=== PATIENT | male | born 1930 | race Caucasian/White ===

== ENCOUNTER 2016-07-26 16:03 | Emergency (ER) | payer MEDICARE ==
[~2016-07-26 16:03] MED LIST: /ADVA50050 IN; /ESOM40CA OR; ASPI325T OR; CARD4TAB2 OR; COMBVENT INH; FURO20TA2 OR; LISI10TA4 OR; LISI40TA OR; METF500T4 OR; PRED10TA2 OR; PRED20TA OR; PRED5TAB OR; PROS5TAB OR; ZOCO10TA OR
--- NOTE | 2016-07-26 18:20 | REP ---
Portable chest, single AP view, the patient semi upright: Comparison is 04/25/2010. The right costophrenic angle is excluded at the film margin. The lung barnett are clear. Cardiac size is normal. The rosa maria, mediastinum, bony thorax are unremarkable. Impression: No acute cardiopulmonary findings. Signed by Keny Diaz MD 07/26/2016 06:11 P
[2016-07-26 18:43] LABS: BASO % 0.2 % (0.0-1.0); EOS # 0.2 K/mm3 (0.0-0.50); EOS % 2.5 % (0.0-3.0); LARGE UNSTAINED CELL # 0.1 K/mm3 (0.0-0.4); LARGE UNSTAINED CELL % 1.3 % (0.0-4.0); LYMPH # 1.1 K/mm3 (1.5-4.5); LYMPH % 11.8 % (24.0-44.0); MEAN CORPUSCULAR HEMOGLOBIN 28.7 pg (27.0-33.0); MEAN CORPUSCULAR HGB CONC 32.6 g/dl (32.0-36.5); MEAN CORPUSCULAR VOLUME 88.1 fl (80.0-96.0); MONO # 0.5 K/mm3 (0.0-0.8); NEUTROPHILS # 7.7 K/mm3 (1.8-7.7); NEUTROPHILS % 79.2 % (36.0-66.0); PLATELET COUNT, AUTOMATED 294 k/mm3 (150-450); RED CELL DISTRIBUTION WIDTH 14.1 % (11.5-14.5); WHITE BLOOD COUNT 9.7 K/mm3 (4.0-10.0)
[2016-07-26 19:01] LABS: ANION GAP 10 MEQ/L (8-16); BLOOD UREA NITROGEN 20 MG/DL (7-18); CALCIUM LEVEL 8.7 MG/DL (8.8-10.2); CARBON DIOXIDE LEVEL 26 MEQ/L (21-32); CHLORIDE LEVEL 109 MEQ/L (98-107); CREATININE FOR GFR 1.08 MG/DL (0.70-1.30); GLOMERULAR FILTRATION RATE > 60.0 (>35); GLUCOSE, FASTING 153 MG/DL (83-110); POTASSIUM SERUM 4.1 MEQ/L (3.5-5.1); SODIUM LEVEL 145 MEQ/L (136-145)
--- NOTE | 2016-07-26 20:00 | REPUSA ---
CLINICAL HISTORY: Dizzy TECHNIQUE: Multiple axial CT images were obtained through the brain without IV contrast material. COMMENTS: There is normal configuration of sella turcica. There are no intra or extra-axial collections. There is no mass effect or midline shift. There is no evidence of hematoma formation. No hydrocephalus is p resent. The ventricles are symmetrical. No abnormal calcifications are present. There is diffuse age-appropriate cerebellar and cerebral atrophy with proportionally dilated ventricl es and cortical sulci. There are bilateral periventricular and subcortical white matter hypolucencies compatible with mild c hronic microvascular disease. Otherwise, no significant focal abnormalities are seen either in the posterior fossa or supratentoria l compartment. IMPRESSION: 1. 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 2. Mild chronic microvascular disease. 3. No evidence of acute intracranial pathology. Thank you for your kind referral of this patient.
[2016-07-26] MEDS ORDERED: MECLIZINE 12.5 MG TAB As Ordered ONE (21:39)
[2016-07-26] MEDS ORDERED: ONDANSETRON 4 MG TAB (S0181) As Ordered ONE (21:39)
--- NOTE | 2016-07-26 22:02 | EDDOCDS ---
Physician Documentation [facility] Name: Dereje Bennett Age: 86 yrs Sex: Male : 1930 Arrival Date: 07/26/2016 Time: 16:03 Bed 12 Private MD: Mariah Chen V Disposition: 07/26/16 21:38 Discharged to Home/Self Care. Impression: Dizziness and giddiness, Weakness. - Condition is Stable. - Discharge Instructions: Dizziness, Weakness. - Prescriptions for Meclizine 25 mg Oral Tablet - take 1 tablet by ORAL route every 8 hours As needed; 15 tablet. - Medication Reconciliation, Local Pharmacy Hours form. - Follow up: Mariah Chen; When: Call to arrange an appointment; Reason: Continuance of care. - Problem is new. - Symptoms have improved. Historical: - Allergies: No known drug Allergies; - Home Meds: 1. atorvastatin 20 mg oral tab 1 tab once daily 2. lisinopril 40 mg Oral tab 1 tab once daily 3. finasteride 5 mg oral tab 1 tab once daily 4. aspirin 81 mg Oral tab 1 tab once daily 5. amlodipine 5 mg Oral tab 1 tab once daily 6. metformin 500 mg Oral tab three times a day 7. clopidogrel 75 mg oral tab 1 tab once daily - PMHx: CVA; Hypertension; Hypercholesterolemia; Diabetes - NIDDM: controlled; Kidney stones; - PSHx: Appendectomy; Cholecystectomy; Cataract Surgery- Right; - Social history: Smoking status: Patient states former smoker of tobacco. No barriers to communication noted, The patient speaks fluent Nauruan, Speaks appropriately for age. - Family history: Not pertinent. - : The pt / caregiver states he / she is on anticoagulants: Plavix. Home medication list is obtained from the patient, family members, pill bottles. - Exposure Risk Screening:: None identified. Vital Signs: 07/26 16:05 BP 169 / 79 RA Sitting (auto/reg); Pulse 81 RA; Resp 18 S; Temp 97.0(O); Pulse Ox 94% mt4 on R/A; Weight 99.34 kg / 219.01 lbs (R); Height 5 ft. 10 in. (177.80 cm) (R); Pain 0/10; 18:29 BP 174 / 83 (auto/); bcj 18:29 Pulse 80 MON; Pulse Ox 95% ; bcj 18:34 Pulse 82 MON; Pulse Ox 95% ; bcj 18:34 BP 159 / 81 (auto/); bcj 18:35 BP 161 / 93 (auto/); bcj 18:35 Pulse 82 MON; Pulse Ox 94% ; bcj 19:22 BP 194 / 93 (auto/); mlc 19:22 Pulse Ox 96% ; mlc 19:25 BP 167 / 100 (auto/); mlc 19:25 Pulse 80 MON; Pulse Ox 95% ; mlc 19:54 Pulse 84 MON; Pulse Ox 94% ; mlc 20:34 BP 134 / 90 (auto/); mlc 21:04 Pulse 84 MON; Pulse Ox 93% ; mlc 21:04 BP 143 / 89 (auto/); mlc 21:34 Pulse 82 MON; Pulse Ox 94% ; mlc 21:34 BP 160 / 84 (auto/); mlc 22:00 BP 133 / 77; Pulse 79; Resp 18; Temp 98.3; Pulse Ox 93% ; Pain 0/10; mlc 16:05 Body Mass Index 31.42 (99.34 kg, 177.80 cm) mt4 MDM: 16:14 ECG WITH READING ER PHYS+CARDIAG ordered. EDMS 17:24 Metal Drawer/Pulse Ox/q 15 min VS ordered. fg 17:24 Accucheck ordered. fg 17:24 IV Saline Lock ordered. fg 17:24 Orthostatic VS ordered. fg 17:24 Rhythm Strip to chart ordered. fg 17:25 Basic Metabolic Profile Ordered. EDMS 17:25 CBC with Diff Ordered. EDMS 17:25 Urinalysis Ordered. EDMS 17:25 Urine Culture Ordered. EDMS 17:25 Chest, 1 View Ordered. EDMS 18:41 CT Head Without Contrast Ordered. EDMS 19:45 Fingerstick Blood Sugar Ordered. EDMS 20:37 Financial registration complete. [email or web address] 20:37 [facility] Payment Agreement was scanned into [employer] and attached to record. [email or web address] 21:36 Ondansetron 4 mg PO once ordered. fg 21:36 Meclizine 25 mg PO once ordered. fg Point of Care Testing: Blood Glucose: 16:19 Blood Glucose: 274 mg/dL; kr3 Ranges: Administered Medications: 21:59 Drug: Ondansetron 4 mg [ondansetron HCl 4 mg tablet (1 tabs)] Route: PO; [facility] 21:59 Follow up: Response: Pt left department before re-evaluation is appropriate [facility] 21:59 Drug: Meclizine 25 mg [meclizine 12.5 mg tablet (2 tabs)] Route: PO; [facility] [place] 21:59 Follow up: Response: Pt left department before re-evaluation is appropriate [facility] Signatures: Dispatcher [employer] EDEd Peres RN RN bcj Robie, Kathleen, RN RN 3 Joaquina August RN RN mlc Gill, Frances, MD MD Loreta aCicedo, Reg Reg [email or web address] The chart was reviewed and I authenticate all verbal orders and agree with the evaluation and treatment provided.Attachments: 20:37 [facility] Payment Agreement [email or web address] MTDD
--- NOTE | 2016-07-26 22:03 | EDDOCDS ---
Nurse's Notes [facility] Name: Dereje Bennett Age: 86 yrs Sex: Male : 1930 Arrival Date: 07/26/2016 Time: 16:03 Bed 12 Private MD: Mariah Chen V Diagnosis: Dizziness and giddiness;Weakness Presentation: 07/26 16:10 Presenting complaint: Patient states: dizziness on and off for long time, worse today. kr3 son reports fell today and had to have assistance getting up. Denies pain. Describes dizziness as 'funny feeling'. reports has spoken with PCP regarding dizziness and meds he is taking and PCP told patient the meds were what was keeping him alive. Adult Sepsis Screening: The patient does not have new or worsening altered mentation. Patient's respiratory rate is less than 22. Systolic blood pressure is greater than 100. Patient has a qSOFA score of 0- Negative Sepsis Screen. Suicide/Homicide risk assessment- the patient denies having any suicidal and/or homicidal ideations and does not present with any other emotional, behavioral or mental health complaints. 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 Transition of care: patient was not received from another setting of care. 16:10 Method Of Arrival: Wheelchair kr3 16:10 Acuity: SANJEEV Level 3 kr3 Triage Assessment: 16:15 General: Appears in no apparent distress, comfortable, Behavior is cooperative. Pain: kr3 Denies pain. Neurological: Level of Consciousness is awake, alert, Reports dizziness with position changes. Respiratory: Respiratory effort is even, unlabored. GI: Denies nausea, vomiting. Derm: Skin is normal. Historical: - Allergies: No known drug Allergies; - Home Meds: 1. atorvastatin 20 mg oral tab 1 tab once daily 2. lisinopril 40 mg Oral tab 1 tab once daily 3. finasteride 5 mg oral tab 1 tab once daily 4. aspirin 81 mg Oral tab 1 tab once daily 5. amlodipine 5 mg Oral tab 1 tab once daily 6. metformin 500 mg Oral tab three times a day 7. clopidogrel 75 mg oral tab 1 tab once daily - PMHx: CVA; Hypertension; Hypercholesterolemia; Diabetes - NIDDM: controlled; Kidney stones; - PSHx: Appendectomy; Cholecystectomy; Cataract Surgery- Right; - Social history: Smoking status: Patient states former smoker of tobacco. No barriers to communication noted, The patient speaks fluent Italian, Speaks appropriately for age. - Family history: Not pertinent. - : The pt / caregiver states he / she is on anticoagulants: Plavix. Home medication list is obtained from the patient, family members, pill bottles. - Exposure Risk Screening:: None identified. Screenin:37 Screening information is obtained from the patient. Fall risk: At risk due to prior [facility] history of falls, The following interventions are performed due to a positive Fall Risk Screen: Fall Risk is added to Special Handling on the patient Summary Screen. A Fall Risk Bracelet was applied to the patient. Side Rails are placed in the up position. A Call Sinclair is given with instruction to call for help when getting out of bed. Fall Alert bracelet is placed on the patient. Assistance ADL's: requires no assistance with activities of daily living. Abuse/DV Screen: The patient / caregiver reports he/she is: not in a situation that causes fear, pain or injury. Nutritional screening: No deficits noted. home support is adequate. 19:26 Advance Directives: Currently, there is a health care proxy, Laura Bennett, . mlc There is no active DNR order. There is an active Power of Fashion Photographer, Laura Bennett, . Assessment: 18:37 General: Appears in no apparent distress, comfortable, Behavior is cooperative. Pain: bcj Denies pain. Neurological: Level of Consciousness is awake, alert. Cardiovascular: Rhythm is sinus rhythm. Respiratory: Airway is patent Respiratory effort is even, unlabored. Derm: Skin is pink, warm & dry. 19:26 General: Appears in no apparent distress, comfortable, Behavior is appropriate for age, mlc cooperative. General: pt denies dizziness while resting on stretcher. . Pain: Denies pain. Neurological: Level of Consciousness is awake, alert, Oriented to person, place, time. Cardiovascular: Heart tones S1 S2 present Rhythm is regular. Respiratory: Airway is patent Respiratory effort is even, unlabored, Respiratory pattern is regular, Breath sounds are clear bilaterally. Derm: Skin is pink, warm & dry. 20:36 Reassessment: Patient appears in no apparent distress at this time. Patient denies pain mlc at this time. no changes since prior. pt offers no complaints. . 21:59 General: Appears in no apparent distress, comfortable, Behavior is cooperative. Pain: mlc Denies pain. Neurological: Level of Consciousness is awake, alert, Oriented to person, place, time. Respiratory: Airway is patent Respiratory effort is even, unlabored, Respiratory pattern is regular. Vital Signs: 16:05 BP 169 / 79 RA Sitting (auto/reg); Pulse 81 RA; Resp 18 S; Temp 97.0(O); Pulse Ox 94% mt4 on R/A; Weight 99.34 kg (R); Height 5 ft. 10 in. (177.80 cm) (R); Pain 0/10; 18:29 BP 174 / 83 (auto/); bcj 18:29 Pulse 80 MON; Pulse Ox 95% ; bcj 18:34 Pulse 82 MON; Pulse Ox 95% ; bcj 18:34 BP 159 / 81 (auto/); bcj 18:35 BP 161 / 93 (auto/); bcj 18:35 Pulse 82 MON; Pulse Ox 94% ; bcj 19:22 BP 194 / 93 (auto/); mlc 19:22 Pulse Ox 96% ; mlc 19:25 BP 167 / 100 (auto/); mlc 19:25 Pulse 80 MON; Pulse Ox 95% ; mlc 19:54 Pulse 84 MON; Pulse Ox 94% ; mlc 20:34 BP 134 / 90 (auto/); mlc 21:04 Pulse 84 MON; Pulse Ox 93% ; mlc 21:04 BP 143 / 89 (auto/); mlc 21:34 Pulse 82 MON; Pulse Ox 94% ; mlc 21:34 BP 160 / 84 (auto/); mlc 22:00 BP 133 / 77; Pulse 79; Resp 18; Temp 98.3; Pulse Ox 93% ; Pain 0/10; mlc 16:05 Body Mass Index 31.42 (99.34 kg, 177.80 cm) mt4 Vitals: 16:05 Log In Time: July 26, 2016 at 16:03. RN notified that patient meets Red Flag mt4 criteria. ED Course: 16:04 Patient visited by Nuria Harper. mt4 16:04 Patient moved to Waiting mt4 16:05 Mariah Chen is Private Physician. mt4 16:11 Triage Initiated kr3 16:26 Patient moved to Pre RCE kr3 16:27 Patient moved to I7 / 29 kr3 16:40 Patient visited by Nurys Lopez. sew 16:40 EKG done. Reviewed by Aramis Ny MD. sew 16:43 Patient visited by Nurys Lopez. sew 17:16 Patient moved to 12 kr3 17:25 Josy Nicole MD is Attending Physician. fg 17:56 Patient visited by Josy Nicole MD. fg 18:33 Chest, 1 View Returned. EDMS 18:37 No apparent distress. Resting quietly. awaiting re-evaluation by ER physician. bcj 18:37 The patient / caregiver is instructed regarding the plan of care and ED course. Patient bcj has correct armband on for positive identification. Placed in gown. Bed in low position. Adult w/ patient. service director on. Pulse ox on. NIBP on. 18:37 Inserted saline lock: 20 gauge in right hand. Labs drawn. (by ED staff). Sent per order bcj to lab. 18:39 Patient visited by Ed Adkins RN. bcj 19:16 Joaquina August,RN is Primary Nurse. mlc 19:29 Patient visited by Joaquina August RN. mlc 19:56 Urinalysis Sent. mlc 19:56 Urine Culture Sent. mlc 20:16 CT Head Without Contrast Returned. EDMS 20:31 Patient name changed from Dereje\S\\S\Panunzio\S\ to Dereje\S\ \S\Panunzio. EDMS 20:37 Patient visited by Joaquina August,DEN. mlc 20:37 [facility] Payment Agreement was scanned into [employer] and attached to record. [email or web address] 21:37 Patient visited by Josy Nicole MD. fg 21:37 Mariah Chen is Referral Physician. fg 22:00 Discontinued IV lock intact, bleeding controlled, pressure dressing applied, No mlc redness/swelling at site. No procedures done that require assistance. Administered Medications: 21:59 Drug: Ondansetron 4 mg [ondansetron HCl 4 mg tablet (1 tabs)] Route: PO; mlc 21:59 Follow up: Response: Pt left department before re-evaluation is appropriate mlc 21:59 Drug: Meclizine 25 mg [meclizine 12.5 mg tablet (2 tabs)] Route: PO; mlc 21:59 Follow up: Response: Pt left department before re-evaluation is appropriate mlc Point of Care Testing: Blood Glucose: 16:19 Blood Glucose: 274 mg/dL; kr3 Ranges: Order Results: Lab Order: Fingerstick Blood Sugar; SPEC'M 07/26/16 16:19 Test: BEDSIDE GLUCOSE; Value: 274; Range: 83-110; Abnormal: Above high normal; Units: MG/DL; Status: F Test Note: ; Doctor Notified Lab Order: Basic Metabolic Profile; SPEC'M 07/26/16 18:31 Test: GLUCOSE, FASTING; Value: 153; Range: 83-110; Abnormal: Above high normal; Units: MG/DL; Status: F Test: BLOOD UREA NITROGEN; Value: 20; Range: 7-18; Abnormal: Above high normal; Units: MG/DL; Status: F Test: CREATININE FOR GFR; Value: 1.08; Range: 0.70-1.30; Units: MG/DL; Status: F Test: GLOMERULAR FILTRATION RATE; Value: > 60.0; Range: >35; Status: F Test: SODIUM LEVEL; Value: 145; Range: 136-145; Units: MEQ/L; Status: F Test: POTASSIUM SERUM; Value: 4.1; Range: 3.5-5.1; Units: MEQ/L; Status: F Test: CHLORIDE LEVEL; Value: 109; Range: 98-107; Abnormal: Above high normal; Units: MEQ/L; Status: F Test: CARBON DIOXIDE LEVEL; Value: 26; Range: 21-32; Units: MEQ/L; Status: F Test: ANION GAP; Value: 10; Range: 8-16; Units: MEQ/L; Status: F Test: CALCIUM LEVEL; Value: 8.7; Range: 8.8-10.2; Abnormal: Below low normal; Units: MG/DL; Status: F Test Note: ; Units are mL/min/1.73 m2 Chronic Kidney Disease Staging per NKF: Stage I & II GFR >=60 Normal to Mildly Decreased Stage III GFR 30-59 Moderately Decreased Stage IV GFR 15-29 Severely Decreased Stage V GFR <15 Very Little GFR Left ESRD GFR <15 on INSTRUMENT STERILIZER Lab Order: CBC with Diff; SPEC'M 07/26/16 18:31 Test: WHITE BLOOD COUNT; Value: 9.7; Range: 4.0-10.0; Units: K/mm3; Status: F Test: RED BLOOD COUNT; Value: 4.73; Range: 4.30-6.10; Units: M/mm3; Status: F Test: HEMOGLOBIN; Value: 13.6; Range: 14.0-18.0; Abnormal: Below low normal; Units: g/dl; Status: F Test: HEMATOCRIT; Value: 41.7; Range: 42.0-52.0; Abnormal: Below low normal; Units: %; Status: F Test: MEAN CORPUSCULAR VOLUME; Value: 88.1; Range: 80.0-96.0; Units: fl; Status: F Test: MEAN CORPUSCULAR HEMOGLOBIN; Value: 28.7; Range: 27.0-33.0; Units: pg; Status: F Test: MEAN CORPUSCULAR HGB CONC; Value: 32.6; Range: 32.0-36.5; Units: g/dl; Status: F Test: RED CELL DISTRIBUTION WIDTH; Value: 14.1; Range: 11.5-14.5; Units: %; Status: F Test: PLATELET COUNT, AUTOMATED; Value: 294; Range: 150-450; Units: k/mm3; Status: F Test: NEUTROPHILS %; Value: 79.2; Range: 36.0-66.0; Abnormal: Above high normal; Units: %; Status: F Test: LYMPH %; Value: 11.8; Range: 24.0-44.0; Abnormal: Below low normal; Units: %; Status: F Test: MONO %; Value: 5.0; Range: 0.0-5.0; Units: %; Status: F Test: EOS %; Value: 2.5; Range: 0.0-3.0; Units: %; Status: F Test: BASO %; Value: 0.2; Range: 0.0-1.0; Units: %; Status: F Test: LARGE UNSTAINED CELL %; Value: 1.3; Range: 0.0-4.0; Units: %; Status: F Test: NEUTROPHILS #; Value: 7.7; Range: 1.8-7.7; Units: K/mm3; Status: F Test: LYMPH #; Value: 1.1; Range: 1.5-4.5; Abnormal: Below low normal; Units: K/mm3; Status: F Test: MONO #; Value: 0.5; Range: 0.0-0.8; Units: K/mm3; Status: F Test: EOS #; Value: 0.2; Range: 0.0-0.50; Units: K/mm3; Status: F Test: BASO #; Value: 0.0; Range: 0.0-0.2; Units: K/mm3; Status: F Test: LARGE UNSTAINED CELL #; Value: 0.1; Range: 0.0-0.4; Units: K/mm3; Status: F Lab Order: Urinalysis; SPEC'M 07/26/16 19:48 Test: APPEARANCE, URINE; Value: CLEAR; Range: CLEAR; Status: F Test: COLOR, URINE; Value: YELLOW; Range: YELLOW; Status: F Test: PH,URINE; Value: 5.0; Range: 5.0-9.0; Units: UNITS; Status: F Test: SPECIFIC GRAVITY URINE AUTO; Value: 1.025; Range: 1.002-1.035; Status: F Test: PROTEIN, URINE AUTO; Value: 1+; Range: NEGATIVE; Abnormal: Above high normal; Units: mg/dL; Status: F Test: GLUCOSE, URINE (UA) AUTO; Value: 2+; Range: NEGATIVE; Abnormal: Above high normal; Units: mg/dL; Status: F Test: KETONE, URINE AUTO; Value: NEGATIVE; Range: NEGATIVE; Units: mg/dL; Status: F Test: UROBILINOGEN, URINE AUTO; Value: 0.2; Range: 0.0-2.0; Units: mg/dL; Status: F Test: BILIRUBIN, URINE AUTO; Value: NEGATIVE; Range: NEGATIVE; Status: F Test: NITRITE, URINE AUTO; Value: NEGATIVE; Range: NEGATIVE; Status: F Test: LEUKOCYTE ESTERASE, URINE AUTO; Value: NEGATIVE; Range: NEGATIVE; Status: F Test: BLOOD, URINE BLOOD; Value: NEGATIVE; Range: NEGATIVE; Status: F Test: WBC, URINE AUTO; Value: 1; Range: 0-3; Units: /HPF; Status: F Test: RBC, URINE AUTO; Value: 4; Range: 0-3; Abnormal: Above high normal; Units: /HPF; Status: F Test: BACTERIA, URINE AUTO; Value: NEGATIVE; Range: NEGATIVE; Status: F Test: SQUAMOUS EPITHELIAL CELL UR AU; Value: 0; Range: 0-6; Units: /HPF; Status: F Test: MUCUS, URINE; Value: SMALL; Range: NEGATIVE; Status: F Test: HYALINE CAST, URINE AUTO; Value: 0; Range: 0-1; Units: /LPF; Status: F Lab Order: Fingerstick Blood Sugar; SPEC'M 07/26/16 18:33 Test: BEDSIDE GLUCOSE; Value: 151; Range: 83-110; Abnormal: Above high normal; Units: MG/DL; Status: F Radiology Order: Chest, 1 View Test: Chest, 1 View REASON FOR EXAMINATION: Chest Pain; Portable chest, single AP view, the patient semi upright:; ; Comparison is 04/25/2010.; ; The right costophrenic angle is excluded at the film margin.; ; The lung barnett are clear. Cardiac size is normal. The rosa maria, mediastinum, bony; thorax are unremarkable.; ; Impression:; ; No acute cardiopulmonary findings.; ; ; Signed by; Keny Diaz MD 07/26/2016 06:11 P; Radiology Order: CT Head Without Contrast Test: CT Head Without Contrast REASON FOR EXAMINATION: dizziness, weakness, fall; ; CLINICAL HISTORY: Dizzy; TECHNIQUE: Multiple axial CT images were obtained through the brain without IV contrast material.; COMMENTS:; There is normal configuration of sella turcica. There are no intra or extra-axial collections. There; is no mass effect or midline shift. There is no evidence of hematoma formation. No hydrocephalus is p; resent. The ventricles are symmetrical. No abnormal calcifications are present.; There is diffuse age-appropriate cerebellar and cerebral atrophy with proportionally dilated ventricl; es and cortical sulci.; There are bilateral periventricular and subcortical white matter hypolucencies compatible with mild c; hronic microvascular disease.; Otherwise, no significant focal abnormalities are seen either in the posterior fossa or supratentoria; l compartment.; IMPRESSION:; 1. 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 Mild chronic microvascular disease.; 3. No evidence of acute intracranial pathology.; Thank you for your kind referral of this patient.; ; ; Outcome: 19:29 CT Study completed. mlc 21:38 Discharge ordered by Provider. fg 22:00 Discharge Assessment: Patient awake, alert and oriented x 3. No cognitive and/or mlc functional deficits noted. Patient verbalized understanding of disposition instructions. patient administered narcotics - no. The following High Risk Discharge criteria are identified: None. Discharged to home via wheelchair, with family. Condition: good Condition: stable. Discharge instructions given to patient, family, Instructed on discharge instructions, follow up and referral plans. medication usage, Demonstrated understanding of instructions, medications, Pt was receptive of discharge instructions/ teaching. Prescriptions given X 1. Property sent home with patient. 22:01 Patient left the ED. [facility] Signatures: Dispatcher [employer] EDMS Ed Adkins RN RN Lorie Fallon RN RN kr3 Nuria Harper mt4 Nurys Lopez Mandy, RN RN [facility] Josy Nicole MD MD Loreta Caicedo, Reg Reg [email or web address] Corrections: (The following items were deleted from the chart) 16:17 16:10 Presenting complaint: Patient states: dizziness on and off for long time, worse kr3 today. son reports fell today and had to have assistance getting up. Denies pain. Describes dizziness as 'funny feeling'. kr3 16:43 16:40 EKG done. (by ED staff). hoda drummond MTDD
--- NOTE | 2016-07-27 13:08 | ECGEPIP ---
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
[2016-07-27] MEDS ORDERED: FINA5TAB2 PO (15:09)
[2016-07-27] MEDS ORDERED: CLOP75TA2 PO (15:09)
[2016-07-27] MEDS ORDERED: SYMB16INH INH (15:09)
[2016-07-27] MEDS ORDERED: AMLO5TAB2 PO (15:09)
[2016-07-27] MEDS ORDERED: PROA1AER INH (15:09)
[2016-07-27] MEDS ORDERED: ASPI1TAB PO (15:09)
[2016-07-27] MEDS ORDERED: LISI40TAB PO (15:09)
[2016-07-27] MEDS ORDERED: ATOR1TAB21 PO (15:09)
[2016-07-27] MEDS ORDERED: METF500T PO (15:09)
[2016-07-28] MEDS ORDERED: HumaLOG INSULIN (NovoLOG) PER UNIT As Ordered ONE ×2 (08:05→13:08)
--- NOTE | 2016-07-28 23:01 | EDDOCDS ---
Nurse's Notes [facility] Name: Dereje Welch Age: 86 yrs Sex: Male : 1930 Arrival Date: 07/26/2016 Time: 16:03 Bed 12 Private MD: Mariah Chen V Diagnosis: Dizziness and giddiness;Weakness Presentation: 07/26 16:10 Presenting complaint: Patient states: dizziness on and off for long time, worse today. kr3 son reports fell today and had to have assistance getting up. Denies pain. Describes dizziness as 'funny feeling'. reports has spoken with PCP regarding dizziness and meds he is taking and PCP told patient the meds were what was keeping him alive. Adult Sepsis Screening: The patient does not have new or worsening altered mentation. Patient's respiratory rate is less than 22. Systolic blood pressure is greater than 100. Patient has a qSOFA score of 0- Negative Sepsis Screen. Suicide/Homicide risk assessment- the patient denies having any suicidal and/or homicidal ideations and does not present with any other emotional, behavioral or mental health complaints. 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 Transition of care: patient was not received from another setting of care. 16:10 Method Of Arrival: Wheelchair kr3 16:10 Acuity: SANJEEV Level 3 kr3 Triage Assessment: 16:15 General: Appears in no apparent distress, comfortable, Behavior is cooperative. Pain: kr3 Denies pain. Neurological: Level of Consciousness is awake, alert, Reports dizziness with position changes. Respiratory: Respiratory effort is even, unlabored. GI: Denies nausea, vomiting. Derm: Skin is normal. Historical: - Allergies: No known drug Allergies; - Home Meds: 1. atorvastatin 20 mg oral tab 1 tab once daily 2. lisinopril 40 mg Oral tab 1 tab once daily 3. finasteride 5 mg oral tab 1 tab once daily 4. aspirin 81 mg Oral tab 1 tab once daily 5. amlodipine 5 mg Oral tab 1 tab once daily 6. metformin 500 mg Oral tab three times a day 7. clopidogrel 75 mg oral tab 1 tab once daily - PMHx: CVA; Hypertension; Hypercholesterolemia; Diabetes - NIDDM: controlled; Kidney stones; - PSHx: Appendectomy; Cholecystectomy; Cataract Surgery- Right; - Social history: Smoking status: Patient states former smoker of tobacco. No barriers to communication noted, The patient speaks fluent Albanian, Speaks appropriately for age. - Family history: Not pertinent. - : The pt / caregiver states he / she is on anticoagulants: Plavix. Home medication list is obtained from the patient, family members, pill bottles. - Exposure Risk Screening:: None identified. Screenin:37 Screening information is obtained from the patient. Fall risk: At risk due to [facility] of falls, The following interventions are performed due to a positive Fall Risk Screen: Fall Risk is added to Special Handling on the patient Summary Screen. A Fall Risk Bracelet was applied to the patient. Side Rails are placed in the up position. A Call Sinclair is given with instruction to call for help when getting out of bed. Fall Alert bracelet is placed on the patient. Assistance ADL's: requires no assistance with activities of daily living. Abuse/DV Screen: The patient / caregiver reports he/she is: not in a situation that causes fear, pain or injury. Nutritional screening: No deficits noted. home support is adequate. 19:26 Advance Directives: Currently, there is a health care proxy, Laura Welch, . mlc There is no active DNR order. There is an active Power of Chemic Mangler, Laura Welch, . Assessment: 18:37 General: Appears in no apparent distress, comfortable, Behavior is cooperative. Pain: bcj Denies pain. Neurological: Level of Consciousness is awake, alert. Cardiovascular: Rhythm is sinus rhythm. Respiratory: Airway is patent Respiratory effort is even, unlabored. Derm: Skin is pink, warm & dry. 19:26 General: Appears in no apparent distress, comfortable, Behavior is appropriate for age, mlc cooperative. General: pt denies dizziness while resting on stretcher. . Pain: Denies pain. Neurological: Level of Consciousness is awake, alert, Oriented to person, place, time. Cardiovascular: Heart tones S1 S2 present Rhythm is regular. Respiratory: Airway is patent Respiratory effort is even, unlabored, Respiratory pattern is regular, Breath sounds are clear bilaterally. Derm: Skin is pink, warm & dry. 20:36 Reassessment: Patient appears in no apparent distress at this time. Patient denies pain mlc at this time. no changes since prior. pt offers no complaints. . 21:59 General: Appears in no apparent distress, comfortable, Behavior is cooperative. Pain: mlc Denies pain. Neurological: Level of Consciousness is awake, alert, Oriented to person, place, time. Respiratory: Airway is patent Respiratory effort is even, unlabored, Respiratory pattern is regular. Vital Signs: 16:05 BP 169 / 79 RA Sitting (auto/reg); Pulse 81 RA; Resp 18 S; Temp 97.0(O); Pulse Ox 94% mt4 on R/A; Weight 99.34 kg (R); Height 5 ft. 10 in. (177.80 cm) (R); Pain 0/10; 18:29 BP 174 / 83 (auto/); bcj 18:29 Pulse 80 MON; Pulse Ox 95% ; bcj 18:34 Pulse 82 MON; Pulse Ox 95% ; bcj 18:34 BP 159 / 81 (auto/); bcj 18:35 BP 161 / 93 (auto/); bcj 18:35 Pulse 82 MON; Pulse Ox 94% ; bcj 19:22 BP 194 / 93 (auto/); mlc 19:22 Pulse Ox 96% ; mlc 19:25 BP 167 / 100 (auto/); mlc 19:25 Pulse 80 MON; Pulse Ox 95% ; mlc 19:54 Pulse 84 MON; Pulse Ox 94% ; mlc 20:34 BP 134 / 90 (auto/); mlc 21:04 Pulse 84 MON; Pulse Ox 93% ; mlc 21:04 BP 143 / 89 (auto/); mlc 21:34 Pulse 82 MON; Pulse Ox 94% ; mlc 21:34 BP 160 / 84 (auto/); mlc 22:00 BP 133 / 77; Pulse 79; Resp 18; Temp 98.3; Pulse Ox 93% ; Pain 0/10; mlc 16:05 Body Mass Index 31.42 (99.34 kg, 177.80 cm) mt4 Vitals: 16:05 Log In Time: July 26, 2016 at 16:03. RN notified that patient meets Red Flag mt4 criteria. ED Course: 16:04 Patient visited by Nuria Harper. mt4 16:04 Patient moved to Waiting mt4 16:05 Mariah Chen is Private Physician. mt4 16:11 Triage Initiated kr3 16:26 Patient moved to Pre RCE kr3 16:27 Patient moved to I7 / 29 kr3 16:40 Patient visited by Nurys Lopez. sew 16:40 EKG done. Reviewed by Byron Ny MD. sew 16:43 Patient visited by Nurys Lopez. sew 17:16 Patient moved to 12 kr3 17:25 Josy Nicole MD is Attending Physician. fg 17:56 Patient visited by Josy Nicole MD. fg 18:33 Chest, 1 View Returned. EDMS 18:37 No apparent distress. Resting quietly. awaiting re-evaluation by ER physician. bcj 18:37 The patient / caregiver is instructed regarding the plan of care and ED course. Patient bcj has correct armband on for positive identification. Placed in gown. Bed in low position. Adult w/ patient. personnel monitor on. Pulse ox on. NIBP on. 18:37 Inserted saline lock: 20 gauge in right hand. Labs drawn. (by ED staff). Sent per order bcj to lab. 18:39 Patient visited by Ed Adkins RN. bcj 19:16 Joaquina August,RN is Primary Nurse. mlc 19:29 Patient visited by Joaquina August RN. mlc 19:56 Urinalysis Sent. mlc 19:56 Urine Culture Sent. mlc 20:16 CT Head Without Contrast Returned. EDMS 20:31 Patient name changed from Dereje\S\\S\Panunzio\S\ to Dereje\S\ \S\Panunzio. EDMS 20:37 Patient visited by Joaquina August,DEN. mlc 20:37 [facility] [place] Agreement was scanned into [employer] and attached to record. ks16 21:37 Patient visited by Josy Nicole MD. fg 21:37 Mariah Chen is Referral Physician. fg 22:00 Discontinued IV lock intact, bleeding controlled, pressure dressing applied, No mlc redness/swelling at site. No procedures done that require assistance. 07/27 13:42 EKG-ADULT Returned. EDMS 17:04 ECG/EKG was scanned into [employer] and attached to record. kf3 17:04 Radiology Report was scanned into [employer] and attached to record. kf3 17:35 T-Sheet-- Draft Copy was scanned into [employer] and attached to record. klr Administered Medications: 07/26 21:59 Drug: Ondansetron 4 mg [ondansetron HCl 4 mg tablet (1 tabs)] Route: PO; [facility] 21:59 Follow up: Response: Pt left department before re-evaluation is appropriate [facility] 21:59 Drug: Meclizine 25 mg [meclizine 12.5 mg tablet (2 tabs)] Route: PO; [facility] 21:59 Follow up: Response: Pt left department before re-evaluation is appropriate [facility] [place] Point of Care Testing: Blood Glucose: 16:19 Blood Glucose: 274 mg/dL; kr3 Ranges: Order Results: Lab Order: Fingerstick Blood Sugar; SPEC'M 07/26/16 16:19 Test: BEDSIDE GLUCOSE; Value: 274; Range: 83-110; Abnormal: Above high normal; Units: MG/DL; Status: F Test Note: ; Doctor Notified Lab Order: Basic Metabolic Profile; SPEC'M 07/26/16 18:31 Test: GLUCOSE, FASTING; Value: 153; Range: 83-110; Abnormal: Above high normal; Units: MG/DL; Status: F Test: BLOOD UREA NITROGEN; Value: 20; Range: 7-18; Abnormal: Above high normal; Units: MG/DL; Status: F Test: CREATININE FOR GFR; Value: 1.08; Range: 0.70-1.30; Units: MG/DL; Status: F Test: GLOMERULAR FILTRATION RATE; Value: > 60.0; Range: >35; Status: F Test: SODIUM LEVEL; Value: 145; Range: 136-145; Units: MEQ/L; Status: F Test: POTASSIUM SERUM; Value: 4.1; Range: 3.5-5.1; Units: MEQ/L; Status: F Test: CHLORIDE LEVEL; Value: 109; Range: 98-107; Abnormal: Above high normal; Units: MEQ/L; Status: F Test: CARBON DIOXIDE LEVEL; Value: 26; Range: 21-32; Units: MEQ/L; Status: F Test: ANION GAP; Value: 10; Range: 8-16; Units: MEQ/L; Status: F Test: CALCIUM LEVEL; Value: 8.7; Range: 8.8-10.2; Abnormal: Below low normal; Units: MG/DL; Status: F Test Note: ; Units are mL/min/1.73 m2 Chronic Kidney Disease Staging per NKF: Stage I & II GFR >=60 Normal to Mildly Decreased Stage III GFR 30-59 Moderately Decreased Stage IV GFR 15-29 Severely Decreased Stage V GFR <15 Very Little GFR Left ESRD GFR <15 on MEDICAL APPOINTMENT CLERK Lab Order: CBC with Diff; SPEC'M 07/26/16 18:31 Test: WHITE BLOOD COUNT; Value: 9.7; Range: 4.0-10.0; Units: K/mm3; Status: F Test: RED BLOOD COUNT; Value: 4.73; Range: 4.30-6.10; Units: M/mm3; Status: F Test: HEMOGLOBIN; Value: 13.6; Range: 14.0-18.0; Abnormal: Below low normal; Units: g/dl; Status: F Test: HEMATOCRIT; Value: 41.7; Range: 42.0-52.0; Abnormal: Below low normal; Units: %; Status: F Test: MEAN CORPUSCULAR VOLUME; Value: 88.1; Range: 80.0-96.0; Units: fl; Status: F Test: MEAN CORPUSCULAR HEMOGLOBIN; Value: 28.7; Range: 27.0-33.0; Units: pg; Status: F Test: MEAN CORPUSCULAR HGB CONC; Value: 32.6; Range: 32.0-36.5; Units: g/dl; Status: F Test: RED CELL DISTRIBUTION WIDTH; Value: 14.1; Range: 11.5-14.5; Units: %; Status: F Test: PLATELET COUNT, AUTOMATED; Value: 294; Range: 150-450; Units: k/mm3; Status: F Test: NEUTROPHILS %; Value: 79.2; Range: 36.0-66.0; Abnormal: Above high normal; Units: %; Status: F Test: LYMPH %; Value: 11.8; Range: 24.0-44.0; Abnormal: Below low normal; Units: %; Status: F Test: MONO %; Value: 5.0; Range: 0.0-5.0; Units: %; Status: F Test: EOS %; Value: 2.5; Range: 0.0-3.0; Units: %; Status: F Test: BASO %; Value: 0.2; Range: 0.0-1.0; Units: %; Status: F Test: LARGE UNSTAINED CELL %; Value: 1.3; Range: 0.0-4.0; Units: %; Status: F Test: NEUTROPHILS #; Value: 7.7; Range: 1.8-7.7; Units: K/mm3; Status: F Test: LYMPH #; Value: 1.1; Range: 1.5-4.5; Abnormal: Below low normal; Units: K/mm3; Status: F Test: MONO #; Value: 0.5; Range: 0.0-0.8; Units: K/mm3; Status: F Test: EOS #; Value: 0.2; Range: 0.0-0.50; Units: K/mm3; Status: F Test: BASO #; Value: 0.0; Range: 0.0-0.2; Units: K/mm3; Status: F Test: LARGE UNSTAINED CELL #; Value: 0.1; Range: 0.0-0.4; Units: K/mm3; Status: F Lab Order: Urinalysis; SPEC'M 07/26/16 19:48 Test: APPEARANCE, URINE; Value: CLEAR; Range: CLEAR; Status: F Test: COLOR, URINE; Value: YELLOW; Range: YELLOW; Status: F Test: PH,URINE; Value: 5.0; Range: 5.0-9.0; Units: UNITS; Status: F Test: SPECIFIC GRAVITY URINE AUTO; Value: 1.025; Range: 1.002-1.035; Status: F Test: PROTEIN, URINE AUTO; Value: 1+; Range: NEGATIVE; Abnormal: Above high normal; Units: mg/dL; Status: F Test: GLUCOSE, URINE (UA) AUTO; Value: 2+; Range: NEGATIVE; Abnormal: Above high normal; Units: mg/dL; Status: F Test: KETONE, URINE AUTO; Value: NEGATIVE; Range: NEGATIVE; Units: mg/dL; Status: F Test: UROBILINOGEN, URINE AUTO; Value: 0.2; Range: 0.0-2.0; Units: mg/dL; Status: F Test: BILIRUBIN, URINE AUTO; Value: NEGATIVE; Range: NEGATIVE; Status: F Test: NITRITE, URINE AUTO; Value: NEGATIVE; Range: NEGATIVE; Status: F Test: LEUKOCYTE ESTERASE, URINE AUTO; Value: NEGATIVE; Range: NEGATIVE; Status: F Test: BLOOD, URINE BLOOD; Value: NEGATIVE; Range: NEGATIVE; Status: F Test: WBC, URINE AUTO; Value: 1; Range: 0-3; Units: /HPF; Status: F Test: RBC, URINE AUTO; Value: 4; Range: 0-3; Abnormal: Above high normal; Units: /HPF; Status: F Test: BACTERIA, URINE AUTO; Value: NEGATIVE; Range: NEGATIVE; Status: F Test: SQUAMOUS EPITHELIAL CELL UR AU; Value: 0; Range: 0-6; Units: /HPF; Status: F Test: MUCUS, URINE; Value: SMALL; Range: NEGATIVE; Status: F Test: HYALINE CAST, URINE AUTO; Value: 0; Range: 0-1; Units: /LPF; Status: F Lab Order: Urine Culture; SPEC'M 07/26/16 19:48 Test: URINE CULTURE; Value: URINE CULTURE RESULT NO GROWTH; Status: F Lab Order: Fingerstick Blood Sugar; SPEC'M 07/26/16 18:33 Test: BEDSIDE GLUCOSE; Value: 151; Range: 83-110; Abnormal: Above high normal; Units: MG/DL; Status: F Radiology Order: EKG-ADULT Test: EKG-ADULT REASON FOR EXAMINATION: dizziness; Stationary ECG Study; [facility] - ED; ; Test Date: 2016-07-26; Pat Name: DEREJE WELCH Department:; Room: -; Gender: M 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; : 1930 Requested By: BYRON Pagan; Order Number: [id number] Reading MD: Nurys Patel; Measurements; Intervals [place]; Rate: 89 P:; OR: 0 QRS: -28; QRSD: 91 T: 105; QT: 342; QTc: 416; Interpretive Statements; SUPRAVENTRICULAR RHYTHM; SEPTAL MYOCARDIAL INFARCTION, PROBABLY OLD; NSTTW ABNORMALITY; NO PRIOR FOR COMPARISON; Electronically Signed On 07-27-2016 13:08:06 EST by Nurys Patel; Radiology Order: Chest, 1 View Test: Chest, 1 View REASON FOR EXAMINATION: Chest Pain; Portable chest, single AP view, the patient semi upright:; ; Comparison is 04/25/2010.; ; The right costophrenic angle is excluded at the film margin.; ; The lung barnett are clear. Cardiac size is normal. The rosa maria, mediastinum, bony; thorax are unremarkable.; ; Impression:; ; No acute cardiopulmonary findings.; ; ; Signed by; Keny Diaz MD 07/26/2016 06:11 P; Radiology Order: CT Head Without Contrast Test: CT Head Without Contrast REASON FOR EXAMINATION: dizziness, weakness, fall; ; CLINICAL HISTORY: Dizzy; TECHNIQUE: Multiple axial CT images were obtained through the brain without IV contrast material.; COMMENTS:; There is normal configuration of sella turcica. There are no intra or extra-axial collections. There; is no mass effect or midline shift. There is no evidence of hematoma formation. No hydrocephalus is p; resent. The ventricles are symmetrical. No abnormal calcifications are present.; There is diffuse age-appropriate cerebellar and cerebral atrophy with proportionally dilated ventricl; es and cortical sulci.; There are bilateral periventricular and subcortical white matter hypolucencies compatible with mild c; hronic microvascular disease.; Otherwise, no significant focal abnormalities are seen either in the posterior fossa or supratentoria; l compartment.; IMPRESSION:; 1. 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 Mild chronic microvascular disease.; 3. No evidence of acute intracranial pathology.; Thank you for your kind referral of this patient.; ; ; Outcome: 19:29 CT Study completed. mlc 21:38 Discharge ordered by Provider. fg 22:00 Discharge Assessment: Patient awake, alert and oriented x 3. No cognitive and/or mlc functional deficits noted. Patient verbalized understanding of disposition instructions. patient administered narcotics - no. The following High Risk Discharge criteria are identified: None. Discharged to home via wheelchair, with family. Condition: good Condition: stable. Discharge instructions given to patient, family, Instructed on discharge instructions, follow up and referral plans. medication usage, Demonstrated understanding of instructions, medications, Pt was receptive of discharge instructions/ teaching. Prescriptions given X 1. Property sent home with patient. 22:01 Patient left the ED. [facility] Signatures: Dispatcher [employer] EDMS Ed Adkins RN RN bcj Robie, Kathleen, RN RN kr3 Juan Bañuelos, Reg Reg kf3 Nuria Harper mt4 Nurys Lopez Mandy, RN RN mlc Josy Nicole MD MD fg Loreta Caicedo, Reg Reg ks16 Grisel Munoz Corrections: (The following items were deleted from the chart) 16:17 16:10 Presenting complaint: Patient states: dizziness on and off for long time, worse kr3 today. son reports fell today and had to have assistance getting up. Denies pain. Describes dizziness as 'funny feeling'. kr3 16:43 16:40 EKG done. (by ED staff). hoda drummond Chart Complete MTDD
--- NOTE | 2016-07-28 23:01 | EDDOCDS ---
Physician Documentation [facility] Name: Dereje Bennett Age: 86 yrs Sex: Male : 1930 Arrival Date: 07/26/2016 Time: 16:03 Bed 12 Private MD: Mariah Chen V Disposition: 07/26/16 21:38 Discharged to Home/Self Care. Impression: Dizziness and giddiness, Weakness. - Condition is Stable. - Discharge Instructions: Dizziness, Weakness. - Prescriptions for Meclizine 25 mg Oral Tablet - take 1 tablet by ORAL route every 8 hours As needed; 15 tablet. - Medication Reconciliation, Local Pharmacy Hours form. - Follow up: Mariah Chen; When: Call to arrange an appointment; Reason: Continuance of care. - Problem is new. - Symptoms have improved. Historical: - Allergies: No known drug Allergies; - Home Meds: 1. atorvastatin 20 mg oral tab 1 tab once daily 2. lisinopril 40 mg Oral tab 1 tab once daily 3. finasteride 5 mg oral tab 1 tab once daily 4. aspirin 81 mg Oral tab 1 tab once daily 5. amlodipine 5 mg Oral tab 1 tab once daily 6. metformin 500 mg Oral tab three times a day 7. clopidogrel 75 mg oral tab 1 tab once daily - PMHx: CVA; Hypertension; Hypercholesterolemia; Diabetes - NIDDM: controlled; Kidney stones; - PSHx: Appendectomy; Cholecystectomy; Cataract Surgery- Right; - Social history: Smoking status: Patient states former smoker of tobacco. No barriers to communication noted, The patient speaks fluent Cape Verdean, Speaks appropriately for age. - Family history: Not pertinent. - : The pt / caregiver states he / she is on anticoagulants: Plavix. Home medication list is obtained from the patient, family members, pill bottles. - Exposure Risk Screening:: None identified. Vital Signs: 07/26 16:05 BP 169 / 79 RA Sitting (auto/reg); Pulse 81 RA; Resp 18 S; Temp 97.0(O); Pulse Ox 94% mt4 on R/A; Weight 99.34 kg / 219.01 lbs (R); Height 5 ft. 10 in. (177.80 cm) (R); Pain 0/10; 18:29 BP 174 / 83 (auto/); bcj 18:29 Pulse 80 MON; Pulse Ox 95% ; bcj 18:34 Pulse 82 MON; Pulse Ox 95% ; bcj 18:34 BP 159 / 81 (auto/); bcj 18:35 BP 161 / 93 (auto/); bcj 18:35 Pulse 82 MON; Pulse Ox 94% ; bcj 19:22 BP 194 / 93 (auto/); mlc 19:22 Pulse Ox 96% ; mlc 19:25 BP 167 / 100 (auto/); mlc 19:25 Pulse 80 MON; Pulse Ox 95% ; mlc 19:54 Pulse 84 MON; Pulse Ox 94% ; mlc 20:34 BP 134 / 90 (auto/); mlc 21:04 Pulse 84 MON; Pulse Ox 93% ; mlc 21:04 BP 143 / 89 (auto/); mlc 21:34 Pulse 82 MON; Pulse Ox 94% ; mlc 21:34 BP 160 / 84 (auto/); mlc 22:00 BP 133 / 77; Pulse 79; Resp 18; Temp 98.3; Pulse Ox 93% ; Pain 0/10; mlc 16:05 Body Mass Index 31.42 (99.34 kg, 177.80 cm) mt4 MDM: 16:14 ECG WITH READING ER PHYS+CARDIAG ordered. EDMS 17:24 Safety And Occupational Health Manager/Pulse Ox/q 15 min VS ordered. fg 17:24 Accucheck ordered. fg 17:24 IV Saline Lock ordered. fg 17:24 Orthostatic VS ordered. fg 17:24 Rhythm Strip to chart ordered. fg 17:25 Basic Metabolic Profile Ordered. EDMS 17:25 CBC with Diff Ordered. EDMS 17:25 Urinalysis Ordered. EDMS 17:25 Urine Culture Ordered. EDMS 17:25 Chest, 1 View Ordered. EDMS 18:41 CT Head Without Contrast Ordered. EDMS 19:45 Fingerstick Blood Sugar Ordered. EDMS 20:37 Financial registration complete. ks16 20:37 [facility] Agreement was scanned into [employer] and attached to record. ks16 21:36 Ondansetron 4 mg PO once ordered. fg 21:36 Meclizine 25 mg PO once ordered. fg 07/27 17:04 ECG/EKG was scanned into [employer] and attached to record. kf3 17:04 Radiology Report was scanned into [employer] and attached to record. kf3 17:35 T-Sheet-- Draft Copy was scanned into [employer] and attached to record. klr Point of Care Testing: Blood Glucose: 07/26 16:19 Blood Glucose: 274 mg/dL; kr3 Ranges: Administered Medications: 21:59 Drug: Ondansetron 4 mg [ondansetron HCl 4 mg tablet (1 tabs)] Route: PO; mlc 21:59 Follow up: Response: Pt left department before re-evaluation is appropriate [facility] [place] 21:59 Drug: Meclizine 25 mg [meclizine 12.5 mg tablet (2 tabs)] Route: PO; mlc 21:59 Follow up: Response: Pt left department before re-evaluation is appropriate [facility] [place] Signatures: Dispatcher [employer] EDEd Peres RN Lorie Anna RN RN kr3 Juan Bañuelos, Reg Reg kf3 Joaquina August RN RN mlc Gill, Frances, MD MD fg Sorenson, Kimberly, Reg Reg ks16 Grisel Munoz klayanna The chart was reviewed and I authenticate all verbal orders and agree with the evaluation and treatment provided.Attachments: 20:37 [facility] Payment Agreement [email or web address] 07/27 17:04 ECG/EKG kf3 17:35 T-Sheet-- Draft Copy klr Chart Complete MTDD
--- NOTE | 2016-07-28 23:01 | EDDOCDS ---
Physician Documentation [facility] Name: Dereje Bennett Age: 86 yrs Sex: Male : 1930 Arrival Date: 07/26/2016 Time: 16:03 Bed 12 Private MD: Mariah Chen V Disposition: 07/26/16 21:38 Discharged to Home/Self Care. Impression: Dizziness and giddiness, Weakness. - Condition is Stable. - Discharge Instructions: Dizziness, Weakness. - Prescriptions for Meclizine 25 mg Oral Tablet - take 1 tablet by ORAL route every 8 hours As needed; 15 tablet. - Medication Reconciliation, Local Pharmacy Hours form. - Follow up: Mariah Chen; When: Call to arrange an appointment; Reason: Continuance of care. - Problem is new. - Symptoms have improved. Historical: - Allergies: No known drug Allergies; - Home Meds: 1. atorvastatin 20 mg oral tab 1 tab once daily 2. lisinopril 40 mg Oral tab 1 tab once daily 3. finasteride 5 mg oral tab 1 tab once daily 4. aspirin 81 mg Oral tab 1 tab once daily 5. amlodipine 5 mg Oral tab 1 tab once daily 6. metformin 500 mg Oral tab three times a day 7. clopidogrel 75 mg oral tab 1 tab once daily - PMHx: CVA; Hypertension; Hypercholesterolemia; Diabetes - NIDDM: controlled; Kidney stones; - PSHx: Appendectomy; Cholecystectomy; Cataract Surgery- Right; - Social history: Smoking status: Patient states former smoker of tobacco. No barriers to communication noted, The patient speaks fluent Irish, Speaks appropriately for age. - Family history: Not pertinent. - : The pt / caregiver states he / she is on anticoagulants: Plavix. Home medication list is obtained from the patient, family members, pill bottles. - Exposure Risk Screening:: None identified. Vital Signs: 07/26 16:05 BP 169 / 79 RA Sitting (auto/reg); Pulse 81 RA; Resp 18 S; Temp 97.0(O); Pulse Ox 94% mt4 on R/A; Weight 99.34 kg / 219.01 lbs (R); Height 5 ft. 10 in. (177.80 cm) (R); Pain 0/10; 18:29 BP 174 / 83 (auto/); bcj 18:29 Pulse 80 MON; Pulse Ox 95% ; bcj 18:34 Pulse 82 MON; Pulse Ox 95% ; bcj 18:34 BP 159 / 81 (auto/); bcj 18:35 BP 161 / 93 (auto/); bcj 18:35 Pulse 82 MON; Pulse Ox 94% ; bcj 19:22 BP 194 / 93 (auto/); mlc 19:22 Pulse Ox 96% ; mlc 19:25 BP 167 / 100 (auto/); mlc 19:25 Pulse 80 MON; Pulse Ox 95% ; mlc 19:54 Pulse 84 MON; Pulse Ox 94% ; mlc 20:34 BP 134 / 90 (auto/); mlc 21:04 Pulse 84 MON; Pulse Ox 93% ; mlc 21:04 BP 143 / 89 (auto/); mlc 21:34 Pulse 82 MON; Pulse Ox 94% ; mlc 21:34 BP 160 / 84 (auto/); mlc 22:00 BP 133 / 77; Pulse 79; Resp 18; Temp 98.3; Pulse Ox 93% ; Pain 0/10; mlc 16:05 Body Mass Index 31.42 (99.34 kg, 177.80 cm) mt4 MDM: 16:14 ECG WITH READING ER PHYS+CARDIAG ordered. EDMS 17:24 Check Scaler/Pulse Ox/q 15 min VS ordered. fg 17:24 Accucheck ordered. fg 17:24 IV Saline Lock ordered. fg 17:24 Orthostatic VS ordered. fg 17:24 Rhythm Strip to chart ordered. fg 17:25 Basic Metabolic Profile Ordered. EDMS 17:25 CBC with Diff Ordered. EDMS 17:25 Urinalysis Ordered. EDMS 17:25 Urine Culture Ordered. EDMS 17:25 Chest, 1 View Ordered. EDMS 18:41 CT Head Without Contrast Ordered. EDMS 19:45 Fingerstick Blood Sugar Ordered. EDMS 20:37 Financial registration complete. [email or web address] 20:37 [facility] Payment Agreement was scanned into [employer] and attached to record. [email or web address] 21:36 Ondansetron 4 mg PO once ordered. fg 21:36 Meclizine 25 mg PO once ordered. fg 07/27 17:04 ECG/EKG was scanned into [employer] and attached to record. kf3 17:04 Radiology Report was scanned into [employer] and attached to record. kf3 17:35 T-Sheet-- Draft Copy was scanned into [employer] and attached to record. klr Point of Care Testing: Blood Glucose: 07/26 16:19 Blood Glucose: 274 mg/dL; kr3 Ranges: Administered Medications: 21:59 Drug: Ondansetron 4 mg [ondansetron HCl 4 mg tablet (1 tabs)] Route: PO; mlc 21:59 Follow up: Response: Pt left department before re-evaluation is appropriate [facility] 21:59 Drug: Meclizine 25 mg [meclizine 12.5 mg tablet (2 tabs)] Route: PO; mlc 21:59 Follow up: Response: Pt left department before re-evaluation is appropriate [facility] Signatures: Dispatcher [employer] EDEd Peres RN Lorie Anna RN RN kr3 Juan Bañuelos, Reg Reg kf3 Joaquina August RN RN mlc Gill, Frances, MD MD fg Sorenson, Kimberly, Reg Reg ks16 Grisel Munoz klayanna The chart was reviewed and I authenticate all verbal orders and agree with the evaluation and treatment provided.Attachments: 20:37 [facility] Payment Agreement [email or web address] 07/27 17:04 ECG/EKG kf3 17:35 T-Sheet-- Draft Copy klr Chart Complete MTDD
== END 2016-07-26 22:01 | disposition home or self-care (01) ==
LOC: M ED 16:03
DX: R42 Dizziness and giddiness (principal); R53.1 Weakness; I10 Essential (primary) hypertension; E11.9 Type 2 diabetes mellitus without complications; E78.5 Hyperlipidemia, unspecified; Z87.442 Personal history of urinary calculi; Z79.899 Other long term (current) drug therapy; Z79.02 Long term (current) use of antithrombotics/antiplatelets; Z79.82 Long term (current) use of aspirin; Z79.84 Long term (current) use of oral hypoglycemic drugs; Z86.73 Personal history of transient ischemic attack (TIA), and cerebral infarction without residual deficits; Z87.891 Personal history of nicotine dependence

== ENCOUNTER 2016-07-27 12:54 | Inpatient (IN) | payer MEDICARE ==
[~2016-07-27] VITALS: Ht 177.8 cm; Wt 84.9 kg
--- NOTE | 2016-07-27 13:21 | ECGEPIP ---
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
[2016-07-27 13:47] LABS: BASO % 0.3 % (0.0-1.0); EOS # 0.3 K/mm3 (0.0-0.50); EOS % 2.8 % (0.0-3.0); LARGE UNSTAINED CELL # 0.2 K/mm3 (0.0-0.4); LARGE UNSTAINED CELL % 1.6 % (0.0-4.0); LYMPH # 1.3 K/mm3 (1.5-4.5); LYMPH % 13.6 % (24.0-44.0); MEAN CORPUSCULAR HGB CONC 33.7 g/dl (32.0-36.5); MEAN CORPUSCULAR VOLUME 89.2 fl (80.0-96.0); MONO # 0.4 K/mm3 (0.0-0.8); MONO % 4.7 % (0.0-5.0); NEUTROPHILS # 7.1 K/mm3 (1.8-7.7); PLATELET COUNT, AUTOMATED 278 k/mm3 (150-450); RED CELL DISTRIBUTION WIDTH 14.2 % (11.5-14.5); WHITE BLOOD COUNT 9.2 K/mm3 (4.0-10.0)
[2016-07-27 13:51] LABS: INR 0.83
[2016-07-27 13:53] LABS: ANION GAP 8 MEQ/L (8-16); BLOOD UREA NITROGEN 18 MG/DL (7-18); CALCIUM LEVEL 9.1 MG/DL (8.8-10.2); CARBON DIOXIDE LEVEL 27 MEQ/L (21-32); CHLORIDE LEVEL 109 MEQ/L (98-107); CREATININE FOR GFR 1.14 MG/DL (0.70-1.30); GLOMERULAR FILTRATION RATE > 60.0 (>35); GLUCOSE, FASTING 119 MG/DL (83-110); POTASSIUM SERUM 4.2 MEQ/L (3.5-5.1); SODIUM LEVEL 144 MEQ/L (136-145)
[2016-07-27] MEDS ORDERED: ATOR1TAB21 PO (15:09)
[2016-07-27] MEDS ORDERED: AMLO5TAB2 PO (15:09)
[2016-07-27] MEDS ORDERED: METF500T PO (15:09)
[2016-07-27] MEDS ORDERED: ASPI1TAB PO (15:09)
[2016-07-27] MEDS ORDERED: FINA5TAB2 PO (15:09)
[2016-07-27] MEDS ORDERED: SYMB16INH INH (15:09)
[2016-07-27] MEDS ORDERED: LISI40TAB PO (15:09)
[2016-07-27] MEDS ORDERED: PROA1AER INH (15:09)
[2016-07-27] MEDS ORDERED: CLOP75TA2 PO (15:09)
--- NOTE | 2016-07-27 15:14 | REP ---
Semi upright AP portable chest 07/27/2016 Indication: CVA greater than 4.5 hours Comparison: AP portable chest 07/26/2016, 04/25/2010 Findings: Cardiac silhouette is upper normal size. Atherosclerotic changes are noted thoracic aorta. There is cephalization of pulmonary vasculature c/w pulmonary venous hypertension. There are mild degenerative changes in the thoracic spine Soft tissues are within normal limits Impression 1. Cardiac silhouette is upper normal size. 2. Pulmonary venous hypertension Signed by Binta Zurita MD 07/27/2016 03:06 P
--- NOTE | 2016-07-27 17:50 | REPUSA ---
CLINICAL HISTORY: CVA. TECHNIQUE: Three dimensional [id number] angiography is performed of the [place]. The maria fernanda dy was performed without IV contrast agent. FINDINGS: The supraclinoid portions of the internal carotid arteries are of normal shape. The normal bifurcation is seen. The middle cerebral arteries are unremarkable in appearance. The posterior circu lation is visualized and shows no evidence of occlusion or aneurysm formation. The basilar tip is see n and shows no aneurysm formation. There is no evidence of beading to suggest vasculitis. IMPRESSION: MRA of the [place] is within normal limits. Thank you for your kind referral of this patient.
--- NOTE | 2016-07-27 18:20 | REPUSA ---
CLINICAL HISTORY: CVA. TECHNIQUE: MRI of the brain was performed utilizing multiple sequences in axial, coronal and sagittal planes without IV contrast material. COMMENTS: The sella and parasellar region are unremarkable in appearance. The corpus callosum and cerebellar to nsils are of normal configuration and position. There are no intra or extra- axial collections. There is no mass effect or midline shift. There is no evidence of hematoma formation. There is no hydrocep halus. There is no evidence of restricted diffusion. There is encephalomalacia noted involving right frontal lobe compatible with old infarct. The visualized arterial structures demonstrate normal-appearing flow voids. The seventh and eighth ne rve bundles are visualized and are unremarkable in appearance. Numerous confluent foci of T2/FLAIR hyperintensity are noted in the bilateral periventricular and sub cortical white matter compatible with severe chronic white matter ischemic changes. Generalized proportionate dilatation of ventricles and sulci is present compatible with age-appropria te parenchymal atrophy. IMPRESSION: 1. No acute intracranial pathology. Old right frontal infarct. 2. Generalized age-appropriate parenchymal atrophy. 3. Severe chronic white matter microvascular ischemic changes. Thank you for your kind referral of this patient.
[2016-07-27] MEDS ORDERED: ALBUTEROL 90 MCG/ACT 8GM HFA INHALER INH PRN (20:30)
[2016-07-27] MEDS ORDERED: DEXTROSE 50% 50 ML SYRINGE IV PRN (20:30)
[2016-07-27] MEDS ORDERED: GLUCOSE 4 GM CHEW TABLET PO PRN (20:30)
[2016-07-27] MEDS ORDERED: GLUCAGON FOR INJ 1 MG VIAL (J1610) SC PRN (20:30)
--- NOTE | 2016-07-27 21:17 | CR ---
DATE OF CONSULTATION: 07/27/2016 REASON FOR CONSULTATION: Dereje Bennett was seen in evaluation for new symptoms of right-sided hemiparesis and dizziness. The patient was seen in [facility] yesterday with generalized weakness and dizziness. The patient states, however, he did have more right-sided hemiparesis yesterday. His symptoms did improve while in the emergency room (ER). He was discharged home after having a negative head CT and the patient was taken home. He had difficulty getting into his house and going up the stairs and had to be carried by his family. The patient came back to the ER today with similar symptoms. He has dense weakness of his right upper extremity and lower extremity. He has deviation of his tongue towards the right. The patient does have a disconjugate gaze from a prior stroke, he states. Previous imaging of MR angiogram back in 2009 and did not reveal any particular narrowing. Carotid arteries were narrowed between 16-49% bilaterally back in 2009. The patient recently had MRI imaging which so far has been reported normal involving the brain; in particular, to any acute ischemic infarct. The patient, however, does have some increased hyperintense signal changes in the lower brainstem which may be artifactual; however, I do recommend that Dr. Rickie Nuno neuroradiologist review this tomorrow. The patient denies any headache. Denies any change in speech. His speech is minimally slurred. The patient does have significant weakness of his right upper and right lower extremity. He denies any sensory loss. The patient has been having difficulty walking. He denies any chest pain, shortness of breath or vertigo at the present time. PAST MEDICAL HISTORY: 1. Hypertension. 2. Diabetes. 3. Hyperlipidemia. 4. Right frontal ischemic stroke. 5. Bilateral basal ganglia thalamic infarcts. PAST SURGICAL HISTORY 1. Left facial surgery for trauma. 2. Cholecystectomy. 3. Appendectomy. ALLERGIES: None. CURRENT MEDICATIONS - aspirin 81 mg by mouth daily - Plavix 75 mg by mouth daily - the patient is on antihypertensive and oral hypoglycemic medications. REVIEW OF SYSTEMS: 14-point review of systems obtained and negative except as per history of present illness (HPI). SOCIAL HISTORY: The patient is a former tobacco user. He does not use alcohol and does not use recreational drugs. FAMILY HISTORY: Noncontributory. PHYSICAL EXAMINATION Current height 5 feet 10 inches. Current weight is 99 kg. The patient is alert, oriented to person, place and time. Speech is mildly dysarthric. Pupils are equal, round, react to light. Extraocular movements are disconjugate with inability for the right eye to deviate laterally completely towards the temporal visual barnett. No nystagmus is noted. Palate elevates symmetrically. Tongue is deviated towards the right side. Sensation V1, V2, V3 is intact to light touch. No facial asymmetry on activation of the face. The patient has dense weakness of the right lower extremity with inability to raise the leg off the bed. He cannot extend the knee against gravity and cannot dorsiflex at the ankle. In the right upper extremity, he has 3+ strength of his triceps and 4- strength in his biceps, and hand tap out operator is a 4-. The patient does not have any sensory loss to tactile stimulation on either extremity. Deep tendon reflexes are twos at the patellas, absent at the Achilles, twos in the upper extremities. Babinski sign is positive on the right. The patient has flaccid weakness of the right upper extremity and lower extremity without spasticity or increased tone at this time. Gait deferred. [id number] could not be obtained due to significant dense weakness on the right side. The left side is normal. Left upper and lower extremity strength is normal. ASSESSMENT: Rule out central causes of dense right hemiparesis of the arm and leg, as well as tongue deviation towards the right. Given history of dizziness, tongue deviation and dense weakness, it is possible that the lower medulla higher cervical cord may be involved. MRIs of the cervical, thoracic and lumbosacral spine are underway at the present time. The patient will continue aspirin 81 mg and Plavix 75 mg daily. The patient will be admitted and will be monitored for telemetry changes. Recommend physical therapy (PT), occupational therapy (OT). Recommend continuation of antiplatelet and statin therapy. Further recommendations to follow once MRIs are completed. I strongly recommend Dr. Rickie Nuno re-review the brain MRI scan to further assess if there is any diffusion weighted changes involving the medulla.
[2016-07-27 21:35] VITALS: BP 144/77
--- NOTE | 2016-07-27 22:00 | REPUSA ---
CLINICAL HISTORY: Patient states weakness on right side. TECHNIQUE: MRI of the cervical spine was performed utilizing multiple sequences in axial and sagitta l planes without IV contrast material. COMMENTS: The visualized osseous elements are intact with no evidence of fracture or dislocation. The marrow s ignals are within normal limits. The cervical cord is of normal uniform signal intensity without lowell dence of focal expansion. There is no evidence for tonsillar herniation. Limited views of the poste rior fossa reveal no abnormalities. Advanced degenerative spondylosis is present. There is evidence of fusion at C3-C4 and C5-C6, this m ay be postsurgical. Clinical correlation is recommended. At C2-C3, mild posterior bulging is seen. Canal and foramina are patent. At C3-C4, there is a residual disc osteophyte complex present. Canal and foramina remain patent. At C4-C5, broad based disc protrusion is seen associated with spurring. There is moderate to severe bilateral foraminal stenosis and mild central canal stenosis. At C5-C6, there is mild posterior spurring seen. Canal and foramina remain patent. At C6-C7, central disc protrusion indents the ventral thecal sac. Canal and foramina are patent. C7-T1 level is unremarkable. IMPRESSION: 1. At C2-C3, mild posterior bulging is seen. Canal and foramina are patent. 2. At C3-C4, there is a residual disc osteophyte complex present. Canal and foramina remain patent. 3. At C4-C5, broad based disc protrusion is seen associated with spurring. There is moderate to sev ere bilateral foraminal stenosis and mild central canal stenosis. 4. At C5-C6, there is mild posterior spurring seen. Canal and foramina remain patent. 5. At C6-C7, central disc protrusion indents the ventral thecal sac. Canal and foramina are patent. Thank you for your kind referral of this patient. We appreciate the opportunity to participate in thi s patient's care.
--- NOTE | 2016-07-27 22:10 | REPUSA ---
CLINICAL HISTORY: Patient states weakness on right side. TECHNIQUE: MRI of the thoracic spine was performed utilizing multiple sequences in axial and sagitta l planes without IV contrast material. COMMENTS: The visualized osseous elements are intact and in normal alignment with no evidence of fracture or di slocation. The marrow signals are within normal limits. The visualized posterior elements are hailey l and the thoracic curvature is well maintained. At the level T5-T6, there is abnormality felt withi n spinal cord. There is spinal cord expansion and abnormal signal. This area measures approximately 10 mm in craniocaudad dimension. There is apparent cystic area noted. Differential includes posttr aumatic myelomalacia, although underlying tumor is not totally excluded. Further evaluation is recom mended with MRI performed with pre and postcontrast. Neurosurgical evaluation is recommended. Advanced multilevel degenerative spondylosis is seen. There is disc dehydration and desiccation note d at all thoracic levels, which is most severe involving mid to lower thoracic levels. Several thora cic vertebral body hemangiomas are present. Evaluation of individual disc levels reveals the following: At T5-T6, small herniated disc noted centrally measures 4 x 2 mm indents the ventral thecal sac. How ever, it does not cause impingement or compression of all the cord. Remaining thoracic levels are grossly unremarkable. There is mild dextroscoliosis is seen apex at T6. IMPRESSION: 1. At the level T5-T6, spinal cord expansion and abnormal signal. This area measures approximately 10 mm in craniocaudad dimension. There is apparent cystic area noted. Differential includes posttra umatic myelomalacia, although underlying tumor is not totally excluded. Further evaluation is recomm ended with MRI performed with pre and postcontrast. Neurosurgical evaluation is recommended. 2. At T5-T6, small herniated disc noted centrally measures 4 x 2 mm indents the ventral thecal sac. However, it does not cause impingement or compression of all the cord. Thank you for your kind referral of this patient. We appreciate the opportunity to participate in thi s patient's care.
[2016-07-27] MEDS: HumaLOG INSULIN (NovoLOG) PER UNIT SC SCH (22:15)
[2016-07-27] MEDS ORDERED: CLOPIDOGREL 75 MG TAB As Ordered ONE (22:16)
[2016-07-27] MEDS ORDERED: amLODIPine 5 MG TAB As Ordered ONE (22:17)
[2016-07-27] MEDS: amLODIPine 5 MG TAB PO SCH (22:19)
[2016-07-27] MEDS: SYMBICORT 160/4.5MCG INHALER 6GM INH SCH (22:19)
[2016-07-27] MEDS: CLOPIDOGREL 75 MG TAB PO SCH (22:19)
--- NOTE | 2016-07-27 22:20 | REPUSA ---
History: low back pain Procedure: Multiple sequences were obtained in the sagittal and axial planes with T1 and T2 weighting . Findings: The conus medullaris and cauda equina appear normal. There is no significant marrow signal alteration. There is no evidence of fracture, spondylolisthesis, or spondylolysis. Schmorl's nodes are noted at T21-L1 to L4-L5. Examination of the individual interspaces reveals the following: L1-2: The disc is desiccated but normal in configuration without herniation or spinal or foraminal st enosis. L2-3: The disc is desiccated but normal in configuration without herniation or spinal or foraminal st enosis. L3-4: The disc is desiccated but normal in configuration without herniation or spinal or foraminal st enosis. L4-5: The disc is desiccated but normal in configuration without herniation or spinal or foraminal st enosis. L5-S1:The disc is desiccated but normal in configuration without herniation or spinal or foraminal st enosis. Impression: 1. Diffuse disc desiccation 2. Otherwise normal MRI of the lumbar spine Thank you for your kind referral of this patient.
[2016-07-28] VITALS (14 sets, daily range): BP systolic 142–190; BP diastolic 55–93
--- NOTE | 2016-07-28 05:25 | HPE ---
0DATE OF ADMISSION: 07/27/2016 PRIMARY CARE PROVIDER: Dr. Doyle Roladn DO REASON FOR ADMISSION: Right-sided weakness. HISTORY OF PRESENT ILLNESS: The patient is an 86-year-old male with past medical history significant for stroke, non-insulin dependent diabetes, hypertension, hyperlipidemia, presented to the emergency room with his son and complaining of right-sided weakness. He was seen in the emergency room yesterday with similar complaints. CT scan was negative for any acute strokes and he was discharged home. Stated after he was discharged home yesterday, he continued to have right-sided weakness, was unable to get upstairs. He had to be carried up by his son. Today, all day, he was also complaining of weakness until he presented to the emergency room again. MRI was done today. which was negative for any acute findings. MRA was also done and did not show any acute findings. The patient continued to have right-sided upper extremity and lower extremity weakness that has been getting progressively worse stating that yesterday he was able to elevate his arm and leg above the bed, today he is unable to move them at all. He is unable to ambulate and patient is normally ambulatory without a walker or cane. Patient stated that weakness started yesterday around 10 o'clock in the morning. He was walking and felt dizzy. He slipped on the ice but he denied any loss of consciousness, denied hitting his head. MRI showed no acute intracranial pathology, old right frontal infarct, generalization age appropriate parenchymal atrophy, severe chronic white matter microvascular ischemic changes. Hospitalist was called for the admission. No other findings that were abnormal on his laboratory data. No obvious electrolyte abnormalities. REVIEW OF SYSTEMS: 12-point review of system was obtained, all of which systems was negative except for what is mentioned in history of present illness. PAST MEDICAL HISTORY: As above. PAST SURGICAL HISTORY: Appendectomy, cholecystectomy, cataract surgery. SOCIAL HISTORY: Patient used to smoke 40 years, 1 pack per day, quit 10 years ago. Denies any alcohol use. Lives at home with his . Ambulates independently at baseline. ALLERGIES: NO KNOWN DRUG ALLERGIES. HOME MEDICATIONS: Include: - metformin 500 mg by mouth three times a day - lisinopril 40 mg by mouth daily - Plavix 75 mg by mouth daily - atorvastatin 20 mg by mouth daily - amlodipine 5 mg by mouth daily - finasteride 5 mg by mouth daily - aspirin 81 mg by mouth daily FAMILY HISTORY: Noncontributory. PHYSICAL FINDINGS: Blood pressure 148/77, pulse 90, respiratory rate 18, temperature 97.5, pulse oximetry 95% on room air. HEENT: Pupils equal, round, reactive. Neck: Supple. No jugular venous distention (JVD). Lungs: Clear to auscultation bilaterally. Cardiac: Regular rate and rhythm. Abdomen: Soft, nontender, nondistended. Extremities: No obvious lesions. No clubbing or cyanosis. Neurologic: Patient has marked deficits of right upper and lower extremity. He was unable to elevate his leg off the bed, was unable to elevate his arm. He had no hand storage manager. No obvious cranial nerve deficits. MRI findings as above. MRA within normal limits. ASSESSMENT AND PLAN: 1. Right-sided weakness, unknown etiology at this time. MRI was negative for any acute stroke. We will consult Dr. Phillips. We will admit patient to progressive care unit (PCU). Monitor on telemetry. Continue neurologic checks every 4 hours. Continue patient's Plavix and aspirin as well as Lipitor. We will consult physical therapy, occupational therapy and uses patient and family services (PFS) for possible rehabilitation. 2. History of non-insulin dependent diabetes. Will start patient on sliding scale with Accu-Cheks before meals and nightly. Consistent carbohydrate diet. 3. History of hypertension. Continue patient's home medications, amlodipine and lisinopril. 4. Deep venous thrombosis (DVT) prophylaxis. Lovenox 40 subcutaneously daily.
[2016-07-28 06:54] LABS: BASO % 0.2 % (0.0-1.0); EOS # 0.3 K/mm3 (0.0-0.50); EOS % 3.5 % (0.0-3.0); LARGE UNSTAINED CELL # 0.1 K/mm3 (0.0-0.4); LYMPH # 1.2 K/mm3 (1.5-4.5); LYMPH % 16.7 % (24.0-44.0); MEAN CORPUSCULAR HEMOGLOBIN 28.9 pg (27.0-33.0); MEAN CORPUSCULAR HGB CONC 32.5 g/dl (32.0-36.5); MONO # 0.5 K/mm3 (0.0-0.8); MONO % 6.2 % (0.0-5.0); NEUTROPHILS # 5.2 K/mm3 (1.8-7.7); NEUTROPHILS % 71.4 % (36.0-66.0); PLATELET COUNT, AUTOMATED 249 k/mm3 (150-450); RED CELL DISTRIBUTION WIDTH 14.1 % (11.5-14.5); WHITE BLOOD COUNT 7.3 K/mm3 (4.0-10.0)
[2016-07-28 07:30] LABS: ALBUMIN/GLOBULIN RATIO 0.94 (1.00-1.93); ALKALINE PHOSPHATASE 72 U/L (45-117); ALT/SGPT 14 U/L (12-78); ANION GAP 9 MEQ/L (8-16); AST/SGOT 11 U/L (15-37); BILIRUBIN,TOTAL 0.7 MG/DL (0.2-1.0); BLOOD UREA NITROGEN 18 MG/DL (7-18); CALCIUM LEVEL 8.4 MG/DL (8.8-10.2); CARBON DIOXIDE LEVEL 27 MEQ/L (21-32); CHLORIDE LEVEL 107 MEQ/L (98-107); CREATININE FOR GFR 1.08 MG/DL (0.70-1.30); GLOMERULAR FILTRATION RATE > 60.0 (>35); GLUCOSE, FASTING 119 MG/DL (83-110); MAGNESIUM LEVEL 1.8 MG/DL (1.8-2.4); SODIUM LEVEL 143 MEQ/L (136-145); TOTAL PROTEIN 6.2 GM/DL (6.4-8.2)
[2016-07-28] MEDS: HumaLOG INSULIN (NovoLOG) PER UNIT SC SCH ×4 (08:10→21:00)
[2016-07-28] MEDS: FINASTERIDE 5 MG TAB PO SCH (09:03)
[2016-07-28] MEDS: SYMBICORT 160/4.5MCG INHALER 6GM INH SCH ×2 (09:03→21:00)
[2016-07-28] MEDS: LISINOPRIL 40 MG TAB PO SCH (09:04)
[2016-07-28] MEDS: ENOXAPARIN 40 MG/0.4 ML SYRINGE (J1650) SC SCH (09:04)
[2016-07-28] MEDS: ATORVASTATIN 20 MG TAB PO SCH (09:04)
[2016-07-28] MEDS: ASPIRIN 81 MG ENTERIC TAB PO SCH (09:04)
--- NOTE | 2016-07-28 16:47 | REP ---
MR THORACIC SPINE WITH CONTRAST: HISTORY: Spinal cord lesion. CONTRAST: ProHance 12 mL. COMPARISON: 07/27/2016 There is no enhancement of the small partially cystic expansile intramedullary lesion at the T5 level. An enhancing hemangioma is present in the T7 vertebral body. There are no other enhancing vertebral body lesions. IMPRESSION: There is no enhancement of the small expansile intramedullary lesion at the T5 level. 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
--- NOTE | 2016-07-28 17:04 | EDDOCDS ---
Nurse's Notes [facility] Name: Dereje Welch Age: 86 yrs Sex: Male : 1930 Arrival Date: 07/27/2016 Time: 12:54 Bed Admit Hold Private MD: Doyle Roldan D Diagnosis: Hemiplegia and hemiparesis-right Presentation: 07/27 13:00 Presenting complaint: Child states: seen here yesterday for right sided weakness and pml dizziness. negative CT scans and sent home. states worsening right sided weakness, unable to walk. pt states "my can't take care of me anymore". The last date and time the patient was known to be well was was at 05:00 on July 27, 2016. An acute neurological deficit is present. The charge nurse has been notified. The patient has been moved to a treatment area. Adult Sepsis Screening: The patient does not have new or worsening altered mentation. Patient's respiratory rate is less than 22. Systolic blood pressure is greater than 100. Patient has a qSOFA score of 0- Negative Sepsis Screen. Suicide/Homicide risk assessment- the patient denies having any suicidal and/or homicidal ideations and does not present with any other emotional, behavioral or mental health complaints. Status: Patient is not a director of customer service or dependent. Transition of care: patient was not received from another setting of care. 13:00 Acuity: SANJEEV Level 2 pml 13:00 Method Of Arrival: Wheelchair pml Triage Assessment: 13:04 The onset of the patients symptoms was more than three hours ago. General: Appears in pml no apparent distress, comfortable, Behavior is appropriate for age, cooperative. Pain: Denies pain. Neurological: Level of Consciousness is awake, alert, Oriented to person, place, time, Reports no additional symptoms dizziness. Historical: - Allergies: no known allergies; - Home Meds: 1. metformin 500 mg Oral tab three times a day 2. lisinopril 40 mg Oral tab 1 tab once daily 3. clopidogrel 75 mg oral tab 1 tab once daily 4. atorvastatin 20 mg oral tab 1 tab once daily 5. amlodipine 5 mg Oral tab 1 tab once daily 6. finasteride 5 mg oral tab 1 tab once daily 7. aspirin 81 mg Oral tab 1 tab once daily 8. has not filled scripts from yesterday - PMHx: CVA; Diabetes - NIDDM: controlled; Hypercholesterolemia; Hypertension; Kidney stones; - PSHx: Appendectomy; Cholecystectomy; Cataract Surgery- Right; - Social history: Smoking status: No barriers to communication noted, The patient speaks fluent Wolof, Speaks appropriately for age, Smoking status: Patient states former smoker of tobacco. - Family history: Not pertinent. - : The pt / caregiver states he / she is on anticoagulants: Plavix. Home medication list is obtained from the patient. - Exposure Risk Screening:: None identified. Screenin:17 Screening information is obtained from the patient. Fall risk: At risk due to patient ja5 states he has been experiencing dizziness from his medication (unspecified) for one month.. Assistance ADL's: requires no assistance with activities of daily living. Abuse/DV Screen: The patient / caregiver reports he/she is: not in a situation that causes fear, pain or injury. Nutritional screening: On no prescribed diet. Advance Directives: Currently, there is a health care proxy, Laura Welch, . There is no active DNR order. There is no living will. There is an active Power of Manager Power, Laura Welch, . home support is adequate. Assessment: 13:31 General: Appears in no apparent distress, Behavior is appropriate for age, cooperative. dsf Neurological: Level of Consciousness is awake, alert, Weakness in right hand's) arm(s) leg(s) Speech is normal, tongue deviates to right . Cardiovascular: Capillary refill < 3 seconds. Respiratory: Airway is patent Respiratory effort is even, unlabored, Respiratory pattern is regular, symmetrical. Derm: Skin is pink, warm & dry. 13:56 General: Pt resting comfortably in bed. No apparent distress. Family members at ld5 bedside. Will continue to monitor. 14:14 General: Appears in no apparent distress, Behavior is appropriate for age, cooperative. ja5 Neurological: Level of Consciousness is awake, alert, Weakness in right hand's) arm(s) leg(s) Speech is slurred. Cardiovascular: Capillary refill < 3 seconds. Respiratory: Airway is patent Respiratory effort is even, unlabored, Respiratory pattern is regular, symmetrical, Breath sounds with wheezes expiratory in left upper lobe and left lower lobe. Derm: Skin is pink, warm & dry. 15:42 General: Patient in stretcher watching television, denies dizziness and pain. Patient new is still experiencing right sided weakness at this time. . 16:30 General: Pt to MRI via stretcher at this time. jc4 18:04 General: Patient is resting in stretcher and states he has pain 1/10 in abdomen but he marcelo5 thinks it is hunger pain. Food tray has just arrived. Patient still experiencing some right sided weakness at this time.. 18:58 General: Provider in to see patient at this time. No apparent distress, in stretcher, marcelo5 call murillo in reach.. 19:39 General: Appears in no apparent distress, comfortable, Behavior is cooperative, mlc pleasant. Pain: Denies pain. Neurological: Level of Consciousness is awake, alert, obeys commands, Oriented to person, place, time, Network Firewall Engineer are weak on right Weakness in right hand's) arm(s) leg(s) Speech is normal, Facial symmetry appears normal, Facial symmetry: tongue is midline. Cardiovascular:. Respiratory: Airway is patent Respiratory effort is even, unlabored, Respiratory pattern is regular. 19:39 Reassessment: pt taken to MRI. mlc 19:40 Reassessment: Family returned home at this time. . mlc 21:24 General: Report given to Leigh Velazquez RN. See [employer] for further documentation. . [facility] Vital Signs: 12:59 BP 148 / 77 LA Sitting (auto/lg); Pulse 90 LA; Resp 18 S; Temp 97.5(O); Pulse Ox 95% on mt4 R/A; Weight 99.34 kg (R); Height 5 ft. 10 in. (177.80 cm) (R); Pain 0/10; 13:09 BP 201 / 100 (auto/); jc4 13:13 Pulse 90 MON; Pulse Ox 92% ; jc4 13:24 BP 198 / 102 (auto/); jc4 13:25 Pulse 92 MON; Pulse Ox 93% ; jc4 13:39 BP 158 / 86 (auto/); jc4 13:39 Pulse 84 MON; Pulse Ox 94% ; jc4 13:54 BP 196 / 97 (auto/); jc4 13:54 Pulse 82 MON; Pulse Ox 94% ; jc4 14:10 BP 196 / 93 (auto/); jc4 14:10 Pulse 86 MON; Pulse Ox 94% ; jc4 14:12 BP 196 / 93; Pulse 85; Resp 20; Temp 97.5(O); Pulse Ox 93% on R/A; Pain 0/10; ja5 14:24 Pulse 86 MON; Pulse Ox 94% ; jc4 14:28 BP 149 / 85 (auto/); jc4 14:39 BP 161 / 85 (auto/); jc4 14:40 Pulse 84 MON; Pulse Ox 94% ; jc4 15:09 BP 120 / 81 (auto/); jc4 15:14 Pulse 90 MON; Pulse Ox 97% ; jc4 15:24 BP 129 / 71 (auto/); jc4 15:39 BP 132 / 76 (auto/); jc4 15:41 Pulse 80 MON; Pulse Ox 92% ; jc4 15:54 BP 127 / 76 (auto/); jc4 15:54 Pulse 80 MON; Pulse Ox 92% ; jc4 17:23 BP 154 / 85 (auto/); jc4 17:38 BP 145 / 80 (auto/); jc4 17:38 Pulse 82 MON; Pulse Ox 95% ; jc4 17:53 BP 145 / 81 (auto/); jc4 17:53 Pulse 84 MON; Pulse Ox 92% ; jc4 18:02 BP 161 / 90 (auto/); mlc 18:03 BP 161 / 90; Pulse 85; Resp 18 S; Temp 97.9(O); Pulse Ox 91% on R/A; Pain 1/10; ja5 18:03 Pulse 82 MON; Pulse Ox 91% ; mlc 18:08 BP 158 / 87 (auto/); jc4 18:08 Pulse 90 MON; jc4 18:37 Pulse 94 MON; jc4 18:38 BP 170 / 83 (auto/); jc4 18:56 BP 171 / 87 (auto/); mlc 18:57 Pulse 92 MON; Pulse Ox 91% ; mlc 19:08 BP 178 / 91 (auto/); mlc 19:08 Pulse 92 MON; Pulse Ox 92% ; mlc 12:59 Body Mass Index 31.42 (99.34 kg, 177.80 cm) mt4 Vitals: 12:59 Log In Time: July 27, 2016 at 12:54. RN notified that patient meets Red Flag mt4 criteria. ED Course: 12:59 Patient visited by Nuria Harper. mt4 12:59 Doyle Roldan is Private Physician. mt4 12:59 Patient moved to Waiting mt4 13:00 Patient moved to Pre RCE mt4 13:01 Triage Initiated pml 13:04 Patient visited by Dominique Steele,DEN. pml 13:04 Johanna Rivas,RN is Primary Nurse. pml 13:04 Gabriela Katz, [place] is Primary Nurse. pml 13:04 Patient moved to 11 pml 13:18 EKG done. (by ED staff). Reviewed by Sindhu ZEPEDA. ct3 13:19 Patient visited by Mya Cook PCA. ct3 13:20 Accompanied by Family Member, Patient has correct armband on for positive ct3 identification. Placed in gown. Bed in low position. Call light in reach. Side rails up X2. satellite project site monitor on. Pulse ox on. NIBP on. 13:32 Patient visited by Mabel Phan RN. dsf 13:32 Inserted saline lock: 20 gauge in left hand The patient tolerated the procedure well. dsf 13:37 Sindhu Amado FNP is PHCP. le 13:43 EKG-ADULT Returned. EDMS 13:44 Basic Metabolic Profile Sent. dsf 13:44 CBC with Diff Sent. dsf 13:44 Partial Thromboplastin Time Sent. dsf 13:44 Prothrombin Time Profile\\E\\INR Sent. dsf 13:45 Patient visited by Sindhu Amado FNP. le 13:45 Patient visited by Sindhu Amado FNP. le 13:57 Patient visited by Letha Montes De Oca,DEN. ld5 14:11 Patient name changed from Dereje\\S\\\\S\\Panunzio\\S\\ to Dereje\\S\\ \\S\\Panunzio. EDMS 14:12 [facility] Payment Agreement was scanned into Piktochart and attached to record. lg 14:41 Patient visited by Mya Cook PCA. ct3 15:33 Chest, 2 View (pa\\E\\lat) Returned. EDMS 15:42 Patient visited by Johanna Rivas,DEN. ja5 16:31 Patient moved to MRI jc4 17:27 Patient moved to 11 ar3 17:41 Patient visited by Mya Cook PCA. ct3 18:02 The patient / caregiver is instructed regarding the plan of care and ED course. mlc 18:09 -MRA-Brain without contrast Returned. EDMS 18:18 Patient visited by Mya Cook PCA. ct3 18:38 Danisha Lopez is Hospitalizing Provider. le 18:50 -MRI-Brain without Returned. EDMS 18:56 Joaquina August RN is Primary Nurse. mlc 18:59 Patient visited by Johanna Rivas,DEN. ja5 19:03 Primary Nurse role handed off by Gabriela Katz RN mlc 19:04 Primary Nurse role handed off by Johanna Rivas,RN mlc 19:41 Patient visited by Joaquina August RN. mlc 20:16 Patient moved to Admit Hold ml3 20:56 Patient moved to 18 jul 21:36 Patient moved to Admit Hold ml3 22:27 -MRI-Spine, Cervical without contrast Returned. EDMS 22:27 -MRI-Spine,Thoracic without contrast Returned. EDMS 22:27 -MRI-Spine, Lumbar without contrast Returned. EDMS 07/28 07:07 Primary Nurse role handed off by Joaquina August RN deg 10:40 Bernarda Stevens child care specialist. ys2 12:34 No procedures done that require assistance. me3 14:08 T-Sheet-- Draft Copy was scanned into Piktochart and attached to record. gb Order Results: Lab Order: Basic Metabolic Profile; SPEC'M 07/27/16 13:28 Test: GLUCOSE, FASTING; Value: 119; Range: 83-110; Abnormal: Above high normal; Units: MG/DL; Status: F Test: BLOOD UREA NITROGEN; Value: 18; Range: 7-18; Units: MG/DL; Status: F Test: CREATININE FOR GFR; Value: 1.14; Range: 0.70-1.30; Units: MG/DL; Status: F Test: GLOMERULAR FILTRATION RATE; Value: > 60.0; Range: >35; Status: F Test: SODIUM LEVEL; Value: 144; Range: 136-145; Units: MEQ/L; Status: F Test: POTASSIUM SERUM; Value: 4.2; Range: 3.5-5.1; Units: MEQ/L; Status: F Test: CHLORIDE LEVEL; Value: 109; Range: 98-107; Abnormal: Above high normal; Units: MEQ/L; Status: F Test: CARBON DIOXIDE LEVEL; Value: 27; Range: 21-32; Units: MEQ/L; Status: F Test: ANION GAP; Value: 8; Range: 8-16; Units: MEQ/L; Status: F Test: CALCIUM LEVEL; Value: 9.1; Range: 8.8-10.2; Units: MG/DL; Status: F Test Note: ; Units are mL/min/1.73 m2 Chronic Kidney Disease Staging per NKF: Stage I & II GFR >=60 Normal to Mildly Decreased Stage III GFR 30-59 Moderately Decreased Stage IV GFR 15-29 Severely Decreased Stage V GFR <15 Very Little GFR Left ESRD GFR <15 on ROLLER STAINER Lab Order: CBC with Diff; SPEC'M 07/27/16 13:28 Test: WHITE BLOOD COUNT; Value: 9.2; Range: 4.0-10.0; Units: K/mm3; Status: F Test: RED BLOOD COUNT; Value: 4.79; Range: 4.30-6.10; Units: M/mm3; Status: F Test: HEMOGLOBIN; Value: 14.4; Range: 14.0-18.0; Units: g/dl; Status: F Test: HEMATOCRIT; Value: 42.7; Range: 42.0-52.0; Units: %; Status: F Test: MEAN CORPUSCULAR VOLUME; Value: 89.2; Range: 80.0-96.0; Units: fl; Status: F Test: MEAN CORPUSCULAR HEMOGLOBIN; Value: 30.0; Range: 27.0-33.0; Units: pg; Status: F Test: MEAN CORPUSCULAR HGB CONC; Value: 33.7; Range: 32.0-36.5; Units: g/dl; Status: F Test: RED CELL DISTRIBUTION WIDTH; Value: 14.2; Range: 11.5-14.5; Units: %; Status: F Test: PLATELET COUNT, AUTOMATED; Value: 278; Range: 150-450; Units: k/mm3; Status: F Test: NEUTROPHILS %; Value: 77.0; Range: 36.0-66.0; Abnormal: Above high normal; Units: %; Status: F Test: LYMPH %; Value: 13.6; Range: 24.0-44.0; Abnormal: Below low normal; Units: %; Status: F Test: MONO %; Value: 4.7; Range: 0.0-5.0; Units: %; Status: F Test: EOS %; Value: 2.8; Range: 0.0-3.0; Units: %; Status: F Test: BASO %; Value: 0.3; Range: 0.0-1.0; Units: %; Status: F Test: LARGE UNSTAINED CELL %; Value: 1.6; Range: 0.0-4.0; Units: %; Status: F Test: NEUTROPHILS #; Value: 7.1; Range: 1.8-7.7; Units: K/mm3; Status: F Test: LYMPH #; Value: 1.3; Range: 1.5-4.5; Abnormal: Below low normal; Units: K/mm3; Status: F Test: MONO #; Value: 0.4; Range: 0.0-0.8; Units: K/mm3; Status: F Test: EOS #; Value: 0.3; Range: 0.0-0.50; Units: K/mm3; Status: F Test: BASO #; Value: 0.0; Range: 0.0-0.2; Units: K/mm3; Status: F Test: LARGE UNSTAINED CELL #; Value: 0.2; Range: 0.0-0.4; Units: K/mm3; Status: F Lab Order: Partial Thromboplastin Time; SPEC'M 07/27/16 13:28 Test: PARTIAL THROMBOPLASTIN TIME; Value: 25.3; Range: 26.6-37.1; Abnormal: Below low normal; Units: SECONDS; Status: F Lab Order: Prothrombin Time Profile\\E\\INR; SPEC'M 07/27/16 13:28 Test: PROTHROMBIN TIME; Value: 11.5; Range: 12.3-14.5; Abnormal: Below low normal; Units: SECONDS; Status: F Test: INR; Value: 0.83; Status: F Test Note: ; THERAPUTIC HUMAN INR VALUES INDICATIONS NORMAL RANGES PROPHYLAXIS/TREATMENT OF: VENOUS THROMBOSIS 2.0-3.0 PULMONARY EMBOLISM 2.0-3.0 PREVENTION OF SYSTEMIC EMBOLISM FROM: TISSUE HEART VALVES 2.0-3.0 ACUTE MYOCARDIAL INFARCTION 2.0-3.0 VALVULAR HEART DISEASE 2.0-3.0 ATRIAL FIBRILLATION 2.0-3.0 MECHANICAL VALVES(HIGH RISK) 2.5-3.5 RECURRENT MYOCARDIAL INFARCTION 2.5-3.5 Lab Order: Fingerstick Blood Sugar; [facility]07/27/16 14:24 Test: BEDSIDE GLUCOSE; Value: 90; Range: 83-110; Units: MG/DL; Status: F Lab Order: CBC WITH DIFFERENTIAL; [facility] 07/28/16 06:33 Test: WHITE BLOOD COUNT; Value: 7.3; Range: 4.0-10.0; Units: K/mm3; Status: F Test: RED BLOOD COUNT; Value: 4.34; Range: 4.30-6.10; Units: M/mm3; Status: F Test: HEMOGLOBIN; Value: 12.5; Range: 14.0-18.0; Abnormal: Below low normal; Units: g/dl; Status: F Test: HEMATOCRIT; Value: 38.6; Range: 42.0-52.0; Abnormal: Below low normal; Units: %; Status: F Test: MEAN CORPUSCULAR VOLUME; Value: 89.0; Range: 80.0-96.0; Units: fl; Status: F Test: MEAN CORPUSCULAR HEMOGLOBIN; Value: 28.9; Range: 27.0-33.0; Units: pg; Status: F Test: MEAN CORPUSCULAR HGB CONC; Value: 32.5; Range: 32.0-36.5; Units: g/dl; Status: F Test: RED CELL DISTRIBUTION WIDTH; Value: 14.1; Range: 11.5-14.5; Units: %; Status: F Test: PLATELET COUNT, AUTOMATED; Value: 249; Range: 150-450; Units: k/mm3; Status: F Test: NEUTROPHILS %; Value: 71.4; Range: 36.0-66.0; Abnormal: Above high normal; Units: %; Status: F Test: LYMPH %; Value: 16.7; Range: 24.0-44.0; Abnormal: Below low normal; Units: %; Status: F Test: MONO %; Value: 6.2; Range: 0.0-5.0; Abnormal: Above high normal; Units: %; Status: F Test: EOS %; Value: 3.5; Range: 0.0-3.0; Abnormal: Above high normal; Units: %; Status: F Test: BASO %; Value: 0.2; Range: 0.0-1.0; Units: %; Status: F Test: LARGE UNSTAINED CELL %; Value: 2.0; Range: 0.0-4.0; Units: %; Status: F Test: NEUTROPHILS #; Value: 5.2; Range: 1.8-7.7; Units: K/mm3; Status: F Test: LYMPH #; Value: 1.2; Range: 1.5-4.5; Abnormal: Below low normal; Units: K/mm3; Status: F Test: MONO #; Value: 0.5; Range: 0.0-0.8; Units: K/mm3; Status: F Test: EOS #; Value: 0.3; Range: 0.0-0.50; Units: K/mm3; Status: F Test: BASO #; Value: 0.0; Range: 0.0-0.2; Units: K/mm3; Status: F Test: LARGE UNSTAINED CELL #; Value: 0.1; Range: 0.0-0.4; Units: K/mm3; Status: F Lab Order: COMPLETE COMPHRENSIVE METABOLI; SPEC'M 07/28/16 06:33 Test: GLUCOSE, FASTING; Value: 119; Range: 83-110; Abnormal: Above high normal; Units: MG/DL; Status: F Test: BLOOD UREA NITROGEN; Value: 18; Range: 7-18; Units: MG/DL; Status: F Test: CREATININE FOR GFR; Value: 1.08; Range: 0.70-1.30; Units: MG/DL; Status: F Test: GLOMERULAR FILTRATION RATE; Value: > 60.0; Range: >35; Status: F Test: SODIUM LEVEL; Value: 143; Range: 136-145; Units: MEQ/L; Status: F Test: POTASSIUM SERUM; Value: 4.0; Range: 3.5-5.1; Units: MEQ/L; Status: F Test: CHLORIDE LEVEL; Value: 107; Range: 98-107; Units: MEQ/L; Status: F Test: CARBON DIOXIDE LEVEL; Value: 27; Range: 21-32; Units: MEQ/L; Status: F Test: ANION GAP; Value: 9; Range: 8-16; Units: MEQ/L; Status: F Test: CALCIUM LEVEL; Value: 8.4; Range: 8.8-10.2; Abnormal: Below low normal; Units: MG/DL; Status: F Test: AST/SGOT; Value: 11; Range: 15-37; Abnormal: Below low normal; Units: U/L; Status: F Test: ALT/SGPT; Value: 14; Range: 12-78; Units: U/L; Status: F Test: ALKALINE PHOSPHATASE; Value: 72; Range: 45-117; Units: U/L; Status: F Test: BILIRUBIN,TOTAL; Value: 0.7; Range: 0.2-1.0; Units: MG/DL; Status: F Test: TOTAL PROTEIN; Value: 6.2; Range: 6.4-8.2; Abnormal: Below low normal; Units: GM/DL; Status: F Test: ALBUMIN; Value: 3.0; Range: 3.2-5.2; Abnormal: Below low normal; Units: GM/DL; Status: F Test: ALBUMIN/GLOBULIN RATIO; Value: 0.94; Range: 1.00-1.93; Abnormal: Below low normal; Status: F Test Note: ; Units are mL/min/1.73 m2 Chronic Kidney Disease Staging per NKF: Stage I & II GFR >=60 Normal to Mildly Decreased Stage III GFR 30-59 Moderately Decreased Stage IV GFR 15-29 Severely Decreased Stage V GFR <15 Very Little GFR Left ESRD GFR <15 on ROLLER STAINER Lab Order: MAGNESIUM LEVEL; SPEC'07/28/16 06:33 Test: MAGNESIUM LEVEL; Value: 1.8; Range: 1.8-2.4; Units: MG/DL; Status: F Lab Order: Fingerstick Blood Sugar; SPEC'07/27/16 22:14 Test: BEDSIDE GLUCOSE; Value: 143; Range: 83-110; Abnormal: Above high normal; Units: MG/DL; Status: F Lab Order: Fingerstick Blood Sugar; SPEC'07/28/16 11:50 Test: BEDSIDE GLUCOSE; Value: 189; Range: 83-110; Abnormal: Above high normal; Units: MG/DL; Status: F Radiology Order: EKG-ADULT Test: EKG-ADULT REASON FOR EXAMINATION: s/s stroke ; Stationary ECG Study; [facility] - ED; ; Test Date: 2016-07-27; Pat Name: DEREJE WELCH Department:; Room: -; Gender: M [facility] Nurse: Niya; : 1930 Requested By: BYRON Pagan; Order Number: [id number] Reading MD: Nurys Patel; Measurements; Intervals Bartlett; Rate: 92 P: 73; PA: 182 QRS: -37; QRSD: 90 T: 101; QT: 340; QTc: 422; Interpretive Statements; SINUS RHYTHM; MARKED LEFT AXIS DEVIATION; SEPTAL MYOCARDIAL INFARCTION, PROBABLY OLD; NSTTW ABNORMALITY; [facility] 07/26/16 16:34; Electronically Signed On 07-27-2016 13:20:55 EST by Nurys Patel; Radiology Order: -MRA-Brain without contrast Test: -MRA-Brain without contrast REASON FOR EXAMINATION: CVA >4.5hrs; ; CLINICAL HISTORY: CVA.; TECHNIQUE: Three dimensional bolo-zt-ucwohu angiography is performed of the c[place] de[place] of [place]. The maria fernanda; dy was performed without IV contrast agent.; FINDINGS: The supraclinoid portions of the internal carotid arteries are of normal shape. The normal; bifurcation is seen. The middle cerebral arteries are unremarkable in appearance. The posterior circu; lation is visualized and shows no evidence of occlusion or aneurysm formation. The basilar tip is see; n and shows no aneurysm formation. There is no evidence of beading to suggest vasculitis.; IMPRESSION:; MRA of the [place] of [place] is within normal limits.; Thank you for your kind referral of this patient.; ; Radiology Order: -MRI-Brain without Test: -MRI-Brain without REASON FOR EXAMINATION: CVA >4.5hrs; ; CLINICAL HISTORY: CVA.; TECHNIQUE: MRI of the brain was performed utilizing multiple sequences in axial, coronal and sagittal; planes without IV contrast material.; COMMENTS:; The sella and parasellar region are unremarkable in appearance. The corpus callosum and cerebellar to; nsils are of normal configuration and position. There are no intra or extra- axial collections. There; is no mass effect or midline shift. There is no evidence of hematoma formation. There is no hydrocep; halus.; There is no evidence of restricted diffusion.; There is encephalomalacia noted involving right frontal lobe compatible with old infarct.; The visualized arterial structures demonstrate normal-appearing flow voids. The seventh and eighth ne; rve bundles are visualized and are unremarkable in appearance.; Numerous confluent foci of T2/FLAIR hyperintensity are noted in the bilateral periventricular and sub; cortical white matter compatible with severe chronic white matter ischemic changes.; Generalized proportionate dilatation of ventricles and sulci is present compatible with age-appropria; te parenchymal atrophy.; IMPRESSION:; 1. No acute intracranial pathology. Old right frontal infarct.; 2. Generalized age-appropriate parenchymal atrophy.; 3. Severe chronic white matter microvascular ischemic changes.; Thank you for your kind referral of this patient.; ; Radiology Order: Chest, 2 View (pa\\E\\lat) Test: Chest, 2 View (pa\\E\\lat) REASON FOR EXAMINATION: CVA >4.5hrs; Semi upright AP portable chest 07/27/2016; ; Indication: CVA greater than 4.5 hours; ; Comparison: AP portable chest 07/26/2016, 04/25/2010; ; Findings: Cardiac silhouette is upper normal size. Atherosclerotic changes are; noted thoracic aorta. There is cephalization of pulmonary vasculature c/w; pulmonary venous hypertension.; ; There are mild degenerative changes in the thoracic spine; ; Soft tissues are within normal limits; ; Impression; 1. Cardiac silhouette is upper normal size.; 2. Pulmonary venous hypertension; ; ; ; ; ; ; Signed by; Binta Zurita MD 07/27/2016 03:06 P; Radiology Order: -MRI-Spine, Cervical without contrast Test: -MRI-Spine, Cervical without contrast REASON FOR EXAMINATION: right sided deficits; ; CLINICAL HISTORY: Patient states weakness on right side.; ; TECHNIQUE: MRI of the cervical spine was performed utilizing multiple sequences in axial and sagitta; l planes without IV contrast material.; ; COMMENTS:; The visualized osseous elements are intact with no evidence of fracture or dislocation. The marrow s; ignals are within normal limits. The cervical cord is of normal uniform signal intensity without lowell; dence of focal expansion. There is no evidence for tonsillar herniation. Limited views of the poste; rior fossa reveal no abnormalities.; ; Advanced degenerative spondylosis is present. There is evidence of fusion at C3-C4 and C5-C6, this m; ay be postsurgical. Clinical correlation is recommended.; ; At C2-C3, mild posterior bulging is seen. Canal and foramina are patent.; ; At C3-C4, there is a residual disc osteophyte complex present. Canal and foramina remain patent.; ; At C4-C5, broad based disc protrusion is seen associated with spurring. There is moderate to severe; bilateral foraminal stenosis and mild central canal stenosis.; ; At C5-C6, there is mild posterior spurring seen. Canal and foramina remain patent.; ; At C6-C7, central disc protrusion indents the ventral thecal sac. Canal and foramina are patent.; ; C7-T1 level is unremarkable.; ; IMPRESSION:; 1. At C2-C3, mild posterior bulging is seen. Canal and foramina are patent.; 2. At C3-C4, there is a residual disc osteophyte complex present. Canal and foramina remain patent.; ; 3. At C4-C5, broad based disc protrusion is seen associated with spurring. There is moderate to sev; ere bilateral foraminal stenosis and mild central canal stenosis.; 4. At C5-C6, there is mild posterior spurring seen. Canal and foramina remain patent.; 5. At C6-C7, central disc protrusion indents the ventral thecal sac. Canal and foramina are patent.; ; ; ; Thank you for your kind referral of this patient. We appreciate the opportunity to participate in [facility]; s patient's care.; ; ; Radiology Order: -MRI-Spine, Lumbar without contrast Test: -MRI-Spine, Lumbar without contrast REASON FOR EXAMINATION: right sided deficits; ; History: low back pain; Procedure: Multiple sequences were obtained in the sagittal and axial planes with T1 and T2 weighting; .; Findings: The conus medullaris and cauda equina appear normal. There is no significant marrow signal; alteration. There is no evidence of fracture, spondylolisthesis, or spondylolysis.; Schmorl's nodes are noted at T21-L1 to L4-L5.; Examination of the individual interspaces reveals the following:; L1-2: The disc is desiccated but normal in configuration without herniation or spinal or foraminal st; enosis.; L2-3: The disc is desiccated but normal in configuration without herniation or spinal or foraminal st; enosis.; L3-4: The disc is desiccated but normal in configuration without herniation or spinal or foraminal st; enosis.; L4-5: The disc is desiccated but normal in configuration without herniation or spinal or foraminal st; enosis.; L5-S1:The disc is desiccated but normal in configuration without herniation or spinal or foraminal st; enosis.; Impression:; 1. Diffuse disc desiccation; 2. Otherwise normal MRI of the lumbar spine; Thank you for your kind referral of this patient.; ; Radiology Order: -MRI-Spine,Thoracic without contrast Test: -MRI-Spine,Thoracic without contrast REASON FOR EXAMINATION: right sided deficits; ; CLINICAL HISTORY: Patient states weakness on right side.; ; TECHNIQUE: MRI of the thoracic spine was performed utilizing multiple sequences in axial and sagitta; l planes without IV contrast material.; ; COMMENTS:; The visualized osseous elements are intact and in normal alignment with no evidence of fracture or di; slocation. The marrow signals are within normal limits. The visualized posterior elements are hailey; l and the thoracic curvature is well maintained. At the level T5-T6, there is abnormality felt withi; n spinal cord. There is spinal cord expansion and abnormal signal. This area measures approximately; 10 mm in craniocaudad dimension. There is apparent cystic area noted. Differential includes posttr; aumatic myelomalacia, although underlying tumor is not totally excluded. Further evaluation is recom; mended with MRI performed with pre and postcontrast. Neurosurgical evaluation is recommended.; ; Advanced multilevel degenerative spondylosis is seen. There is disc dehydration and desiccation note; d at all thoracic levels, which is most severe involving mid to lower thoracic levels. 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 How; ever, it does not cause impingement or compression of all the cord.; ; Remaining thoracic levels are grossly unremarkable.; ; There is mild dextroscoliosis is seen apex at T6.; ; IMPRESSION:; 1. At the level T5-T6, spinal cord expansion and abnormal signal. This area measures approximately; 10 mm in craniocaudad dimension. There is apparent cystic area noted. Differential includes posttra; umatic myelomalacia, although underlying tumor is not totally excluded. Further evaluation is recomm; ended with MRI performed with pre and postcontrast. Neurosurgical evaluation is recommended.; 2. At T5-T6, small herniated disc noted centrally measures 4 x 2 mm indents the ventral thecal sac.; However, it does not cause impingement or compression of all the cord.; ; ; Thank you for your kind referral of this patient. We appreciate the opportunity to participate in thi; s patient's care.; ; ; Outcome: 07/27 18:38 Decision to Hospitalize by Provider. le 07/28 12:34 Discharge Assessment: Patient awake, alert and oriented x 3. No cognitive and/or me3 functional deficits noted. Patient verbalized understanding of disposition instructions. patient administered narcotics - no. The following High Risk Discharge criteria are identified: None. Admitted to PCU accompanied by nurse, via stretcher, with chart. Condition: stable. MRI Study completed. Property :Personal belongings accompany Pt. 17:03 Patient left the ED. me3 Signatures: Dispatcher [employer] EDMS Eri Back, Print Binding Worker Unit deg Camilla Peterson RN Jessy Wayne, Reg Reg gb Vikas Rodriguez, Reg Reg lg hCun Gray, Print Binding Worker Unit ml3 Celia Alberts,SIMA CUSTOMER EXPERIENCE STRATEGIST me3 Sindhu Amado, [employer] SOLUTIONS ARCHITECT [employer] ARCHITECT Nuria Pillai mt4 Kya Nation, INTERIOR SPECIALIST INTERIOR SPECIALIST ar3 Letha Montes De Oca,RN DEN gannon5 Gabriela Katz RN RN jc4 Mya Cook INTERIOR SPECIALIST INTERIOR SPECIALIST ct3 Mabel Phan,RN RN Dominique Evans,DEN CRENSHAW pml Joaquina August,RN RN [facility] Vashti [facility]2 Johanna RivasRN RN ja5 MTDD
--- NOTE | 2016-07-28 17:04 | EDDOCDS ---
Physician Documentation [facility] Name: Dereje Bennett Age: 86 yrs Sex: Male : 1930 Arrival Date: 07/27/2016 Time: 12:54 Bed Admit Hold Private MD: Doyle Roldan D Disposition: 07/27/16 18:38 Hospitalization ordered by Danisha Lopez for Observation. 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 - Bed requested for M ICU. - Status is Observation. me3 - Condition is Stable. - Problem is new. - Symptoms are unchanged. Historical: - Allergies: no known allergies; - Home Meds: 1. metformin 500 mg Oral tab three times a day 2. lisinopril 40 mg Oral tab 1 tab once daily 3. clopidogrel 75 mg oral tab 1 tab once daily 4. atorvastatin 20 mg oral tab 1 tab once daily 5. amlodipine 5 mg Oral tab 1 tab once daily 6. finasteride 5 mg oral tab 1 tab once daily 7. aspirin 81 mg Oral tab 1 tab once daily 8. has not filled scripts from yesterday - PMHx: CVA; Diabetes - NIDDM: controlled; Hypercholesterolemia; Hypertension; Kidney stones; - PSHx: Appendectomy; Cholecystectomy; Cataract Surgery- Right; - Social history: Smoking status: No barriers to communication noted, The patient speaks fluent [place], Speaks appropriately for age, Smoking status: Patient states former smoker of tobacco. - Family history: Not pertinent. - : The pt / caregiver states he / she is on anticoagulants: Plavix. Home medication list is obtained from the patient. - Exposure Risk Screening:: None identified. Vital Signs: 07/27 12:59 BP 148 / 77 LA Sitting (auto/lg); Pulse 90 LA; Resp 18 S; Temp 97.5(O); Pulse Ox 95% on mt4 R/A; Weight 99.34 kg / 219.01 lbs (R); Height 5 ft. 10 in. (177.80 cm) (R); Pain 0/10; 13:09 BP 201 / 100 (auto/); jc4 13:13 Pulse 90 MON; Pulse Ox 92% ; jc4 13:24 BP 198 / 102 (auto/); jc4 13:25 Pulse 92 MON; Pulse Ox 93% ; jc4 13:39 BP 158 / 86 (auto/); jc4 13:39 Pulse 84 MON; Pulse Ox 94% ; jc4 13:54 BP 196 / 97 (auto/); jc4 13:54 Pulse 82 MON; Pulse Ox 94% ; jc4 14:10 BP 196 / 93 (auto/); jc4 14:10 Pulse 86 MON; Pulse Ox 94% ; jc4 14:12 BP 196 / 93; Pulse 85; Resp 20; Temp 97.5(O); Pulse Ox 93% on R/A; Pain 0/10; ja5 14:24 Pulse 86 MON; Pulse Ox 94% ; jc4 14:28 BP 149 / 85 (auto/); jc4 14:39 BP 161 / 85 (auto/); jc4 14:40 Pulse 84 MON; Pulse Ox 94% ; jc4 15:09 BP 120 / 81 (auto/); jc4 15:14 Pulse 90 MON; Pulse Ox 97% ; jc4 15:24 BP 129 / 71 (auto/); jc4 15:39 BP 132 / 76 (auto/); jc4 15:41 Pulse 80 MON; Pulse Ox 92% ; jc4 15:54 BP 127 / 76 (auto/); jc4 15:54 Pulse 80 MON; Pulse Ox 92% ; jc4 17:23 BP 154 / 85 (auto/); jc4 17:38 BP 145 / 80 (auto/); jc4 17:38 Pulse 82 MON; Pulse Ox 95% ; jc4 17:53 BP 145 / 81 (auto/); jc4 17:53 Pulse 84 MON; Pulse Ox 92% ; jc4 18:02 BP 161 / 90 (auto/); mlc 18:03 BP 161 / 90; Pulse 85; Resp 18 S; Temp 97.9(O); Pulse Ox 91% on R/A; Pain 1/10; ja5 18:03 Pulse 82 MON; Pulse Ox 91% ; mlc 18:08 BP 158 / 87 (auto/); jc4 18:08 Pulse 90 MON; jc4 18:37 Pulse 94 MON; jc4 18:38 BP 170 / 83 (auto/); jc4 18:56 BP 171 / 87 (auto/); mlc 18:57 Pulse 92 MON; Pulse Ox 91% ; mlc 19:08 BP 178 / 91 (auto/); mlc 19:08 Pulse 92 MON; Pulse Ox 92% ; mlc 12:59 Body Mass Index 31.42 (99.34 kg, 177.80 cm) mt4 MDM: 13:07 ECG WITH READING ER PHYS+CARDIAG ordered. EDMS 13:27 MRI Screening Tool - Place on chart, inform RN ordered. le 13:28 -MRA-Brain without contrast Ordered. EDMS 13:28 -MRI-Brain without Ordered. EDMS 13:30 MRI Screening Tool - Place on chart, inform RN complete. ar3 13:39 Extractor And Wringer Operator/Pulse Ox/q 15 min VS ordered. le 13:39 Accucheck ordered. le 13:39 IV Saline Lock ordered. le 13:39 Rhythm Strip to chart ordered. le 13:40 Basic Metabolic Profile Ordered. EDMS 13:40 CBC with Diff Ordered. EDMS 13:40 Partial Thromboplastin Time Ordered. EDMS 13:40 Prothrombin Time Profile\E\INR Ordered. EDMS 13:41 Chest, 2 View (pa\E\lat) Ordered. EDMS 14:01 Financial registration complete. lg 14:07 BED REQUEST+ADM ordered. EDMS 14:12 [facility] Payment Agreement was scanned into [employer] and attached to record. lg 14:36 Fingerstick Blood Sugar Ordered. EDMS 15:07 Basic Metabolic Profile Reviewed. le 15:07 CBC with Diff Reviewed. le 15:07 Partial Thromboplastin Time Reviewed. le 15:07 Prothrombin Time Profile\E\INR Reviewed. le 15:07 Fingerstick Blood Sugar Reviewed. le 15:07 EKG-ADULT Reviewed. le 17:04 CONSISTENT CARBOHYDRATE+DIET ordered. EDMS 19:13 -MRI-Spine, Cervical without contrast Ordered. EDMS 19:13 -MRI-Spine, Lumbar without contrast Ordered. EDMS 19:13 -MRI-Spine,Thoracic without contrast Ordered. EDMS 19:40 Admission / Observation Status ordered. EDMS 19:41 CONSISTENT CARBOHYDRATES ordered. EDMS 19:41 PHYSICAL THERAPY EVAL & TREAT ordered. EDMS 20:29 CBC WITH DIFFERENTIAL Ordered. EDMS 20:29 COMPLETE COMPHRENSIVE METABOLI Ordered. EDMS 20:29 MAGNESIUM LEVEL Ordered. EDMS 22:22 Fingerstick Blood Sugar Ordered. EDMS 07/28 10:31 MRI Spine, Thoracic with con Ordered. EDMS 12:18 Fingerstick Blood Sugar Ordered. EDMS 14:08 T-Sheet-- Draft Copy was scanned into [employer] and attached to record. gb 17:01 ERYTHROCYTE SEDIMENTATION RATE Ordered. EDMS 17:01 ANTINUCLEAR ANTIBODIES Ordered. EDMS 17:01 Lupus Type Anticoagulant Ordered. EDMS 17:01 SERUM PROTEIN ELECTROPHORESIS Ordered. EDMS 17:01 PROTEIN C ANTIGEN Ordered. EDMS 17:02 PROTEIN S ANTIGEN(TOT&FREE) Ordered. EDMS 17:02 ANTI THROMBIN 3 ANTIGEN LEVEL Ordered. EDMS 17:02 HOMOCYSTEINE Ordered. EDMS 17:04 ANGIOTENSIN 1 CONVERTING ENZ Ordered. EDMS 17:04 LYME WESTERN BLOT SERUM Ordered. EDMS Signatures: Dispatcher [employer] EDMS Eri Back, Cover Stripper Unit deg Gail, Jessy, Reg Reg gb Vikas Rodriguez, Reg Reg lg Celia Alberts,INVESTMENT FUND MANAGER INVESTMENT FUND MANAGER me3 Sindhu Amado, HEAD OF MATHEMATICS HEAD OF MATHEMATICS Kya Choudhury, GEOGRAPHY INSTRUCTOR GEOGRAPHY INSTRUCTOR ar3 Dominique Steele RN RN pml Booth, Mandy, RN RN Dilip Salmeron RN RN mts The chart was reviewed and I authenticate all verbal orders and agree with the evaluation and treatment provided.Attachments: 07/27 14:12 [facility] Payment Agreement lg 07/28 14:08 T-Sheet-- Draft Copy gb MTDD
[2016-07-28 18:34] LABS: TOTAL PROTEIN 7.2 GM/DL (6.4-8.2)
[2016-07-28] MEDS: CLOPIDOGREL 75 MG TAB PO SCH (21:09)
[2016-07-28] MEDS: amLODIPine 5 MG TAB PO SCH (21:10)
[2016-07-29] VITALS (23 sets, daily range): BP systolic 125–177; BP diastolic 63–99
--- NOTE | 2016-07-29 00:01 | IPN ---
DATE: 07/28/2016 SUBJECTIVE: Patient is seen and examined in the room today. Patient feels frustrated about his current situation. The patient has complete paralysis of the right upper and lower extremities. He also has difficulty moving the right side muscles. Patient was still in the emergency department (ED) at the time of this morning's encounter due to bed holding. OBJECTIVE: VITAL SIGNS: Temperature is 99, pulse is 90, respirations 18, blood pressure is 147/55, pulse oximetry is 93% in room air. GENERAL: Agitated. Alert and oriented times three. HEENT: Normocephalic, atraumatic. Unable to move the right eye toward the right side. CARDIOVASCULAR: Positive S1, S2, regular rate. LUNGS: Clear to auscultation bilaterally. ABDOMEN: Obese, soft, nontender, nondistended. Bowel sounds present. EXTREMITIES: No edema. No cyanosis. NEUROLOGICAL: Unable to move upper and lower extremity at all. Unable to move the right eye toward the right side. Positive tongue deviation. Sensation to fine touch is intact bilaterally. LABORATORY DATA: WBC is 7.3, hemoglobin 12.5, hematocrit is 38.6, platelet count is 249. Sodium is 143, potassium 4, chloride is 107, carbon dioxide is 27, BUN 18, creatinine 1.08, GFR greater than 60, fasting glucose 119, calcium is 8.4, magnesium 1.8, total bilirubin is 0.7, AST 11, ALT 14, alkaline phosphatase is 72, total protein is 6.2, albumin 3. ASSESSMENT AND PLAN: 1. Medulla infarct. Patient started having right-sided weakness. Patient actually came to [facility] Emergency Room on 07/26/2016. Patient had a negative CT, and patient was discharged home on the same day. Later, the patient had worsening of symptoms and patient came back to [facility] Emergency Room on 07/27/2016. MRI of the brain was performed. Initially, there was abnormal finding near the . It was dictated as artifact. However, after discussing with the neurologist, Dr. Phillips, and the radiologist, Dr. Nuno, it was determined the patient had acute mid brain stroke. Patient was seen by the neurologist and recommended aspirin, Plavix, and statin, and patient is to be transferred to a monitored bed. Due to the location of the acute stroke, patient requires these settings. 2. 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 3. T5 vertebral spine abnormalities. MRI of the thoracic spine around T4 or T5 region, there is no abnormal finding of the MRI without contrast. The case was reviewed with Mr. Phillips and Dr. Nuno. It was determined that patient should get an MRI of the thoracic spine with contrast to further delineate the identify of the lesion, and Dr. Shah has been consulted to assist on the issues. 4. History of non-insulin dependent diabetes. On sliding scale and consistent-carbohydrate diet. 5. History of hypertension. Patient is on amlodipine and lisinopril. 6. Deep venous thrombosis (DVT) prophylaxis. Patient is on Lovenox.
[2016-07-29 05:37] LABS: BASO % 0.2 % (0.0-1.0); EOS % 0.4 % (0.0-3.0); LARGE UNSTAINED CELL # 0.1 K/mm3 (0.0-0.4); LYMPH # 0.8 K/mm3 (1.5-4.5); MEAN CORPUSCULAR HEMOGLOBIN 29.1 pg (27.0-33.0); MEAN CORPUSCULAR HGB CONC 33.3 g/dl (32.0-36.5); MEAN CORPUSCULAR VOLUME 87.5 fl (80.0-96.0); MONO # 0.7 K/mm3 (0.0-0.8); MONO % 6.6 % (0.0-5.0); NEUTROPHILS # 8.4 K/mm3 (1.8-7.7); NEUTROPHILS % 83.8 % (36.0-66.0); PLATELET COUNT, AUTOMATED 249 k/mm3 (150-450); RED CELL DISTRIBUTION WIDTH 13.8 % (11.5-14.5)
[2016-07-29 05:57] LABS: ALBUMIN 2.9 GM/DL (3.2-5.2); ALBUMIN/GLOBULIN RATIO 0.71 (1.00-1.93); ALKALINE PHOSPHATASE 79 U/L (45-117); ALT/SGPT 13 U/L (12-78); ANION GAP 9 MEQ/L (8-16); AST/SGOT 8 U/L (15-37); BILIRUBIN,TOTAL 0.9 MG/DL (0.2-1.0); BLOOD UREA NITROGEN 18 MG/DL (7-18); CALCIUM LEVEL 8.6 MG/DL (8.8-10.2); CARBON DIOXIDE LEVEL 26 MEQ/L (21-32); CHLORIDE LEVEL 106 MEQ/L (98-107); CREATININE FOR GFR 0.98 MG/DL (0.70-1.30); GLOMERULAR FILTRATION RATE > 60.0 (>35); GLUCOSE, FASTING 171 MG/DL (83-110); MAGNESIUM LEVEL 1.8 MG/DL (1.8-2.4); SODIUM LEVEL 141 MEQ/L (136-145)
[2016-07-29] MEDS ORDERED: SLF 3 ML SYR IV PRN (07:00)
[2016-07-29] MEDS: SYMBICORT 160/4.5MCG INHALER 6GM INH SCH ×2 (08:05→19:49)
[2016-07-29] MEDS: ASPIRIN 81 MG ENTERIC TAB PO SCH (08:40)
[2016-07-29] MEDS: ATORVASTATIN 20 MG TAB PO SCH (08:40)
[2016-07-29] MEDS: HumaLOG INSULIN (NovoLOG) PER UNIT SC SCH ×4 (08:40→21:00)
[2016-07-29] MEDS: ENOXAPARIN 40 MG/0.4 ML SYRINGE (J1650) SC SCH (08:41)
[2016-07-29] MEDS: FINASTERIDE 5 MG TAB PO SCH (08:41)
[2016-07-29] MEDS: LISINOPRIL 40 MG TAB PO SCH (08:41)
--- NOTE | 2016-07-29 09:16 | IPN ---
DATE OF SERVICE: 07/29/2016 The patient is seen and examined at the bedside. Chart has been reviewed. Overnight, the patient has had no issues on telemetry. He continues to have persistent right upper and lower extremity weakness. He is awake, alert, oriented times three, answering questions appropriately without any expressive aphasia. Speaks in full sentences and no complaints of respiratory distress. No other issues per nursing overnight. Telemetry remains in sinus rhythm. Blood pressure is maintained at 136/167 systolic. Urine output has been 1.1 liters overnight, and current weight is 85.1. No significant change from yesterday at 85.5 kg. The patient denies any swallowing difficulties, breathing difficulties. No nausea, vomiting, chest pain, pressure, tightness, lightheadedness, or dizziness. No other issues per nursing overnight. Temperature is 99.8, pulse 97, respiratory rate 20, blood pressure 154/78, 95% on 2 liters nasal cannula. Telemetry: Sinus rhythm, ventricular rate of 87-94. Input and output: Input 1100, output 1150, negative 50. Current weight is 85.1 kg, previous weight of 85.5 kg. Generally, the patient is awake, alert, and oriented to person, place, and time. He is answering questions appropriately. Speech is fluent. He is edentulous. No jugular venous distention. No thyromegaly. No supraclavicular lymphadenopathy. The patient has no facial asymmetry. Tongue is midline. Extraocular muscles are dysconjugate. Unable to move the right eye laterally. No nystagmus horizontal or vertical noted. Palate elevates symmetrically. Sensation is intact bilaterally. The patient has 0/5 motor function right upper and lower extremity. Left lower extremity and upper extremity are 5/5. Deep tendon reflexes are 2+ in the patella, absent in the achilles. Babinski's is positive on the right. No spasticity. Iocmrp-uj-jlad testing could not be performed on the right due to 0/5 motor function. Gait was not tested, as the patient has significant right-sided hemiparesis. Left upper and lower extremity motor and sensation are intact. Heart: S1, S2, sinus. Abdomen: Soft, nontender, nondistended. Positive bowel sounds. Extremities: No cyanosis, clubbing, or pitting edema. White count 10, hemoglobin 13 hematocrit 40, platelet count 249. Sodium 140, potassium 4, chloride 106, bicarbonate 26, BUN 18, creatinine 0.98, glucose 171. DAWSON screen is pending. Lyme IgG is pending. Methicillin-resistant Staphylococcus aureus (MRSA) screen is pending. MRA of the brain shows the mentasta of Ring is within normal limits. MRI of the brain shows an acute medullary infarct. ASSESSMENT AND PLAN: This is an 86-year-old male who presented to the emergency room on 07/26/2016 complaining of right hemiparesis with negative CT of the head and was discharged home later that day. Had worsening of symptoms with right-sided hemiparesis, unable to ambulate and stand. MRI performed showed no acute findings. Re-discussion with Dr. Nuno, neuroradiologist, and neurologist, Dr. Phillips, due to persistent right-sided weakness, showed an acute midbrain cerebrovascular accident (CVA) in the cerebellum with a medullary stroke. The patient is currently in the intensive care unit (ICU) setting. Electrocardiogram (EKG) was negative for arrhythmia. Continues in sinus rhythm. He is being treated for the following issues: 1. 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 The patient is undergoing evaluation for Lyme disease and sarcoidosis due to thoracic spine abnormalities, for which Dr. Shah is consulted. Dr. Phillips has been consulted for acute cerebellar cerebrovascular accident (CVA), currently on aspirin and Plavix and atorvastatin. Blood pressure control with lisinopril. Avoid severe decrease in blood pressure. Physical therapy and occupational therapy (OT). Monitor for aspiration issues. 2. Abnormality at T5 on MRI of the thoracic spine. Dr. Shah has been consulted. The patient is being worked up for sarcoid versus Lyme disease. He has no other joint issues or neurological deficits. Continue with neuro checks, physical therapy. 3. Non-insulin diabetes. On insulin sliding scale and consistent-carbohydrate diet. Appears to have adequate control with fingerstick, consistently below 190. Currently, 160. 4. Hypertension. Continue lisinopril. Avoid severe decrease in his blood pressure due to acute CVA. DISPOSITION: The patient will need acute rehabilitation. Await physical therapy (PT) official clearance and physical medicine and rehabilitation (PM and R) evaluation. Deep venous thrombosis (DVT) prophylaxis with Lovenox. MTDD
[2016-07-29] MEDS: SLF 3 ML SYR IV SCH ×2 (14:29→21:00)
[2016-07-29] MEDS ORDERED: ACETAMINOPHEN TAB 650MG DOSE (2X325MG) PO PRN (16:15)
[2016-07-29] MEDS: CLOPIDOGREL 75 MG TAB PO SCH (21:00)
[2016-07-29] MEDS: amLODIPine 5 MG TAB PO SCH (21:00)
[2016-07-30] VITALS (12 sets, daily range): BP systolic 136–190; BP diastolic 71–100
[2016-07-30] MEDS: SLF 3 ML SYR IV SCH ×3 (05:49→20:14)
[2016-07-30 06:06] LABS: BASO % 0.3 % (0.0-1.0); EOS # 0.1 K/mm3 (0.0-0.50); EOS % 0.9 % (0.0-3.0); LARGE UNSTAINED CELL # 0.1 K/mm3 (0.0-0.4); LARGE UNSTAINED CELL % 0.8 % (0.0-4.0); LYMPH # 0.9 K/mm3 (1.5-4.5); LYMPH % 7.4 % (24.0-44.0); MEAN CORPUSCULAR HEMOGLOBIN 28.3 pg (27.0-33.0); MEAN CORPUSCULAR HGB CONC 31.6 g/dl (32.0-36.5); MEAN CORPUSCULAR VOLUME 89.5 fl (80.0-96.0); MONO # 0.7 K/mm3 (0.0-0.8); MONO % 6.3 % (0.0-5.0); NEUTROPHILS # 9.1 K/mm3 (1.8-7.7); NEUTROPHILS % 84.4 % (36.0-66.0); PLATELET COUNT, AUTOMATED 237 k/mm3 (150-450); RED CELL DISTRIBUTION WIDTH 14.9 % (11.5-14.5); WHITE BLOOD COUNT 10.8 K/mm3 (4.0-10.0)
[2016-07-30 06:10] LABS: ALBUMIN 2.7 GM/DL (3.2-5.2); ALBUMIN/GLOBULIN RATIO 0.61 (1.00-1.93); ALKALINE PHOSPHATASE 70 U/L (45-117); ALT/SGPT 11 U/L (12-78); ANION GAP 10 MEQ/L (8-16); AST/SGOT 10 U/L (15-37); BILIRUBIN,TOTAL 0.9 MG/DL (0.2-1.0); BLOOD UREA NITROGEN 21 MG/DL (7-18); CALCIUM LEVEL 8.6 MG/DL (8.8-10.2); CARBON DIOXIDE LEVEL 25 MEQ/L (21-32); CHLORIDE LEVEL 106 MEQ/L (98-107); CREATININE FOR GFR 1.08 MG/DL (0.70-1.30); GLOMERULAR FILTRATION RATE > 60.0 (>35); GLUCOSE, FASTING 169 MG/DL (83-110); SODIUM LEVEL 141 MEQ/L (136-145); TOTAL PROTEIN 7.1 GM/DL (6.4-8.2)
[2016-07-30] MEDS ORDERED: ATENOLOL 25 MG TAB PO SCH (08:00)
[2016-07-30] MEDS: HumaLOG INSULIN (NovoLOG) PER UNIT SC SCH ×4 (08:02→20:13)
[2016-07-30] MEDS: SYMBICORT 160/4.5MCG INHALER 6GM INH SCH ×2 (08:08→20:25)
[2016-07-30] MEDS: LISINOPRIL 40 MG TAB PO SCH (08:13)
[2016-07-30] MEDS: ENOXAPARIN 40 MG/0.4 ML SYRINGE (J1650) SC SCH (08:13)
[2016-07-30] MEDS: ASPIRIN 81 MG ENTERIC TAB PO SCH (08:13)
[2016-07-30] MEDS: ATORVASTATIN 20 MG TAB PO SCH (08:14)
[2016-07-30] MEDS: FINASTERIDE 5 MG TAB PO SCH (08:14)
[2016-07-30] MEDS ORDERED: FUROSEMIDE 20 MG/2 ML VIAL (J1940) IV ONE (14:00)
--- NOTE | 2016-07-30 14:03 | IPN ---
DATE: 07/30/2016 Patient seen and examined at the bedside. Chart has been reviewed. Patient has no new complaints today. He continues to have flaccid right upper and lower extremity. He has mild dysarthria and denies any shortness of breath. Has a cough which is productive of white sputum, lower grade temperature of 100. Denies dysuria, urgency, frequency. Temperature 100, pulse 95, respiratory rate 18, blood pressure 184/92, 92% on room air. Generally, awake, alert, oriented to person, place and time. Patient has mild dysarthria with some expressive aphasia. He currently has complete flaccid right upper and lower extremity with right hemiparesis. Speech is fluent. He is edentulous. No thyromegaly. No supraclavicular lymphadenopathy. No facial asymmetry. Extraocular muscles are intact. Unable to move the right eye laterally. No nystagmus horizontal or vertical noted. Palate elevates symmetrically. Sensation is intact. Motor function 0/5 right upper and lower extremity. Left lower extremity and upper extremity 5/5. Deep tendon reflex 2+ patella. Absent in Achilles. Babinski is positive on the right with no spasticity. Gait was not tested. Left upper and lower extremity sensation are intact. Heart: S1, S2, sinus rhythm. Abdomen: Soft, nontender, nondistended. Positive bowel sounds. Lungs: Clear to auscultation. No wheezing, rales or rhonchi. Extremities: No cyanosis or clubbing. LABORATORY DATA: CBC, metabolic panel have been reviewed. Microbiology: Two sets of blood cultures, sputum culture pending. Methicillin-resistant staphylococcus aureus (MRSA) screen is pending. Chest x-ray 07/27: Pulmonary venous hypertension. ASSESSMENT AND PLAN: This is an 86-year-old male who presented to the ER 07/26 with right hemiparesis. Negative CT of the head. Discharged home later that day, presents with worsening symptoms, unable to ambulate and stand. MRI performed showed no acute findings. Discussion with Dr. Nuno, neuroradiologist, and neurology Dr. Phillips showed due to persistent right sided weakness showed acute mid brain cerebrovascular accident (CVA) in the cerebellum with medullary stroke. Patient is admitted to PCU. EKG negative for arrhythmia. Currently sinus rhythm. Being treated for the following issues: 1. 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 Shah is consulted. Dr. Phillips has been consulted for acute CVA, currently on aspirin and Plavix and atorvastatin for blood pressure control , to be titrated with, increase the atenolol and Norvasc twice daily. Monitor for aspiration, cough and low grade fever. Check chest x-ray to rule out aspiration. Abnormality in D5 on MRI thoracic spine. Dr. Shah has been consulted as well as neurologist. 2. Non-insulin dependent diabetes. Sliding scale, consistent carbohydrate diet. 3. Hypertension, uncontrolled. Titrate atenolol, Norvasc and lisinopril for better control. DISPOSITION: Once blood pressure is maintained, patient may be discharged to acute rehabilitation in the morning. IRAD
--- NOTE | 2016-07-30 14:17 | REP ---
Chest one-view HISTORY: Cough Comparison: 07/27/2016 The lungs are clear. The heart is normal in size. The pulmonary vasculature is normal in appearance. Impression: No acute disease. Signed by Rickie Nuno MD 07/30/2016 02:09 P
--- NOTE | 2016-07-30 18:04 | EDDOCDS ---
Physician Documentation [facility] Name: Dereje Bennett Age: 86 yrs Sex: Male : 1930 Arrival Date: 07/27/2016 Time: 12:54 Bed Admit Hold Private MD: Doyle Roldan D Disposition: 07/27/16 18:38 Hospitalization ordered by Danisha Lopez for Observation. 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 - Bed requested for M ICU. - Status is Observation. me3 - Condition is Stable. - Problem is new. - Symptoms are unchanged. Historical: - Allergies: no known allergies; - Home Meds: 1. metformin 500 mg Oral tab three times a day 2. lisinopril 40 mg Oral tab 1 tab once daily 3. clopidogrel 75 mg oral tab 1 tab once daily 4. atorvastatin 20 mg oral tab 1 tab once daily 5. amlodipine 5 mg Oral tab 1 tab once daily 6. finasteride 5 mg oral tab 1 tab once daily 7. aspirin 81 mg Oral tab 1 tab once daily 8. has not filled scripts from yesterday - PMHx: CVA; Diabetes - NIDDM: controlled; Hypercholesterolemia; Hypertension; Kidney stones; - PSHx: Appendectomy; Cholecystectomy; Cataract Surgery- Right; - Social history: Smoking status: No barriers to communication noted, The patient speaks fluent Kiswahili, Speaks appropriately for age, Smoking status: Patient states former smoker of tobacco. - Family history: Not pertinent. - : The pt / caregiver states he / she is on anticoagulants: Plavix. Home medication list is obtained from the patient. - Exposure Risk Screening:: None identified. Vital Signs: 07/27 12:59 BP 148 / 77 LA Sitting (auto/lg); Pulse 90 LA; Resp 18 S; Temp 97.5(O); Pulse Ox 95% on mt4 R/A; Weight 99.34 kg / 219.01 lbs (R); Height 5 ft. 10 in. (177.80 cm) (R); Pain 0/10; 13:09 BP 201 / 100 (auto/); jc4 13:13 Pulse 90 MON; Pulse Ox 92% ; jc4 13:24 BP 198 / 102 (auto/); jc4 13:25 Pulse 92 MON; Pulse Ox 93% ; jc4 13:39 BP 158 / 86 (auto/); jc4 13:39 Pulse 84 MON; Pulse Ox 94% ; jc4 13:54 BP 196 / 97 (auto/); jc4 13:54 Pulse 82 MON; Pulse Ox 94% ; jc4 14:10 BP 196 / 93 (auto/); jc4 14:10 Pulse 86 MON; Pulse Ox 94% ; jc4 14:12 BP 196 / 93; Pulse 85; Resp 20; Temp 97.5(O); Pulse Ox 93% on R/A; Pain 0/10; ja5 14:24 Pulse 86 MON; Pulse Ox 94% ; jc4 14:28 BP 149 / 85 (auto/); jc4 14:39 BP 161 / 85 (auto/); jc4 14:40 Pulse 84 MON; Pulse Ox 94% ; jc4 15:09 BP 120 / 81 (auto/); jc4 15:14 Pulse 90 MON; Pulse Ox 97% ; jc4 15:24 BP 129 / 71 (auto/); jc4 15:39 BP 132 / 76 (auto/); jc4 15:41 Pulse 80 MON; Pulse Ox 92% ; jc4 15:54 BP 127 / 76 (auto/); jc4 15:54 Pulse 80 MON; Pulse Ox 92% ; jc4 17:23 BP 154 / 85 (auto/); jc4 17:38 BP 145 / 80 (auto/); jc4 17:38 Pulse 82 MON; Pulse Ox 95% ; jc4 17:53 BP 145 / 81 (auto/); jc4 17:53 Pulse 84 MON; Pulse Ox 92% ; jc4 18:02 BP 161 / 90 (auto/); mlc 18:03 BP 161 / 90; Pulse 85; Resp 18 S; Temp 97.9(O); Pulse Ox 91% on R/A; Pain 1/10; ja5 18:03 Pulse 82 MON; Pulse Ox 91% ; mlc 18:08 BP 158 / 87 (auto/); jc4 18:08 Pulse 90 MON; jc4 18:37 Pulse 94 MON; jc4 18:38 BP 170 / 83 (auto/); jc4 18:56 BP 171 / 87 (auto/); mlc 18:57 Pulse 92 MON; Pulse Ox 91% ; mlc 19:08 BP 178 / 91 (auto/); mlc 19:08 Pulse 92 MON; Pulse Ox 92% ; mlc 12:59 Body Mass Index 31.42 (99.34 kg, 177.80 cm) mt4 MDM: 13:07 ECG WITH READING ER PHYS+CARDIAG ordered. EDMS 13:27 MRI Screening Tool - Place on chart, inform RN ordered. le 13:28 -MRA-Brain without contrast Ordered. EDMS 13:28 -MRI-Brain without Ordered. EDMS 13:30 MRI Screening Tool - Place on chart, inform RN complete. ar3 13:39 Manager Of Creative Services/Pulse Ox/q 15 min VS ordered. le 13:39 Accucheck ordered. le 13:39 IV Saline Lock ordered. le 13:39 Rhythm Strip to chart ordered. le 13:40 Basic Metabolic Profile Ordered. EDMS 13:40 CBC with Diff Ordered. EDMS 13:40 Partial Thromboplastin Time Ordered. EDMS 13:40 Prothrombin Time Profile\E\INR Ordered. EDMS 13:41 Chest, 2 View (pa\E\lat) Ordered. EDMS 14:01 Financial registration complete. lg 14:07 BED REQUEST+ADM ordered. EDMS 14:12 [facility] Payment Agreement was scanned into [employer] and attached to record. lg 14:36 Fingerstick Blood Sugar Ordered. EDMS 15:07 Basic Metabolic Profile Reviewed. le 15:07 CBC with Diff Reviewed. le 15:07 Partial Thromboplastin Time Reviewed. le 15:07 Prothrombin Time Profile\E\INR Reviewed. le 15:07 Fingerstick Blood Sugar Reviewed. le 15:07 EKG-ADULT Reviewed. le 17:04 CONSISTENT CARBOHYDRATE+DIET ordered. EDMS 19:13 -MRI-Spine, Cervical without contrast Ordered. EDMS 19:13 -MRI-Spine, Lumbar without contrast Ordered. EDMS 19:13 -MRI-Spine,Thoracic without contrast Ordered. EDMS 19:40 Admission / Observation Status ordered. EDMS 19:41 CONSISTENT CARBOHYDRATES ordered. EDMS 19:41 PHYSICAL THERAPY EVAL & TREAT ordered. EDMS 20:29 CBC WITH DIFFERENTIAL Ordered. EDMS 20:29 COMPLETE COMPHRENSIVE METABOLI Ordered. EDMS 20:29 MAGNESIUM LEVEL Ordered. EDMS 22:22 Fingerstick Blood Sugar Ordered. EDMS 07/28 10:31 MRI Spine, Thoracic with con Ordered. EDMS 12:18 Fingerstick Blood Sugar Ordered. EDMS 14:08 T-Sheet-- Draft Copy was scanned into [employer] and attached to record. gb 17:01 ERYTHROCYTE SEDIMENTATION RATE Ordered. EDMS 17:01 ANTINUCLEAR ANTIBODIES Ordered. EDMS 17:01 Lupus Type Anticoagulant Ordered. EDMS 17:01 SERUM PROTEIN ELECTROPHORESIS Ordered. EDMS 17:01 PROTEIN C ANTIGEN Ordered. EDMS 17:02 PROTEIN S ANTIGEN(TOT&FREE) Ordered. EDMS 17:02 ANTI THROMBIN 3 ANTIGEN LEVEL Ordered. EDMS 17:02 HOMOCYSTEINE Ordered. EDMS 17:04 ANGIOTENSIN 1 CONVERTING ENZ Ordered. EDMS 17:04 LYME WESTERN BLOT SERUM Ordered. EDMS Signatures: Dispatcher [employer] EDMS Eri Back, Water Pump Installer Unit deg Gail, Jessy, Reg Reg gb Vikas Rodriguez, Reg Reg lg Celia Alberts,BUSINESS SUPPORT BUSINESS SUPPORT me3 Sindhu Amado, GENERAL ACCOUNTANT GENERAL ACCOUNTANT Kya Choudhury, CCTV TECHNICIAN CCTV TECHNICIAN ar3 Dominique Steele RN RN pml Booth, Mandy, RN RN Dilip Salmeron RN RN mts The chart was reviewed and I authenticate all verbal orders and agree with the evaluation and treatment provided.Attachments: 07/27 14:12 [facility] Payment Agreement lg 07/28 14:08 T-Sheet-- Draft Copy gb Chart Complete MTDD
--- NOTE | 2016-07-30 18:04 | EDDOCDS ---
Physician Documentation [facility] Name: Dereje Bennett Age: 86 yrs Sex: Male : 1930 Arrival Date: 07/27/2016 Time: 12:54 Bed Admit Hold Private MD: Doyle Roldan D Disposition: 07/27/16 18:38 Hospitalization ordered by Danisha Lopez for Observation. 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 - Bed requested for M ICU. - Status is Observation. me3 - Condition is Stable. - Problem is new. - Symptoms are unchanged. Historical: - Allergies: no known allergies; - Home Meds: 1. metformin 500 mg Oral tab three times a day 2. lisinopril 40 mg Oral tab 1 tab once daily 3. clopidogrel 75 mg oral tab 1 tab once daily 4. atorvastatin 20 mg oral tab 1 tab once daily 5. amlodipine 5 mg Oral tab 1 tab once daily 6. finasteride 5 mg oral tab 1 tab once daily 7. aspirin 81 mg Oral tab 1 tab once daily 8. has not filled scripts from yesterday - PMHx: CVA; Diabetes - NIDDM: controlled; Hypercholesterolemia; Hypertension; Kidney stones; - PSHx: Appendectomy; Cholecystectomy; Cataract Surgery- Right; - Social history: Smoking status: No barriers to communication noted, The patient speaks fluent Slovak, Speaks appropriately for age, Smoking status: Patient states former smoker of tobacco. - Family history: Not pertinent. - : The pt / caregiver states he / she is on anticoagulants: Plavix. Home medication list is obtained from the patient. - Exposure Risk Screening:: None identified. Vital Signs: 07/27 12:59 BP 148 / 77 LA Sitting (auto/lg); Pulse 90 LA; Resp 18 S; Temp 97.5(O); Pulse Ox 95% on mt4 R/A; Weight 99.34 kg / 219.01 lbs (R); Height 5 ft. 10 in. (177.80 cm) (R); Pain 0/10; 13:09 BP 201 / 100 (auto/); jc4 13:13 Pulse 90 MON; Pulse Ox 92% ; jc4 13:24 BP 198 / 102 (auto/); jc4 13:25 Pulse 92 MON; Pulse Ox 93% ; jc4 13:39 BP 158 / 86 (auto/); jc4 13:39 Pulse 84 MON; Pulse Ox 94% ; jc4 13:54 BP 196 / 97 (auto/); jc4 13:54 Pulse 82 MON; Pulse Ox 94% ; jc4 14:10 BP 196 / 93 (auto/); jc4 14:10 Pulse 86 MON; Pulse Ox 94% ; jc4 14:12 BP 196 / 93; Pulse 85; Resp 20; Temp 97.5(O); Pulse Ox 93% on R/A; Pain 0/10; ja5 14:24 Pulse 86 MON; Pulse Ox 94% ; jc4 14:28 BP 149 / 85 (auto/); jc4 14:39 BP 161 / 85 (auto/); jc4 14:40 Pulse 84 MON; Pulse Ox 94% ; jc4 15:09 BP 120 / 81 (auto/); jc4 15:14 Pulse 90 MON; Pulse Ox 97% ; jc4 15:24 BP 129 / 71 (auto/); jc4 15:39 BP 132 / 76 (auto/); jc4 15:41 Pulse 80 MON; Pulse Ox 92% ; jc4 15:54 BP 127 / 76 (auto/); jc4 15:54 Pulse 80 MON; Pulse Ox 92% ; jc4 17:23 BP 154 / 85 (auto/); jc4 17:38 BP 145 / 80 (auto/); jc4 17:38 Pulse 82 MON; Pulse Ox 95% ; jc4 17:53 BP 145 / 81 (auto/); jc4 17:53 Pulse 84 MON; Pulse Ox 92% ; jc4 18:02 BP 161 / 90 (auto/); mlc 18:03 BP 161 / 90; Pulse 85; Resp 18 S; Temp 97.9(O); Pulse Ox 91% on R/A; Pain 1/10; ja5 18:03 Pulse 82 MON; Pulse Ox 91% ; mlc 18:08 BP 158 / 87 (auto/); jc4 18:08 Pulse 90 MON; jc4 18:37 Pulse 94 MON; jc4 18:38 BP 170 / 83 (auto/); jc4 18:56 BP 171 / 87 (auto/); mlc 18:57 Pulse 92 MON; Pulse Ox 91% ; mlc 19:08 BP 178 / 91 (auto/); mlc 19:08 Pulse 92 MON; Pulse Ox 92% ; mlc 12:59 Body Mass Index 31.42 (99.34 kg, 177.80 cm) mt4 MDM: 13:07 ECG WITH READING ER PHYS+CARDIAG ordered. EDMS 13:27 MRI Screening Tool - Place on chart, inform RN ordered. le 13:28 -MRA-Brain without contrast Ordered. EDMS 13:28 -MRI-Brain without Ordered. EDMS 13:30 MRI Screening Tool - Place on chart, inform RN complete. ar3 13:39 Pearl Hand/Pulse Ox/q 15 min VS ordered. le 13:39 Accucheck ordered. le 13:39 IV Saline Lock ordered. le 13:39 Rhythm Strip to chart ordered. le 13:40 Basic Metabolic Profile Ordered. EDMS 13:40 CBC with Diff Ordered. EDMS 13:40 Partial Thromboplastin Time Ordered. EDMS 13:40 Prothrombin Time Profile\E\INR Ordered. EDMS 13:41 Chest, 2 View (pa\E\lat) Ordered. EDMS 14:01 Financial registration complete. lg 14:07 BED REQUEST+ADM ordered. EDMS 14:12 [facility] Payment Agreement was scanned into Call Loop and attached to record. lg 14:36 Fingerstick Blood Sugar Ordered. EDMS 15:07 Basic Metabolic Profile Reviewed. le 15:07 CBC with Diff Reviewed. le 15:07 Partial Thromboplastin Time Reviewed. le 15:07 Prothrombin Time Profile\E\INR Reviewed. le 15:07 Fingerstick Blood Sugar Reviewed. le 15:07 EKG-ADULT Reviewed. le 17:04 CONSISTENT CARBOHYDRATE+DIET ordered. EDMS 19:13 -MRI-Spine, Cervical without contrast Ordered. EDMS 19:13 -MRI-Spine, Lumbar without contrast Ordered. EDMS 19:13 -MRI-Spine,Thoracic without contrast Ordered. EDMS 19:40 Admission / Observation Status ordered. EDMS 19:41 CONSISTENT CARBOHYDRATES ordered. EDMS 19:41 PHYSICAL THERAPY EVAL & TREAT ordered. EDMS 20:29 CBC WITH DIFFERENTIAL Ordered. EDMS 20:29 COMPLETE COMPHRENSIVE METABOLI Ordered. EDMS 20:29 MAGNESIUM LEVEL Ordered. EDMS 22:22 Fingerstick Blood Sugar Ordered. EDMS 07/28 10:31 MRI Spine, Thoracic with con Ordered. EDMS 12:18 Fingerstick Blood Sugar Ordered. EDMS 14:08 T-Sheet-- Draft Copy was scanned into Call Loop and attached to record. gb 17:01 ERYTHROCYTE SEDIMENTATION RATE Ordered. EDMS 17:01 ANTINUCLEAR ANTIBODIES Ordered. EDMS 17:01 Lupus Type Anticoagulant Ordered. EDMS 17:01 SERUM PROTEIN ELECTROPHORESIS Ordered. EDMS 17:01 PROTEIN C ANTIGEN Ordered. EDMS 17:02 PROTEIN S ANTIGEN(TOT&FREE) Ordered. EDMS 17:02 ANTI THROMBIN 3 ANTIGEN LEVEL Ordered. EDMS 17:02 HOMOCYSTEINE Ordered. EDMS 17:04 ANGIOTENSIN 1 CONVERTING ENZ Ordered. EDMS 17:04 LYME WESTERN BLOT SERUM Ordered. EDMS Signatures: Dispatcher [employer] EDMS Eri Back, Driver'S License Examiner Unit deg Gail, Jessy, Reg Reg gb Vikas Rodriguez, Reg Reg lg Celia Alberts,ENTRY LEVEL SALES CONSULTANT ENTRY LEVEL SALES CONSULTANT me3 Sindhu Amado, CUSTOMER SALES CONSULTANT CUSTOMER SALES CONSULTANT Kya Choudhury, FARM EQUIPMENT ENGINEER FARM EQUIPMENT ENGINEER ar3 Dominique Stelee RN RN pml Booth, Mandy, RN RN Dilip Salmeron RN RN mts The chart was reviewed and I authenticate all verbal orders and agree with the evaluation and treatment provided.Attachments: 07/27 14:12 [facility] Payment Agreement lg 07/28 14:08 T-Sheet-- Draft Copy gb Chart Complete MTDD
--- NOTE | 2016-07-30 18:04 | EDDOCDS ---
Nurse's Notes [facility] Name: Dereje Welch Age: 86 yrs Sex: Male : 1930 Arrival Date: 07/27/2016 Time: 12:54 Bed Admit Hold Private MD: Doyle Roldan D Diagnosis: Hemiplegia and hemiparesis-right Presentation: 07/27 13:00 Presenting complaint: Child states: seen here yesterday for right sided weakness and pml dizziness. negative CT scans and sent home. states worsening right sided weakness, unable to walk. pt states "my can't take care of me anymore". The last date and time the patient was known to be well was was at 05:00 on July 27, 2016. An acute neurological deficit is present. The charge nurse has been notified. The patient has been moved to a treatment area. Adult Sepsis Screening: The patient does not have new or worsening altered mentation. Patient's respiratory rate is less than 22. Systolic blood pressure is greater than 100. Patient has a qSOFA score of 0- Negative Sepsis Screen. Suicide/Homicide risk assessment- the patient denies having any suicidal and/or homicidal ideations and does not present with any other emotional, behavioral or mental health complaints. Status: Patient is not a tax services professional or dependent. Transition of care: patient was not received from another setting of care. 13:00 Acuity: SANJEEV Level 2 pml 13:00 Method Of Arrival: Wheelchair pml Triage Assessment: 13:04 The onset of the patients symptoms was more than three hours ago. General: Appears in pml no apparent distress, comfortable, Behavior is appropriate for age, cooperative. Pain: Denies pain. Neurological: Level of Consciousness is awake, alert, Oriented to person, place, time, Reports no additional symptoms dizziness. Historical: - Allergies: no known allergies; - Home Meds: 1. metformin 500 mg Oral tab three times a day 2. lisinopril 40 mg Oral tab 1 tab once daily 3. clopidogrel 75 mg oral tab 1 tab once daily 4. atorvastatin 20 mg oral tab 1 tab once daily 5. amlodipine 5 mg Oral tab 1 tab once daily 6. finasteride 5 mg oral tab 1 tab once daily 7. aspirin 81 mg Oral tab 1 tab once daily 8. has not filled scripts from yesterday - PMHx: CVA; Diabetes - NIDDM: controlled; Hypercholesterolemia; Hypertension; Kidney stones; - PSHx: Appendectomy; Cholecystectomy; Cataract Surgery- Right; - Social history: Smoking status: No barriers to communication noted, The patient speaks fluent French, Speaks appropriately for age, Smoking status: Patient states former smoker of tobacco. - Family history: Not pertinent. - : The pt / caregiver states he / she is on anticoagulants: Plavix. Home medication list is obtained from the patient. - Exposure Risk Screening:: None identified. Screenin:17 Screening information is obtained from the patient. Fall risk: At risk due to patient ja5 states he has been experiencing dizziness from his medication (unspecified) for one month.. Assistance ADL's: requires no assistance with activities of daily living. Abuse/DV Screen: The patient / caregiver reports he/she is: not in a situation that causes fear, pain or injury. Nutritional screening: On no prescribed diet. Advance Directives: Currently, there is a health care proxy, Laura Welch, . There is no active DNR order. There is no living will. There is an active Power of Environmental Services Lead, Laura Welch, . home support is adequate. Assessment: 13:31 General: Appears in no apparent distress, Behavior is appropriate for age, cooperative. dsf Neurological: Level of Consciousness is awake, alert, Weakness in right hand's) arm(s) leg(s) Speech is normal, tongue deviates to right . Cardiovascular: Capillary refill < 3 seconds. Respiratory: Airway is patent Respiratory effort is even, unlabored, Respiratory pattern is regular, symmetrical. Derm: Skin is pink, warm & dry. 13:56 General: Pt resting comfortably in bed. No apparent distress. Family members at ld5 bedside. Will continue to monitor. 14:14 General: Appears in no apparent distress, Behavior is appropriate for age, cooperative. ja5 Neurological: Level of Consciousness is awake, alert, Weakness in right hand's) arm(s) leg(s) Speech is slurred. Cardiovascular: Capillary refill < 3 seconds. Respiratory: Airway is patent Respiratory effort is even, unlabored, Respiratory pattern is regular, symmetrical, Breath sounds with wheezes expiratory in left upper lobe and left lower lobe. Derm: Skin is pink, warm & dry. 15:42 General: Patient in stretcher watching television, denies dizziness and pain. Patient new is still experiencing right sided weakness at this time. . 16:30 General: Pt to MRI via stretcher at this time. jc4 18:04 General: Patient is resting in stretcher and states he has pain 1/10 in abdomen but he marcelo5 thinks it is hunger pain. Food tray has just arrived. Patient still experiencing some right sided weakness at this time.. 18:58 General: Provider in to see patient at this time. No apparent distress, in stretcher, marcelo5 call murillo in reach.. 19:39 General: Appears in no apparent distress, comfortable, Behavior is cooperative, mlc pleasant. Pain: Denies pain. Neurological: Level of Consciousness is awake, alert, obeys commands, Oriented to person, place, time, Quality Supervisor are weak on right Weakness in right hand's) arm(s) leg(s) Speech is normal, Facial symmetry appears normal, Facial symmetry: tongue is midline. Cardiovascular:. Respiratory: Airway is patent Respiratory effort is even, unlabored, Respiratory pattern is regular. 19:39 Reassessment: pt taken to MRI. mlc 19:40 Reassessment: Family returned home at this time. . mlc 21:24 General: Report given to Leigh Velazquez RN. See [employer] for further documentation. . [facility] Vital Signs: 12:59 BP 148 / 77 LA Sitting (auto/lg); Pulse 90 LA; Resp 18 S; Temp 97.5(O); Pulse Ox 95% on mt4 R/A; Weight 99.34 kg (R); Height 5 ft. 10 in. (177.80 cm) (R); Pain 0/10; 13:09 BP 201 / 100 (auto/); jc4 13:13 Pulse 90 MON; Pulse Ox 92% ; jc4 13:24 BP 198 / 102 (auto/); jc4 13:25 Pulse 92 MON; Pulse Ox 93% ; jc4 13:39 BP 158 / 86 (auto/); jc4 13:39 Pulse 84 MON; Pulse Ox 94% ; jc4 13:54 BP 196 / 97 (auto/); jc4 13:54 Pulse 82 MON; Pulse Ox 94% ; jc4 14:10 BP 196 / 93 (auto/); jc4 14:10 Pulse 86 MON; Pulse Ox 94% ; jc4 14:12 BP 196 / 93; Pulse 85; Resp 20; Temp 97.5(O); Pulse Ox 93% on R/A; Pain 0/10; ja5 14:24 Pulse 86 MON; Pulse Ox 94% ; jc4 14:28 BP 149 / 85 (auto/); jc4 14:39 BP 161 / 85 (auto/); jc4 14:40 Pulse 84 MON; Pulse Ox 94% ; jc4 15:09 BP 120 / 81 (auto/); jc4 15:14 Pulse 90 MON; Pulse Ox 97% ; jc4 15:24 BP 129 / 71 (auto/); jc4 15:39 BP 132 / 76 (auto/); jc4 15:41 Pulse 80 MON; Pulse Ox 92% ; jc4 15:54 BP 127 / 76 (auto/); jc4 15:54 Pulse 80 MON; Pulse Ox 92% ; jc4 17:23 BP 154 / 85 (auto/); jc4 17:38 BP 145 / 80 (auto/); jc4 17:38 Pulse 82 MON; Pulse Ox 95% ; jc4 17:53 BP 145 / 81 (auto/); jc4 17:53 Pulse 84 MON; Pulse Ox 92% ; jc4 18:02 BP 161 / 90 (auto/); mlc 18:03 BP 161 / 90; Pulse 85; Resp 18 S; Temp 97.9(O); Pulse Ox 91% on R/A; Pain 1/10; ja5 18:03 Pulse 82 MON; Pulse Ox 91% ; mlc 18:08 BP 158 / 87 (auto/); jc4 18:08 Pulse 90 MON; jc4 18:37 Pulse 94 MON; jc4 18:38 BP 170 / 83 (auto/); jc4 18:56 BP 171 / 87 (auto/); mlc 18:57 Pulse 92 MON; Pulse Ox 91% ; mlc 19:08 BP 178 / 91 (auto/); mlc 19:08 Pulse 92 MON; Pulse Ox 92% ; mlc 12:59 Body Mass Index 31.42 (99.34 kg, 177.80 cm) mt4 Vitals: 12:59 Log In Time: July 27, 2016 at 12:54. RN notified that patient meets Red Flag mt4 criteria. ED Course: 12:59 Patient visited by Nuria Harper. mt4 12:59 Doyle Roldan is Private Physician. mt4 12:59 Patient moved to Waiting mt4 13:00 Patient moved to Pre RCE mt4 13:01 Triage Initiated pml 13:04 Patient visited by Dominique Steele,DEN. pml 13:04 Johanna Rivas,RN is Primary Nurse. pml 13:04 Gabriela Katz, DNE is Primary Nurse. pml 13:04 Patient moved to 11 pml 13:18 EKG done. (by ED staff). Reviewed by Sindhu ZEPEDA. ct3 13:19 Patient visited by Mya Cook PCA. ct3 13:20 Accompanied by Family Member, Patient has correct armband on for positive ct3 identification. Placed in gown. Bed in low position. Call light in reach. Side rails up X2. traffic monitor specialist on. Pulse ox on. NIBP on. 13:32 Patient visited by Mabel Phan RN. dsf 13:32 Inserted saline lock: 20 gauge in left hand The patient tolerated the procedure well. dsf 13:37 Sindhu Amado FNP is PHCP. le 13:43 EKG-ADULT Returned. EDMS 13:44 Basic Metabolic Profile Sent. dsf 13:44 CBC with Diff Sent. dsf 13:44 Partial Thromboplastin Time Sent. dsf 13:44 Prothrombin Time Profile\\E\\INR Sent. dsf 13:45 Patient visited by Sindhu Amado FNP. le 13:45 Patient visited by Sindhu Amado FNP. le 13:57 Patient visited by Letha Montes De Oca,DEN. ld5 14:11 Patient name changed from Dereje\\S\\\\S\\Panunzio\\S\\ to Dereje\\S\\ \\S\\Panunzio. EDMS 14:12 [facility] [place] Payment Agreement was scanned into [employer] and attached to record. lg 14:41 Patient visited by Mya Cook PCA. ct3 15:33 Chest, 2 View (pa\\E\\lat) Returned. EDMS 15:42 Patient visited by Johanna Rivas,DEN. ja5 16:31 Patient moved to MRI jc4 17:27 Patient moved to 11 ar3 17:41 Patient visited by Mya Cook PCA. ct3 18:02 The patient / caregiver is instructed regarding the plan of care and ED course. mlc 18:09 -MRA-Brain without contrast Returned. EDMS 18:18 Patient visited by Mya Cook PCA. ct3 18:38 Danisha Lopez is Hospitalizing Provider. le 18:50 -MRI-Brain without Returned. EDMS 18:56 Joaquina August RN is Primary Nurse. mlc 18:59 Patient visited by Johanna Rivas,DEN. ja5 19:03 Primary Nurse role handed off by Gabriela Katz RN mlc 19:04 Primary Nurse role handed off by Johanna Rivas,RN mlc 19:41 Patient visited by Joaquina August RN. mlc 20:16 Patient moved to Admit Hold ml3 20:56 Patient moved to 18 jul 21:36 Patient moved to Admit Hold ml3 22:27 -MRI-Spine, Cervical without contrast Returned. EDMS 22:27 -MRI-Spine,Thoracic without contrast Returned. EDMS 22:27 -MRI-Spine, Lumbar without contrast Returned. EDMS 07/28 07:07 Primary Nurse role handed off by Joaquina August RN deg 10:40 Bernarda Stevens division sergeant. ys2 12:34 No procedures done that require assistance. me3 14:08 T-Sheet-- Draft Copy was scanned into [employer] and attached to record. gb 17:14 MRI Spine, Thoracic with con Returned. EDMS Order Results: Lab Order: Basic Metabolic Profile; SPEC'M 07/27/16 13:28 Test: GLUCOSE, FASTING; Value: 119; Range: 83-110; Abnormal: Above high normal; Units: MG/DL; Status: F Test: BLOOD UREA NITROGEN; Value: 18; Range: 7-18; Units: MG/DL; Status: F Test: CREATININE FOR GFR; Value: 1.14; Range: 0.70-1.30; Units: MG/DL; Status: F Test: GLOMERULAR FILTRATION RATE; Value: > 60.0; Range: >35; Status: F Test: SODIUM LEVEL; Value: 144; Range: 136-145; Units: MEQ/L; Status: F Test: POTASSIUM SERUM; Value: 4.2; Range: 3.5-5.1; Units: MEQ/L; Status: F Test: CHLORIDE LEVEL; Value: 109; Range: 98-107; Abnormal: Above high normal; Units: MEQ/L; Status: F Test: CARBON DIOXIDE LEVEL; Value: 27; Range: 21-32; Units: MEQ/L; Status: F Test: ANION GAP; Value: 8; Range: 8-16; Units: MEQ/L; Status: F Test: CALCIUM LEVEL; Value: 9.1; Range: 8.8-10.2; Units: MG/DL; Status: F Test Note: ; Units are mL/min/1.73 m2 Chronic Kidney Disease Staging per NKF: Stage I & II GFR >=60 Normal to Mildly Decreased Stage III GFR 30-59 Moderately Decreased Stage IV GFR 15-29 Severely Decreased Stage V GFR <15 Very Little GFR Left ESRD GFR <15 on INFORMATION ASSURANCE OFFICER Lab Order: CBC with Diff; SPEC'M 07/27/16 13:28 Test: WHITE BLOOD COUNT; Value: 9.2; Range: 4.0-10.0; Units: K/mm3; Status: F Test: RED BLOOD COUNT; Value: 4.79; Range: 4.30-6.10; Units: M/mm3; Status: F Test: HEMOGLOBIN; Value: 14.4; Range: 14.0-18.0; Units: g/dl; Status: F Test: HEMATOCRIT; Value: 42.7; Range: 42.0-52.0; Units: %; Status: F Test: MEAN CORPUSCULAR VOLUME; Value: 89.2; Range: 80.0-96.0; Units: fl; Status: F Test: MEAN CORPUSCULAR HEMOGLOBIN; Value: 30.0; Range: 27.0-33.0; Units: pg; Status: F Test: MEAN CORPUSCULAR HGB CONC; Value: 33.7; Range: 32.0-36.5; Units: g/dl; Status: F Test: RED CELL DISTRIBUTION WIDTH; Value: 14.2; Range: 11.5-14.5; Units: %; Status: F Test: PLATELET COUNT, AUTOMATED; Value: 278; Range: 150-450; Units: k/mm3; Status: F Test: NEUTROPHILS %; Value: 77.0; Range: 36.0-66.0; Abnormal: Above high normal; Units: %; Status: F Test: LYMPH %; Value: 13.6; Range: 24.0-44.0; Abnormal: Below low normal; Units: %; Status: F Test: MONO %; Value: 4.7; Range: 0.0-5.0; Units: %; Status: F Test: EOS %; Value: 2.8; Range: 0.0-3.0; Units: %; Status: F Test: BASO %; Value: 0.3; Range: 0.0-1.0; Units: %; Status: F Test: LARGE UNSTAINED CELL %; Value: 1.6; Range: 0.0-4.0; Units: %; Status: F Test: NEUTROPHILS #; Value: 7.1; Range: 1.8-7.7; Units: K/mm3; Status: F Test: LYMPH #; Value: 1.3; Range: 1.5-4.5; Abnormal: Below low normal; Units: K/mm3; Status: F Test: MONO #; Value: 0.4; Range: 0.0-0.8; Units: K/mm3; Status: F Test: EOS #; Value: 0.3; Range: 0.0-0.50; Units: K/mm3; Status: F Test: BASO #; Value: 0.0; Range: 0.0-0.2; Units: K/mm3; Status: F Test: LARGE UNSTAINED CELL #; Value: 0.2; Range: 0.0-0.4; Units: K/mm3; Status: F Lab Order: Partial Thromboplastin Time; SPEC'M 07/27/16 13:28 Test: PARTIAL THROMBOPLASTIN TIME; Value: 25.3; Range: 26.6-37.1; Abnormal: Below low normal; Units: SECONDS; Status: F Lab Order: Prothrombin Time Profile\\E\\INR; SPEC'M 07/27/16 13:28 Test: PROTHROMBIN TIME; Value: 11.5; Range: 12.3-14.5; Abnormal: Below low normal; Units: SECONDS; Status: F Test: INR; Value: 0.83; Status: F Test Note: ; THERAPUTIC HUMAN INR VALUES INDICATIONS NORMAL RANGES PROPHYLAXIS/TREATMENT OF: VENOUS THROMBOSIS 2.0-3.0 PULMONARY EMBOLISM 2.0-3.0 PREVENTION OF SYSTEMIC EMBOLISM FROM: TISSUE HEART VALVES 2.0-3.0 ACUTE MYOCARDIAL INFARCTION 2.0-3.0 VALVULAR HEART DISEASE 2.0-3.0 ATRIAL FIBRILLATION 2.0-3.0 MECHANICAL VALVES(HIGH RISK) 2.5-3.5 RECURRENT MYOCARDIAL INFARCTION 2.5-3.5 Lab Order: Fingerstick Blood Sugar; [facility]' 07/27/16 14:24 Test: BEDSIDE GLUCOSE; Value: 90; Range: 83-110; Units: MG/DL; Status: F Lab Order: CBC WITH DIFFERENTIAL; [facility] 07/28/16 06:33 Test: WHITE BLOOD COUNT; Value: 7.3; Range: 4.0-10.0; Units: K/mm3; Status: F Test: RED BLOOD COUNT; Value: 4.34; Range: 4.30-6.10; Units: M/mm3; Status: F Test: HEMOGLOBIN; Value: 12.5; Range: 14.0-18.0; Abnormal: Below low normal; Units: g/dl; Status: F Test: HEMATOCRIT; Value: 38.6; Range: 42.0-52.0; Abnormal: Below low normal; Units: %; Status: F Test: MEAN CORPUSCULAR VOLUME; Value: 89.0; Range: 80.0-96.0; Units: fl; Status: F Test: MEAN CORPUSCULAR HEMOGLOBIN; Value: 28.9; Range: 27.0-33.0; Units: pg; Status: F Test: MEAN CORPUSCULAR HGB CONC; Value: 32.5; Range: 32.0-36.5; Units: g/dl; Status: F Test: RED CELL DISTRIBUTION WIDTH; Value: 14.1; Range: 11.5-14.5; Units: %; Status: F Test: PLATELET COUNT, AUTOMATED; Value: 249; Range: 150-450; Units: k/mm3; Status: F Test: NEUTROPHILS %; Value: 71.4; Range: 36.0-66.0; Abnormal: Above high normal; Units: %; Status: F Test: LYMPH %; Value: 16.7; Range: 24.0-44.0; Abnormal: Below low normal; Units: %; Status: F Test: MONO %; Value: 6.2; Range: 0.0-5.0; Abnormal: Above high normal; Units: %; Status: F Test: EOS %; Value: 3.5; Range: 0.0-3.0; Abnormal: Above high normal; Units: %; Status: F Test: BASO %; Value: 0.2; Range: 0.0-1.0; Units: %; Status: F Test: LARGE UNSTAINED CELL %; Value: 2.0; Range: 0.0-4.0; Units: %; Status: F Test: NEUTROPHILS #; Value: 5.2; Range: 1.8-7.7; Units: K/mm3; Status: F Test: LYMPH #; Value: 1.2; Range: 1.5-4.5; Abnormal: Below low normal; Units: K/mm3; Status: F Test: MONO #; Value: 0.5; Range: 0.0-0.8; Units: K/mm3; Status: F Test: EOS #; Value: 0.3; Range: 0.0-0.50; Units: K/mm3; Status: F Test: BASO #; Value: 0.0; Range: 0.0-0.2; Units: K/mm3; Status: F Test: LARGE UNSTAINED CELL #; Value: 0.1; Range: 0.0-0.4; Units: K/mm3; Status: F Lab Order: COMPLETE COMPHRENSIVE METABOLI; SPEC'M 07/28/16 06:33 Test: GLUCOSE, FASTING; Value: 119; Range: 83-110; Abnormal: Above high normal; Units: MG/DL; Status: F Test: BLOOD UREA NITROGEN; Value: 18; Range: 7-18; Units: MG/DL; Status: F Test: CREATININE FOR GFR; Value: 1.08; Range: 0.70-1.30; Units: MG/DL; Status: F Test: GLOMERULAR FILTRATION RATE; Value: > 60.0; Range: >35; Status: F Test: SODIUM LEVEL; Value: 143; Range: 136-145; Units: MEQ/L; Status: F Test: POTASSIUM SERUM; Value: 4.0; Range: 3.5-5.1; Units: MEQ/L; Status: F Test: CHLORIDE LEVEL; Value: 107; Range: 98-107; Units: MEQ/L; Status: F Test: CARBON DIOXIDE LEVEL; Value: 27; Range: 21-32; Units: MEQ/L; Status: F Test: ANION GAP; Value: 9; Range: 8-16; Units: MEQ/L; Status: F Test: CALCIUM LEVEL; Value: 8.4; Range: 8.8-10.2; Abnormal: Below low normal; Units: MG/DL; Status: F Test: AST/SGOT; Value: 11; Range: 15-37; Abnormal: Below low normal; Units: U/L; Status: F Test: ALT/SGPT; Value: 14; Range: 12-78; Units: U/L; Status: F Test: ALKALINE PHOSPHATASE; Value: 72; Range: 45-117; Units: U/L; Status: F Test: BILIRUBIN,TOTAL; Value: 0.7; Range: 0.2-1.0; Units: MG/DL; Status: F Test: TOTAL PROTEIN; Value: 6.2; Range: 6.4-8.2; Abnormal: Below low normal; Units: GM/DL; Status: F Test: ALBUMIN; Value: 3.0; Range: 3.2-5.2; Abnormal: Below low normal; Units: GM/DL; Status: F Test: ALBUMIN/GLOBULIN RATIO; Value: 0.94; Range: 1.00-1.93; Abnormal: Below low normal; Status: F Test Note: ; Units are mL/min/1.73 m2 Chronic Kidney Disease Staging per NKF: Stage I & II GFR >=60 Normal to Mildly Decreased Stage III GFR 30-59 Moderately Decreased Stage IV GFR 15-29 Severely Decreased Stage V GFR <15 Very Little GFR Left ESRD GFR <15 on INFORMATION ASSURANCE OFFICER Lab Order: MAGNESIUM LEVEL; SPEC'07/28/16 06:33 Test: MAGNESIUM LEVEL; Value: 1.8; Range: 1.8-2.4; Units: MG/DL; Status: F Lab Order: Fingerstick Blood Sugar; SPEC07/27/16 22:14 Test: BEDSIDE GLUCOSE; Value: 143; Range: 83-110; Abnormal: Above high normal; Units: MG/DL; Status: F Lab Order: Fingerstick Blood Sugar; SPEC07/28/16 11:50 Test: BEDSIDE GLUCOSE; Value: 189; Range: 83-110; Abnormal: Above high normal; Units: MG/DL; Status: F Radiology Order: EKG-ADULT Test: EKG-ADULT REASON FOR EXAMINATION: s/s stroke ; Stationary ECG Study; [facility] - ED; ; Test Date: 2016-07-27; Pat Name: DEREJE WELCH Department:; Room: -; Gender: M Template Fitter: Niya; : 1930 Requested By: BYRON Pagan; Order Number: [id number] Reading MD: Nurys Patel; Measurements; Intervals [place]; Rate: 92 P: 73; FL: 182 QRS: -37; QRSD: 90 T: 101; QT: 340; QTc: 422; Interpretive Statements; SINUS RHYTHM; MARKED LEFT AXIS DEVIATION; SEPTAL MYOCARDIAL INFARCTION, PROBABLY OLD; NSTTW ABNORMALITY; SIMILAR 07/26/16 16:34; Electronically Signed On 07-27-2016 13:20:55 EST by Nurys Patel; Radiology Order: -MRA-Brain without contrast Test: -MRA-Brain without contrast REASON FOR EXAMINATION: CVA >4.5hrs; ; CLINICAL HISTORY: CVA.; TECHNIQUE: Three dimensional msxi-iz-wbobim angiography is performed of the [place]. The maria fernanda; dy was performed without IV contrast agent.; FINDINGS: The supraclinoid portions of the internal carotid arteries are of normal shape. The normal; bifurcation is seen. The middle cerebral arteries are unremarkable in appearance. The posterior circu; lation is visualized and shows no evidence of occlusion or aneurysm formation. The basilar tip is see; n and shows no aneurysm formation. There is no evidence of beading to suggest vasculitis.; IMPRESSION:; MRA of the [place] is within normal limits.; Thank you for your kind referral of this patient.; ; Radiology Order: -MRI-Brain without Test: -MRI-Brain without REASON FOR EXAMINATION: CVA >4.5hrs; ; CLINICAL HISTORY: CVA.; TECHNIQUE: MRI of the brain was performed utilizing multiple sequences in axial, coronal and sagittal; planes without IV contrast material.; COMMENTS:; The sella and parasellar region are unremarkable in appearance. The corpus callosum and cerebellar to; nsils are of normal configuration and position. There are no intra or extra- axial collections. There; is no mass effect or midline shift. There is no evidence of hematoma formation. There is no hydrocep; halus.; There is no evidence of restricted diffusion.; There is encephalomalacia noted involving right frontal lobe compatible with old infarct.; The visualized arterial structures demonstrate normal-appearing flow voids. The seventh and eighth ne; rve bundles are visualized and are unremarkable in appearance.; Numerous confluent foci of T2/FLAIR hyperintensity are noted in the bilateral periventricular and sub; cortical white matter compatible with severe chronic white matter ischemic changes.; Generalized proportionate dilatation of ventricles and sulci is present compatible with age-appropria; te parenchymal atrophy.; IMPRESSION:; 1. No acute intracranial pathology. Old right frontal infarct.; 2. Generalized age-appropriate parenchymal atrophy.; 3. Severe chronic white matter microvascular ischemic changes.; Thank you for your kind referral of this patient.; ; Radiology Order: Chest, 2 View (pa\\E\\lat) Test: Chest, 2 View (pa\\E\\lat) REASON FOR EXAMINATION: CVA >4.5hrs; Semi upright AP portable chest 07/27/2016; ; Indication: CVA greater than 4.5 hours; ; Comparison: AP portable chest 07/26/2016, 04/25/2010; ; Findings: Cardiac silhouette is upper normal size. Atherosclerotic changes are; noted thoracic aorta. There is cephalization of pulmonary vasculature c/w; pulmonary venous hypertension.; ; There are mild degenerative changes in the thoracic spine; ; Soft tissues are within normal limits; ; Impression; 1. Cardiac silhouette is upper normal size.; 2. Pulmonary venous hypertension; ; ; ; ; ; ; Signed by; Binta Zurita MD 07/27/2016 03:06 P; Radiology Order: -MRI-Spine, Cervical without contrast Test: -MRI-Spine, Cervical without contrast REASON FOR EXAMINATION: right sided deficits; ; CLINICAL HISTORY: Patient states weakness on right side.; ; TECHNIQUE: MRI of the cervical spine was performed utilizing multiple sequences in axial and sagitta; l planes without IV contrast material.; ; COMMENTS:; The visualized osseous elements are intact with no evidence of fracture or dislocation. The marrow s; ignals are within normal limits. The cervical cord is of normal uniform signal intensity without lowell; dence of focal expansion. There is no evidence for tonsillar herniation. Limited views of the poste; rior fossa reveal no abnormalities.; ; Advanced degenerative spondylosis is present. There is evidence of fusion at C3-C4 and C5-C6, this m; ay be postsurgical. Clinical correlation is recommended.; ; At C2-C3, mild posterior bulging is seen. Canal and foramina are patent.; ; At C3-C4, there is a residual disc osteophyte complex present. Canal and foramina remain patent.; ; At C4-C5, broad based disc protrusion is seen associated with spurring. There is moderate to severe; bilateral foraminal stenosis and mild central canal stenosis.; ; At C5-C6, there is mild posterior spurring seen. Canal and foramina remain patent.; ; At C6-C7, central disc protrusion indents the ventral thecal sac. Canal and foramina are patent.; ; C7-T1 level is unremarkable.; ; IMPRESSION:; 1. At C2-C3, mild posterior bulging is seen. Canal and foramina are patent.; 2. At C3-C4, there is a residual disc osteophyte complex present. Canal and foramina remain patent.; ; 3. At C4-C5, broad based disc protrusion is seen associated with spurring. There is moderate to sev; ere bilateral foraminal stenosis and mild central canal stenosis.; 4. At C5-C6, there is mild posterior spurring seen. Canal and foramina remain patent.; 5. At C6-C7, central disc protrusion indents the ventral thecal sac. Canal and foramina are patent.; ; ; ; Thank you for your kind referral of this patient. We appreciate the opportunity to participate in [facility]; s patient's care.; ; ; Radiology Order: -MRI-Spine, Lumbar without contrast Test: -MRI-Spine, Lumbar without contrast REASON FOR EXAMINATION: right sided deficits; ; History: low back pain; Procedure: Multiple sequences were obtained in the sagittal and axial planes with T1 and T2 weighting; .; Findings: The conus medullaris and cauda equina appear normal. There is no significant marrow signal; alteration. There is no evidence of fracture, spondylolisthesis, or spondylolysis.; Schmorl's nodes are noted at T21-L1 to L4-L5.; Examination of the individual interspaces reveals the following:; L1-2: The disc is desiccated but normal in configuration without herniation or spinal or foraminal st; enosis.; L2-3: The disc is desiccated but normal in configuration without herniation or spinal or foraminal st; enosis.; L3-4: The disc is desiccated but normal in configuration without herniation or spinal or foraminal st; enosis.; L4-5: The disc is desiccated but normal in configuration without herniation or spinal or foraminal st; enosis.; L5-S1:The disc is desiccated but normal in configuration without herniation or spinal or foraminal st; enosis.; Impression:; 1. Diffuse disc desiccation; 2. Otherwise normal MRI of the lumbar spine; Thank you for your kind referral of this patient.; ; Radiology Order: -MRI-Spine,Thoracic without contrast Test: -MRI-Spine,Thoracic without contrast REASON FOR EXAMINATION: right sided deficits; ; CLINICAL HISTORY: Patient states weakness on right side.; ; TECHNIQUE: MRI of the thoracic spine was performed utilizing multiple sequences in axial and sagitta; l planes without IV contrast material.; ; COMMENTS:; The visualized osseous elements are intact and in normal alignment with no evidence of fracture or di; slocation. The marrow signals are within normal limits. The visualized posterior elements are hailey; l and the thoracic curvature is well maintained. At the level T5-T6, there is abnormality felt withi; n spinal cord. There is spinal cord expansion and abnormal signal. This area measures approximately; 10 mm in craniocaudad dimension. There is apparent cystic area noted. Differential includes posttr; aumatic myelomalacia, although underlying tumor is not totally excluded. Further evaluation is recom; mended with MRI performed with pre and postcontrast. Neurosurgical evaluation is recommended.; ; Advanced multilevel degenerative spondylosis is seen. There is disc dehydration and desiccation note; d at all thoracic levels, which is most severe involving mid to lower thoracic levels. 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 How; ever, it does not cause impingement or compression of all the cord.; ; Remaining thoracic levels are grossly unremarkable.; ; There is mild dextroscoliosis is seen apex at T6.; ; IMPRESSION:; 1. At the level T5-T6, spinal cord expansion and abnormal signal. This area measures approximately; 10 mm in craniocaudad dimension. There is apparent cystic area noted. Differential includes posttra; umatic myelomalacia, although underlying tumor is not totally excluded. Further evaluation is recomm; ended with MRI performed with pre and postcontrast. Neurosurgical evaluation is recommended.; 2. At T5-T6, small herniated disc noted centrally measures 4 x 2 mm indents the ventral thecal sac.; However, it does not cause impingement or compression of all the cord.; ; ; Thank you for your kind referral of this patient. We appreciate the opportunity to participate in [facility]; s patient's care.; ; ; Radiology Order: MRI Spine, Thoracic with con Test: MRI Spine, Thoracic with con REASON FOR EXAMINATION: T4 or T5 lesion; MR THORACIC SPINE WITH CONTRAST:; ; HISTORY: Spinal cord lesion.; ; CONTRAST: ProHance 12 mL.; ; COMPARISON: 07/27/2016; ; There is no enhancement of the small partially cystic expansile intramedullary; lesion at the T5 level. An enhancing hemangioma is present in the T7 vertebral; body. There are no other enhancing vertebral body lesions.; ; IMPRESSION:; ; There is no enhancement of the small expansile intramedullary lesion at the T5; level. This may represent a low grade astrocytoma or possibly an infectious; process such as Lyme disease or sarcoidosis; ; ; Signed by; Rickie Nuno MD 07/28/2016 04:52 P; Outcome: 07/27 18:38 Decision to Hospitalize by Provider. reji 07/28 12:34 Discharge Assessment: Patient awake, alert and oriented x 3. No cognitive and/or me3 functional deficits noted. Patient verbalized understanding of disposition instructions. patient administered narcotics - no. Condition: stable. MRI Study completed. Property :Personal belongings accompany Pt. 17:03 Patient left the ED. me3 17:26 Admitted to ICU accompanied by nurse, via stretcher, with chart. The following High me3 Risk Discharge criteria are identified: None. Signatures: Dispatcher [employer] EDMS Eri Back, Survey Analyst Unit deg Peterson, Camilla Dunn, RN RN ulices Gail, Jessy, Reg Reg gb Jennifer, Brandyne, Reg Reg lg Isaac, PaulaBrandenMaggie, Survey Analyst Unit ml3 Celia Alberts,TENONER OPERATOR TENONER OPERATOR me3 Ingris, Sindhu, CREDIT INTERN CREDIT INTERN reji Harper, Nuria mt4 Kya Nation, FLAGSTONE LAYER FLAGSTONE LAYER ar3 Letha Montes De Oca,RN RN ld5 Gabriela Katz, RN RN jc4 Mya Cook, FLAGSTONE LAYER FLAGSTONE LAYER ct3 Mabel Phan,RN RN Dominique Evans,RN Joaquina Peterson,RN RN [facility], [facility] Johanna Rivas,RN RN ja5 Corrections: (The following items were deleted from the chart) 17:27 12:34 The following High Risk Discharge criteria are identified: None. Admitted to PCU me3 accompanied by nurse, via stretcher, with chart, me3 Chart Complete MTDD
[2016-07-30] MEDS: CLOPIDOGREL 75 MG TAB PO SCH (20:13)
[2016-07-30] MEDS: amLODIPine 5 MG TAB PO SCH (20:14)
[2016-07-30] MEDS: ATENOLOL 25 MG TAB PO SCH (20:14)
[2016-07-31 00:06] LABS: IgG P18 AB Absent (.); IgG P23 AB Absent (.); IgG P28 AB Absent (.); IgG P30 AB Absent (.); IgG P41 AB Present (.); IgG P45 AB Absent (.); IgG P58 AB Absent (.); IgG P66 AB Absent (.); IgG P93 AB Absent (.); IgM P39 AB Absent (.); IgM P41 AB Absent (.)
[2016-07-31 02:00] VITALS: BP 139/70
[2016-07-31] MEDS: SLF 3 ML SYR IV SCH (05:23)
[2016-07-31 06:00] VITALS: BP 138/68
[2016-07-31 06:36] LABS: BASO % 0.3 % (0.0-1.0); EOS # 0.2 K/mm3 (0.0-0.50); EOS % 1.4 % (0.0-3.0); LARGE UNSTAINED CELL # 0.2 K/mm3 (0.0-0.4); LARGE UNSTAINED CELL % 1.4 % (0.0-4.0); LYMPH # 1.6 K/mm3 (1.5-4.5); LYMPH % 12.8 % (24.0-44.0); MEAN CORPUSCULAR HEMOGLOBIN 28.5 pg (27.0-33.0); MEAN CORPUSCULAR HGB CONC 31.7 g/dl (32.0-36.5); MEAN CORPUSCULAR VOLUME 89.9 fl (80.0-96.0); MONO # 0.8 K/mm3 (0.0-0.8); MONO % 7.5 % (0.0-5.0); NEUTROPHILS # 8.5 K/mm3 (1.8-7.7); NEUTROPHILS % 76.6 % (36.0-66.0); PLATELET COUNT, AUTOMATED 272 k/mm3 (150-450); RED CELL DISTRIBUTION WIDTH 14.7 % (11.5-14.5); WHITE BLOOD COUNT 11.1 K/mm3 (4.0-10.0)
[2016-07-31] MEDS ORDERED: LOVE1INJ SC (06:50)
[2016-07-31] MEDS ORDERED: AMLO5TAB2 PO (06:50)
[2016-07-31] MEDS ORDERED: ATEN25TA PO (06:50)
[2016-07-31 06:52] LABS: ALBUMIN 2.6 GM/DL (3.2-5.2); ALBUMIN/GLOBULIN RATIO 0.57 (1.00-1.93); ALKALINE PHOSPHATASE 61 U/L (45-117); ALT/SGPT 13 U/L (12-78); ANION GAP 9 MEQ/L (8-16); AST/SGOT 12 U/L (15-37); BILIRUBIN,TOTAL 0.7 MG/DL (0.2-1.0); BLOOD UREA NITROGEN 29 MG/DL (7-18); CALCIUM LEVEL 8.7 MG/DL (8.8-10.2); CARBON DIOXIDE LEVEL 27 MEQ/L (21-32); CHLORIDE LEVEL 104 MEQ/L (98-107); GLOMERULAR FILTRATION RATE > 60.0 (>35); GLUCOSE, FASTING 160 MG/DL (83-110); MAGNESIUM LEVEL 2.2 MG/DL (1.8-2.4); SODIUM LEVEL 140 MEQ/L (136-145); TOTAL PROTEIN 7.2 GM/DL (6.4-8.2)
[2016-07-31] MEDS: HumaLOG INSULIN (NovoLOG) PER UNIT SC SCH ×2 (07:30→12:00)
[2016-07-31] MEDS: SYMBICORT 160/4.5MCG INHALER 6GM INH SCH (07:42)
[2016-07-31] MEDS: ATORVASTATIN 20 MG TAB PO SCH (08:27)
[2016-07-31 08:28] VITALS: BP 138/68
[2016-07-31] MEDS: ATENOLOL 25 MG TAB PO SCH (08:28)
[2016-07-31] MEDS: ASPIRIN 81 MG ENTERIC TAB PO SCH (08:28)
[2016-07-31] MEDS: FINASTERIDE 5 MG TAB PO SCH (08:28)
[2016-07-31] MEDS: amLODIPine 5 MG TAB PO SCH (08:28)
[2016-07-31] MEDS: LISINOPRIL 40 MG TAB PO SCH (08:28)
[2016-07-31] MEDS: ENOXAPARIN 40 MG/0.4 ML SYRINGE (J1650) SC SCH (08:29)
--- NOTE | 2016-07-31 10:47 | REP ---
DUPLEX CAROTID SONOGRAPHY: HISTORY: CVA. Comparison study April 26, 2010. FINDINGS: Antegrade flow is observed in both vertebral arteries. RIGHT CAROTID: The right common carotid artery shows minimal diffuse intimal thickening. There is mixed plaquing in the distal CCA bulb and proximal ICA on two-dimensional scanning. Color flow and spectral Doppler interrogation are unremarkable on the right. Velocity Chart Right Carotid: PSV EDV Right CCA 94 cm/s Right ICA 63 cm/s 8 cm/s Right ECA 59 cm/s Right ICA/CCA ratio normal 0.7. IMPRESSION: 16 to 49% category narrowing in the right ICA by Doppler criteria. Doppler velocities have not increased in the right carotid in the interval since the 2009 prior study. LEFT CAROTID: The left common carotid artery shows some minimal diffuse intimal thickening. There is mixed plaquing in the bulb, proximal ICA and proximal ECA on two-dimensional scanning on the left side. Color flow and spectral Doppler interrogation are unremarkable on the left. Velocity Chart Left Carotid: PSV EDV Left CCA 78 cm/s Left ICA 75 cm/s 13 cm/s Left ECA 79 cm/s Left ICA/CCA ratio normal 1.0. IMPRESSION: 16 to 49% category narrowing in the left ICA by Doppler velocity criteria. Doppler velocities have not increased significantly since the 2009 prior study. Signed by Obey Handley MD 07/31/2016 02:54 P
--- NOTE | 2016-07-31 11:16 | DSES ---
DATE OF ADMISSION: 07/27/2016 DATE OF DISCHARGE: 07/31/2016 CONSULTANTS DURING THIS ADMISSION: Dr. Phillips, neurologist. Dr. Shah, neurosurgeon. PRIMARY DISCHARGE DIAGNOSES: 1. 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 2. Hypertension, uncontrolled. 3. Wyk-ajyrabc-wjnnvmcha, type 2, diabetes. 4. 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 DISCHARGE MEDICATIONS: - Norvasc 5 mg twice a day - atenolol 25 mg twice a day - lisinopril 40 daily - aspirin 81 daily - Lipitor 20 daily - Proscar 5 daily - Lovenox 40 mg subcutaneously daily - Symbicort two puffs twice a day - Plavix 75 every evening - sliding scale - Proventil two puffs four times a day - hyperglycemic protocol HOSPITAL COURSE: 86-year-old male with history of CVA, on chronic aspirin, qwh-yvnwvdo-[place] diabetes, hypertension, hyperlipidemia, presented to the emergency room (ER) with his son and complaining of right-sided weakness. Was seen the day before admission. CT of the head was negative, and was discharged home from the emergency room. He then re-presents for admission due to persistent right-sided weakness, unable to ambulate and had to be carried by his son. MRI of the brain was negative for any acute findings. MRA of the brain showed no acute findings. He continued to have dense right hemiparesis, which was progressively worsening, with complaints of dizziness after slipping on some ice but denies any loss of consciousness or head trauma. Neurologist, Dr. Phillips, was consulted for further evaluation. He, along with Dr. Nuno reviewed the MRI of brain, which showed an acute right medullary CVA. Patient was admitted and started on aspirin and Plavix, continued on Lipitor. He continues to have complaints of cough. Chest x-ray was negative for pneumonia or pleural effusion, and blood pressure was maintained well with titration of his medications with atenolol 25 twice a day and Norvasc 5 twice a day with systolic pressure ranging between 130-140 systolic. Patient has had no significant recovery with the right-sided hemiparesis. He did have some minimal dysarthria, which improved. He has no aspiration noted. His sputum culture is negative. Blood cultures are negative. Patient is stable for discharge to acute rehabilitation. PHYSICAL EXAMINATION ON DISCHARGE: Temperature 98.1, pulse 70, respiratory rate 19, blood pressure 138/68, 90% on room air. In general, patient is awake, alert, oriented to person, place and time. Still with mild dysarthria. No facial asymmetry. Slight tongue deviation. Unable to move the right eye laterally. No horizontal or vertical nystagmus. Palate elevates symmetrically. Sensation is intact bilaterally. Motor function is 0/5 in the right upper and lower extremities. Positive Babinski on the right. Deep tendon reflexes (DTRs) 2+ in the patella, absent in the Achilles. Gait was not tested as patient is a fall risk, unable to ambulate without 1-2 person assistance. Left upper and lower extremity sensation and motor function are intact. Motor function is 5/5 on the left upper and lower extremity. Lungs are clear to auscultation. No wheezing, rales or rhonchi. Heart: S1, S2. Sinus rhythm. No murmurs, rubs or gallops. Abdomen is soft, nontender, nondistended. Positive bowel sounds. Extremities: No cyanosis, clubbing or pitting edema. Echocardiogram is still pending and so is the ultrasound of the carotids. LABORATORY DATA: White count 11, hemoglobin 12, hematocrit 38, platelet count 272. Sodium 140, potassium 4, chloride 104, bicarbonate 27, BUN 29, creatinine 1.2, glucose of 160, magnesium of 2.2. Angiotensin-converting enzyme 4. DAWSON negative. MTDD
[2016-07-31 11:22] LABS: ALBUMIN % 50.4 % (55.8-66.1)
[2016-07-31 11:23] LABS: ALBUMIN 3.63 GM/DL (3.29-5.55); GAMMA GLOBULIN % 17.2 % (11.1-18.8)
[2016-08-01 08:07] LABS: PROTEIN C ANTIGEN 138 % (60-150); PROTEIN S ANTIGEN FREE 106 % (57-157); PROTEIN S ANTIGEN TOTAL 144 % (60-150)
== END 2016-07-31 13:39 | disposition short-term general hospital (02) | DRG 65 ==
LOC: M ED 12:54 → M ED INP 19:37 → M ICU 07-28 17:20 → M MSPAV 07-30 16:10
PROVIDERS: ADMIT Internal Medicine; ATTEND General Practice
DX: I63.9 Cerebral infarction, unspecified (principal); A69.20 Lyme disease, unspecified; G95.9 Disease of spinal cord, unspecified; I69.351 Hemiplegia and hemiparesis following cerebral infarction affecting right dominant side; I10 Essential (primary) hypertension; E78.5 Hyperlipidemia, unspecified; E11.9 Type 2 diabetes mellitus without complications; D86.89 Sarcoidosis of other sites; Z79.82 Long term (current) use of aspirin; Z79.84 Long term (current) use of oral hypoglycemic drugs; Z79.899 Other long term (current) drug therapy; Z86.73 Personal history of transient ischemic attack (TIA), and cerebral infarction without residual deficits; Z90.49 Acquired absence of other specified parts of digestive tract; Z87.891 Personal history of nicotine dependence; Z79.02 Long term (current) use of antithrombotics/antiplatelets; Z87.442 Personal history of urinary calculi

== ENCOUNTER 2016-07-31 11:31 | Inpatient (IN) | payer MEDICARE ==
[~2016-07-31] VITALS: Ht 177.8 cm; Wt 80.0 kg
[2016-07-31] MEDS: PANTOPRAZOLE 40MG TAB (PROTONIX) PO SCH (09:00)
[~2016-07-31 11:31] MED LIST changes: +AMLO5TAB2 PO; +ASPI1TAB PO; +ATEN25TA PO; +ATOR1TAB21 PO; +CLOP75TA2 PO; +FINA5TAB2 PO; +LISI40TAB PO; +LOVE1INJ SC; +METF500T PO; +PROA1AER INH; +SYMB16INH INH
[2016-07-31] MEDS ORDERED: NORCO, ANEXSIA 5/325MG TABLET (HYDROcodone/ACETAMINOPHEN) PO PRN (13:00)
[2016-07-31] MEDS ORDERED: ALBUTEROL 90 MCG/ACT 8GM HFA INHALER INH PRN (13:00)
[2016-07-31] MEDS ORDERED: MIRALAX *UNIT DOSE* 17GM PACKET PO PRN (13:00)
[2016-07-31] MEDS ORDERED: MOM 30ML SUSPENSION UDC PO PRN (13:00)
[2016-07-31 13:50] VITALS: BP 137/72
--- NOTE | 2016-07-31 16:24 | HPEPDOC ---
Dentofacial Orthopedics Dentist Note ADMISSION H&P + NITA DATE OF ADMISSION: 07/31/2016 DATE OF SERVICE: 07/31/2016 IDENTIFICATION STATEMENT: Vicky France is a 86-year-old left-hand dominant man with acute midbrain CVA and right hemiparesis admitted for comprehensive integrated inpatient rehabilitation. Thereve been no significant changes in the patients condition since the preadmission screening. HISTORY OF PRESENT ILLNESS: Patient is an 86-year-old 10 dominant gentleman with history of multiple medical comorbidities including prior stroke (without significant residual) who was admitted to [facility] on 2016 with right hemiparesis. Patient had apparently experienced weakness and dizziness on the day prior to his admission for which he presented to the ER. CT scan was done and negative and he was discharged home. Patients weakness continued to progress to the extent that he was unable to get up the stairs in his home. He was brought again to [facility] where additional workup was done including MRI and MRA. The images were reviewed with the neuroradiologist and the neurologist, and patient was diagnosed with acute midbrain cerebrovascular accident in the cerebellum with medullary stroke. She was admitted to the PCU. Patients medical condition improved, although he will continue to have significant right hemiparesis. Due to his functional decline and continued need for medical care, recommendation was for acute rehabilitation. On 07/31/2016 the patient was deemed stable for discharge to [facility] inpatient rehabilitation unit. 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 No residual weakness except left eye palsy Skull fracture 1980s secondary very to fall off scaffolding Multiple broken bones PAST SURGICAL HISTORY: Appendectomy Cholecystectomy Cataract surgery ALLERGIES: No known drug allergies MEDICATIONS: Norvasc 5 mg by mouth twice a day Atenolol 25 mg by mouth twice a day Lisinopril 40 mg by mouth daily Acetaminophen 650 mg by mouth every 6 hours when necessary Aspirin 81 mg by mouth daily Lipitor 20 mg by mouth daily Post scar 5 mg by mouth daily Lovenox 40 mg subcutaneous daily Insulin sliding scale before meals and at bedtime Symbicort 160/4.5 g 2 puffs inhaled twice a day Plavix 75 mg by mouth qpm albuterol sulfate 2 puffs inhaled 4 times a day when necessary shortness of breath SOCIAL HISTORY: Patient lives in his in a one-story home. There are 4-5 steps to enter the house. 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 He has a history of smoking 1 pack a day for 40 years and quit approximate 20 years ago. He reports rare alcohol use. No illicit drug use, past or present. Review of Systems: General: no chills, +fatigue, no weight changes. Eyes: no change of vision, +reading glasses. Ears, Nose & Throat: no sore throat, + hearing but doesnt always use hearing aids, nonasal discharge. Cardiovascular: no chest pain, claudication, edema, syncopal episodes. Pul: + Chronic productive cough at baseline, episodic shortness of breath at baseline for which she uses his inhalers. GI: no abdominal pain, N/V. Genitourinary: no frequency. Musculoskeletal: + Right upper limb pain mostly at the elbow and at the wrist, started Thursday, worse with any kind of movement, remits with rest. No back/neck. Neurological: no numbness, paresthesias, no tremors, seizures, MOREIRA. Hematological: No bleeding disorders. Skin: no rashes. Psychiatric: no depression, anxiety, behavioral issues. VITAL SIGNS: 98.9F, pulse 73, respiratory rate 18, blood pressure 137/72, 93% saturation on room air PHYSICAL EXAMINATION: GENERAL: Well nourished, well developed, lying in bed right arm resting on pillow, no acute distress. HEENT: Normocephalic, atraumatic. No facial droop. Positive left eye palsy. PERRL, EOMI CARDIOVASCULAR: S1, S2, regular rate. No lower limb swelling or calf tenderness. LUNGS: Diffusely decreased breath sounds throughout, unable to appreciate any rhonchi, rales or wheezing. ABDOMEN: Soft, nontender, nondistended. Normoactive bowel sounds throughout. MUSCULOSKELETAL: Passive range of motion of the right elbow and wrist within normal limits with pain, no pain with passive range of motion of the right shoulder. Pain to palpation over the right wrist and MCPs. Manual muscle testing : 2 over 5 right shoulder shrug, 0/5 remainder of the right upper and lower limb. I/5 strength left upper and lower limb in all major muscle groups. Sensation: Intact to soft touch bilateral upper and lower limbs. Deep tendon reflexes: Unable to elicit patellar bilaterally, 1+ biceps bilaterally. Positive Babinski on the left NEUROLOGICAL: Alert and oriented x 3. Answers all questions appropriately. Able to follow commands without difficulty (exception: right flaccid paralysis so unable to complete tasks with the right upper and lower limbs). SKIN: Positive erythema on the dorsum of the right hand over the MCPs extending to the wrist, no erythema over the elbow. LABORATORY DATA: 07/31/2016: WBC count 11.1, hemoglobin 12.3, hematocrit 38.7, plt 272. Sodium 140, potassium 4.0, chloride 104, carbon dioxide 27, BUN 29, creatinine 1.20, GFR greater than 60, fasting glucose 160, calcium 8.7, magnesium 2.2, Blood culture 2 07/29/2016: No growth in 24 hours MRSA screen 07/28/2016 negative Sputum 07/29/2016 IMAGING: MRI brain 07/27/16: old right frontal infarct, generalization age appropriate parenchymal atrophy, severe chronic white matter microvascular ischemic changes. MRA 07/27/16: non-acute MRI C-T-L spine 07/27/16 reviewed: T5 abnormality FUNCTIONAL STATUS, Premorbid: Independent ADLs and ambulation. ASSESSMENT AND PLAN: 1. 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 The patient will undergo thorough physical and occupational therapy evaluation followed by daily intensive therapy. Rehabilitation nursing for bladder, bowel and medication management. 2. Right hand and elbow pain: Concern is for developing cellulitis on the right hand. Will obtain morning labs. Will provide symptomatic relief at this time ( ice, Tylenol, [place]). Will also consider imaging if symptoms persist. 3. Hypertension: Goal is for systolic blood pressure less than 140. Adequately controlled at this time. Will continue lisinopril, Norvasc, and atenolol. Dose adjustments as indicated. 4. DVT prophylaxis: Maintain Lovenox daily. Will also provide SCD and TOBIN hose. 5. Diabetes mellitus type 2: Continue metformin. 6. Bowel: Maintain patient on Colace and senna scheduled along with milk of magnesia and MiraLAX on an as-needed basis 7. COPD: Continue Symbicort and albuterol inhaler on an as-needed basis 8. Diet/nutrition: Will obtain a prealbumin with morning labs. Carb consistent diet. Nutritional supplements as indicated. POST ADMISSION PHYSICIAN EVALUATION: On evaluation of the patient today there' ve been no significant medical issues or functional changes as compared to those noted in the preadmission screening document. This patient's inpatient rehabilitation remains necessary in light of the above conditions. The patient' s medical condition requires specialized care with physicians specially trained in physical medicine rehabilitation. The patient is capable motivated to participate in a minimum of 3 hours of therapy daily, 5 days minimum per week, and requires intensive inpatient rehabilitation to improve their functional status so that they can be safely to discharge back to their home. PROGNOSIS: Fair ESTIMATED LENGTH OF STAY: 21 days. / Vital Signs Vital Sign - Last 24 Hours 07/31/16 13:50 Temp 98.9 Pulse 73 Resp 18 B/P 137/72 Pulse Ox 93 O2 Delivery Room Air Home Medications Scheduled Amlodipine Besylate (Amlodipine Besylate) 5 Mg Tab 5 MG PO BID Aspirin (Aspirin 81) 81 Mg Tab 81 MG PO DAILY (Reported) Atenolol (Atenolol) 25 Mg Tab 25 MG PO BID Atorvastatin Calcium (Atorvastatin Calcium) 20 Mg Tab 20 MG PO DAILY (Reported) Budesonide/Formoterol (Symbicort 160-4.5 Mcg/Act) 60 Puff/Inhaler Aers 2 PUFF INH BID (Reported) Clopidogrel Bisulfate (Clopidogrel) 75 Mg Tab 75 MG PO QPM (Reported) Enoxaparin Sodium (Lovenox) 40 Mg/0.4 Ml Inj 40 MG SC DAILY Finasteride (Finasteride) 5 Mg Tab 5 MG PO DAILY (Reported) Lisinopril (Lisinopril) 40 Mg Tab 40 MG PO DAILY (Reported) Metformin Hydrochloride (Metformin HCl) 500 Mg Tab 500 MG PO TID (Reported) AFTER MEALS Scheduled PRN Albuterol Sulfate (Proair Hfa) 108 Mcg/Act Aer 2 PUFF INH QID PRN PRN SHORTNESS OF BREATH (Reported) Allergies Coded Allergies: No Known Allergies (Verified Allergy, Unknown, 04/25/10) REJI BLACKWELL MD Jul 31, 2016 16:24
[2016-07-31] MEDS: metFORMIN (GLUCOPHAGE) 500 MG TAB PO SCH (17:58)
[2016-07-31 20:00] VITALS: BP 140/70
[2016-07-31] MEDS ORDERED: DEXTROSE 50% 50 ML SYRINGE IV PRN (20:30)
[2016-07-31] MEDS ORDERED: GLUCAGON FOR INJ 1 MG VIAL (J1610) SC PRN (20:30)
[2016-07-31] MEDS ORDERED: GLUCOSE 4 GM CHEW TABLET PO PRN (20:30)
[2016-07-31] MEDS: SYMBICORT 160/4.5MCG INHALER 6GM INH SCH (20:41)
[2016-07-31] MEDS: HumaLOG INSULIN (NovoLOG) PER UNIT SC SCH (21:00)
[2016-07-31] MEDS: CLOPIDOGREL 75 MG TAB PO SCH (21:31)
[2016-07-31] MEDS: SENNA 8.6 MG TAB (SENOKOT) PO SCH (21:31)
[2016-07-31] MEDS: DOCUSATE SODIUM 100 MG CAP PO SCH (21:31)
[2016-07-31] MEDS: ACETAMINOPHEN TAB 650MG DOSE (2X325MG) PO PRN (21:31)
[2016-07-31] MEDS: amLODIPine 5 MG TAB PO SCH (21:37)
[2016-07-31] MEDS: ATENOLOL 25 MG TAB PO SCH (21:37)
--- NOTE | 2016-07-31 21:40 | REPUSA ---
Clinical history: pneumonia. Comparison: None. Findings: The mediastinum and cardiac silhouette are within normal limits. The lungs are clear. No pl eural effusion or pneumothorax is seen. The osseous structures and soft tissues are unremarkable. Impression: No acute disease.
[2016-08-01 06:00] VITALS: BP 132/70
[2016-08-01] MEDS: ACETAMINOPHEN TAB 650MG DOSE (2X325MG) PO PRN (06:32)
[2016-08-01 07:35] LABS: CALCIUM LEVEL 8.2 MG/DL (8.8-10.2); CREATININE FOR GFR 1.24 MG/DL (0.70-1.30); GLOMERULAR FILTRATION RATE 58.8 (>35); POTASSIUM SERUM 4.3 MEQ/L (3.5-5.1)
[2016-08-01 07:45] LABS: BASO # 0.1 K/mm3 (0.0-0.2); BASO % 0.8 % (0.0-1.0); EOS # 0.3 K/mm3 (0.0-0.50); EOS % 3.2 % (0.0-3.0); LARGE UNSTAINED CELL # 0.2 K/mm3 (0.0-0.4); LARGE UNSTAINED CELL % 1.7 % (0.0-4.0); LYMPH # 1.5 K/mm3 (1.5-4.5); LYMPH % 13.5 % (24.0-44.0); MEAN CORPUSCULAR HEMOGLOBIN 29.2 pg (27.0-33.0); MEAN CORPUSCULAR HGB CONC 33.3 g/dl (32.0-36.5); MEAN CORPUSCULAR VOLUME 87.8 fl (80.0-96.0); MONO # 0.8 K/mm3 (0.0-0.8); MONO % 8.2 % (0.0-5.0); NEUTROPHILS % 72.5 % (36.0-66.0); PLATELET COUNT, AUTOMATED 286 k/mm3 (150-450); RED CELL DISTRIBUTION WIDTH 14.7 % (11.5-14.5); WHITE BLOOD COUNT 9.6 K/mm3 (4.0-10.0)
[2016-08-01] MEDS: HumaLOG INSULIN (NovoLOG) PER UNIT SC SCH ×4 (08:41→21:00)
[2016-08-01] MEDS: ENOXAPARIN 40 MG/0.4 ML SYRINGE (J1650) SC SCH (08:41)
[2016-08-01] MEDS: FINASTERIDE 5 MG TAB PO SCH (08:43)
[2016-08-01] MEDS: BENZONATATE 100 MG CAP PO SCH ×3 (08:44→21:17)
[2016-08-01] MEDS: DOCUSATE SODIUM 100 MG CAP PO SCH ×2 (08:44→21:17)
[2016-08-01] MEDS: ATORVASTATIN 20 MG TAB PO SCH (08:45)
[2016-08-01] MEDS: metFORMIN (GLUCOPHAGE) 500 MG TAB PO SCH ×3 (08:45→18:09)
[2016-08-01] MEDS: PANTOPRAZOLE 40MG TAB (PROTONIX) PO SCH (08:45)
[2016-08-01] MEDS: ASPIRIN 81 MG ENTERIC TAB PO SCH (08:45)
[2016-08-01] MEDS: amLODIPine 5 MG TAB PO SCH ×2 (08:46→21:17)
[2016-08-01] MEDS: ATENOLOL 25 MG TAB PO SCH ×2 (08:46→21:17)
[2016-08-01] MEDS ORDERED: LISINOPRIL 40 MG TAB PO SCH (09:00)
[2016-08-01] MEDS: SYMBICORT 160/4.5MCG INHALER 6GM INH SCH ×2 (11:43→19:56)
[2016-08-01 14:00] VITALS: BP 130/70
--- NOTE | 2016-08-01 16:33 | IPNPDOC ---
Mail Censor Progress Note PROGRESS NOTE DATE OF ADMISSION: 07/31/2016 DATE OF SERVICE: 08/01/2016 IDENTIFICATION STATEMENT: Patient is a 86-year-old left-hand dominant man with acute midbrain CVA and right hemiparesis admitted for comprehensive integrated inpatient rehabilitation. 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 No residual weakness except left eye palsy Skull fracture 1980s secondary very to fall off scaffolding Multiple broken bones PAST SURGICAL HISTORY: Appendectomy Cholecystectomy Cataract surgery ALLERGIES: No known drug allergies MEDICATIONS: Norvasc 5 mg by mouth twice a day Atenolol 25 mg by mouth twice a day Lisinopril 40 mg by mouth daily Aspirin 81 mg by mouth daily Lipitor 20 mg by mouth daily Proscar 5 mg by mouth daily Lovenox 40 mg subcutaneous daily Insulin sliding scale before meals and at bedtime Metformin 500mg po PC Symbicort 160/4.5 g 2 puffs inhaled twice a day Plavix 75 mg by mouth qpm albuterol sulfate 2 puffs inhaled 4 times a day when necessary shortness of breath Acetaminophen 650 mg by mouth every 6 hours when necessary SUBJECTIVE: Patient without complaints this morning except that he feels tired. States he didnt sleep well last night secondary to the interruptions. He denies any chest pain, increased shortness of breath, lightheadedness, chills , diaphoresis, nausea vomiting. Received a phone call last evening regarding patient having a fever of over 101. Patient had also been incontinent of bladder. Ultrasound of the bladder was done and patient had approximately 300 mL. Nurse was instructed to reinsert Masters insulin urine for culture and sensitivity. Blood cultures, chest x-ray and laboratory work was also done. VITAL SIGNS: 98.1F, pulse 63, respiratory rate 26 (repeat 22), blood pressure 128/82, 95% saturation on 2L PHYSICAL EXAMINATION: GENERAL: Well nourished, well developed, lying in bed, sleepy but easily arousable, no acute distress. +Masters with dark dyan urine, scattered blood clots. HEENT: Normocephalic, atraumatic. No facial droop. left eye palsy(unchanged). PERRL, EOMI CARDIOVASCULAR: S1, S2, regular rate. No lower limb swelling or calf tenderness. LUNGS: Diffusely decreased breath sounds throughout, unable to appreciate any rhonchi or wheezing. ABDOMEN: Soft, nontender, nondistended. Normoactive bowel sounds throughout. MUSCULOSKELETAL: Manual muscle testin over 5 right shoulder shrug, 0/5 remainder of the right upper and lower limb. I/5 strength left upper and lower limb in all major muscle groups. NEUROLOGICAL: Alert and oriented x 3. Answers all questions appropriately. Able to follow commands SKIN: +erythema on the dorsum of the right hand over the MCPs extending to the wrist, no erythema over the elbow(~stable). LABORATORY DATA: 08/01/16 reviewed: see below 07/31/2016: WBC count 11.1, hemoglobin 12.3, hematocrit 38.7, plt 272. Sodium 140, potassium 4.0, chloride 104, carbon dioxide 27, BUN 29, creatinine 1.20, GFR greater than 60, fasting glucose 160, calcium 8.7, magnesium 2.2, Blood culture 2 07/29/2016: No growth in 24 hours MRSA screen 07/28/2016 negative Sputum 07/29/2016 IMAGING: CXR 07/31/16: non-acute MRI brain 07/27/16: old right frontal infarct, generalization age appropriate parenchymal atrophy, severe chronic white matter microvascular ischemic changes. MRA 07/27/16: non-acute MRI C-T-L spine 07/27/16 reviewed: T5 abnormality FUNCTIONAL STATUS, Premorbid: Independent ADLs and ambulation. ASSESSMENT AND PLAN: 1. 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 Continue physical and occupational therapy. Rehabilitation nursing for bladder, bowel and medication management. 2. Tachypnea/fever/productive cough: Will obtain CT chest to further eval for infiltrate. 3. Retention/hematuria: F/u Ucx. Maintain masters. 3. Right hand and elbow pain: Symptomatic relief at this time (ice, Tylenol, [place]). 4. Hypertension: Adequately controlled at this time. Continue lisinopril, Norvasc, and atenolol. Dose adjustments as indicated. 5. DVT prophylaxis: Maintain Lovenox daily. Continue SCD and TOBIN hose. 6. Diabetes mellitus type 2: Hyperglycemia may be 2nd to infection. As above, f/ u studies. Continue metformin & ISS. 7. Bowel: Maintain Colace and senna scheduled along with milk of magnesia and MiraLAX on an as-needed basis 8. COPD: Continue Symbicort and albuterol inhaler on an as-needed basis 9. Malnutrition: Prealbumin low so started on Glucerna. Continue carb consistent diet. / Vital Signs Vital Sign - Last 24 Hours 07/31/16 07/31/16 07/31/16 07/31/16 20:00 20:00 21:15 21:37 Temp 101.4 100.7 98.6 Pulse 73 70 Resp 18 B/P 140/70 Pulse Ox 92 O2 Delivery Room Air 07/31/16 07/31/16 07/31/16 08/01/16 21:37 22:00 22:00 02:00 Temp 98.3 Pulse 70 Resp 30 B/P 122/60 Pulse Ox 91 O2 Delivery Nasal Cannula Room Air O2 Flow Rate 2.0 08/01/16 08/01/16 06:00 08:46 Temp 98.1 Pulse 61 63 Resp 26 B/P 132/70 128/82 Pulse Ox 95 O2 Delivery Nasal Cannula O2 Flow Rate 2.0 Laboratory Data CBC/BMP Laboratory Tests 08/01/16 06:43 Red Blood Count 4.12 L, Mean Corpuscular Volume 87.8, Mean Corpuscular Hemoglobin 29.2, Mean Corpuscular Hemoglobin Concent 33.3, Red Cell Distribution Width 14.7 H, Neutrophils (%) (Auto) 72.5 H, Lymphocytes (%) (Auto ) 13.5 L, Monocytes (%) (Auto) 8.2 H, Eosinophils (%) (Auto) 3.2 H, Basophils (% ) (Auto) 0.8, Neutrophils # (Auto) 7.0, Lymphocytes # (Auto) 1.5, Monocytes # ( Auto) 0.8, Eosinophils # (Auto) 0.3, Basophils # (Auto) 0.1 08/01/16 06:44 Calcium Level 8.2 L Labs 24H Laboratory Tests 2 07/31/16 21:33: Lactic Acid Level 1.4 07/31/16 21:39: Bedside Glucose (Misc Panel) 198H 07/31/16 21:58: Urine Amorphous Sediment SMALLH, Urine Appearance HAZY, Urine Color YELLOW, Urine pH 5.0, Urine Specific [place] 1.020, Urine Protein 1+H, Urine Glucose (UA ) 1+H, Urine Ketones NEGATIVE, Urine Urobilinogen 0.2, Urine Bilirubin NEGATIVE , Urine Leukocyte Esterase NEGATIVE, Urine Bacteria (Auto) 1+H, Urine Blood 3+H , Urine Calcium Carbonate Cryst(Auto) , Urine Calcium Oxalate Cryst (Auto) , Urine Calcium Phosphate Carolyne (Auto) , Urine Cellular Casts , Urine Cystine Crystals , Urine Granular Casts (Auto) , Urine Hyaline Casts (Auto) 0, Urine Leucine Crystals , Urine Mucus (Auto) SMALL, Urine Nitrite POSITIVE, Urine Oval Fat Bodies (Auto) , Urine RBC (Auto) 102H, Urine Renal Epithelial Cells , Urine Sperm (Auto) , Urine Squamous Epithelial Cells 0, Urine Transitional Epithelial Cells , Urine Trichomonas (Auto) , Urine Triple Phosphate Cryst (Auto) , Urine Tyrosine Crystals , Urine Uric Acid Crystals (Auto) , Urine WBC (Auto) 2, Urine Waxy Casts (Auto) , Urine Yeast-Like Cells (Auto) 08/01/16 06:43: White Blood Count 9.6, Red Blood Count 4.12L, Hemoglobin 12.1L, Hematocrit 36.2L , Mean Corpuscular Volume 87.8, Mean Corpuscular Hemoglobin 29.2, Mean Corpuscular Hemoglobin Concent 33.3, Red Cell Distribution Width 14.7H, Platelet Count 286, Neutrophils (%) (Auto) 72.5H, Lymphocytes (%) (Auto) 13.5L, Monocytes (%) (Auto) 8.2H, Eosinophils (%) (Auto) 3.2H, Basophils (%) (Auto) 0.8 , Neutrophils # (Auto) 7.0, Lymphocytes # (Auto) 1.5, Monocytes # (Auto) 0.8, Eosinophils # (Auto) 0.3, Basophils # (Auto) 0.1, Large Unclassified Cells # 0.2 , Large Unclassified Cells % 1.7 08/01/16 06:44: Anion Gap 9, Blood Urea Nitrogen 42H, Creatinine 1.24, Sodium Level 141, Potassium Level 4.3, Chloride Level 106, Carbon Dioxide Level 26, Calcium Level 8.2L, Glomerular Filtration Rate 58.8, Prealbumin 12.5L 08/01/16 06:46: Bedside Glucose (Misc Panel) 177H 08/01/16 11:25: Bedside Glucose (Misc Panel) 185H FSBS Laboratory Tests Test 07/31/16 21:39 08/01/16 06:46 1/27/17 11:25 Range/Units Bedside Glucose (Misc Panel) 198 177 185 83-110 MG/DL Microbiology Microbiology 07/31/16 Blood Culture, Received Pending 07/31/16 Blood Culture, Received Pending 07/31/16 Urine Culture, Received Pending Allergies Allergies: Coded Allergies: No Known Allergies (Verified Allergy, Unknown, 04/25/10) Current Medications Current Medications Current Medications Medications (Trade) Dose Ordered Sig/Bhavik Route PRN Reason Start Time Stop Time Status Last Admin Dose Admin Acetaminophen (Tylenol) 650 mg Q4HP PRN PO MILD PAIN (PS 1-4) 07/31/16 13:00 08/30/16 12:59 08/01/16 06:32 Acetaminophen/ Hydrocodone Bitart ([place], [place] 5/325) 1 tab Q4HP PRN PO MODERATE/SEVERE PAIN (PS 5-10) 07/31/16 13:00 08/07/16 12:59 Albuterol Sulfate (Proventil, Ventolin Hfa) 2 puff QIDP PRN INH SHORTNESS OF BREATH 07/31/16 13:00 08/30/16 12:59 Amlodipine Besylate (Norvasc) 5 mg BID PO 07/31/16 21:00 08/30/16 20:59 08/01/16 08:46 Aspirin (Ecotrin) 81 mg DAILY PO 08/01/16 09:00 08/31/16 08:59 08/01/16 08:45 Atenolol (Tenormin) 25 mg BID PO 07/31/16 21:00 08/30/16 20:59 08/01/16 08:46 Atorvastatin Calcium (Lipitor) 20 mg DAILY PO 08/01/16 09:00 08/31/16 08:59 08/01/16 08:45 Benzonatate (Tessalon Perles) 100 mg TID PO 08/01/16 09:00 08/31/16 08:59 08/01/16 16:20 Budesonide/ Formoterol Fumarate (Symbicort 160/ 4.5mcg) 2 puff BID INH 07/31/16 21:00 08/30/16 20:59 08/01/16 11:43 Clopidogrel Bisulfate (PLAVix) 75 mg QPM PO 07/31/16 21:00 08/30/16 20:59 07/31/16 21:31 Dextrose (Dextrose 50%) 25 ml ASDIRECTED PRN IV SEE LABEL COMMENTS 07/31/16 20:30 08/30/16 20:29 Docusate Sodium (Colace) 100 mg BID PO 07/31/16 21:00 08/30/16 20:59 08/01/16 08:44 Enoxaparin Sodium (Lovenox) 40 mg DAILY SC 08/01/16 09:00 08/06/16 08:59 08/01/16 08:41 Finasteride (Proscar) 5 mg DAILY PO 08/01/16 09:00 08/31/16 08:59 08/01/16 08:43 Glucagon (Glucagon) 1 mg ASDIRECTED PRN SC SEE LABEL COMMENTS 07/31/16 20:30 08/30/16 20:29 Glucose (Glucose) 16 GM ASDIRECTED PRN PO SEE LABEL COMMENTS 07/31/16 20:30 08/30/16 20:29 Insulin Human Lispro (HumaLOG INSULIN) See Protocol Table AC SC 08/01/16 07:30 08/31/16 07:29 08/01/16 12:22 Insulin Human Lispro (HumaLOG INSULIN) See Protocol Table QHS SC 07/31/16 21:00 08/30/16 20:59 Lisinopril (Prinivil) 40 mg DAILY PO 08/01/16 09:00 08/31/16 08:59 08/01/16 08:44 Magnesium Hydroxide (Milk Of Magnesia) 30 ml DAILYPRN PRN PO CONSTIPATION 07/31/16 13:00 08/30/16 12:59 Metformin HCl (Glucophage) 500 mg PC PO 07/31/16 18:30 08/30/16 18:29 08/01/16 12:22 Pantoprazole Sodium (Protonix) 40 mg DAILY PO 07/31/16 09:00 08/30/16 08:59 08/01/16 08:45 Polyethylene Glycol (Miralax) 1 pkt DAILYPRN PRN PO CONSTIPATION 07/31/16 13:00 08/30/16 12:59 Senna (Senokot) 1 tab QHS PO 07/31/16 21:00 08/30/16 20:59 1/26/17 21:31 REJI BLACKWELL MD Aug 01, 2016 16:33
[2016-08-01] MEDS ORDERED: LevoFLOXacin 750 MG TABLET PO SCH (18:00)
--- NOTE | 2016-08-01 18:18 | REP ---
Chest CT without IV contrast: Comparison is the portable chest dated 07/31/2016. There is focal discoid atelectasis laterally in the lingula. There is dependent atelectasis in the lower lobes inferiorly bilaterally. There are numerous bulla throughout the lung parenchyma bilaterally compatible with bullous emphysema. There is focal tree in bud pattern posteriorly in the right upper lobe and posteriorly in the left upper lobe compatible with pneumonitis. There are no pleural effusions. There is no mediastinal adenopathy. There are a few normal-sized nodes. No axillary adenopathy. In the absence of IV contrast the study is insensitive for hilar adenopathy. The thoracic aorta is unremarkable except for calcified atheroma. The right lobe of the thyroid is enlarged and there are a few low density nodules with calcifications. Thyroid ultrasound might be considered. Cardiac size is normal. There is no pericardial effusion. The visualized upper abdominal contents are unremarkable except for an exophytic cyst from the upper pole of the left kidney measuring 3.4 cm. Signed by Keny Diaz MD 08/01/2016 06:10 P
[2016-08-01 20:00] VITALS: BP 137/65
[2016-08-01] MEDS ORDERED: predniSONE 10 MG TAB PO ONE (20:45)
[2016-08-01] MEDS ORDERED: PIPERACILLIN/TAZOBACTAM SOD 4.5 GM in D5W MINI-BAG PLUS 50 ML IV SCH (21:00)
[2016-08-01] MEDS ORDERED: LACTOBACILLUS ACIDOPHILUS CAP (BACID) PO SCH (21:00)
[2016-08-01] MEDS ORDERED: IPRATROPIUM 0.5MG/ALBUTEROL 2.5MG INH SOL UD 3ML (DUONEB)(J7620) NEB PRN (21:00)
[2016-08-01] MEDS: SENNA 8.6 MG TAB (SENOKOT) PO SCH (21:17)
[2016-08-01] MEDS: CLOPIDOGREL 75 MG TAB PO SCH (21:17)
[2016-08-01] MEDS ORDERED: LevoFLOXacin 750 MG TABLET PO ONE (21:30)
[2016-08-01] MEDS ORDERED: methylPREDNISolone INJ 125 MG/2 ML VIAL (J2930) IV ONE (22:00)
[2016-08-01] MEDS ORDERED: LevoFLOXacin IV 750 MG in APPROPRIATE DILUENT 1 EA IV SCH (22:00)
[2016-08-02] VITALS: BP 124/66
[2016-08-02 01:00] VITALS: O2SAT 93
--- NOTE | 2016-08-02 01:35 | CR.PDOC ---
[facility] Consultation Consultation HOSPITALIST CONSULT NOTE Date of consult: 08/02/2016 Referring Provider: Dr. Stacy Reason for Consult: Fever and breathing fast HPI: 86-year-old male with hypertension, diabetes mellitus type 2, hyperlipidemia, COPD, BPH, stroke approximately one week ago who is currently in acute rehabilitation following his recent CVA. My resident received a page from the nurse, stating that we had been consulted. After the resident spoke to the nurse, he came and discussed the consult with me, and I called the nurse back for further information. I asked how I might contact Dr. Stacy so as to attempt a physician to physician conversation, but the nurse told me that she is not on and not available overnight. However, the nurse states that during the day today, Dr. Stacy had asked the nurses to consult the hospitalists. The nurse tells me that the patient had a fever last night, and she was calling me now, because she felt that the patient was breathing faster. When I speak to the patient, he tells me that he does feel little bit short of breath but is overall feeling okay. He does however report some cough and shortness of breath. He tells me that overall, he really just wants to work with therapy so that he can get out of here. Past medical history: hypertension, diabetes mellitus type 2, hyperlipidemia, COPD, BPH, stroke approximately one week ago Past surgical history: Appendectomy, cholecystectomy, cataract surgery Family history: Unknown Social history: Patient used to smoke, but quit approximately 20 years ago. He denies any drug use, and only occasionally has a drink of alcohol. Allergies: No known drug allergies Review of systems: General: Positive for fever, negative for chills Eyes: Negative for vision changes and ocular discharge ENT: Negative for sore throat and nose bleed Cardiovascular: Negative for chest pain and palpitations Respiratory: Positive for cough and shortness of breath GI: Negative for nausea, vomiting, diarrhea, constipation Musculoskeletal: Negative for back pain Skin: Negative for rash Neuro: Negative for headache, dizziness, numbness, tingling Psych: Negative for depression and suicidal ideation : The patient has a Parks in place. Per nursing, they attempted to remove this yesterday, then they had to replace it because he suffered urinary retention. Heme: Negative for bruising and bleeding Home meds: See below Physical exam: Vital signs: Blood pressure 137/65, HR 78, temperature 100.3, O2 sat 94% on 1-1/ 2 L, RR 20 Gen.: awake, alert, no acute distress Eyes: Extraocular movements intact, normal sclera ENT: Moist mucous membranes Cardiovascular: RRR, no murmurs rubs or gallops Lungs: diminished air movement, prolonged exp phase, diffuse wheezes Abdomen: Soft, NT/ND, normal BS Musculoskeletal: normal range of motion Extremities: No peripheral edema Neuro: alert and oriented 3, speech is garbled but nursing states that the family reported this is his baseline speech and has been getting worse each time he loses more teeth Psych: Normal mood with congruent affect Labs and radiology: See below Chest x-ray unremarkable CT of the chest significant only for pneumonitis in the bilateral upper lobes WBC 9.6 UA shows 3+ blood, positive nitrates, 2 WBCs, 1+ bacteria Urine culture pending Blood cultures negative at 24 hours Assessment and plan: 86 year old male with hypertension, diabetes mellitus type 2, hyperlipidemia, COPD, BPH, stroke approximately one week ago who is currently in acute rehabilitation following his recent CVA. We have been consulted for management of fever and tachypnea. I suspect, that the patient's tachypnea is secondary to COPD exacerbation. He is currently wheezing and has a prolonged expiratory phase. He is also requiring approximately 1-1/2 L of oxygen, and at home does not usually need any. I will continue the patient's as needed DuoNeb's but will also schedule duo nebs every 6 hours. Before I saw him, he was given both Solu- Medrol and by mouth prednisone as a one-time dose tonight. At this time, I will stop the by mouth prednisone and put him on scheduled Solu-Medrol, which can be weaned as his breathing improves. I also will continue his home Symbicort. Additionally, before I saw the patient tonight, he received a dose of Levaquin and a dose of Zosyn; he had not received any antibiotics before this evening. While I believe Levaquin is a fine choice of antibiotics for his COPD exacerbation, and it would also most likely cover his UTI, I am going to opt at this point to use Omnicef instead. The reason I'm choosing Omnicef, is that a sputum culture on his recent admission grew H. influenzae which was sensitive to cephalosporins. The Omnicef will also almost definitely take care of the UTI , but I would recommend following up the urine culture to ensure that his organism is sensitive to it. Additionally, the Omnicef is a fine choice for his COPD exacerbation. As for the fever, I suspect that it is coming from the UTI, as his UA yesterday did show nitrates, blood, and bacteria, but he had not previously received any antibiotics. His fever curve is decreasing, and he has not had a true fever since yesterday evening. The UTI should be covered by the Omnicef, and a urine culture is pending. He does have a Parks, but unfortunately , we cannot remove it. They attempted to remove it yesterday, and he suffered significant urinary retention and it had to be replaced. As for the H. influenzae in his sputum culture, I'm not convinced that this necessarily represents a pneumonia, or even a true infection, as his chest imaging does not show a clear pneumonia, and his white count is normal. However, given his COPD, I think it's possible that he is colonized with this. However, given his recent CVA and his garbled speech from poor dentition, coupled with bilateral pneumonitis seen on CT chest, I would recommend getting a swallow evaluation with [employer]IDENT. DVT prophylaxis: As per primary team Dispo: Thank you very much for this consultation. We will continue to follow along with you. The patient will be followed by Dr. Martin beginning tomorrow morning. Vital Signs/I&O Vital Signs Date Time Temp Pulse Resp B/P Pulse Ox O2 Delivery O2 Flow Rate FiO2 08/02/16 01:00 93 Nasal Cannula 2.0 08/02/16 00:00 99.9 62 32 124/66 I&O- Last 24 Hours up to 6 AM 08/02/16 06:00 Intake Total 410 ml Output Total 250 ml Balance 160 ml Laboratory Data Labs 24H Laboratory Tests 2 08/01/16 06:43: White Blood Count 9.6, Red Blood Count 4.12L, Hemoglobin 12.1L, Hematocrit 36.2L , Mean Corpuscular Volume 87.8, Mean Corpuscular Hemoglobin 29.2, Mean Corpuscular Hemoglobin Concent 33.3, Red Cell Distribution Width 14.7H, Platelet Count 286, Neutrophils (%) (Auto) 72.5H, Lymphocytes (%) (Auto) 13.5L, Monocytes (%) (Auto) 8.2H, Eosinophils (%) (Auto) 3.2H, Basophils (%) (Auto) 0.8 , Neutrophils # (Auto) 7.0, Lymphocytes # (Auto) 1.5, Monocytes # (Auto) 0.8, Eosinophils # (Auto) 0.3, Basophils # (Auto) 0.1, Large Unclassified Cells # 0.2 , Large Unclassified Cells % 1.7 08/01/16 06:44: Anion Gap 9, Blood Urea Nitrogen 42H, Creatinine 1.24, Sodium Level 141, Potassium Level 4.3, Chloride Level 106, Carbon Dioxide Level 26, Calcium Level 8.2L, Glomerular Filtration Rate 58.8, Prealbumin 12.5L 08/01/16 06:46: Bedside Glucose (Misc Panel) 177H 08/01/16 11:25: Bedside Glucose (Misc Panel) 185H 08/01/16 16:18: Bedside Glucose (Misc Panel) 151H 08/01/16 20:39: Bedside Glucose (Misc Panel) 208H CBC/BMP Laboratory Tests 08/01/16 06:43 Red Blood Count 4.12 L, Mean Corpuscular Volume 87.8, Mean Corpuscular Hemoglobin 29.2, Mean Corpuscular Hemoglobin Concent 33.3, Red Cell Distribution Width 14.7 H, Neutrophils (%) (Auto) 72.5 H, Lymphocytes (%) (Auto ) 13.5 L, Monocytes (%) (Auto) 8.2 H, Eosinophils (%) (Auto) 3.2 H, Basophils (% ) (Auto) 0.8, Neutrophils # (Auto) 7.0, Lymphocytes # (Auto) 1.5, Monocytes # ( Auto) 0.8, Eosinophils # (Auto) 0.3, Basophils # (Auto) 0.1 08/01/16 06:44 Calcium Level 8.2 L FSBS Laboratory Tests Test 08/01/16 06:46 08/01/16 11:25 08/01/16 16:18 08/01/16 20:39 Range/Units Bedside Glucose (Misc Panel) 177 185 151 208 83-110 MG/DL Microbiology Microbiology 07/31/16 Blood Culture - Preliminary, Resulted No growth after 24 hours . All specim... 07/31/16 Blood Culture - Preliminary, Resulted No growth after 24 hours . All specim... 07/31/16 Urine Culture, Received Pending Allergies Coded Allergies: No Known Allergies (Verified Allergy, Unknown, 04/25/10) Home Medications Scheduled Amlodipine Besylate (Amlodipine Besylate) 5 Mg Tab #60 5 MG PO BID Aspirin (Aspirin 81) 81 Mg Tab 81 MG PO DAILY (Reported) Atenolol (Atenolol) 25 Mg Tab #60 25 MG PO BID Atorvastatin Calcium (Atorvastatin Calcium) 20 Mg Tab 20 MG PO DAILY (Reported ) Budesonide/Formoterol (Symbicort 160-4.5 Mcg/Act) 60 Puff/Inhaler Aers 2 PUFF INH BID (Reported) Clopidogrel Bisulfate (Clopidogrel) 75 Mg Tab 75 MG PO QPM (Reported) Enoxaparin Sodium (Lovenox) 40 Mg/0.4 Ml Inj #30 40 MG SC DAILY Finasteride (Finasteride) 5 Mg Tab 5 MG PO DAILY (Reported) Lisinopril (Lisinopril) 40 Mg Tab 40 MG PO DAILY (Reported) Metformin Hydrochloride (Metformin HCl) 500 Mg Tab 500 MG PO TID (Reported) AFTER MEALS Scheduled PRN Albuterol Sulfate (Proair Hfa) 108 Mcg/Act Aer 2 PUFF INH QID PRN PRN SHORTNESS OF BREATH (Reported) JUAN DANIEL DIMAS Aug 02, 2016 01:35
[2016-08-02] MEDS: IPRATROPIUM 0.5MG/ALBUTEROL 2.5MG INH SOL UD 3ML (DUONEB)(J7620) NEB SCH ×4 (02:00→19:28)
[2016-08-02 06:06] LABS: LARGE UNSTAINED CELL % 0.5 % (0.0-4.0); LYMPH # 0.4 K/mm3 (1.5-4.5); LYMPH % 4.9 % (24.0-44.0); MEAN CORPUSCULAR HEMOGLOBIN 28.4 pg (27.0-33.0); MEAN CORPUSCULAR HGB CONC 31.5 g/dl (32.0-36.5); MEAN CORPUSCULAR VOLUME 90.1 fl (80.0-96.0); MONO # 0.2 K/mm3 (0.0-0.8); MONO % 2.4 % (0.0-5.0); NEUTROPHILS # 7.5 K/mm3 (1.8-7.7); NEUTROPHILS % 92.2 % (36.0-66.0); PLATELET COUNT, AUTOMATED 295 k/mm3 (150-450); RED CELL DISTRIBUTION WIDTH 13.5 % (11.5-14.5); WHITE BLOOD COUNT 8.1 K/mm3 (4.0-10.0)
[2016-08-02 06:19] LABS: CALCIUM LEVEL 8.9 MG/DL (8.8-10.2); CREATININE FOR GFR 1.41 MG/DL (0.70-1.30); GLOMERULAR FILTRATION RATE 50.7 (>35); POTASSIUM SERUM 4.7 MEQ/L (3.5-5.1)
[2016-08-02 06:40] VITALS: BP 132/67
[2016-08-02] MEDS: methylPREDNISolone INJ 125 MG/2 ML VIAL (J2930) IV SCH ×3 (06:50→21:51)
[2016-08-02] MEDS: NS 1,000 ML IV SCH ×2 (06:54→13:25)
[2016-08-02] MEDS: HumaLOG INSULIN (NovoLOG) PER UNIT SC SCH ×4 (08:03→20:28)
[2016-08-02] MEDS: LACTOBACILLUS ACIDOPHILUS CAP (BACID) PO SCH ×2 (08:03→17:34)
[2016-08-02] MEDS: SYMBICORT 160/4.5MCG INHALER 6GM INH SCH ×2 (08:12→19:28)
[2016-08-02] MEDS ORDERED: CEFDINIR 300 MG CAP (OMNICEF) PO SCH (09:00)
[2016-08-02] MEDS ORDERED: predniSONE 20 MG TAB PO SCH (09:00)
[2016-08-02] MEDS: **hydrALAZINE** 10 MG TAB PO SCH ×3 (09:00→20:21)
[2016-08-02] MEDS: ENOXAPARIN 40 MG/0.4 ML SYRINGE (J1650) SC SCH (09:54)
[2016-08-02] MEDS: amLODIPine 5 MG TAB PO SCH ×2 (09:57→20:21)
[2016-08-02] MEDS: BENZONATATE 100 MG CAP PO SCH ×3 (09:58→20:20)
[2016-08-02] MEDS: PANTOPRAZOLE 40MG TAB (PROTONIX) PO SCH (09:58)
[2016-08-02] MEDS: ATORVASTATIN 20 MG TAB PO SCH (09:59)
[2016-08-02] MEDS: ASPIRIN 81 MG ENTERIC TAB PO SCH (09:59)
[2016-08-02] MEDS: FINASTERIDE 5 MG TAB PO SCH (09:59)
[2016-08-02] MEDS: DOCUSATE SODIUM 100 MG CAP PO SCH ×2 (09:59→20:20)
[2016-08-02] MEDS: ATENOLOL 25 MG TAB PO SCH ×2 (09:59→20:21)
[2016-08-02] MEDS: PIPERACILLIN/TAZOBACTAM SOD 4.5 GM in D5W MINI-BAG PLUS 50 ML IV SCH ×2 (10:00→15:53)
[2016-08-02] MEDS ORDERED: VANCOMYCIN HCL 1,000 MG, VIAL MATE ADAPTER 1 EACH in D5W 250 ML IV SCH (11:00)
[2016-08-02] MEDS: VANCOMYCIN HCL 1,000 MG, VIAL MATE ADAPTER 1 EACH in D5W 250 ML IV SCH (12:26)
[2016-08-02 14:00] VITALS: BP 147/60
--- NOTE | 2016-08-02 16:15 | PHACANCOPD ---
PHARMACY VANCOMYCIN DOSING Pt Demographics Demographics Patient Age:86 , Weight:84.900 , Gender: male Adjusted Body Weight Date: 08/02/16, Adjusted Body Weight: Kg Events Past 24 Hours Events Past 24 Hours: YES: Pending Diagnostics Vancomycin Vancomycin indication: gram positive cocci bacteremia - renally dose Vancomycin Target Ranges: 10-20 mcg/ml Vancomycin Load Y/N: No Load Dose Date Time Vancomycin Load Dose: Date: Time: Vancomycin Dose Date: 08/02/16. Current Vancomycin Dose: [1g IV Q24H] Intermittent Dosing?: No Labs Labs Item Value Date Time White Blood Count 8.1 K/mm3 08/02/16 0539 White Blood Count 9.6 K/mm3 08/01/16 0643 Creatinine 1.41 MG/DL H 08/02/16 0539 Creatinine 1.24 MG/DL 08/01/16 0644 Lactic Acid Level 1.4 MMOL/L 07/31/16 2133 Micro Microbiology 07/31/16 Blood Culture - Preliminary, Resulted 07/31/16 Blood Culture - Preliminary, Resulted No growth after 24 hours . All specim... 08/02/16 Gram Stain - Final, Resulted 08/02/16 Sputum Culture, Resulted Pending 07/31/16 Urine Culture, Received Pending Creatinine Clearance Date:08/02/16. Estimated Creatinine Clearance: ~[38.83 ml/min]. Assessment and Plan Maintaining Current Dose?: Yes Reason for dose change: No Dose Change Pharmacist Note Pharmacist Note Date: 08/02/16. Pharmacist note: Day #1 empiric levaquin/zosyn/vancomycin initiated at 1g IV Q24H for the treatment of gram (+) cocci bacteremia - aiming for a goal trough of 10-20 mcg/ml. WBC is currently WNL, and patient has been febrile and tachypneic in the past 24 hours - on nasal cannula. Scr is elevated at 1.41, and baseline scr is ~0.98. Patient does have a hx of stroke x1 week ago , T2DM, and COPD. No PMH of MRSA or vanco use here at [facility]. Blood, sputum, and urine cultures are pending. Given the dramatic change in scr from baseline we will continue to monitor the patient and make dose adjustments/schedule a level accordingly. [facility] Aug 02, 2016 16:15
[2016-08-02 20:00] VITALS: BP 129/61
[2016-08-02] MEDS: PIPERACILLIN/TAZOBACTAM SOD 3.375 GM in D5W MINI-BAG PLUS 50 ML IV SCH (20:20)
[2016-08-02] MEDS: SENNA 8.6 MG TAB (SENOKOT) PO SCH (20:20)
[2016-08-02] MEDS: CLOPIDOGREL 75 MG TAB PO SCH (20:21)
[2016-08-03] MEDS: PIPERACILLIN/TAZOBACTAM SOD 3.375 GM in D5W MINI-BAG PLUS 50 ML IV SCH ×4 (04:21→21:23)
[2016-08-03] MEDS: methylPREDNISolone INJ 125 MG/2 ML VIAL (J2930) IV SCH (05:35)
[2016-08-03 06:00] VITALS: BP 134/63
[2016-08-03 06:36] LABS: BASO # 0.2 K/mm3 (0.0-0.2); BASO % 1.5 % (0.0-1.0); EOS % 0.1 % (0.0-3.0); LARGE UNSTAINED CELL # 0.1 K/mm3 (0.0-0.4); LARGE UNSTAINED CELL % 0.5 % (0.0-4.0); LYMPH # 0.7 K/mm3 (1.5-4.5); LYMPH % 4.7 % (24.0-44.0); MEAN CORPUSCULAR HEMOGLOBIN 28.4 pg (27.0-33.0); MEAN CORPUSCULAR HGB CONC 32.1 g/dl (32.0-36.5); MEAN CORPUSCULAR VOLUME 88.4 fl (80.0-96.0); MONO # 0.4 K/mm3 (0.0-0.8); MONO % 2.9 % (0.0-5.0); NEUTROPHILS # 12.2 K/mm3 (1.8-7.7); NEUTROPHILS % 90.4 % (36.0-66.0); PLATELET COUNT, AUTOMATED 302 k/mm3 (150-450); RED CELL DISTRIBUTION WIDTH 14.4 % (11.5-14.5); WHITE BLOOD COUNT 13.5 K/mm3 (4.0-10.0)
[2016-08-03 06:55] LABS: CALCIUM LEVEL 8.6 MG/DL (8.8-10.2); CREATININE FOR GFR 1.53 MG/DL (0.70-1.30); GLOMERULAR FILTRATION RATE 46.2 (>35); POTASSIUM SERUM 4.3 MEQ/L (3.5-5.1)
[2016-08-03] MEDS: SYMBICORT 160/4.5MCG INHALER 6GM INH SCH ×2 (07:35→20:26)
[2016-08-03] MEDS: IPRATROPIUM 0.5MG/ALBUTEROL 2.5MG INH SOL UD 3ML (DUONEB)(J7620) NEB SCH ×3 (07:36→20:00)
[2016-08-03] MEDS: HumaLOG INSULIN (NovoLOG) PER UNIT SC SCH ×4 (07:54→21:28)
[2016-08-03] MEDS: LACTOBACILLUS ACIDOPHILUS CAP (BACID) PO SCH ×2 (07:54→17:47)
[2016-08-03] MEDS: FINASTERIDE 5 MG TAB PO SCH (08:52)
[2016-08-03] MEDS: **hydrALAZINE** 10 MG TAB PO SCH ×3 (08:52→21:00)
[2016-08-03] MEDS: BENZONATATE 100 MG CAP PO SCH ×3 (08:52→21:26)
[2016-08-03] MEDS: ATENOLOL 25 MG TAB PO SCH ×2 (08:53→21:25)
[2016-08-03] MEDS: amLODIPine 5 MG TAB PO SCH ×2 (08:53→21:26)
[2016-08-03] MEDS: ENOXAPARIN 40 MG/0.4 ML SYRINGE (J1650) SC SCH (08:53)
[2016-08-03] MEDS: ASPIRIN 81 MG ENTERIC TAB PO SCH (08:53)
[2016-08-03] MEDS: PANTOPRAZOLE 40MG TAB (PROTONIX) PO SCH (08:53)
[2016-08-03] MEDS: DOCUSATE SODIUM 100 MG CAP PO SCH ×2 (08:54→21:25)
[2016-08-03] MEDS: ATORVASTATIN 20 MG TAB PO SCH (08:54)
[2016-08-03] MEDS ORDERED: NS 1,000 ML IV SCH (11:00)
[2016-08-03] MEDS: VANCOMYCIN HCL 1,000 MG, VIAL MATE ADAPTER 1 EACH in D5W 250 ML IV SCH (12:05)
[2016-08-03 14:00] VITALS: BP 155/71
[2016-08-03] MEDS: ACETAMINOPHEN TAB 650MG DOSE (2X325MG) PO PRN (16:25)
[2016-08-03] MEDS: methylPREDNISolone INJ 40 MG/1 ML VIAL (J2920) IV SCH (17:46)
[2016-08-03 20:00] VITALS: BP 123/63
[2016-08-03] MEDS: LevoFLOXacin IV 750 MG in APPROPRIATE DILUENT 1 EA IV SCH (21:23)
[2016-08-03] MEDS: SENNA 8.6 MG TAB (SENOKOT) PO SCH (21:25)
[2016-08-03] MEDS: CLOPIDOGREL 75 MG TAB PO SCH (21:25)
[2016-08-03] MEDS ORDERED: LevoFLOXacin IV 750 MG in APPROPRIATE DILUENT 1 EA IV SCH (22:00)
[2016-08-04] MEDS: IPRATROPIUM 0.5MG/ALBUTEROL 2.5MG INH SOL UD 3ML (DUONEB)(J7620) NEB SCH ×2 (00:03→08:00)
[2016-08-04] MEDS: PIPERACILLIN/TAZOBACTAM SOD 3.375 GM in D5W MINI-BAG PLUS 50 ML IV SCH (03:30)
[2016-08-04] MEDS: methylPREDNISolone INJ 40 MG/1 ML VIAL (J2920) IV SCH (05:13)
[2016-08-04] MEDS: ACETAMINOPHEN TAB 650MG DOSE (2X325MG) PO PRN (05:18)
[2016-08-04 06:00] VITALS: BP 149/70
[2016-08-04 06:40] LABS: EOS % 0.1 % (0.0-3.0); LARGE UNSTAINED CELL # 0.1 K/mm3 (0.0-0.4); LARGE UNSTAINED CELL % 0.8 % (0.0-4.0); LYMPH # 0.8 K/mm3 (1.5-4.5); LYMPH % 6.8 % (24.0-44.0); MEAN CORPUSCULAR HEMOGLOBIN 29.4 pg (27.0-33.0); MEAN CORPUSCULAR HGB CONC 32.7 g/dl (32.0-36.5); MEAN CORPUSCULAR VOLUME 89.9 fl (80.0-96.0); MONO # 0.5 K/mm3 (0.0-0.8); NEUTROPHILS # 9.9 K/mm3 (1.8-7.7); NEUTROPHILS % 88.3 % (36.0-66.0); PLATELET COUNT, AUTOMATED 303 k/mm3 (150-450); RED CELL DISTRIBUTION WIDTH 13.6 % (11.5-14.5); WHITE BLOOD COUNT 11.2 K/mm3 (4.0-10.0)
[2016-08-04 07:04] LABS: CALCIUM LEVEL 8.4 MG/DL (8.8-10.2); CREATININE FOR GFR 1.43 MG/DL (0.70-1.30); GLOMERULAR FILTRATION RATE 49.9 (>35); POTASSIUM SERUM 4.4 MEQ/L (3.5-5.1)
[2016-08-04] MEDS: SYMBICORT 160/4.5MCG INHALER 6GM INH SCH ×2 (07:57→19:33)
--- NOTE | 2016-08-04 08:31 | IPN ---
DATE: 08/02/2016 The patient is seen and examined at the bedside. Chart has been reviewed. The patient had a low grade fever of 100.3 on 08/01/2016 at 2000 hours. He had a maximum temperature (t-max) of 101.4 on 07/31/2016. He had been given one dose of Levaquin last evening, renally dosed every 48 hours intravenous Zosyn for presumed hospital-acquired infection. The patient's chest CT performed on 08/01/2016 shows bullous emphysema, discoid atelectasis in the lingula, and left upper lobe pneumonitis. The patient's sputum culture grew out Haemophilus influenza from previous intensive care unit (ICU) admission. He continues to have congested cough, productive of white-yellow sputum. White count is normal. Has been afebrile for the past two days. He denies any chest pain, pressure, tightness. He continues to have right upper and lower extremity weakness. VITAL SIGNS: Temperature 97.2, maximum temperature (t-max) 100.3, pulse 72, respiratory rate 24, blood pressure 132/67, 94% on 2 liters nasal cannula. GENERAL: The patient is awake, alert, and oriented times three. Answering questions appropriately with slight dysarthria. Face is symmetric. Unable to move his eyes laterally on the right. No horizontal or vertical nystagmus. No facial drooping. Extraocular muscles are intact. LUNGS: Diminished breath sounds throughout. No wheezing or rhonchi. HEART: S1, S2. Sinus rhythm. ABDOMEN: Soft, nontender, nondistended. Positive bowel sounds. No rebound or guarding. NEUROLOGIC: The patient has 0 out of 5 motor function in the right upper and lower extremity. Left upper and lower extremities are 4/5 in the upper extremity, lower extremity is 5/5. Positive Babinski on the right. LABORATORY DATA: White count 8.1, hemoglobin 11, hematocrit 37, platelet count 295, 92% neutrophils. Sodium 140, potassium 4.7, chloride 105, bicarbonate 25, BUN 52, creatinine 1.41 , glucose 279. Microbiology: Haemophilus influenza 07/29/2016 sputum culture. Two sets of blood cultures on 07/31/2016 pending, 07/31/2016 preliminary blood culture gram-positive cocci in pairs, chains, and clusters. 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 The patient was treated for CVA and started on Plavix 75 mg. Discharged to Physical Medicine and Rehabilitation (PM R). He continues to have congested cough and was found on CT of the chest to have pneumonitis. Sputum culture grew out Haemophilus influenza. The patient had UA positive for nitrite but negative pyuria with two WBCs in the urine and 1+ bacteria. The patient has since received Levaquin and Zosyn to cover for urinary tract infection (UTI) and pneumonia due to recent hospital stay to cover for pseudomonas, gram-positive cocci found in the blood. The patient did receive vancomycin. DIAGNOSES: 1. Hospital acquired pneumonia, currently received one dose of vancomycin. Currently on Zosyn and Levaquin renal dosing. Rule out pseudomonas with sputum culture. Titrate antibiotics accordingly. 2. Acute right medullary CVA. Continue with acute rehabilitation, managed by Dr. Janice Stacy, PM R attending. Continue aspirin and Plavix. 3. Hypertension, uncontrolled. Add hydralazine 10 three times a day with holding parameters. 4. 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 Due to worsening shortness of breath, the patient is being treated for chronic obstructive pulmonary disease exacerbation with Solu-Medrol 50 mg intravenously every 8 hours. Nebulizer treatments and supplemental oxygen. 5. Benign prostatic hypertrophy (BPH). Continue on Proscar. 6. Hyperlipidemia. Continue on Lipitor. 7. Hypertension. Continue on atenolol, Norvasc and hydralazine. 8. Deep vein thrombosis (DVT) prophylaxis with Plavix and aspirin. MTDD
[2016-08-04] MEDS: LEVEMIR (INSULIN DETEMIR) 1 UNITS/0.01ML SC SCH (08:45)
[2016-08-04] MEDS: LACTOBACILLUS ACIDOPHILUS CAP (BACID) PO SCH ×2 (08:46→17:17)
[2016-08-04] MEDS: ENOXAPARIN 40 MG/0.4 ML SYRINGE (J1650) SC SCH (08:46)
[2016-08-04] MEDS: FINASTERIDE 5 MG TAB PO SCH (08:46)
[2016-08-04] MEDS: predniSONE 20 MG TAB PO SCH (08:46)
[2016-08-04] MEDS: HumaLOG INSULIN (NovoLOG) PER UNIT SC SCH ×4 (08:46→21:14)
[2016-08-04] MEDS: ASPIRIN 81 MG ENTERIC TAB PO SCH (08:46)
[2016-08-04] MEDS: ATORVASTATIN 20 MG TAB PO SCH (08:46)
[2016-08-04] MEDS: DOCUSATE SODIUM 100 MG CAP PO SCH ×2 (08:46→21:13)
[2016-08-04] MEDS: **hydrALAZINE** 10 MG TAB PO SCH ×3 (08:47→21:13)
[2016-08-04] MEDS: ATENOLOL 25 MG TAB PO SCH (08:47)
[2016-08-04] MEDS: PANTOPRAZOLE 40MG TAB (PROTONIX) PO SCH (08:48)
[2016-08-04] MEDS: EUCERIN 120GM CREAM TOP SCH ×2 (09:00→21:14)
[2016-08-04] MEDS: BENZONATATE 100 MG CAP PO SCH (10:24)
--- NOTE | 2016-08-04 12:47 | IPNPDOC ---
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 No residual weakness except left eye palsy Skull fracture 1980s secondary very to fall off scaffolding Multiple broken bones PAST SURGICAL HISTORY: Appendectomy Cholecystectomy Cataract surgery ALLERGIES: No known drug allergies MEDICATIONS: Levaquin 750mg IV q48h Bacid 1 bid Prednisone 60mg daily Duoneb q2h prn Hydralazine 10mg po tid Norvasc 10mg qhs Atenolol 25 mg by mouth twice a day Lisinopril 40 mg by mouth daily Aspirin 81 mg by mouth daily Lipitor 20 mg by mouth daily Proscar 5 mg by mouth daily Lovenox 40 mg subcutaneous daily Detemir 10u daily Insulin sliding scale before meals and at bedtime Symbicort 160/4.5 g 2 puffs inhaled twice a day Plavix 75 mg by mouth qpm albuterol sulfate 2 puffs inhaled 4 times a day when necessary shortness of breath Acetaminophen 1000mg q8h SUBJECTIVE: Patient reports burning pain where catheter is, intermittent. Denies any chest pain, shortness of breath, lightheadedness, chills, diaphoresis , nausea/vomiting. VITAL SIGNS: 97.5F, pulse 52, respiratory rate 18, blood pressure 149/70, 94% saturation on RA PHYSICAL EXAMINATION: GENERAL: Well nourished, well developed, sitting in chair, no acute distress. + Parks with light yellow urine and blood clots. HEENT: Normocephalic, atraumatic. No facial droop. left eye palsy(unchanged). PERRL, EOMI CARDIOVASCULAR: S1, S2, regular rate. No lower limb swelling or calf tenderness. LUNGS: Diffusely decreased breath sounds throughout, no rhonchi or wheezing. ABDOMEN: Soft, nontender, nondistended. Normoactive bowel sounds throughout. MUSCULOSKELETAL: MMT: 2/5 right shoulder shrug, 1/5 right finger flexion, 0/5 remainder of the right upper and lower limb. 5/5 strength left upper and lower limb in all major muscle groups. NEUROLOGICAL: Alert and oriented x 3. Answers all questions appropriately. Able to follow commands SKIN: +erythema on the dorsum of the right hand resolved, no erythema over the elbow(improved). LABORATORY DATA: 08/04/16 reviewed: see below 07/31/2016: WBC count 11.1, hemoglobin 12.3, hematocrit 38.7, plt 272. Sodium 140, potassium 4.0, chloride 104, carbon dioxide 27, BUN 29, creatinine 1.20, GFR greater than 60, fasting glucose 160, calcium 8.7, magnesium 2.2, Blood culture 2 07/29/2016: No growth in 24 hours MRSA screen 07/28/2016 negative Sputum 07/29/2016 IMAGING: CXR 07/31/16: non-acute MRI brain 07/27/16: old right frontal infarct, generalization age appropriate parenchymal atrophy, severe chronic white matter microvascular ischemic changes. MRA 07/27/16: non-acute MRI C-T-L spine 07/27/16 reviewed: T5 abnormality FUNCTIONAL STATUS, Premorbid: Independent ADLs and ambulation. ASSESSMENT AND PLAN: 1. 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 Continue physical and occupational therapy. Rehabilitation nursing for bladder, bowel and medication management. 2. COPD exacerbation +/- HAP: On abx, S/p IV steroids. Improved. Continue abx, oral steroids, duonebs prn 3. Retention/hematuria: F+ traumatic Parks placement over weekend. UCx neg. Suspect dysuria 2nd 2 traumatic Parks. Alisha offered patient opiate analgesics which she refuses. I have changed his acetaminophen to scheduled. I have also ordered a renal ultrasound to evaluate for hydronephrosis/acute obstruction. Hospital service has been notified and is requesting urology consult. 4. Bacteremia: S/p 2 dose vanco 5. Acute renal failure, dehydration possible exacerbated by vancomycin: Vanco has been discontinued. Continue IV fluids. 6. Right hand and elbow pain: Resolved. Started compression glove for edema. 7. Hypertension: Continue lisinopril, hydralazine, Norvasc and atenolol. Dose adjustments as indicated. 8. DVT prophylaxis: Maintain Lovenox daily. Continue SCD and TOBIN hose. 9. Diabetes mellitus type 2: Metformin d/cd 2n renal failure. Continue detemir + ISS. 10. Bowel: Maintain Colace and senna scheduled along with milk of magnesia and MiraLAX on an as-needed basis 11. Malnutrition: Prealbumin low so started on Glucerna. Continue carb consistent diet. Lengthy conversation occurred with patients eldest son regarding patients condition/diagnoses and recent treatments. Answers all sons questions to his satisfaction. / Vital Signs Vital Sign - Last 24 Hours 08/03/16 08/03/16 08/03/16 08/03/16 14:00 16:25 20:00 21:00 Temp 97.8 97.5 Pulse 76 67 Resp 22 20 B/P 155/71 152/71 123/63 Pulse Ox 92 94 O2 Delivery Room Air Room Air Room Air 08/03/16 08/03/16 08/03/16 08/04/16 21:00 21:25 21:26 06:00 Temp 97.5 Pulse 67 67 52 Resp 18 B/P 123/60 149/70 Pulse Ox 94 O2 Delivery Room Air 08/04/16 08/04/16 08:47 08:47 Pulse 52 B/P 149/70 149/70 Laboratory Data CBC/BMP Laboratory Tests 08/04/16 06:20 Calcium Level 8.4 L, Red Blood Count 3.85 L, Mean Corpuscular Volume 89.9, Mean Corpuscular Hemoglobin 29.4, Mean Corpuscular Hemoglobin Concent 32.7, Red Cell Distribution Width 13.6, Neutrophils (%) (Auto) 88.3 H, Lymphocytes (%) (Auto) 6.8 L, Monocytes (%) (Auto) 4.0, Eosinophils (%) (Auto) 0.1, Basophils (%) (Auto ) 0.0, Neutrophils # (Auto) 9.9 H, Lymphocytes # (Auto) 0.8 L, Monocytes # (Auto ) 0.5, Eosinophils # (Auto) 0.0, Basophils # (Auto) 0.0 Labs 24H Laboratory Tests 2 08/03/16 16:41: Bedside Glucose (Misc Panel) 376H 08/03/16 21:13: Bedside Glucose (Misc Panel) 404H 08/03/16 21:14: Bedside Glucose (Misc Panel) 416H 08/04/16 06:20: Anion Gap 9, White Blood Count 11.2H, Red Blood Count 3.85L, Hemoglobin 11.3L, Hematocrit 34.6L, Mean Corpuscular Volume 89.9, Mean Corpuscular Hemoglobin 29.4 , Mean Corpuscular Hemoglobin Concent 32.7, Red Cell Distribution Width 13.6, Platelet Count 303, Neutrophils (%) (Auto) 88.3H, Lymphocytes (%) (Auto) 6.8L, Monocytes (%) (Auto) 4.0, Eosinophils (%) (Auto) 0.1, Basophils (%) (Auto) 0.0, Neutrophils # (Auto) 9.9H, Lymphocytes # (Auto) 0.8L, Monocytes # (Auto) 0.5, Eosinophils # (Auto) 0.0, Basophils # (Auto) 0.0, Blood Urea Nitrogen 52H, Creatinine 1.43H, Sodium Level 141, Potassium Level 4.4, Chloride Level 108H, Carbon Dioxide Level 24, Calcium Level 8.4L, Glomerular Filtration Rate 49.9, Large Unclassified Cells # 0.1, Large Unclassified Cells % 0.8 08/04/16 11:15: Bedside Glucose (Misc Panel) 345H FSBS Laboratory Tests Test 08/03/16 16:41 08/03/16 21:13 08/03/16 21:14 08/04/16 11:15 Range/Units Bedside Glucose (Misc Panel) 376 404 416 345 83-110 MG/DL Microbiology Microbiology 08/03/16 Blood Culture - Preliminary, Resulted No growth after 24 hours . All specim... 08/03/16 Blood Culture - Preliminary, Resulted No growth after 24 hours . All specim... 07/31/16 Blood Culture - Final, Complete Staphylococcus Warneri 07/31/16 Blood Culture - Preliminary, Resulted No Growth after 72 hours. All specime... 08/02/16 Gram Stain - Final, Complete 08/02/16 Sputum Culture - Final, Complete 07/31/16 Urine Culture - Final, Complete Allergies Allergies: Coded Allergies: No Known Allergies (Verified Allergy, Unknown, 04/25/10) Current Medications Current Medications Current Medications Medications (Trade) Dose Ordered Sig/Bhavik Route PRN Reason Start Time Stop Time Status Last Admin Dose Admin Acetaminophen (Tylenol Tab) 1,000 mg Q8H PO 08/04/16 14:00 09/03/16 13:59 Acetaminophen (Tylenol) 650 mg Q4HP PRN PO MILD PAIN (PS 1-4) 07/31/16 13:00 08/04/16 09:58 DC 08/04/16 05:18 Acetaminophen/ Hydrocodone Bitart ([place], Anexsia 5/325) 1 tab Q4HP PRN PO MODERATE/SEVERE PAIN (PS 5-10) 07/31/16 13:00 08/07/16 12:59 Albuterol Sulfate (Proventil, Ventolin Hfa) 2 puff QIDP PRN INH SHORTNESS OF BREATH 07/31/16 13:00 08/02/16 01:31 DC Albuterol/ Ipratropium (Duoneb (Ipr 0.5mg/Alb 2.5mg)) 3 ml Q2HP PRN NEB SOB/WHEEZING 08/01/16 21:00 08/31/16 20:59 08/02/16 01:09 Albuterol/ Ipratropium (Duoneb (Ipr 0.5mg/Alb 2.5mg)) 3 ml RQ6H NEB 08/02/16 02:00 08/04/16 11:39 DC 08/03/16 13:32 Amlodipine Besylate (Norvasc) 5 mg BID PO 07/31/16 21:00 08/04/16 07:35 DC 08/03/16 21:26 Amlodipine Besylate (Norvasc) 10 mg QHS PO 08/04/16 21:00 09/03/16 20:59 Aspirin (Ecotrin) 81 mg DAILY PO 08/01/16 09:00 08/31/16 08:59 08/04/16 08:46 Atenolol (Tenormin) 25 mg BID PO 07/31/16 21:00 08/04/16 07:33 DC 08/03/16 21:25 Atenolol (Tenormin) 25 mg DAILY PO 08/04/16 09:00 09/03/16 08:59 Atorvastatin Calcium (Lipitor) 20 mg DAILY PO 08/01/16 09:00 08/31/16 08:59 08/04/16 08:46 Benzonatate (Tessalon Perles) 100 mg TID PO 08/01/16 09:00 08/04/16 11:11 DC 08/04/16 10:24 Budesonide/ Formoterol Fumarate (Symbicort 160/ 4.5mcg) 2 puff BID INH 07/31/16 21:00 08/30/16 20:59 08/04/16 07:57 Cefdinir (Omnicef) 300 mg BID PO 08/02/16 09:00 08/02/16 09:00 DC Clopidogrel Bisulfate (PLAVix) 75 mg QPM PO 07/31/16 21:00 08/30/16 20:59 08/03/16 21:25 Dextrose (Dextrose 50%) 25 ml ASDIRECTED PRN IV SEE LABEL COMMENTS 07/31/16 20:30 08/30/16 20:29 Docusate Sodium (Colace) 100 mg BID PO 07/31/16 21:00 08/30/16 20:59 08/04/16 08:46 Enoxaparin Sodium (Lovenox) 40 mg DAILY SC 08/01/16 09:00 08/06/16 08:59 08/04/16 08:46 Finasteride (Proscar) 5 mg DAILY PO 08/01/16 09:00 08/31/16 08:59 08/04/16 08:46 Glucagon (Glucagon) 1 mg ASDIRECTED PRN SC SEE LABEL COMMENTS 07/31/16 20:30 08/30/16 20:29 Glucose (Glucose) 16 GM ASDIRECTED PRN PO SEE LABEL COMMENTS 07/31/16 20:30 08/30/16 20:29 Hydralazine HCl (Apresoline) 10 mg TID PO 08/02/16 09:00 09/01/16 08:59 08/04/16 08:47 Insulin Detemir (Levemir Insulin) 10 units DAILY SC 08/04/16 09:00 09/03/16 08:59 08/04/16 08:45 Insulin Human Lispro (HumaLOG INSULIN) See Protocol Table AC SC 08/01/16 07:30 08/31/16 07:29 08/04/16 11:28 Insulin Human Lispro (HumaLOG INSULIN) See Protocol Table QHS SC 07/31/16 21:00 08/30/16 20:59 08/03/16 21:28 Lactobacillus Acidophilus (Bacid) 1 ea BID PO 08/01/16 21:00 08/02/16 10:52 DC 08/01/16 21:17 Lactobacillus Acidophilus 1 ea 1 ea BIDWM PO 08/02/16 08:00 08/11/16 18:01 08/04/16 08:46 Levofloxacin (Levaquin) 750 mg Q2D@18 PO 08/01/16 18:00 08/01/16 20:43 DC Levofloxacin 750 mg/IV Miscellaneous Supplies 150 ml @ 100 mls/hr Q48H IV 08/01/16 22:00 08/01/16 22:00 DC Levofloxacin 750 mg/IV Miscellaneous Supplies 150 ml @ 100 mls/hr Q48H IV 08/03/16 22:00 08/10/16 21:59 08/03/16 21:23 Levofloxacin/IV Miscellaneous Supplies (Levaquin) 150 ml @ 100 mls/hr Q48H IV 08/03/16 22:00 08/03/16 22:00 DC Lisinopril (Prinivil) 40 mg DAILY PO 08/01/16 09:00 08/02/16 06:38 DC 08/01/16 08:44 Magnesium Hydroxide (Milk Of Magnesia) 30 ml DAILYPRN PRN PO CONSTIPATION 07/31/16 13:00 08/30/16 12:59 Metformin HCl (Glucophage) 500 mg PC PO 07/31/16 18:30 08/02/16 06:39 DC 08/01/16 18:09 Methylprednisolone (SOLUmedrol) 60 mg Q8H IV 08/02/16 06:00 08/03/16 06:57 DC 08/03/16 05:35 Methylprednisolone 40 mg 40 mg Q12H IV 08/03/16 18:00 08/04/16 07:32 DC 08/04/16 05:13 Mineral Oil/White Petrolatum (Eucerin) APPLY TO RIGHT HAND BID TOP 08/04/16 09:00 09/03/16 08:59 Pantoprazole Sodium (Protonix) 40 mg DAILY PO 07/31/16 09:00 08/30/16 08:59 08/04/16 08:48 Piperacillin Sod/ Tazobactam Sod 4.5 gm/Dextrose 50 ml @ 50 mls/hr Q6H IV 08/01/16 21:00 08/02/16 01:31 DC 08/01/16 21:57 Piperacillin Sod/ Tazobactam Sod 4.5 gm/Dextrose 50 ml @ 50 mls/hr Q6H IV 08/02/16 09:00 08/02/16 19:10 DC 08/02/16 15:53 Piperacillin Sod/ Tazobactam Sod/ Dextrose (Zosyn/Dextrose 5% Mini-Bag Plus) 50 ml @ 50 mls/hr Q6H IV 08/02/16 21:00 08/04/16 07:29 DC 08/04/16 03:30 Polyethylene Glycol (Miralax) 1 pkt DAILYPRN PRN PO CONSTIPATION 07/31/16 13:00 08/30/16 12:59 Prednisone (Deltasone) 60 mg DAILY PO 08/04/16 09:00 09/03/16 08:59 08/04/16 08:46 Prednisone 20 mg 20 mg DAILY PO 08/02/16 09:00 08/02/16 09:00 DC Senna (Senokot) 1 tab QHS PO 07/31/16 21:00 08/30/16 20:59 08/03/16 21:25 Sodium Chloride 1,000 ml @ 150 mls/hr Q6H40M IV 08/02/16 06:45 08/02/16 17:43 DC 08/02/16 06:54 Sodium Chloride (Nacl 0.9%) 1,000 ml @ 50 mls/hr Q20H IV 08/03/16 11:00 08/04/16 06:59 DC 08/03/16 10:59 Vancomycin HCl 1000 mg/IV Miscellaneous Supplies 1 each/ Dextrose 270 ml @ 270 mls/hr Q12H IV 08/02/16 11:00 08/02/16 11:00 DC Vancomycin HCl 1000 mg/IV Miscellaneous Supplies 1 each/ Dextrose 270 ml @ 270 mls/hr Q24H IV 08/02/16 12:00 08/04/16 07:29 DC 08/03/16 12:05 REJI BLACKWELL MD Aug 04, 2016 12:47
[2016-08-04] MEDS: NS 1,000 ML IV SCH (13:30)
--- NOTE | 2016-08-04 13:55 | IPNPDOC ---
Assessment/Plan Date Seen The patient was seen on 08/04/16. Problems Problems: (1) COPD with exacerbation Status: Acute Problem Text: * Cont nebs * Finish course of Levaquin. * SC 07/29 H influenza. * Blood culture 1 07/31 Staph warneri * Blood culture 2 08/03 are noted to be negative. * WBC trending downward. * Patient is afebrile. * This has been reviewed with Dr Martin/ also D/W Dr. Rowan. * Continue with Levaquin which is currently renally dosed. (2) HTN (hypertension) Status: Chronic Problem Text: * Hydralazine * Norvasc * Atenolol (3) BPH (benign prostatic hyperplasia) Status: Chronic Problem Text: * Proscar (4) HLD (hyperlipidemia) Status: Chronic Problem Text: * Lipitor (5) Hematuria Status: Acute Problem Text: * S/P traumatic masters Insertion. * discussed with Dr Martin. * Renal U/S ordered as per attending. * Will Chk Bladder U/S * Request Urology Clt * Request CBI. * Pt c/o Pain- can request pain mgmt opinion. * ASA/Plavix related to CVA * Lovenox for DVT prophylaxis * Subsequently I have spoken with Dr. Johnston and relayed all relevant clinical information as requested, I also subsequently spoke with Dr. Stacy to gain additional relevant clinical information as requested by Dr. Johnston. After doing such and answering all of Dr. Johnston questions to his satisfaction and reviewing all pertinent patient information, it was Dr. Johnston recommendation and request to subsequently input in order to discontinue Masters catheter. Dr. Johnston will be providing further recommendations via consultation. (6) CVA (cerebral vascular accident) Status: Acute Problem Text: * ASA/Plavix * Rehab as per Dr Stacy. Plan / VTE VTE Prophylaxis Ordered?: Yes Subjective Review of Systems CC/HPI The patient is a 86-year-old male admitted with a reason for visit of Left Sided Weakness. Events since last encounter Pt states he is feeling comfortable other than his masters. Complains of bladder pain and spasms. Breathing is comfortable. denies CP. ENT: Denies: Dysphagia, Ear Pain, Head Aches Pulmonary: Denies: Cough, Dyspnea Cardiovascular: Denies: Chest Pain, Lt Headedness, Orthopnea, Palpitations, Paroxysmal Noc. Dyspnea Genitourinary: Reports: Hematuria, Other Symptoms (complains of pain from masters catheter) Objective Physical Examination General Exam: Positive: Alert Eye Exam: Positive: PERRLA ENT Exam: Positive: Atraumatic, Mucous membr. moist/pink, Pharynx Normal Chest Exam: Positive: Clear to auscultation, Normal air movement Heart Exam: Positive: Normal S1, Normal S2, Rate Normal, Regular Rhythm, Negative: Murmurs, Rubs Abdomen Exam: Positive: Normal bowel sounds, Other (masters ), Soft, Negative: Hepatospenomegaly, Tenderness Skin Exam: Positive: Nl turgor and temperature Vital Signs/I&O Vital Signs Date Time Temp Pulse Resp B/P Pulse Ox O2 Delivery O2 Flow Rate FiO2 08/04/16 08:47 52 149/70 08/04/16 06:00 97.5 18 94 Room Air 08/02/16 14:00 2.0 I&O- Last 24 Hours up to 6 AM 08/04/16 06:00 Intake Total 3331 ml Output Total 1650 ml Balance 1681 ml Laboratory Data Labs 24H Laboratory Tests 2 08/03/16 16:41: Bedside Glucose (Misc Panel) 376H 08/03/16 21:13: Bedside Glucose (Misc Panel) 404H 08/03/16 21:14: Bedside Glucose (Misc Panel) 416H 08/04/16 06:20: Anion Gap 9, White Blood Count 11.2H, Red Blood Count 3.85L, Hemoglobin 11.3L, Hematocrit 34.6L, Mean Corpuscular Volume 89.9, Mean Corpuscular Hemoglobin 29.4 , Mean Corpuscular Hemoglobin Concent 32.7, Red Cell Distribution Width 13.6, Platelet Count 303, Neutrophils (%) (Auto) 88.3H, Lymphocytes (%) (Auto) 6.8L, Monocytes (%) (Auto) 4.0, Eosinophils (%) (Auto) 0.1, Basophils (%) (Auto) 0.0, Neutrophils # (Auto) 9.9H, Lymphocytes # (Auto) 0.8L, Monocytes # (Auto) 0.5, Eosinophils # (Auto) 0.0, Basophils # (Auto) 0.0, Blood Urea Nitrogen 52H, Creatinine 1.43H, Sodium Level 141, Potassium Level 4.4, Chloride Level 108H, Carbon Dioxide Level 24, Calcium Level 8.4L, Glomerular Filtration Rate 49.9, Large Unclassified Cells # 0.1, Large Unclassified Cells % 0.8 08/04/16 11:15: Bedside Glucose (Misc Panel) 345H CBC/BMP Laboratory Tests 08/04/16 06:20 Calcium Level 8.4 L, Red Blood Count 3.85 L, Mean Corpuscular Volume 89.9, Mean Corpuscular Hemoglobin 29.4, Mean Corpuscular Hemoglobin Concent 32.7, Red Cell Distribution Width 13.6, Neutrophils (%) (Auto) 88.3 H, Lymphocytes (%) (Auto) 6.8 L, Monocytes (%) (Auto) 4.0, Eosinophils (%) (Auto) 0.1, Basophils (%) (Auto ) 0.0, Neutrophils # (Auto) 9.9 H, Lymphocytes # (Auto) 0.8 L, Monocytes # (Auto ) 0.5, Eosinophils # (Auto) 0.0, Basophils # (Auto) 0.0 FSBS Laboratory Tests Test 08/03/16 16:41 08/03/16 21:13 08/03/16 21:14 08/04/16 11:15 Range/Units Bedside Glucose (Misc Panel) 376 404 416 345 83-110 MG/DL Microbiology Microbiology 08/03/16 Blood Culture - Preliminary, Resulted No growth after 24 hours . All specim... 08/03/16 Blood Culture - Preliminary, Resulted No growth after 24 hours . All specim... 07/31/16 Blood Culture - Final, Complete Staphylococcus Warneri 07/31/16 Blood Culture - Preliminary, Resulted No Growth after 72 hours. All specime... 08/02/16 Gram Stain - Final, Complete 08/02/16 Sputum Culture - Final, Complete 07/31/16 Urine Culture - Final, Complete Suad Cox Aug 04, 2016 13:55
[2016-08-04 14:00] VITALS: BP 147/68
--- NOTE | 2016-08-04 14:21 | REP ---
RENAL ULTRASOUND: Real-time sonographic of the kidneys is performed. Both kidneys are somewhat echogenic in appearance suggesting medical renal disease. Right kidney measures 11.8 x 5.3 x 5.6 cm and left kidney 11.5 x 5.7 x 3.9 cm. There is no hydronephrosis bilaterally. Vascular calcifications are present bilaterally. Evaluation of left kidney is limited due to overlying bowel gas. There appears to be a cyst in the upper pole of the left kidney 1.0 x 1.1 x 1.0 cm. Parks catheter is seen in the collapsed urinary bladder. IMPRESSION: No hydronephrosis bilaterally. There appears to be a left renal cyst. Signed by Keny Saunders MD 08/04/2016 04:42 P
[2016-08-04 15:26] VITALS: BP 152/70
[2016-08-04] MEDS: ACETAMINOPHEN 500 MG TAB PO SCH ×2 (15:42→21:15)
--- NOTE | 2016-08-04 17:36 | CR ---
DATE OF CONSULTATION: 08/04/2016 REASON FOR CONSULTATION: Hematuria and urinary retention. CHIEF COMPLAINT: The patient with history of cerebrovascular accident (CVA) admitted to [facility] during the weekend. About 3 days ago he had a postvoid residue of 300 mL. For this reason a Parks catheter was ordered. The Parks catheter placement had traumatic events, with four attempts. For this reason urology was consulted this morning. The patient actually is awake, oriented times three. He had CVA history. He is on anticoagulation therapy with Plavix and aspirin. He has a Parks catheter in good position draining right now clear urine, although in the bag there is dark old hematuric elements. The patient has no fever, no chills at this moment in time. He has a burning sensation in the urethra possibly due to Parks trauma. On physical examination, the patient is awake and oriented times three. You can actually discuss with him his present complaints easily. The abdomen is soft, nontender, nondistended. Bowel sounds are present. Flank percussion is negative. Testicles are present in scrotum and no pain on palpation of the testicles or epididymis. Penis is without any alteration and has a Parks catheter draining clear urine. The bag has dark urine due to old blood clots possibly. There are no active clots at this moment in time. There is no active hematuria at this time. PLAN: The patient will actually remain with a Parks catheter draining to gravity. We will start him on Flomax 0.4 mg 1 tablet by mouth every day. His creatinine is 1.4. For this reason we will control it every day until normalized. He is being hydrated for this. Once the urine return is clear completely and his creatinine is back to normal, we will actually discontinue to the Parks catheter around 6 a.m. in the morning. We will follow the patient to order the Parks removal at that moment in time once his hematuria is resolved and his creatinine is back to normal. We will place him on Flomax 0.4 mg one tablet by mouth every day. He will continue on Proscar. Thank you very much for the consultation. [facility]
[2016-08-04 20:00] VITALS: BP 164/62
[2016-08-04] MEDS: CLOPIDOGREL 75 MG TAB PO SCH (21:13)
[2016-08-04] MEDS: amLODIPine 10 MG TAB PO SCH (21:13)
[2016-08-04] MEDS: SENNA 8.6 MG TAB (SENOKOT) PO SCH (21:13)
[2016-08-05] MEDS: NS 1,000 ML IV SCH ×2 (02:10→17:30)
[2016-08-05] MEDS: ACETAMINOPHEN 500 MG TAB PO SCH ×3 (05:41→21:46)
[2016-08-05 06:00] VITALS: BP 165/79
[2016-08-05 06:58] LABS: BASO # 0.1 K/mm3 (0.0-0.2); BASO % 0.8 % (0.0-1.0); EOS % 0.5 % (0.0-3.0); LARGE UNSTAINED CELL # 0.1 K/mm3 (0.0-0.4); LYMPH # 1.4 K/mm3 (1.5-4.5); LYMPH % 13.3 % (24.0-44.0); MEAN CORPUSCULAR HEMOGLOBIN 28.3 pg (27.0-33.0); MEAN CORPUSCULAR HGB CONC 31.8 g/dl (32.0-36.5); MONO # 0.6 K/mm3 (0.0-0.8); MONO % 6.3 % (0.0-5.0); NEUTROPHILS # 7.7 K/mm3 (1.8-7.7); NEUTROPHILS % 78.1 % (36.0-66.0); PLATELET COUNT, AUTOMATED 288 k/mm3 (150-450); RED CELL DISTRIBUTION WIDTH 14.4 % (11.5-14.5); WHITE BLOOD COUNT 9.8 K/mm3 (4.0-10.0)
[2016-08-05 07:02] LABS: ANION GAP 8 MEQ/L (8-16); BLOOD UREA NITROGEN 39 MG/DL (7-18); CALCIUM LEVEL 8.4 MG/DL (8.8-10.2); CARBON DIOXIDE LEVEL 27 MEQ/L (21-32); CHLORIDE LEVEL 108 MEQ/L (98-107); CREATININE FOR GFR 1.21 MG/DL (0.70-1.30); GLOMERULAR FILTRATION RATE > 60.0 (>35); GLUCOSE, FASTING 190 MG/DL (83-110); POTASSIUM SERUM 4.3 MEQ/L (3.5-5.1); SODIUM LEVEL 143 MEQ/L (136-145)
[2016-08-05] MEDS: HumaLOG INSULIN (NovoLOG) PER UNIT SC SCH ×4 (08:18→21:38)
[2016-08-05] MEDS: LEVEMIR (INSULIN DETEMIR) 1 UNITS/0.01ML SC SCH (08:18)
[2016-08-05] MEDS: ENOXAPARIN 40 MG/0.4 ML SYRINGE (J1650) SC SCH (08:18)
[2016-08-05] MEDS: TAMSULOSIN 0.4 MG CAP PO SCH (08:19)
[2016-08-05] MEDS: **hydrALAZINE** 10 MG TAB PO SCH ×3 (08:19→21:36)
[2016-08-05] MEDS: EUCERIN 120GM CREAM TOP SCH ×2 (08:19→21:42)
[2016-08-05] MEDS: DOCUSATE SODIUM 100 MG CAP PO SCH ×2 (08:20→21:36)
[2016-08-05] MEDS: ATORVASTATIN 20 MG TAB PO SCH (08:20)
[2016-08-05] MEDS: ASPIRIN 81 MG ENTERIC TAB PO SCH (08:20)
[2016-08-05] MEDS: predniSONE 20 MG TAB PO SCH (08:20)
[2016-08-05] MEDS: LACTOBACILLUS ACIDOPHILUS CAP (BACID) PO SCH ×2 (08:20→18:58)
[2016-08-05] MEDS: ATENOLOL 25 MG TAB PO SCH (08:20)
[2016-08-05] MEDS: PANTOPRAZOLE 40MG TAB (PROTONIX) PO SCH (08:20)
[2016-08-05] MEDS: FINASTERIDE 5 MG TAB PO SCH (08:20)
[2016-08-05] MEDS: SYMBICORT 160/4.5MCG INHALER 6GM INH SCH ×2 (08:27→21:17)
[2016-08-05 11:18] VITALS: BP 148/68
--- NOTE | 2016-08-05 13:09 | IPNPDOC ---
Lead Clinical Research Coordinator Progress Note PROGRESS NOTE DATE OF ADMISSION: 07/31/2016 DATE OF SERVICE: 08/05/2016 IDENTIFICATION STATEMENT: Patient is a 86-year-old left-hand dominant man with acute midbrain CVA and right hemiparesis admitted for comprehensive integrated inpatient rehabilitation. 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 No residual weakness except left eye palsy Skull fracture 1980s secondary very to fall off scaffolding Multiple broken bones PAST SURGICAL HISTORY: Appendectomy Cholecystectomy Cataract surgery ALLERGIES: No known drug allergies MEDICATIONS: Levaquin 750mg IV q48h Bacid 1 bid Prednisone 60mg daily Duoneb q2h prn Hydralazine 10mg po tid Norvasc 10mg qhs Atenolol 25 mg by mouth twice a day Lisinopril 40 mg by mouth daily Aspirin 81 mg by mouth daily Lipitor 20 mg by mouth daily Proscar 5 mg by mouth daily Flomax 0.4mg daily Lovenox 40 mg subcutaneous daily Detemir 10u daily Insulin sliding scale before meals and at bedtime Symbicort 160/4.5 g 2 puffs inhaled twice a day Plavix 75 mg by mouth qpm albuterol sulfate 2 puffs inhaled 4 times a day when necessary shortness of breath Acetaminophen 1000mg q8h SUBJECTIVE: Patient states burning pain where catheter is gone. States hes feeling better. Denies any chest pain, shortness of breath, lightheadedness, chills, diaphoresis, nausea/vomiting. VITAL SIGNS: 97.1F, pulse 63, respiratory rate 20, blood pressure 148/68, 96% saturation on RA PHYSICAL EXAMINATION: GENERAL: Well nourished, well developed, sitting in chair, no acute distress. + Parks with light yellow urine in tube, light dyan urine in bag (improved over yesterday). HEENT: Normocephalic, atraumatic. No facial droop. Left eye palsy (unchanged). PERRL, EOMI CARDIOVASCULAR: S1, S2, regular rate. No lower limb swelling or calf tenderness. LUNGS: Diffusely decreased breath sounds throughout but CTA, no rhonchi or wheezing. ABDOMEN: Soft, nontender, nondistended. Normoactive bowel sounds throughout. MUSCULOSKELETAL: MMT: 2/5 right shoulder shrug, 2/5 right finger flexion, 2/5 finger extension, 0/5 remainder of the right upper. 3/5 right HF. 5/5 strength left upper and lower limb in all major muscle groups. NEUROLOGICAL: Alert and oriented x 3. Answers all questions appropriately. Able to follow commands SKIN: +mild erythema on the dorsum of the right hand, recurrent, no erythema over the elbow. LABORATORY DATA: 08/05/16 reviewed: see below 07/31/2016: WBC count 11.1, hemoglobin 12.3, hematocrit 38.7, plt 272. Sodium 140, potassium 4.0, chloride 104, carbon dioxide 27, BUN 29, creatinine 1.20, GFR greater than 60, fasting glucose 160, calcium 8.7, magnesium 2.2, Blood culture 2 07/29/2016: No growth in 24 hours MRSA screen 07/28/2016 negative Sputum 07/29/2016 IMAGING: CXR 07/31/16: non-acute MRI brain 07/27/16: old right frontal infarct, generalization age appropriate parenchymal atrophy, severe chronic white matter microvascular ischemic changes. MRA 07/27/16: non-acute MRI C-T-L spine 07/27/16 reviewed: T5 abnormality FUNCTIONAL STATUS, Premorbid: Independent ADLs and ambulation. ASSESSMENT AND PLAN: 1. 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 Continue physical and occupational therapy. Rehabilitation nursing for bladder, bowel and medication management. 2. COPD exacerbation +/- HAP: On abx, S/p IV steroids. Improved. Continue abx, start slow taper of oral steroids, duonebs prn 3. Retention/hematuria: Hematuria resolving, dysuria resolving, patient twice had leakage of urine from around Parks, cleared with Dr. Johnston to d/cd Parsk today. 4. Bacteremia: S/p IV vanco 5. Acute renal failure, dehydration possible exacerbated by vancomycin: Vanco has been discontinued. Continue IV fluids but decreased rate to 50cc/h. 6. Right hand erythema and pain: Erythema recurrent since yesterday. Reeval in am. Continue compression glove for edema. 7. Hypertension: Adequately controlled. Continue lisinopril, hydralazine, and atenolol. Dose adjustments as indicated. 8. DVT prophylaxis: Maintain Lovenox daily. Continue SCD and TOBIN hose. 9. Diabetes mellitus type 2: Metformin d/cd 2n renal failure. Continue detemir + ISS for now. 10. Bowel: Maintain Colace and senna scheduled along with milk of magnesia and MiraLAX on an as-needed basis 11. Malnutrition: Prealbumin low so started on Glucerna. Continue carb consistent diet. / Vital Signs Vital Sign - Last 24 Hours 08/04/16 08/04/16 08/04/16 08/04/16 14:00 15:26 17:17 20:00 Temp 97.9 96.8 Pulse 59 74 Resp 20 20 B/P 147/68 152/70 152/70 164/62 Pulse Ox 94 96 O2 Delivery Room Air 08/04/16 08/04/16 08/05/16 08/05/16 21:13 21:13 06:00 08:19 Temp 97.1 Pulse 74 63 Resp 20 B/P 164/62 164/62 165/79 165/79 Pulse Ox 96 O2 Delivery Room Air 08/05/16 08/05/16 08:20 11:18 Pulse 63 B/P 165/79 148/68 Laboratory Data CBC/BMP Laboratory Tests 08/05/16 06:25 Calcium Level 8.4 L, Red Blood Count 4.10 L, Mean Corpuscular Volume 89.0, Mean Corpuscular Hemoglobin 28.3, Mean Corpuscular Hemoglobin Concent 31.8 L, Red Cell Distribution Width 14.4, Neutrophils (%) (Auto) 78.1 H, Lymphocytes (%) ( Auto) 13.3 L, Monocytes (%) (Auto) 6.3 H, Eosinophils (%) (Auto) 0.5, Basophils (%) (Auto) 0.8, Neutrophils # (Auto) 7.7, Lymphocytes # (Auto) 1.4 L, Monocytes # (Auto) 0.6, Eosinophils # (Auto) 0.0, Basophils # (Auto) 0.1 Labs 24H Laboratory Tests 2 08/04/16 16:32: Bedside Glucose (Misc Panel) 258H 08/04/16 20:10: Bedside Glucose (Misc Panel) 358H 08/05/16 06:25: Anion Gap 8, White Blood Count 9.8, Red Blood Count 4.10L, Hemoglobin 11.6L, Hematocrit 36.5L, Mean Corpuscular Volume 89.0, Mean Corpuscular Hemoglobin 28.3 , Mean Corpuscular Hemoglobin Concent 31.8L, Red Cell Distribution Width 14.4, Platelet Count 288, Neutrophils (%) (Auto) 78.1H, Lymphocytes (%) (Auto) 13.3L, Monocytes (%) (Auto) 6.3H, Eosinophils (%) (Auto) 0.5, Basophils (%) (Auto) 0.8 , Neutrophils # (Auto) 7.7, Lymphocytes # (Auto) 1.4L, Monocytes # (Auto) 0.6, Eosinophils # (Auto) 0.0, Basophils # (Auto) 0.1, Blood Urea Nitrogen 39H, Creatinine 1.21, Sodium Level 143, Potassium Level 4.3, Chloride Level 108H, Carbon Dioxide Level 27, Calcium Level 8.4L, Glomerular Filtration Rate > 60.0, Large Unclassified Cells # 0.1, Large Unclassified Cells % 1.0 08/05/16 11:28: Bedside Glucose (Misc Panel) 228H FSBS Laboratory Tests Test 08/04/16 16:32 08/04/16 20:10 08/05/16 11:28 Range/Units Bedside Glucose (Misc Panel) 258 358 228 83-110 MG/DL Microbiology Microbiology 08/03/16 Blood Culture - Preliminary, Resulted No Growth after 48 hours. All Specime... 08/03/16 Blood Culture - Preliminary, Resulted No Growth after 48 hours. All Specime... 07/31/16 Blood Culture - Final, Complete Staphylococcus Warneri 07/31/16 Blood Culture - Preliminary, Resulted No Growth after 72 hours. All specime... 08/02/16 Gram Stain - Final, Complete 08/02/16 Sputum Culture - Final, Complete 07/31/16 Urine Culture - Final, Complete Allergies Allergies: Coded Allergies: No Known Allergies (Verified Allergy, Unknown, 04/25/10) Current Medications Current Medications Current Medications Medications (Trade) Dose Ordered Sig/Bhavik Route PRN Reason Start Time Stop Time Status Last Admin Dose Admin Acetaminophen (Tylenol Tab) 1,000 mg Q8H PO 08/04/16 14:00 09/03/16 13:59 08/05/16 05:41 Acetaminophen (Tylenol) 650 mg Q4HP PRN PO MILD PAIN (PS 1-4) 07/31/16 13:00 08/04/16 09:58 DC 08/04/16 05:18 Acetaminophen/ Hydrocodone Bitart ([place], Anexsia 5/325) 1 tab Q4HP PRN PO MODERATE/SEVERE PAIN (PS 5-10) 07/31/16 13:00 08/07/16 12:59 Albuterol Sulfate (Proventil, Ventolin Hfa) 2 puff QIDP PRN INH SHORTNESS OF BREATH 07/31/16 13:00 08/02/16 01:31 DC Albuterol/ Ipratropium (Duoneb (Ipr 0.5mg/Alb 2.5mg)) 3 ml Q2HP PRN NEB SOB/WHEEZING 08/01/16 21:00 08/31/16 20:59 08/02/16 01:09 Albuterol/ Ipratropium (Duoneb (Ipr 0.5mg/Alb 2.5mg)) 3 ml RQ6H NEB 08/02/16 02:00 08/04/16 11:39 DC 08/03/16 13:32 Amlodipine Besylate (Norvasc) 5 mg BID PO 07/31/16 21:00 08/04/16 07:35 DC 08/03/16 21:26 Amlodipine Besylate (Norvasc) 10 mg QHS PO 08/04/16 21:00 09/03/16 20:59 08/04/16 21:13 Aspirin (Ecotrin) 81 mg DAILY PO 08/01/16 09:00 08/31/16 08:59 08/05/16 08:20 Atenolol (Tenormin) 25 mg BID PO 07/31/16 21:00 08/04/16 07:33 DC 08/03/16 21:25 Atenolol (Tenormin) 25 mg DAILY PO 08/04/16 09:00 09/03/16 08:59 08/05/16 08:20 Atorvastatin Calcium (Lipitor) 20 mg DAILY PO 08/01/16 09:00 08/31/16 08:59 08/05/16 08:20 Benzonatate (Tessalon Perles) 100 mg TID PO 08/01/16 09:00 08/04/16 11:11 DC 08/04/16 10:24 Budesonide/ Formoterol Fumarate (Symbicort 160/ 4.5mcg) 2 puff BID INH 07/31/16 21:00 08/30/16 20:59 08/05/16 08:27 Cefdinir (Omnicef) 300 mg BID PO 08/02/16 09:00 08/02/16 09:00 DC Clopidogrel Bisulfate (PLAVix) 75 mg QPM PO 07/31/16 21:00 08/30/16 20:59 08/04/16 21:13 Dextrose (Dextrose 50%) 25 ml ASDIRECTED PRN IV SEE LABEL COMMENTS 07/31/16 20:30 08/30/16 20:29 Docusate Sodium (Colace) 100 mg BID PO 07/31/16 21:00 08/30/16 20:59 08/05/16 08:20 Enoxaparin Sodium (Lovenox) 40 mg DAILY SC 08/01/16 09:00 08/06/16 08:59 08/05/16 08:18 Finasteride (Proscar) 5 mg DAILY PO 08/01/16 09:00 08/31/16 08:59 08/05/16 08:20 Glucagon (Glucagon) 1 mg ASDIRECTED PRN SC SEE LABEL COMMENTS 07/31/16 20:30 08/30/16 20:29 Glucose (Glucose) 16 GM ASDIRECTED PRN PO SEE LABEL COMMENTS 07/31/16 20:30 08/30/16 20:29 Hydralazine HCl (Apresoline) 10 mg TID PO 08/02/16 09:00 09/01/16 08:59 08/05/16 08:19 Insulin Detemir (Levemir Insulin) 10 units DAILY SC 08/04/16 09:00 09/03/16 08:59 08/05/16 08:18 Insulin Human Lispro (HumaLOG INSULIN) See Protocol Table AC SC 08/01/16 07:30 08/31/16 07:29 08/05/16 11:52 Insulin Human Lispro (HumaLOG INSULIN) See Protocol Table QHS SC 07/31/16 21:00 08/30/16 20:59 08/04/16 21:14 Lactobacillus Acidophilus (Bacid) 1 ea BID PO 08/01/16 21:00 08/02/16 10:52 DC 08/01/16 21:17 Lactobacillus Acidophilus 1 ea 1 ea BIDWM PO 08/02/16 08:00 08/11/16 18:01 08/05/16 08:20 Levofloxacin (Levaquin) 750 mg Q2D@18 PO 08/01/16 18:00 08/01/16 20:43 DC Levofloxacin 750 mg/IV Miscellaneous Supplies 150 ml @ 100 mls/hr Q48H IV 08/01/16 22:00 08/01/16 22:00 DC Levofloxacin 750 mg/IV Miscellaneous Supplies 150 ml @ 100 mls/hr Q48H IV 08/03/16 22:00 08/10/16 21:59 08/03/16 21:23 Levofloxacin/IV Miscellaneous Supplies (Levaquin) 150 ml @ 100 mls/hr Q48H IV 08/03/16 22:00 08/03/16 22:00 DC Lisinopril (Prinivil) 40 mg DAILY PO 08/01/16 09:00 08/02/16 06:38 DC 08/01/16 08:44 Magnesium Hydroxide (Milk Of Magnesia) 30 ml DAILYPRN PRN PO CONSTIPATION 07/31/16 13:00 08/30/16 12:59 Metformin HCl (Glucophage) 500 mg PC PO 07/31/16 18:30 08/02/16 06:39 DC 08/01/16 18:09 Methylprednisolone (SOLUmedrol) 60 mg Q8H IV 08/02/16 06:00 08/03/16 06:57 DC 08/03/16 05:35 Methylprednisolone 40 mg 40 mg Q12H IV 08/03/16 18:00 08/04/16 07:32 DC 08/04/16 05:13 Mineral Oil/White Petrolatum APPLY TO RIGHT HAND BID TOP 08/04/16 09:00 09/03/16 08:59 08/05/16 08:19 Pantoprazole Sodium (Protonix) 40 mg DAILY PO 07/31/16 09:00 08/30/16 08:59 08/05/16 08:20 Piperacillin Sod/ Tazobactam Sod 4.5 gm/Dextrose 50 ml @ 50 mls/hr Q6H IV 08/01/16 21:00 08/02/16 01:31 DC 08/01/16 21:57 Piperacillin Sod/ Tazobactam Sod 4.5 gm/Dextrose 50 ml @ 50 mls/hr Q6H IV 08/02/16 09:00 08/02/16 19:10 DC 08/02/16 15:53 Piperacillin Sod/ Tazobactam Sod/ Dextrose (Zosyn/Dextrose 5% Mini-Bag Plus) 50 ml @ 50 mls/hr Q6H IV 08/02/16 21:00 08/04/16 07:29 DC 08/04/16 03:30 Polyethylene Glycol (Miralax) 1 pkt DAILYPRN PRN PO CONSTIPATION 07/31/16 13:00 08/30/16 12:59 Prednisone (Deltasone) 50 mg DAILY PO 08/06/16 09:00 09/05/16 08:59 Prednisone (Deltasone) 60 mg DAILY PO 08/04/16 09:00 08/05/16 12:59 DC 08/05/16 08:20 Prednisone 20 mg 20 mg DAILY PO 08/02/16 09:00 08/02/16 09:00 DC Senna (Senokot) 1 tab QHS PO 07/31/16 21:00 08/30/16 20:59 08/04/16 21:13 Sodium Chloride 1,000 ml @ 150 mls/hr Q6H40M IV 08/02/16 06:45 08/02/16 17:43 DC 08/02/16 06:54 Sodium Chloride (Nacl 0.9%) 1,000 ml @ 50 mls/hr Q20H IV 08/03/16 11:00 08/04/16 06:59 DC 08/03/16 10:59 Sodium Chloride (Nacl 0.9%) 1,000 ml @ 50 mls/hr Q20H IV 08/04/16 12:45 09/03/16 12:44 08/05/16 02:10 Tamsulosin HCl (Flomax) 0.4 mg DAILY PO 08/05/16 09:00 09/04/16 08:59 08/05/16 08:19 Vancomycin HCl 1000 mg/IV Miscellaneous Supplies 1 each/ Dextrose 270 ml @ 270 mls/hr Q12H IV 08/02/16 11:00 08/02/16 11:00 DC Vancomycin HCl 1000 mg/IV Miscellaneous Supplies 1 each/ Dextrose 270 ml @ 270 mls/hr Q24H IV 1/28/17 12:00 08/04/16 07:29 CT 08/03/16 12:05 REJI BLACKWELL MD Aug 05, 2016 13:09
[2016-08-05 14:00] VITALS: BP 140/65
[2016-08-05 20:30] VITALS: BP 167/84
[2016-08-05] MEDS: CLOPIDOGREL 75 MG TAB PO SCH (21:37)
[2016-08-05] MEDS: SENNA 8.6 MG TAB (SENOKOT) PO SCH (21:37)
[2016-08-05] MEDS: amLODIPine 10 MG TAB PO SCH (21:37)
[2016-08-05] MEDS: LevoFLOXacin IV 750 MG in APPROPRIATE DILUENT 1 EA IV SCH (21:39)
[2016-08-06] MEDS: ACETAMINOPHEN 500 MG TAB PO SCH ×3 (05:32→20:56)
[2016-08-06 06:00] VITALS: BP 162/76
[2016-08-06 06:57] LABS: BASO # 0.1 K/mm3 (0.0-0.2); BASO % 1.4 % (0.0-1.0); EOS # 0.2 K/mm3 (0.0-0.50); EOS % 3.1 % (0.0-3.0); LARGE UNSTAINED CELL # 0.1 K/mm3 (0.0-0.4); LYMPH # 1.4 K/mm3 (1.5-4.5); LYMPH % 17.4 % (24.0-44.0); MEAN CORPUSCULAR HEMOGLOBIN 28.8 pg (27.0-33.0); MEAN CORPUSCULAR HGB CONC 32.1 g/dl (32.0-36.5); MONO # 0.4 K/mm3 (0.0-0.8); NEUTROPHILS # 5.4 K/mm3 (1.8-7.7); NEUTROPHILS % 72.1 % (36.0-66.0); PLATELET COUNT, AUTOMATED 214 k/mm3 (150-450); RED CELL DISTRIBUTION WIDTH 14.3 % (11.5-14.5); WHITE BLOOD COUNT 7.5 K/mm3 (4.0-10.0)
[2016-08-06 07:56] LABS: ANION GAP 10 MEQ/L (8-16); BLOOD UREA NITROGEN 33 MG/DL (7-18); CALCIUM LEVEL 8.1 MG/DL (8.8-10.2); CARBON DIOXIDE LEVEL 26 MEQ/L (21-32); CHLORIDE LEVEL 107 MEQ/L (98-107); GLOMERULAR FILTRATION RATE > 60.0 (>35); GLUCOSE, FASTING 160 MG/DL (83-110); SODIUM LEVEL 143 MEQ/L (136-145)
[2016-08-06] MEDS: SYMBICORT 160/4.5MCG INHALER 6GM INH SCH ×2 (08:07→19:50)
[2016-08-06] MEDS: HumaLOG INSULIN (NovoLOG) PER UNIT SC SCH ×4 (08:26→21:02)
[2016-08-06] MEDS: ENOXAPARIN 40 MG/0.4 ML SYRINGE (J1650) SC SCH (08:26)
[2016-08-06] MEDS: LEVEMIR (INSULIN DETEMIR) 1 UNITS/0.01ML SC SCH (08:27)
[2016-08-06] MEDS: ATENOLOL 25 MG TAB PO SCH (08:27)
[2016-08-06] MEDS: PANTOPRAZOLE 40MG TAB (PROTONIX) PO SCH (08:28)
[2016-08-06] MEDS: ATORVASTATIN 20 MG TAB PO SCH (08:28)
[2016-08-06] MEDS: LACTOBACILLUS ACIDOPHILUS CAP (BACID) PO SCH ×2 (08:28→17:38)
[2016-08-06] MEDS: DOCUSATE SODIUM 100 MG CAP PO SCH ×2 (08:28→20:57)
[2016-08-06] MEDS: ASPIRIN 81 MG ENTERIC TAB PO SCH (08:28)
[2016-08-06] MEDS: **hydrALAZINE** 10 MG TAB PO SCH ×3 (08:28→17:40)
[2016-08-06] MEDS: FINASTERIDE 5 MG TAB PO SCH (08:28)
[2016-08-06] MEDS: predniSONE 50 MG TAB PO SCH (08:28)
[2016-08-06] MEDS: TAMSULOSIN 0.4 MG CAP PO SCH (08:28)
[2016-08-06] MEDS: EUCERIN 120GM CREAM TOP SCH ×2 (08:29→21:00)
--- NOTE | 2016-08-06 12:43 | IPNPDOC ---
D[employer] Person Progress Note PROGRESS NOTE DATE OF ADMISSION: 07/31/2016 DATE OF SERVICE: 08/06/2016 IDENTIFICATION STATEMENT: Patient is an 86-year-old left-hand dominant man with acute midbrain CVA and right hemiparesis admitted for comprehensive integrated inpatient rehabilitation. 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 No residual weakness except left eye palsy Skull fracture 1980s secondary very to fall off scaffolding Multiple broken bones PAST SURGICAL HISTORY: Appendectomy Cholecystectomy Cataract surgery ALLERGIES: No known drug allergies MEDICATIONS: Levaquin 750mg IV q48h Bacid 1 bid Prednisone 60mg daily Duoneb q2h prn Hydralazine 10mg po tid Norvasc 10mg qhs Atenolol 25 mg by mouth twice a day Lisinopril 40 mg by mouth daily Aspirin 81 mg by mouth daily Lipitor 20 mg by mouth daily Proscar 5 mg by mouth daily Flomax 0.4mg daily Lovenox 40 mg subcutaneous daily Detemir 10u daily Insulin sliding scale before meals and at bedtime Symbicort 160/4.5 g 2 puffs inhaled twice a day Plavix 75 mg by mouth qpm albuterol sulfate 2 puffs inhaled 4 times a day when necessary shortness of breath Acetaminophen 1000mg q8h SUBJECTIVE: Patient states burning pain where catheter is gone. States hes feeling better. Denies any chest pain, shortness of breath, lightheadedness, chills, diaphoresis, nausea/vomiting. VITAL SIGNS: 97.9F, pulse 66, respiratory rate 20, blood pressure 160/72, 96% saturation on RA PHYSICAL EXAMINATION: GENERAL: Well nourished, well developed, sitting in chair, no acute distress. HEENT: Normocephalic, atraumatic. No facial droop. Left eye palsy (unchanged). PERRL, EOMI CARDIOVASCULAR: S1, S2, regular rate. No lower limb swelling or calf tenderness. LUNGS: Diffusely decreased breath sounds throughout but CTA, no rhonchi or wheezing. ABDOMEN: Soft, nontender, nondistended. Normoactive bowel sounds throughout. MUSCULOSKELETAL: MMT: 3/5 right shoulder shrug, 3-/5 right finger flexion, 2/5 finger extension, 0/5 remainder of the right upper. 3/5 right HF, 3- KE/KF, 0/ 5 right DF/PF/EHL. 5/5 strength left upper and lower limb in all major muscle groups. NEUROLOGICAL: Alert and oriented x 3. Answers all questions appropriately. Able to follow commands SKIN: +mild swelling & erythema on the dorsum of the right hand, recurrent (~ same as yesterday), no erythema over the elbow. LABORATORY DATA: 08/06/16 reviewed: see below 07/31/2016: WBC count 11.1, hemoglobin 12.3, hematocrit 38.7, plt 272. Sodium 140, potassium 4.0, chloride 104, carbon dioxide 27, BUN 29, creatinine 1.20, GFR greater than 60, fasting glucose 160, calcium 8.7, magnesium 2.2, Blood culture 2 07/29/2016: No growth in 24 hours MRSA screen 07/28/2016 negative Sputum 07/29/2016 IMAGING: CXR 07/31/16: non-acute MRI brain 07/27/16: old right frontal infarct, generalization age appropriate parenchymal atrophy, severe chronic white matter microvascular ischemic changes. MRA 07/27/16: non-acute MRI C-T-L spine 07/27/16 reviewed: T5 abnormality FUNCTIONAL STATUS, Premorbid: Independent ADLs and ambulation. ASSESSMENT AND PLAN: 1. 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 Continue physical and occupational therapy. Rehabilitation nursing for bladder, bowel and medication management. 2. COPD exacerbation +/- HAP: On abx, S/p IV steroids. Improved. Continue abx but change to PO today. , Slow taper off oral steroids, duonebs prn 3. Retention/hematuria: Gross hematuria resolved, dysuria resolved, Parks d/cd yesterday 2nd leakage. 1 episode incontinence last night, Bladder scans were ordered yesterday at ~11am although none documented in EMR. Will discuss with nursing. 4. Bacteremia: S/p IV vanco 5. Acute renal failure, dehydration possible exacerbated by vancomycin: Resolving. Vanco has been discontinued. Continue IV fluids but decreased rate to 50cc/h. Anticipate d/cing IVF tomorrow. 6. Right hand erythema and pain: Erythema recurrent. On levaquin which would cover for cellulitis. Continue compression glove for edema. 7. Hypertension: Uncontrolled. Increased hydralazine. Continue lisinopril, and atenolol. Further dose adjustments as indicated. 8. DVT prophylaxis: Maintain Lovenox daily. Continue SCD and TOBIN hose. 9. Diabetes mellitus type 2: Metformin d/cd 2n renal failure. Continue detemir + ISS for now. 10. Bowel: Maintain Colace and senna scheduled along with milk of magnesia and MiraLAX on an as-needed basis 11. Malnutrition: Prealbumin low so started on Glucerna. Continue carb consistent diet. / Vital Signs Vital Sign - Last 24 Hours 08/05/16 08/05/16 08/05/16 08/05/16 14:00 15:25 20:30 21:36 Temp 98.2 97.4 Pulse 56 73 Resp 24 18 B/P 140/65 140/65 167/84 167/84 Pulse Ox 95 O2 Delivery Room Air Room Air 08/05/16 08/06/16 08/06/16 21:37 06:00 08:27 Temp 97.9 Pulse 73 57 66 Resp 20 B/P 167/84 162/76 160/72 Pulse Ox 96 O2 Delivery Room Air Laboratory Data CBC/BMP Laboratory Tests 08/06/16 06:43 Red Blood Count 3.86 L, Mean Corpuscular Volume 90.0, Mean Corpuscular Hemoglobin 28.8, Mean Corpuscular Hemoglobin Concent 32.1, Red Cell Distribution Width 14.3, Neutrophils (%) (Auto) 72.1 H, Lymphocytes (%) (Auto) 17.4 L, Monocytes (%) (Auto) 5.0, Eosinophils (%) (Auto) 3.1 H, Basophils (%) ( Auto) 1.4 H, Neutrophils # (Auto) 5.4, Lymphocytes # (Auto) 1.4 L, Monocytes # ( Auto) 0.4, Eosinophils # (Auto) 0.2, Basophils # (Auto) 0.1 08/06/16 07:18 Calcium Level 8.1 L Labs 24H Laboratory Tests 2 08/05/16 16:21: Bedside Glucose (Misc Panel) 257H 08/05/16 20:35: Bedside Glucose (Misc Panel) 349H 08/06/16 06:43: White Blood Count 7.5, Red Blood Count 3.86L, Hemoglobin 11.1L, Hematocrit 34.7L , Mean Corpuscular Volume 90.0, Mean Corpuscular Hemoglobin 28.8, Mean Corpuscular Hemoglobin Concent 32.1, Red Cell Distribution Width 14.3, Platelet Count 214, Neutrophils (%) (Auto) 72.1H, Lymphocytes (%) (Auto) 17.4L, Monocytes (%) (Auto) 5.0, Eosinophils (%) (Auto) 3.1H, Basophils (%) (Auto) 1.4H , Neutrophils # (Auto) 5.4, Lymphocytes # (Auto) 1.4L, Monocytes # (Auto) 0.4, Eosinophils # (Auto) 0.2, Basophils # (Auto) 0.1, Large Unclassified Cells # 0.1 , Large Unclassified Cells % 1.0 08/06/16 07:18: Anion Gap 10, Blood Urea Nitrogen 33H, Creatinine 1.00, Sodium Level 143, Potassium Level 4.0, Chloride Level 107, Carbon Dioxide Level 26, Calcium Level 8.1L, Glomerular Filtration Rate > 60.0 08/06/16 11:43: Bedside Glucose (Misc Panel) 200H FSBS Laboratory Tests Test 08/05/16 16:21 08/05/16 20:35 08/06/16 11:43 Range/Units Bedside Glucose (Misc Panel) 257 349 200 83-110 MG/DL Microbiology Microbiology 08/03/16 Blood Culture - Preliminary, Resulted No Growth after 72 hours. All specime... 08/03/16 Blood Culture - Preliminary, Resulted No Growth after 72 hours. All specime... 07/31/16 Blood Culture - Final, Complete Staphylococcus Warneri 07/31/16 Blood Culture - Final, Complete NO GROWTH AFTER 5 DAYS 08/02/16 Gram Stain - Final, Complete 08/02/16 Sputum Culture - Final, Complete 07/31/16 Urine Culture - Final, Complete Allergies Allergies: Coded Allergies: No Known Allergies (Verified Allergy, Unknown, 04/25/10) Current Medications Current Medications Current Medications Medications (Trade) Dose Ordered Sig/Bhavik Route PRN Reason Start Time Stop Time Status Last Admin Dose Admin Acetaminophen (Tylenol Tab) 1,000 mg Q8H PO 08/04/16 14:00 09/03/16 13:59 08/06/16 05:32 Acetaminophen (Tylenol) 650 mg Q4HP PRN PO MILD PAIN (PS 1-4) 07/31/16 13:00 08/04/16 09:58 DC 08/04/16 05:18 Acetaminophen/ Hydrocodone Bitart ([place], [place] 5/325) 1 tab Q4HP PRN PO MODERATE/SEVERE PAIN (PS 5-10) 07/31/16 13:00 08/07/16 12:59 Albuterol Sulfate (Proventil, Ventolin Hfa) 2 puff QIDP PRN INH SHORTNESS OF BREATH 07/31/16 13:00 08/02/16 01:31 DC Albuterol/ Ipratropium (Duoneb (Ipr 0.5mg/Alb 2.5mg)) 3 ml Q2HP PRN NEB SOB/WHEEZING 08/01/16 21:00 08/31/16 20:59 08/02/16 01:09 Albuterol/ Ipratropium (Duoneb (Ipr 0.5mg/Alb 2.5mg)) 3 ml RQ6H NEB 08/02/16 02:00 08/04/16 11:39 DC 08/03/16 13:32 Amlodipine Besylate (Norvasc) 5 mg BID PO 07/31/16 21:00 08/04/16 07:35 DC 08/03/16 21:26 Amlodipine Besylate (Norvasc) 10 mg QHS PO 08/04/16 21:00 09/03/16 20:59 08/05/16 21:37 Aspirin (Ecotrin) 81 mg DAILY PO 08/01/16 09:00 08/31/16 08:59 08/06/16 08:28 Atenolol (Tenormin) 25 mg BID PO 07/31/16 21:00 08/04/16 07:33 DC 08/03/16 21:25 Atenolol (Tenormin) 25 mg DAILY PO 08/04/16 09:00 09/03/16 08:59 08/06/16 08:27 Atorvastatin Calcium (Lipitor) 20 mg DAILY PO 08/01/16 09:00 08/31/16 08:59 08/06/16 08:28 Benzonatate (Tessalon Perles) 100 mg TID PO 08/01/16 09:00 08/04/16 11:11 DC 08/04/16 10:24 Budesonide/ Formoterol Fumarate (Symbicort 160/ 4.5mcg) 2 puff BID INH 07/31/16 21:00 08/30/16 20:59 08/06/16 08:07 Cefdinir (Omnicef) 300 mg BID PO 08/02/16 09:00 08/02/16 09:00 DC Clopidogrel Bisulfate (PLAVix) 75 mg QPM PO 07/31/16 21:00 08/30/16 20:59 08/05/16 21:37 Dextrose (Dextrose 50%) 25 ml ASDIRECTED PRN IV SEE LABEL COMMENTS 07/31/16 20:30 08/30/16 20:29 Docusate Sodium (Colace) 100 mg BID PO 07/31/16 21:00 08/30/16 20:59 08/06/16 08:28 Enoxaparin Sodium (Lovenox) 40 mg DAILY SC 08/01/16 09:00 08/10/16 08:59 08/06/16 08:26 Finasteride (Proscar) 5 mg DAILY PO 08/01/16 09:00 08/31/16 08:59 08/06/16 08:28 Glucagon (Glucagon) 1 mg ASDIRECTED PRN SC SEE LABEL COMMENTS 07/31/16 20:30 08/30/16 20:29 Glucose (Glucose) 16 GM ASDIRECTED PRN PO SEE LABEL COMMENTS 07/31/16 20:30 08/30/16 20:29 Hydralazine HCl (Apresoline) 10 mg Q6H PO 08/06/16 12:00 09/05/16 11:59 Hydralazine HCl (Apresoline) 10 mg TID PO 08/02/16 09:00 08/06/16 12:35 DC 08/06/16 08:28 Insulin Detemir (Levemir Insulin) 10 units DAILY SC 08/04/16 09:00 09/03/16 08:59 08/05/16 08:18 Insulin Human Lispro (HumaLOG INSULIN) See Protocol Table AC SC 08/01/16 07:30 08/31/16 07:29 08/06/16 12:15 Insulin Human Lispro (HumaLOG INSULIN) See Protocol Table QHS SC 07/31/16 21:00 08/30/16 20:59 08/05/16 21:38 Lactobacillus Acidophilus (Bacid) 1 ea BID PO 08/01/16 21:00 08/02/16 10:52 DC 08/01/16 21:17 Lactobacillus Acidophilus 1 ea 1 ea BIDWM PO 08/02/16 08:00 08/11/16 18:01 08/06/16 08:28 Levofloxacin (Levaquin) 750 mg DAILY@21 PO 08/06/16 21:00 08/13/16 20:59 Levofloxacin (Levaquin) 750 mg Q2D@18 PO 08/01/16 18:00 08/01/16 20:43 DC Levofloxacin 750 mg/IV Miscellaneous Supplies 150 ml @ 100 mls/hr Q48H IV 08/01/16 22:00 08/01/16 22:00 DC Levofloxacin 750 mg/IV Miscellaneous Supplies 150 ml @ 100 mls/hr Q48H IV 08/03/16 22:00 08/06/16 10:16 DC 08/05/16 21:39 Levofloxacin/IV Miscellaneous Supplies (Levaquin) 150 ml @ 100 mls/hr Q48H IV 08/03/16 22:00 08/03/16 22:00 DC Lisinopril (Prinivil) 40 mg DAILY PO 08/01/16 09:00 08/02/16 06:38 DC 08/01/16 08:44 Magnesium Hydroxide (Milk Of Magnesia) 30 ml DAILYPRN PRN PO CONSTIPATION 07/31/16 13:00 08/30/16 12:59 Metformin HCl (Glucophage) 500 mg PC PO 07/31/16 18:30 08/02/16 06:39 DC 08/01/16 18:09 Methylprednisolone (SOLUmedrol) 60 mg Q8H IV 08/02/16 06:00 08/03/16 06:57 DC 08/03/16 05:35 Methylprednisolone 40 mg 40 mg Q12H IV 08/03/16 18:00 08/04/16 07:32 DC 08/04/16 05:13 Mineral Oil/White Petrolatum APPLY TO RIGHT HAND BID TOP 08/04/16 09:00 09/03/16 08:59 08/06/16 08:29 Pantoprazole Sodium (Protonix) 40 mg DAILY PO 07/31/16 09:00 08/30/16 08:59 08/06/16 08:28 Piperacillin Sod/ Tazobactam Sod 4.5 gm/Dextrose 50 ml @ 50 mls/hr Q6H IV 08/01/16 21:00 08/02/16 01:31 DC 08/01/16 21:57 Piperacillin Sod/ Tazobactam Sod 4.5 gm/Dextrose 50 ml @ 50 mls/hr Q6H IV 08/02/16 09:00 08/02/16 19:10 DC 08/02/16 15:53 Piperacillin Sod/ Tazobactam Sod/ Dextrose (Zosyn/Dextrose 5% Mini-Bag Plus) 50 ml @ 50 mls/hr Q6H IV 08/02/16 21:00 08/04/16 07:29 DC 08/04/16 03:30 Polyethylene Glycol (Miralax) 1 pkt DAILYPRN PRN PO CONSTIPATION 07/31/16 13:00 08/30/16 12:59 Prednisone (Deltasone) 50 mg DAILY PO 08/06/16 09:00 09/05/16 08:59 08/06/16 08:28 Prednisone (Deltasone) 60 mg DAILY PO 08/04/16 09:00 08/05/16 12:59 DC 08/05/16 08:20 Prednisone 20 mg 20 mg DAILY PO 08/02/16 09:00 08/02/16 09:00 DC Senna (Senokot) 1 tab QHS PO 07/31/16 21:00 08/30/16 20:59 08/05/16 21:37 Sodium Chloride 1,000 ml @ 150 mls/hr Q6H40M IV 08/02/16 06:45 08/02/16 17:43 DC 08/02/16 06:54 Sodium Chloride (Nacl 0.9%) 1,000 ml @ 50 mls/hr Q20H IV 08/03/16 11:00 08/04/16 06:59 DC 08/03/16 10:59 Sodium Chloride (Nacl 0.9%) 1,000 ml @ 50 mls/hr Q20H IV 08/04/16 12:45 09/03/16 12:44 08/05/16 17:30 Tamsulosin HCl (Flomax) 0.4 mg DAILY PO 08/05/16 09:00 09/04/16 08:59 08/06/16 08:28 Vancomycin HCl 1000 mg/IV Miscellaneous Supplies 1 each/ Dextrose 270 ml @ 270 mls/hr Q12H IV 08/02/16 11:00 08/02/16 11:00 DC Vancomycin HCl 1000 mg/IV Miscellaneous Supplies 1 each/ Dextrose 270 ml @ 270 mls/hr Q24H IV 08/02/16 12:00 08/04/16 07:29 DC 08/03/16 12:05 REJI BLACKWELL MD Aug 06, 2016 12:43
[2016-08-06] MEDS: NS 1,000 ML IV SCH (13:48)
[2016-08-06 13:53] VITALS: BP 127/60
[2016-08-06 20:00] VITALS: BP 142/67
[2016-08-06] MEDS: LevoFLOXacin 750 MG TABLET PO SCH (20:57)
[2016-08-06] MEDS: SENNA 8.6 MG TAB (SENOKOT) PO SCH (20:57)
[2016-08-06] MEDS: amLODIPine 10 MG TAB PO SCH (20:57)
[2016-08-06] MEDS: CLOPIDOGREL 75 MG TAB PO SCH (20:57)
[2016-08-07 06:14] VITALS: BP 154/72
[2016-08-07] MEDS: ACETAMINOPHEN 500 MG TAB PO SCH ×3 (06:17→21:30)
[2016-08-07] MEDS: **hydrALAZINE** 10 MG TAB PO SCH ×4 (06:17→18:04)
[2016-08-07 06:50] LABS: BASO % 0.3 % (0.0-1.0); EOS # 0.2 K/mm3 (0.0-0.50); EOS % 2.1 % (0.0-3.0); LARGE UNSTAINED CELL # 0.1 K/mm3 (0.0-0.4); LARGE UNSTAINED CELL % 1.1 % (0.0-4.0); LYMPH # 1.7 K/mm3 (1.5-4.5); MEAN CORPUSCULAR HEMOGLOBIN 27.7 pg (27.0-33.0); MEAN CORPUSCULAR HGB CONC 31.4 g/dl (32.0-36.5); MEAN CORPUSCULAR VOLUME 88.2 fl (80.0-96.0); MONO # 0.4 K/mm3 (0.0-0.8); MONO % 4.8 % (0.0-5.0); NEUTROPHILS # 6.7 K/mm3 (1.8-7.7); NEUTROPHILS % 72.8 % (36.0-66.0); PLATELET COUNT, AUTOMATED 289 k/mm3 (150-450); RED CELL DISTRIBUTION WIDTH 13.4 % (11.5-14.5); WHITE BLOOD COUNT 9.2 K/mm3 (4.0-10.0)
[2016-08-07 07:05] LABS: ANION GAP 10 MEQ/L (8-16); BLOOD UREA NITROGEN 32 MG/DL (7-18); CALCIUM LEVEL 8.2 MG/DL (8.8-10.2); CARBON DIOXIDE LEVEL 26 MEQ/L (21-32); CHLORIDE LEVEL 107 MEQ/L (98-107); CREATININE FOR GFR 1.11 MG/DL (0.70-1.30); GLOMERULAR FILTRATION RATE > 60.0 (>35); GLUCOSE, FASTING 146 MG/DL (83-110); POTASSIUM SERUM 4.1 MEQ/L (3.5-5.1); SODIUM LEVEL 143 MEQ/L (136-145)
[2016-08-07] MEDS: SYMBICORT 160/4.5MCG INHALER 6GM INH SCH ×2 (07:48→21:00)
[2016-08-07] MEDS: LEVEMIR (INSULIN DETEMIR) 1 UNITS/0.01ML SC SCH (08:54)
[2016-08-07] MEDS: ENOXAPARIN 40 MG/0.4 ML SYRINGE (J1650) SC SCH (08:55)
[2016-08-07] MEDS: ASPIRIN 81 MG ENTERIC TAB PO SCH (08:55)
[2016-08-07] MEDS: HumaLOG INSULIN (NovoLOG) PER UNIT SC SCH ×4 (08:55→21:39)
[2016-08-07] MEDS: LACTOBACILLUS ACIDOPHILUS CAP (BACID) PO SCH ×2 (08:56→18:02)
[2016-08-07] MEDS: FINASTERIDE 5 MG TAB PO SCH (08:56)
[2016-08-07] MEDS: DOCUSATE SODIUM 100 MG CAP PO SCH ×2 (08:56→21:30)
[2016-08-07] MEDS: predniSONE 50 MG TAB PO SCH (08:56)
[2016-08-07] MEDS: ATENOLOL 25 MG TAB PO SCH (08:57)
[2016-08-07] MEDS: PANTOPRAZOLE 40MG TAB (PROTONIX) PO SCH (08:57)
[2016-08-07] MEDS: ATORVASTATIN 20 MG TAB PO SCH (08:58)
[2016-08-07] MEDS: TAMSULOSIN 0.4 MG CAP PO SCH (08:58)
[2016-08-07] MEDS: EUCERIN 120GM CREAM TOP SCH ×2 (09:03→21:32)
--- NOTE | 2016-08-07 09:55 | IPNPDOC ---
[employer] Progress Note PROGRESS NOTE DATE OF ADMISSION: 07/31/2016 DATE OF SERVICE: 08/07/2016 IDENTIFICATION STATEMENT: Patient is an 86-year-old left-hand dominant man with acute midbrain CVA and right hemiparesis admitted for comprehensive integrated inpatient rehabilitation. 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 No residual weakness except left eye palsy Skull fracture 1980s secondary very to fall off scaffolding Multiple broken bones PAST SURGICAL HISTORY: Appendectomy Cholecystectomy Cataract surgery ALLERGIES: No known drug allergies MEDICATIONS: Levaquin 750mg PO daily Bacid 1 bid Prednisone taper Duoneb q2h prn Hydralazine 10mg po q6h Norvasc 10mg qhs Atenolol 25 mg by mouth twice a day Lisinopril 40 mg by mouth daily Aspirin 81 mg by mouth daily Lipitor 20 mg by mouth daily Proscar 5 mg by mouth daily Flomax 0.4mg daily Lovenox 40 mg subcutaneous daily Detemir 10u daily Insulin sliding scale before meals and at bedtime Symbicort 160/4.5 g 2 puffs inhaled twice a day Plavix 75 mg by mouth qpm albuterol sulfate 2 puffs inhaled 4 times a day when necessary shortness of breath Acetaminophen 1000mg q8h SUBJECTIVE: Patient w/o complaints. Urinating well. No issues, feels like getting better. Denies any chest pain, shortness of breath, lightheadedness, chills, diaphoresis, nausea/vomiting. VITAL SIGNS: 97.2F, pulse 72, respiratory rate 18, blood pressure 146/60, 94% saturation on RA PHYSICAL EXAMINATION: GENERAL: Well nourished, well developed, sitting in chair, no acute distress. HEENT: Normocephalic, atraumatic. No facial droop. Left eye palsy (unchanged). PERRL, EOMI CARDIOVASCULAR: S1, S2, regular rate. No lower limb swelling or calf tenderness. LUNGS: Diffusely decreased breath sounds throughout but CTA, no rhonchi or wheezing. ABDOMEN: Soft, nontender, nondistended. Normoactive bowel sounds throughout. MUSCULOSKELETAL: MMT: 3/5 right shoulder shrug, 3-/5 right finger flexion, 2/5 finger extension, 0/5 remainder of the right upper. 3/5 right HF, 3- KE/KF, 0/ 5 right DF/PF/EHL. 5/5 strength left upper and lower limb in all major muscle groups. NEUROLOGICAL: Alert and oriented x 3. Answers all questions appropriately. Able to follow commands SKIN: +mild swelling & erythema on the dorsum of the right hand, recurrent (~ decreased as compared to yesterday), no erythema over the elbow. LABORATORY DATA: 08/07/16 reviewed: see below 07/31/2016: WBC count 11.1, hemoglobin 12.3, hematocrit 38.7, plt 272. Sodium 140, potassium 4.0, chloride 104, carbon dioxide 27, BUN 29, creatinine 1.20, GFR greater than 60, fasting glucose 160, calcium 8.7, magnesium 2.2, Blood culture 2 07/29/2016: No growth in 24 hours MRSA screen 07/28/2016 negative Sputum 07/29/2016 IMAGING: CXR 07/31/16: non-acute MRI brain 07/27/16: old right frontal infarct, generalization age appropriate parenchymal atrophy, severe chronic white matter microvascular ischemic changes. MRA 07/27/16: non-acute MRI C-T-L spine 07/27/16 reviewed: T5 abnormality FUNCTIONAL STATUS, Premorbid: Independent ADLs and ambulation. ASSESSMENT AND PLAN: 1. 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 Patient regain some strength. Continue physical and occupational therapy. Rehabilitation nursing for bladder, bowel and medication management. 2. COPD exacerbation +/- HAP: On abx, S/p IV steroids. Improved. Abx but changed to PO 08/06/16. Contiune taper off oral steroids, duonebs prn 3. Retention/hematuria: Gross hematuria resolved, dysuria resolved, Parks d/cd 08/05/16 2nd leakage. Bladder scans w/o significant residual. 4. Bacteremia: Thought contaminant. S/p IV vanco. 5. Acute renal failure, dehydration possible exacerbated by vancomycin: Resolving. Vanco discontinued. Will d/c IV fluids today and heplock IV. Encourage oral hydration. AM labs 6. Right hand erythema and pain: Erythema decreased. On levaquin which would cover for cellulitis. Continue compression glove for edema. Continue right arm sling when OOB. 7. Hypertension: Improved s/p Increased hydralazine 08/06/16. Continue lisinopril and atenolol. Further dose adjustments as indicated. 8. DVT prophylaxis: Maintain Lovenox daily. Continue SCD and TOBIN hose. 9. Diabetes mellitus type 2: Metformin d/cd 2n BOB. Continue detemir + ISS for now. 10. Bowel: Maintain Colace and senna scheduled along with milk of magnesia and MiraLAX on an as-needed basis 11. Malnutrition: Prealbumin low , continue Glucerna. Continue carb consistent diet. / Vital Signs Vital Sign - Last 24 Hours 08/06/16 08/06/16 08/06/16 08/06/16 12:00 13:53 17:40 20:00 Temp 97.9 98.2 Pulse 62 62 Resp 18 19 B/P 133/60 127/60 163/77 142/67 Pulse Ox 94 94 O2 Delivery Room Air Room Air 08/06/16 08/07/16 08/07/16 08/07/16 20:57 00:00 06:14 06:17 Temp 97.2 Pulse 62 72 Resp 18 B/P 142/67 136/66 154/72 154/72 Pulse Ox 94 O2 Delivery Room Air 08/07/16 08:57 Pulse 72 B/P 146/60 Laboratory Data CBC/BMP Laboratory Tests 08/07/16 06:30 Calcium Level 8.2 L, Red Blood Count 4.12 L, Mean Corpuscular Volume 88.2, Mean Corpuscular Hemoglobin 27.7, Mean Corpuscular Hemoglobin Concent 31.4 L, Red Cell Distribution Width 13.4, Neutrophils (%) (Auto) 72.8 H, Lymphocytes (%) ( Auto) 19.0 L, Monocytes (%) (Auto) 4.8, Eosinophils (%) (Auto) 2.1, Basophils (% ) (Auto) 0.3, Neutrophils # (Auto) 6.7, Lymphocytes # (Auto) 1.7, Monocytes # ( Auto) 0.4, Eosinophils # (Auto) 0.2, Basophils # (Auto) 0.0 Labs 24H Laboratory Tests 2 08/06/16 11:43: Bedside Glucose (Misc Panel) 200H 08/06/16 15:55: Bedside Glucose (Misc Panel) 352H 08/06/16 20:19: Bedside Glucose (Misc Panel) 320H 08/07/16 06:30: Anion Gap 10, White Blood Count 9.2, Red Blood Count 4.12L, Hemoglobin 11.4L, Hematocrit 36.4L, Mean Corpuscular Volume 88.2, Mean Corpuscular Hemoglobin 27.7 , Mean Corpuscular Hemoglobin Concent 31.4L, Red Cell Distribution Width 13.4, Platelet Count 289, Neutrophils (%) (Auto) 72.8H, Lymphocytes (%) (Auto) 19.0L, Monocytes (%) (Auto) 4.8, Eosinophils (%) (Auto) 2.1, Basophils (%) (Auto) 0.3, Neutrophils # (Auto) 6.7, Lymphocytes # (Auto) 1.7, Monocytes # (Auto) 0.4, Eosinophils # (Auto) 0.2, Basophils # (Auto) 0.0, Blood Urea Nitrogen 32H, Creatinine 1.11, Sodium Level 143, Potassium Level 4.1, Chloride Level 107, Carbon Dioxide Level 26, Calcium Level 8.2L, Glomerular Filtration Rate > 60.0, Large Unclassified Cells # 0.1, Large Unclassified Cells % 1.1 FSBS Laboratory Tests Test 08/06/16 11:43 08/06/16 15:55 08/06/16 20:19 Range/Units Bedside Glucose (Misc Panel) 200 352 320 83-110 MG/DL Microbiology Microbiology 08/03/16 Blood Culture - Preliminary, Resulted No Growth after 72 hours. All specime... 08/03/16 Blood Culture - Preliminary, Resulted No Growth after 72 hours. All specime... 07/31/16 Blood Culture - Final, Complete Staphylococcus Warneri 07/31/16 Blood Culture - Final, Complete NO GROWTH AFTER 5 DAYS 08/02/16 Gram Stain - Final, Complete 08/02/16 Sputum Culture - Final, Complete 07/31/16 Urine Culture - Final, Complete Allergies Allergies: Coded Allergies: No Known Allergies (Verified Allergy, Unknown, 04/25/10) Current Medications Current Medications Current Medications Medications (Trade) Dose Ordered Sig/Bhavik Route PRN Reason Start Time Stop Time Status Last Admin Dose Admin Acetaminophen (Tylenol Tab) 1,000 mg Q8H PO 08/04/16 14:00 09/03/16 13:59 08/07/16 06:17 Acetaminophen (Tylenol) 650 mg Q4HP PRN PO MILD PAIN (PS 1-4) 07/31/16 13:00 08/04/16 09:58 DC 08/04/16 05:18 Acetaminophen/ Hydrocodone Bitart ([place], Anexsia 5/325) 1 tab Q4HP PRN PO MODERATE/SEVERE PAIN (PS 5-10) 07/31/16 13:00 08/13/16 12:59 Albuterol Sulfate (Proventil, Ventolin Hfa) 2 puff QIDP PRN INH SHORTNESS OF BREATH 07/31/16 13:00 08/02/16 01:31 DC Albuterol/ Ipratropium (Duoneb (Ipr 0.5mg/Alb 2.5mg)) 3 ml Q2HP PRN NEB SOB/WHEEZING 08/01/16 21:00 08/31/16 20:59 08/02/16 01:09 Albuterol/ Ipratropium (Duoneb (Ipr 0.5mg/Alb 2.5mg)) 3 ml RQ6H NEB 08/02/16 02:00 08/04/16 11:39 DC 08/03/16 13:32 Amlodipine Besylate (Norvasc) 5 mg BID PO 07/31/16 21:00 08/04/16 07:35 DC 08/03/16 21:26 Amlodipine Besylate (Norvasc) 10 mg QHS PO 08/04/16 21:00 09/03/16 20:59 08/06/16 20:57 Aspirin (Ecotrin) 81 mg DAILY PO 08/01/16 09:00 08/31/16 08:59 08/07/16 08:55 Atenolol (Tenormin) 25 mg BID PO 07/31/16 21:00 08/04/16 07:33 DC 08/03/16 21:25 Atenolol (Tenormin) 25 mg DAILY PO 08/04/16 09:00 09/03/16 08:59 08/07/16 08:57 Atorvastatin Calcium (Lipitor) 20 mg DAILY PO 08/01/16 09:00 08/31/16 08:59 08/07/16 08:58 Benzonatate (Tessalon Perles) 100 mg TID PO 08/01/16 09:00 08/04/16 11:11 DC 08/04/16 10:24 Budesonide/ Formoterol Fumarate (Symbicort 160/ 4.5mcg) 2 puff BID INH 07/31/16 21:00 08/30/16 20:59 08/07/16 07:48 Cefdinir (Omnicef) 300 mg BID PO 08/02/16 09:00 08/02/16 09:00 DC Clopidogrel Bisulfate (PLAVix) 75 mg QPM PO 07/31/16 21:00 08/30/16 20:59 08/06/16 20:57 Dextrose (Dextrose 50%) 25 ml ASDIRECTED PRN IV SEE LABEL COMMENTS 07/31/16 20:30 08/30/16 20:29 Docusate Sodium (Colace) 100 mg BID PO 07/31/16 21:00 08/30/16 20:59 08/07/16 08:56 Enoxaparin Sodium (Lovenox) 40 mg DAILY SC 08/01/16 09:00 08/10/16 08:59 08/07/16 08:55 Finasteride (Proscar) 5 mg DAILY PO 08/01/16 09:00 08/31/16 08:59 08/07/16 08:56 Glucagon (Glucagon) 1 mg ASDIRECTED PRN SC SEE LABEL COMMENTS 07/31/16 20:30 08/30/16 20:29 Glucose (Glucose) 16 GM ASDIRECTED PRN PO SEE LABEL COMMENTS 07/31/16 20:30 08/30/16 20:29 Hydralazine HCl (Apresoline) 10 mg Q6H PO 08/06/16 12:00 09/05/16 11:59 08/07/16 06:17 Hydralazine HCl (Apresoline) 10 mg TID PO 08/02/16 09:00 08/06/16 12:35 DC 08/06/16 08:28 Insulin Detemir (Levemir Insulin) 10 units DAILY SC 08/04/16 09:00 09/03/16 08:59 08/07/16 08:54 Insulin Human Lispro (HumaLOG INSULIN) See Protocol Table AC SC 08/01/16 07:30 08/31/16 07:29 08/07/16 08:55 Insulin Human Lispro (HumaLOG INSULIN) See Protocol Table QHS SC 07/31/16 21:00 08/30/16 20:59 08/06/16 21:02 Lactobacillus Acidophilus (Bacid) 1 ea BID PO 08/01/16 21:00 08/02/16 10:52 DC 08/01/16 21:17 Lactobacillus Acidophilus 1 ea 1 ea BIDWM PO 08/02/16 08:00 08/11/16 18:01 08/07/16 08:56 Levofloxacin (Levaquin) 750 mg DAILY@21 PO 08/06/16 21:00 08/13/16 20:59 08/06/16 20:57 Levofloxacin (Levaquin) 750 mg Q2D@18 PO 08/01/16 18:00 08/01/16 20:43 DC Levofloxacin 750 mg/IV Miscellaneous Supplies 150 ml @ 100 mls/hr Q48H IV 08/01/16 22:00 08/01/16 22:00 DC Levofloxacin 750 mg/IV Miscellaneous Supplies 150 ml @ 100 mls/hr Q48H IV 08/03/16 22:00 08/06/16 10:16 DC 08/05/16 21:39 Levofloxacin/IV Miscellaneous Supplies (Levaquin) 150 ml @ 100 mls/hr Q48H IV 08/03/16 22:00 08/03/16 22:00 DC Lisinopril (Prinivil) 40 mg DAILY PO 08/01/16 09:00 08/02/16 06:38 DC 08/01/16 08:44 Magnesium Hydroxide (Milk Of Magnesia) 30 ml DAILYPRN PRN PO CONSTIPATION 07/31/16 13:00 08/30/16 12:59 Metformin HCl (Glucophage) 500 mg PC PO 07/31/16 18:30 08/02/16 06:39 DC 08/01/16 18:09 Methylprednisolone (SOLUmedrol) 60 mg Q8H IV 08/02/16 06:00 08/03/16 06:57 DC 08/03/16 05:35 Methylprednisolone 40 mg 40 mg Q12H IV 08/03/16 18:00 08/04/16 07:32 DC 08/04/16 05:13 Mineral Oil/White Petrolatum APPLY TO RIGHT HAND BID TOP 08/04/16 09:00 09/03/16 08:59 08/07/16 09:03 Pantoprazole Sodium (Protonix) 40 mg DAILY PO 07/31/16 09:00 08/30/16 08:59 08/07/16 08:57 Piperacillin Sod/ Tazobactam Sod 4.5 gm/Dextrose 50 ml @ 50 mls/hr Q6H IV 08/01/16 21:00 08/02/16 01:31 DC 08/01/16 21:57 Piperacillin Sod/ Tazobactam Sod 4.5 gm/Dextrose 50 ml @ 50 mls/hr Q6H IV 08/02/16 09:00 08/02/16 19:10 DC 08/02/16 15:53 Piperacillin Sod/ Tazobactam Sod/ Dextrose (Zosyn/Dextrose 5% Mini-Bag Plus) 50 ml @ 50 mls/hr Q6H IV 08/02/16 21:00 08/04/16 07:29 DC 08/04/16 03:30 Polyethylene Glycol (Miralax) 1 pkt DAILYPRN PRN PO CONSTIPATION 07/31/16 13:00 08/30/16 12:59 Prednisone (Deltasone) 10 mg DAILY PO 08/20/16 09:00 09/19/16 08:59 UNV Prednisone (Deltasone) 15 mg DAILY PO 08/17/16 09:00 08/19/16 23:00 UNV Prednisone (Deltasone) 20 mg DAILY PO 08/13/16 09:00 08/16/16 23:00 UNV Prednisone (Deltasone) 30 mg DAILY PO 08/10/16 09:00 08/12/16 23:00 UNV Prednisone (Deltasone) 40 mg DAILY PO 08/08/16 09:00 08/09/16 23:00 UNV Prednisone (Deltasone) 50 mg DAILY PO 08/06/16 09:00 08/07/16 09:49 DC 08/07/16 08:56 Prednisone (Deltasone) 60 mg DAILY PO 08/04/16 09:00 08/05/16 12:59 DC 08/05/16 08:20 Prednisone 20 mg 20 mg DAILY PO 08/02/16 09:00 08/02/16 09:00 DC Senna (Senokot) 1 tab QHS PO 07/31/16 21:00 08/30/16 20:59 08/06/16 20:57 Sodium Chloride 1,000 ml @ 150 mls/hr Q6H40M IV 08/02/16 06:45 08/02/16 17:43 DC 08/02/16 06:54 Sodium Chloride (Nacl 0.9%) 1,000 ml @ 50 mls/hr Q20H IV 08/03/16 11:00 08/04/16 06:59 DC 08/03/16 10:59 Sodium Chloride (Nacl 0.9%) 1,000 ml @ 50 mls/hr Q20H IV 08/04/16 12:45 08/07/16 08:51 DC 08/06/16 13:48 Tamsulosin HCl (Flomax) 0.4 mg DAILY PO 08/05/16 09:00 09/04/16 08:59 08/07/16 08:58 Vancomycin HCl 1000 mg/IV Miscellaneous Supplies 1 each/ Dextrose 270 ml @ 270 mls/hr Q12H IV 08/02/16 11:00 08/02/16 11:00 DC Vancomycin HCl 1000 mg/IV Miscellaneous Supplies 1 each/ Dextrose 270 ml @ 270 mls/hr Q24H IV 08/02/16 12:00 08/04/16 07:29 DC 08/03/16 12:05 REJI BLACKWELL MD Aug 07, 2016 09:55
[2016-08-07 12:15] VITALS: BP 169/76
[2016-08-07 20:00] VITALS: BP 153/73
[2016-08-07] MEDS: amLODIPine 10 MG TAB PO SCH (21:30)
[2016-08-07] MEDS: LevoFLOXacin 750 MG TABLET PO SCH (21:30)
[2016-08-07] MEDS: SENNA 8.6 MG TAB (SENOKOT) PO SCH (21:30)
[2016-08-07] MEDS: CLOPIDOGREL 75 MG TAB PO SCH (21:39)
[2016-08-08] VITALS: BP 140/68
[2016-08-08] MEDS: **hydrALAZINE** 10 MG TAB PO SCH ×4 (05:37→17:02)
[2016-08-08] MEDS: ACETAMINOPHEN 500 MG TAB PO SCH ×3 (05:41→21:42)
[2016-08-08 06:00] VITALS: BP 133/64
[2016-08-08] MEDS: SYMBICORT 160/4.5MCG INHALER 6GM INH SCH ×2 (06:22→21:05)
[2016-08-08 07:06] LABS: BASO % 0.3 % (0.0-1.0); EOS # 0.2 K/mm3 (0.0-0.50); EOS % 1.7 % (0.0-3.0); LARGE UNSTAINED CELL # 0.1 K/mm3 (0.0-0.4); LARGE UNSTAINED CELL % 1.2 % (0.0-4.0); LYMPH # 1.8 K/mm3 (1.5-4.5); LYMPH % 16.7 % (24.0-44.0); MEAN CORPUSCULAR HEMOGLOBIN 28.6 pg (27.0-33.0); MEAN CORPUSCULAR HGB CONC 32.4 g/dl (32.0-36.5); MEAN CORPUSCULAR VOLUME 88.3 fl (80.0-96.0); MONO # 0.5 K/mm3 (0.0-0.8); NEUTROPHILS % 75.1 % (36.0-66.0); PLATELET COUNT, AUTOMATED 289 k/mm3 (150-450); RED CELL DISTRIBUTION WIDTH 13.5 % (11.5-14.5); WHITE BLOOD COUNT 10.6 K/mm3 (4.0-10.0)
[2016-08-08 07:35] LABS: ANION GAP 8 MEQ/L (8-16); BLOOD UREA NITROGEN 29 MG/DL (7-18); CALCIUM LEVEL 8.2 MG/DL (8.8-10.2); CARBON DIOXIDE LEVEL 29 MEQ/L (21-32); CHLORIDE LEVEL 105 MEQ/L (98-107); CREATININE FOR GFR 1.11 MG/DL (0.70-1.30); GLOMERULAR FILTRATION RATE > 60.0 (>35); GLUCOSE, FASTING 118 MG/DL (83-110); SODIUM LEVEL 142 MEQ/L (136-145)
[2016-08-08] MEDS: IPRATROPIUM 0.5MG/ALBUTEROL 2.5MG INH SOL UD 3ML (DUONEB)(J7620) NEB SCH ×3 (08:17→20:00)
[2016-08-08] MEDS: HumaLOG INSULIN (NovoLOG) PER UNIT SC SCH ×4 (09:09→21:45)
[2016-08-08] MEDS: LACTOBACILLUS ACIDOPHILUS CAP (BACID) PO SCH ×2 (09:09→17:01)
[2016-08-08] MEDS: ATORVASTATIN 20 MG TAB PO SCH (09:10)
[2016-08-08] MEDS: ASPIRIN 81 MG ENTERIC TAB PO SCH (09:10)
[2016-08-08] MEDS: FINASTERIDE 5 MG TAB PO SCH (09:10)
[2016-08-08] MEDS: DOCUSATE SODIUM 100 MG CAP PO SCH ×2 (09:10→21:42)
[2016-08-08] MEDS: predniSONE 20 MG TAB PO SCH (09:10)
[2016-08-08] MEDS: PANTOPRAZOLE 40MG TAB (PROTONIX) PO SCH (09:11)
[2016-08-08] MEDS: TAMSULOSIN 0.4 MG CAP PO SCH (09:11)
[2016-08-08] MEDS: LEVEMIR (INSULIN DETEMIR) 1 UNITS/0.01ML SC SCH (09:12)
[2016-08-08] MEDS: ATENOLOL 25 MG TAB PO SCH (09:13)
[2016-08-08] MEDS: EUCERIN 120GM CREAM TOP SCH ×2 (09:14→21:41)
[2016-08-08] MEDS: ENOXAPARIN 40 MG/0.4 ML SYRINGE (J1650) SC SCH (09:14)
[2016-08-08 14:00] VITALS: BP 140/65
--- NOTE | 2016-08-08 15:43 | IPNPDOC ---
Assessment/Plan Date Seen The patient was seen on 08/08/16. Problems Problems: (1) COPD with exacerbation Status: Acute Problem Text: * Cont nebs * Finish course of Levaquin. * SC 07/29 H influenza. * Blood culture 1 07/31 Staph warneri * Blood culture 2 08/03 are noted to be negative. * WBC 10.6. * Patient is afebrile. * This has been reviewed with Dr Martin/ also D/W Dr. Rowan. * Continue with Levaquin 750mg daily. * po prednisone taper. * Monitor labs. (2) HTN (hypertension) Status: Chronic Problem Text: * Hydralazine * Norvasc * Atenolol (3) BPH (benign prostatic hyperplasia) Status: Chronic Problem Text: * Proscar * Flomax (4) HLD (hyperlipidemia) Status: Chronic Problem Text: * Lipitor (5) CVA (cerebral vascular accident) Status: Acute Problem Text: * ASA/Plavix * Rehab as per Dr Stacy. Plan / VTE VTE Prophylaxis Ordered?: Yes Plan / Urinary Catheter Reason for insertion/continuin: Acute obstruct/retention Subjective Review of Systems CC/HPI The patient is a 86-year-old male admitted with a reason for visit of Left Sided Weakness. Events since last encounter Pt states breathing is better. cough improved. No complaints. Objective Physical Examination General Exam: Positive: Alert Eye Exam: Positive: PERRLA ENT Exam: Positive: Atraumatic, Mucous membr. moist/pink, Pharynx Normal Chest Exam: Positive: Clear to auscultation, Normal air movement Heart Exam: Positive: Normal S1, Normal S2, Rate Normal, Regular Rhythm, Negative: Murmurs, Rubs Abdomen Exam: Positive: Normal bowel sounds, Other (masters ), Soft, Negative: Hepatospenomegaly, Tenderness Skin Exam: Positive: Nl turgor and temperature Vital Signs/I&O Vital Signs Date Time Temp Pulse Resp B/P Pulse Ox O2 Delivery O2 Flow Rate FiO2 08/08/16 14:00 98.2 72 18 140/65 93 Room Air 08/02/16 14:00 2.0 I&O- Last 24 Hours up to 6 AM 08/08/16 06:00 Intake Total 1544 ml Output Total 2400 ml Balance -856 ml Laboratory Data Labs 24H Laboratory Tests 2 08/07/16 16:33: Bedside Glucose (Misc Panel) 279H 08/07/16 20:51: Bedside Glucose (Misc Panel) 263H 08/08/16 06:16: Anion Gap 8, White Blood Count 10.6H, Red Blood Count 4.11L, Hemoglobin 11.8L, Hematocrit 36.3L, Mean Corpuscular Volume 88.3, Mean Corpuscular Hemoglobin 28.6 , Mean Corpuscular Hemoglobin Concent 32.4, Red Cell Distribution Width 13.5, Platelet Count 289, Neutrophils (%) (Auto) 75.1H, Lymphocytes (%) (Auto) 16.7L, Monocytes (%) (Auto) 5.0, Eosinophils (%) (Auto) 1.7, Basophils (%) (Auto) 0.3, Neutrophils # (Auto) 8.0H, Lymphocytes # (Auto) 1.8, Monocytes # (Auto) 0.5, Eosinophils # (Auto) 0.2, Basophils # (Auto) 0.0, Blood Urea Nitrogen 29H, Creatinine 1.11, Sodium Level 142, Potassium Level 4.0, Chloride Level 105, Carbon Dioxide Level 29, Calcium Level 8.2L, Glomerular Filtration Rate > 60.0, Large Unclassified Cells # 0.1, Large Unclassified Cells % 1.2 08/08/16 11:16: Bedside Glucose (Misc Panel) 250H CBC/BMP Laboratory Tests 08/08/16 06:16 Calcium Level 8.2 L, Red Blood Count 4.11 L, Mean Corpuscular Volume 88.3, Mean Corpuscular Hemoglobin 28.6, Mean Corpuscular Hemoglobin Concent 32.4, Red Cell Distribution Width 13.5, Neutrophils (%) (Auto) 75.1 H, Lymphocytes (%) (Auto) 16.7 L, Monocytes (%) (Auto) 5.0, Eosinophils (%) (Auto) 1.7, Basophils (%) ( Auto) 0.3, Neutrophils # (Auto) 8.0 H, Lymphocytes # (Auto) 1.8, Monocytes # ( Auto) 0.5, Eosinophils # (Auto) 0.2, Basophils # (Auto) 0.0 FSBS Laboratory Tests Test 08/07/16 16:33 08/07/16 20:51 08/08/16 11:16 Range/Units Bedside Glucose (Misc Panel) 279 263 250 83-110 MG/DL Microbiology Microbiology 08/03/16 Blood Culture - Final, Complete NO GROWTH AFTER 5 DAYS 08/03/16 Blood Culture - Final, Complete NO GROWTH AFTER 5 DAYS 07/31/16 Blood Culture - Final, Complete Staphylococcus Warneri 07/31/16 Blood Culture - Final, Complete NO GROWTH AFTER 5 DAYS 08/02/16 Gram Stain - Final, Complete 08/02/16 Sputum Culture - Final, Complete 07/31/16 Urine Culture - Final, Complete Suad Cox Aug 08, 2016 15:43
[2016-08-08 17:00] VITALS: BP 134/65
[2016-08-08 20:27] VITALS: BP 140/73
[2016-08-08] MEDS: SENNA 8.6 MG TAB (SENOKOT) PO SCH (21:42)
[2016-08-08] MEDS: LevoFLOXacin 750 MG TABLET PO SCH (21:42)
[2016-08-08] MEDS: CLOPIDOGREL 75 MG TAB PO SCH (21:42)
[2016-08-08] MEDS: amLODIPine 10 MG TAB PO SCH (21:44)
[2016-08-09] MEDS: IPRATROPIUM 0.5MG/ALBUTEROL 2.5MG INH SOL UD 3ML (DUONEB)(J7620) NEB SCH ×4 (02:00→20:00)
[2016-08-09] MEDS: ACETAMINOPHEN 500 MG TAB PO SCH ×3 (05:22→21:41)
[2016-08-09] MEDS: **hydrALAZINE** 10 MG TAB PO SCH ×5 (05:22→23:57)
[2016-08-09 06:00] VITALS: BP 148/81
[2016-08-09 06:55] LABS: BASO % 0.1 % (0.0-1.0); EOS # 0.2 K/mm3 (0.0-0.50); EOS % 1.8 % (0.0-3.0); LARGE UNSTAINED CELL # 0.1 K/mm3 (0.0-0.4); LARGE UNSTAINED CELL % 0.8 % (0.0-4.0); LYMPH # 1.8 K/mm3 (1.5-4.5); LYMPH % 14.8 % (24.0-44.0); MEAN CORPUSCULAR HEMOGLOBIN 28.4 pg (27.0-33.0); MEAN CORPUSCULAR HGB CONC 31.8 g/dl (32.0-36.5); MEAN CORPUSCULAR VOLUME 89.3 fl (80.0-96.0); MONO # 0.5 K/mm3 (0.0-0.8); MONO % 4.3 % (0.0-5.0); NEUTROPHILS # 9.5 K/mm3 (1.8-7.7); NEUTROPHILS % 78.1 % (36.0-66.0); PLATELET COUNT, AUTOMATED 321 k/mm3 (150-450); RED CELL DISTRIBUTION WIDTH 13.7 % (11.5-14.5); WHITE BLOOD COUNT 12.1 K/mm3 (4.0-10.0)
[2016-08-09 07:15] LABS: ANION GAP 8 MEQ/L (8-16); BLOOD UREA NITROGEN 27 MG/DL (7-18); CALCIUM LEVEL 8.4 MG/DL (8.8-10.2); CARBON DIOXIDE LEVEL 29 MEQ/L (21-32); CHLORIDE LEVEL 104 MEQ/L (98-107); CREATININE FOR GFR 1.16 MG/DL (0.70-1.30); GLOMERULAR FILTRATION RATE > 60.0 (>35); GLUCOSE, FASTING 122 MG/DL (83-110); POTASSIUM SERUM 3.8 MEQ/L (3.5-5.1); SODIUM LEVEL 141 MEQ/L (136-145)
[2016-08-09] MEDS: SYMBICORT 160/4.5MCG INHALER 6GM INH SCH ×2 (08:02→19:53)
[2016-08-09] MEDS: PANTOPRAZOLE 40MG TAB (PROTONIX) PO SCH (08:16)
[2016-08-09] MEDS: ATORVASTATIN 20 MG TAB PO SCH (08:16)
[2016-08-09] MEDS: ASPIRIN 81 MG ENTERIC TAB PO SCH (08:16)
[2016-08-09] MEDS: TAMSULOSIN 0.4 MG CAP PO SCH (08:16)
[2016-08-09] MEDS: FINASTERIDE 5 MG TAB PO SCH (08:17)
[2016-08-09] MEDS: LACTOBACILLUS ACIDOPHILUS CAP (BACID) PO SCH ×2 (08:17→17:17)
[2016-08-09] MEDS: DOCUSATE SODIUM 100 MG CAP PO SCH ×2 (08:17→21:40)
[2016-08-09] MEDS: predniSONE 20 MG TAB PO SCH (08:17)
[2016-08-09] MEDS: ENOXAPARIN 40 MG/0.4 ML SYRINGE (J1650) SC SCH (08:18)
[2016-08-09] MEDS: HumaLOG INSULIN (NovoLOG) PER UNIT SC SCH ×4 (08:19→21:40)
[2016-08-09] MEDS: LEVEMIR (INSULIN DETEMIR) 1 UNITS/0.01ML SC SCH (08:19)
[2016-08-09 08:20] VITALS: BP 159/78
[2016-08-09] MEDS: EUCERIN 120GM CREAM TOP SCH ×2 (08:20→21:41)
[2016-08-09] MEDS: ATENOLOL 25 MG TAB PO SCH (08:22)
[2016-08-09 14:00] VITALS: BP 127/73
[2016-08-09 20:00] VITALS: BP 155/72
[2016-08-09] MEDS: CLOPIDOGREL 75 MG TAB PO SCH (21:40)
[2016-08-09] MEDS: SENNA 8.6 MG TAB (SENOKOT) PO SCH (21:40)
[2016-08-09] MEDS: LevoFLOXacin 750 MG TABLET PO SCH (21:41)
[2016-08-09] MEDS: amLODIPine 10 MG TAB PO SCH (21:41)
[2016-08-10] MEDS: IPRATROPIUM 0.5MG/ALBUTEROL 2.5MG INH SOL UD 3ML (DUONEB)(J7620) NEB SCH ×4 (02:00→18:07)
[2016-08-10 06:00] VITALS: BP 164/78
[2016-08-10] MEDS: **hydrALAZINE** 10 MG TAB PO SCH ×4 (06:12→23:01)
[2016-08-10] MEDS: ACETAMINOPHEN 500 MG TAB PO SCH ×3 (06:12→23:01)
[2016-08-10 06:50] LABS: BASO % 0.1 % (0.0-1.0); EOS # 0.1 K/mm3 (0.0-0.50); EOS % 1.1 % (0.0-3.0); LARGE UNSTAINED CELL # 0.1 K/mm3 (0.0-0.4); LARGE UNSTAINED CELL % 0.7 % (0.0-4.0); LYMPH # 1.5 K/mm3 (1.5-4.5); MEAN CORPUSCULAR HEMOGLOBIN 28.8 pg (27.0-33.0); MEAN CORPUSCULAR HGB CONC 32.6 g/dl (32.0-36.5); MEAN CORPUSCULAR VOLUME 88.5 fl (80.0-96.0); MONO # 0.6 K/mm3 (0.0-0.8); NEUTROPHILS % 80.2 % (36.0-66.0); PLATELET COUNT, AUTOMATED 303 k/mm3 (150-450); RED CELL DISTRIBUTION WIDTH 14.2 % (11.5-14.5); WHITE BLOOD COUNT 11.2 K/mm3 (4.0-10.0)
[2016-08-10 07:07] LABS: ANION GAP 9 MEQ/L (8-16); BLOOD UREA NITROGEN 25 MG/DL (7-18); CALCIUM LEVEL 8.6 MG/DL (8.8-10.2); CARBON DIOXIDE LEVEL 28 MEQ/L (21-32); CHLORIDE LEVEL 105 MEQ/L (98-107); GLOMERULAR FILTRATION RATE > 60.0 (>35); GLUCOSE, FASTING 128 MG/DL (83-110); POTASSIUM SERUM 4.1 MEQ/L (3.5-5.1); SODIUM LEVEL 142 MEQ/L (136-145)
[2016-08-10] MEDS: LACTOBACILLUS ACIDOPHILUS CAP (BACID) PO SCH ×2 (07:32→17:02)
[2016-08-10] MEDS: predniSONE 10 MG TAB PO SCH (07:33)
[2016-08-10] MEDS: ASPIRIN 81 MG ENTERIC TAB PO SCH (07:33)
[2016-08-10] MEDS: HumaLOG INSULIN (NovoLOG) PER UNIT SC SCH ×4 (07:33→20:39)
[2016-08-10] MEDS: TAMSULOSIN 0.4 MG CAP PO SCH (07:33)
[2016-08-10] MEDS: DOCUSATE SODIUM 100 MG CAP PO SCH ×2 (07:34→20:36)
[2016-08-10] MEDS: FINASTERIDE 5 MG TAB PO SCH (07:34)
[2016-08-10] MEDS: ENOXAPARIN 40 MG/0.4 ML SYRINGE (J1650) SC SCH (07:34)
[2016-08-10] MEDS: ATORVASTATIN 20 MG TAB PO SCH (07:34)
[2016-08-10] MEDS: PANTOPRAZOLE 40MG TAB (PROTONIX) PO SCH (07:34)
[2016-08-10] MEDS: LEVEMIR (INSULIN DETEMIR) 1 UNITS/0.01ML SC SCH (07:41)
[2016-08-10] MEDS: EUCERIN 120GM CREAM TOP SCH ×2 (07:46→20:40)
[2016-08-10 07:53] VITALS: BP 132/60
[2016-08-10] MEDS: ATENOLOL 25 MG TAB PO SCH (08:05)
[2016-08-10] MEDS: SYMBICORT 160/4.5MCG INHALER 6GM INH SCH ×2 (08:38→18:07)
[2016-08-10 14:16] VITALS: BP 139/63
[2016-08-10 20:00] VITALS: BP 128/67
[2016-08-10] MEDS: amLODIPine 10 MG TAB PO SCH (20:36)
[2016-08-10] MEDS: SENNA 8.6 MG TAB (SENOKOT) PO SCH (20:36)
[2016-08-10] MEDS: CLOPIDOGREL 75 MG TAB PO SCH (20:36)
[2016-08-10] MEDS: LevoFLOXacin 750 MG TABLET PO SCH (20:36)
[2016-08-10 22:59] VITALS: BP 127/58
[2016-08-11] MEDS: IPRATROPIUM 0.5MG/ALBUTEROL 2.5MG INH SOL UD 3ML (DUONEB)(J7620) NEB SCH ×4 (02:52→20:00)
[2016-08-11] MEDS: **hydrALAZINE** 10 MG TAB PO SCH ×4 (06:00→23:17)
[2016-08-11 06:06] VITALS: BP 138/73
[2016-08-11] MEDS: ACETAMINOPHEN 500 MG TAB PO SCH ×3 (06:11→20:37)
[2016-08-11 06:54] LABS: BASO % 0.1 % (0.0-1.0); EOS # 0.1 K/mm3 (0.0-0.50); EOS % 1.4 % (0.0-3.0); LARGE UNSTAINED CELL # 0.1 K/mm3 (0.0-0.4); LARGE UNSTAINED CELL % 0.8 % (0.0-4.0); LYMPH # 1.6 K/mm3 (1.5-4.5); LYMPH % 17.1 % (24.0-44.0); MEAN CORPUSCULAR HEMOGLOBIN 28.3 pg (27.0-33.0); MEAN CORPUSCULAR HGB CONC 31.9 g/dl (32.0-36.5); MEAN CORPUSCULAR VOLUME 88.7 fl (80.0-96.0); MONO # 0.5 K/mm3 (0.0-0.8); MONO % 5.9 % (0.0-5.0); NEUTROPHILS # 6.7 K/mm3 (1.8-7.7); NEUTROPHILS % 74.7 % (36.0-66.0); PLATELET COUNT, AUTOMATED 310 k/mm3 (150-450); RED CELL DISTRIBUTION WIDTH 14.4 % (11.5-14.5)
[2016-08-11 07:14] LABS: ANION GAP 8 MEQ/L (8-16); BLOOD UREA NITROGEN 22 MG/DL (7-18); CALCIUM LEVEL 8.2 MG/DL (8.8-10.2); CARBON DIOXIDE LEVEL 28 MEQ/L (21-32); CHLORIDE LEVEL 106 MEQ/L (98-107); CREATININE FOR GFR 1.14 MG/DL (0.70-1.30); GLOMERULAR FILTRATION RATE > 60.0 (>35); GLUCOSE, FASTING 114 MG/DL (83-110); POTASSIUM SERUM 3.9 MEQ/L (3.5-5.1); SODIUM LEVEL 142 MEQ/L (136-145)
[2016-08-11] MEDS: SYMBICORT 160/4.5MCG INHALER 6GM INH SCH ×2 (07:42→20:05)
[2016-08-11] MEDS: HumaLOG INSULIN (NovoLOG) PER UNIT SC SCH ×4 (08:27→20:40)
[2016-08-11] MEDS: LACTOBACILLUS ACIDOPHILUS CAP (BACID) PO SCH ×2 (08:27→17:07)
[2016-08-11] MEDS: LEVEMIR (INSULIN DETEMIR) 1 UNITS/0.01ML SC SCH (08:28)
[2016-08-11] MEDS: predniSONE 10 MG TAB PO SCH (08:28)
[2016-08-11] MEDS: TAMSULOSIN 0.4 MG CAP PO SCH (08:29)
[2016-08-11] MEDS: ASPIRIN 81 MG ENTERIC TAB PO SCH (08:29)
[2016-08-11] MEDS: ATENOLOL 25 MG TAB PO SCH (08:29)
[2016-08-11] MEDS: ATORVASTATIN 20 MG TAB PO SCH (08:29)
[2016-08-11] MEDS: PANTOPRAZOLE 40MG TAB (PROTONIX) PO SCH (08:29)
[2016-08-11] MEDS: ENOXAPARIN 40 MG/0.4 ML SYRINGE (J1650) SC SCH (08:30)
[2016-08-11] MEDS: FINASTERIDE 5 MG TAB PO SCH (08:31)
[2016-08-11] MEDS: EUCERIN 120GM CREAM TOP SCH ×2 (08:31→20:40)
[2016-08-11] MEDS: DOCUSATE SODIUM 100 MG CAP PO SCH ×2 (08:31→20:36)
[2016-08-11] MEDS: metFORMIN (GLUCOPHAGE) 500 MG TAB PO SCH ×2 (10:10→17:07)
--- NOTE | 2016-08-11 11:58 | IPNPDOC ---
Transportation Maintenance Operator Progress Note PROGRESS NOTE DATE OF ADMISSION: 07/31/2016 DATE OF SERVICE: 08/11/2016 IDENTIFICATION STATEMENT: Patient is an 86-year-old left-hand dominant man with acute midbrain CVA and right hemiparesis admitted for comprehensive integrated inpatient rehabilitation. 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 No residual weakness except left eye palsy Skull fracture 1980s secondary very to fall off scaffolding Multiple broken bones PAST SURGICAL HISTORY: Appendectomy Cholecystectomy Cataract surgery ALLERGIES: No known drug allergies MEDICATIONS: Levaquin 750mg PO daily Bacid 1 bid Prednisone taper Duoneb q2h prn Hydralazine 10mg po q6h Norvasc 10mg qhs Atenolol 25 mg by mouth twice a day Lisinopril 40 mg by mouth daily Aspirin 81 mg by mouth daily Lipitor 20 mg by mouth daily Proscar 5 mg by mouth daily Flomax 0.4mg daily Lovenox 40 mg subcutaneous daily Detemir 10u daily Insulin sliding scale before meals and at bedtime Symbicort 160/4.5 g 2 puffs inhaled twice a day Plavix 75 mg by mouth qpm albuterol sulfate 2 puffs inhaled 4 times a day when necessary shortness of breath Acetaminophen 1000mg q8h SUBJECTIVE: Patient w/o complaints. Feels much better than last week but still frustrated because of weakness. Denies any chest pain, shortness of breath, lightheadedness, chills, diaphoresis, nausea/vomiting. Urinating well, moving bowels. VITAL SIGNS: 97.2F, pulse 80, respiratory rate 18, blood pressure 132/70, 93% saturation on RA PHYSICAL EXAMINATION: GENERAL: Well nourished, well developed, sitting in chair, no acute distress. HEENT: Normocephalic, atraumatic. No facial droop. Left eye palsy (unchanged). PERRL, EOMI CARDIOVASCULAR: S1, S2, regular rate. No lower limb swelling or calf tenderness. LUNGS: Diffusely decreased breath sounds throughout but CTA, no rhonchi or wheezing. ABDOMEN: Soft, nontender, nondistended. Normoactive bowel sounds throughout. MUSCULOSKELETAL: MMT: 4/5 right shoulder shrug, 3/5 right finger flexion, 3-/5 finger extension, 1/5 EF, 0/5 remainder of the right upper. 3/5 right HF, 3/5 KE 4/5 KF, 1/5 right DF/PF. 5/5 strength left upper and lower limb in all major muscle groups. NEUROLOGICAL: Alert and oriented x 3. Answers all questions appropriately. Able to follow commands SKIN: +mild swelling & erythema on the dorsum of the right hand, recurrent (~ decreased as compared to yesterday), no erythema over the elbow. LABORATORY DATA: 08/11/16 reviewed: see below 07/31/2016: WBC count 11.1, hemoglobin 12.3, hematocrit 38.7, plt 272. Sodium 140, potassium 4.0, chloride 104, carbon dioxide 27, BUN 29, creatinine 1.20, GFR greater than 60, fasting glucose 160, calcium 8.7, magnesium 2.2, Blood culture 2 07/29/2016: No growth in 24 hours MRSA screen 07/28/2016 negative Sputum 07/29/2016 IMAGING: CXR 07/31/16: non-acute MRI brain 07/27/16: old right frontal infarct, generalization age appropriate parenchymal atrophy, severe chronic white matter microvascular ischemic changes. MRA 07/27/16: non-acute MRI C-T-L spine 07/27/16 reviewed: T5 abnormality FUNCTIONAL STATUS, Premorbid: Independent ADLs and ambulation. ASSESSMENT AND PLAN: 1. 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 Patient continues to show progress. Continue physical and occupational therapy. Will discuss extension of d/c date given progress. Rehabilitation nursing for bladder , bowel and medication management. 2. COPD exacerbation +/- HAP: On abx, S/p IV steroids. Improved. Abx but changed to PO 08/06/16. Today d#7 of abx, will continue for 10day total. Contiune to taper down oral steroids, duonebs prn 3. Retention/hematuria: Gross hematuria resolved, dysuria resolved, Parks d/cd 08/05/16 2nd leakage. Bladder scans w/o significant residual. 4. Bacteremia: Thought contaminant. S/p IV vanco. 5. Acute renal failure, dehydration possible exacerbated by vancomycin: S/p IVF. Encourage oral hydration. AM labs 6. Right hand erythema and pain: Erythema decreased. On levaquin which would cover for cellulitis. Continue compression glove for edema. Continue right arm sling when OOB. 7. Hypertension: Improved BP control s/p increased hydralazine 08/06/16. Continue lisinopril and atenolol. Further dose adjustments if needed. 8. DVT prophylaxis: Maintain Lovenox daily. Continue SCD and TOBIN hose. 9. Diabetes mellitus type 2: Restarted metformin today and increased detemir due to persistently elevated BG. + ISS for now. 10. Bowel: Maintain Colace and senna scheduled along with milk of magnesia and MiraLAX on an as-needed basis 11. Malnutrition: Prealbumin low, continue Glucerna. Continue carb consistent diet. / Vital Signs Vital Sign - Last 24 Hours 08/10/16 08/10/16 08/10/16 08/10/16 12:23 14:16 17:09 20:00 Temp 97.8 98.1 Pulse 78 78 Resp 20 20 B/P 152/70 139/63 158/80 128/67 Pulse Ox 94 94 O2 Delivery Room Air 08/10/16 08/10/16 08/10/16 08/10/16 20:24 20:36 22:59 23:01 Pulse 78 80 B/P 128/67 127/58 127/58 O2 Delivery Room Air 08/11/16 08/11/16 08/11/16 08/11/16 06:00 06:06 07:50 08:29 Temp 97.2 Pulse 80 78 Resp 18 B/P 138/73 138/73 132/70 Pulse Ox 93 O2 Delivery Room Air Room Air Laboratory Data CBC/BMP Laboratory Tests 08/11/16 06:31 Calcium Level 8.2 L, Red Blood Count 4.09 L, Mean Corpuscular Volume 88.7, Mean Corpuscular Hemoglobin 28.3, Mean Corpuscular Hemoglobin Concent 31.9 L, Red Cell Distribution Width 14.4, Neutrophils (%) (Auto) 74.7 H, Lymphocytes (%) ( Auto) 17.1 L, Monocytes (%) (Auto) 5.9 H, Eosinophils (%) (Auto) 1.4, Basophils (%) (Auto) 0.1, Neutrophils # (Auto) 6.7, Lymphocytes # (Auto) 1.6, Monocytes # (Auto) 0.5, Eosinophils # (Auto) 0.1, Basophils # (Auto) 0.0 Labs 24H Laboratory Tests 2 08/10/16 16:52: Bedside Glucose (Misc Panel) 272H 08/10/16 19:44: Bedside Glucose (Misc Panel) 282H 08/11/16 06:31: Anion Gap 8, White Blood Count 9.0, Red Blood Count 4.09L, Hemoglobin 11.6L, Hematocrit 36.3L, Mean Corpuscular Volume 88.7, Mean Corpuscular Hemoglobin 28.3 , Mean Corpuscular Hemoglobin Concent 31.9L, Red Cell Distribution Width 14.4, Platelet Count 310, Neutrophils (%) (Auto) 74.7H, Lymphocytes (%) (Auto) 17.1L, Monocytes (%) (Auto) 5.9H, Eosinophils (%) (Auto) 1.4, Basophils (%) (Auto) 0.1 , Neutrophils # (Auto) 6.7, Lymphocytes # (Auto) 1.6, Monocytes # (Auto) 0.5, Eosinophils # (Auto) 0.1, Basophils # (Auto) 0.0, Blood Urea Nitrogen 22H, Creatinine 1.14, Sodium Level 142, Potassium Level 3.9, Chloride Level 106, Carbon Dioxide Level 28, Calcium Level 8.2L, Glomerular Filtration Rate > 60.0, Large Unclassified Cells # 0.1, Large Unclassified Cells % 0.8 FSBS Laboratory Tests Test 08/10/16 16:52 08/10/16 19:44 Range/Units Bedside Glucose (Misc Panel) 272 282 83-110 MG/DL Microbiology Microbiology 08/03/16 Blood Culture - Final, Complete NO GROWTH AFTER 5 DAYS 08/03/16 Blood Culture - Final, Complete NO GROWTH AFTER 5 DAYS 08/02/16 Gram Stain - Final, Complete 08/02/16 Sputum Culture - Final, Complete Allergies Allergies: Coded Allergies: No Known Allergies (Verified Allergy, Unknown, 04/25/10) Current Medications Current Medications Current Medications Medications (Trade) Dose Ordered Sig/Bhavik Route PRN Reason Start Time Stop Time Status Last Admin Dose Admin Acetaminophen (Tylenol Tab) 1,000 mg Q8H PO 08/04/16 14:00 09/03/16 13:59 08/11/16 06:11 Acetaminophen (Tylenol) 650 mg Q4HP PRN PO MILD PAIN (PS 1-4) 07/31/16 13:00 08/04/16 09:58 DC 08/04/16 05:18 Acetaminophen/ Hydrocodone Bitart ([place], [place] 5/325) 1 tab Q4HP PRN PO MODERATE/SEVERE PAIN (PS 5-10) 07/31/16 13:00 08/13/16 12:59 Albuterol Sulfate (Proventil, Ventolin Hfa) 2 puff QIDP PRN INH SHORTNESS OF BREATH 07/31/16 13:00 08/02/16 01:31 DC Albuterol/ Ipratropium (Duoneb (Ipr 0.5mg/Alb 2.5mg)) 3 ml Q2HP PRN NEB SOB/WHEEZING 08/01/16 21:00 08/31/16 20:59 08/02/16 01:09 Albuterol/ Ipratropium (Duoneb (Ipr 0.5mg/Alb 2.5mg)) 3 ml RQ6H NEB 08/02/16 02:00 08/04/16 11:39 DC 08/03/16 13:32 Albuterol/ Ipratropium (Duoneb (Ipr 0.5mg/Alb 2.5mg)) 3 ml RQ6H NEB 08/08/16 08:00 09/07/16 07:59 08/11/16 02:52 Amlodipine Besylate (Norvasc) 5 mg BID PO 07/31/16 21:00 08/04/16 07:35 DC 08/03/16 21:26 Amlodipine Besylate (Norvasc) 10 mg QHS PO 08/04/16 21:00 09/03/16 20:59 08/10/16 20:36 Aspirin (Ecotrin) 81 mg DAILY PO 08/01/16 09:00 08/31/16 08:59 08/11/16 08:29 Atenolol (Tenormin) 25 mg BID PO 07/31/16 21:00 08/04/16 07:33 DC 08/03/16 21:25 Atenolol (Tenormin) 25 mg DAILY PO 08/04/16 09:00 09/03/16 08:59 08/09/16 08:22 Atorvastatin Calcium (Lipitor) 20 mg DAILY PO 08/01/16 09:00 08/31/16 08:59 08/11/16 08:29 Benzonatate (Tessalon Perles) 100 mg TID PO 08/01/16 09:00 08/04/16 11:11 DC 08/04/16 10:24 Budesonide/ Formoterol Fumarate (Symbicort 160/ 4.5mcg) 2 puff BID INH 07/31/16 21:00 08/30/16 20:59 08/11/16 07:42 Cefdinir (Omnicef) 300 mg BID PO 08/02/16 09:00 08/02/16 09:00 DC Clopidogrel Bisulfate (PLAVix) 75 mg QPM PO 07/31/16 21:00 08/30/16 20:59 08/10/16 20:36 Dextrose (Dextrose 50%) 25 ml ASDIRECTED PRN IV SEE LABEL COMMENTS 07/31/16 20:30 08/30/16 20:29 Docusate Sodium (Colace) 100 mg BID PO 07/31/16 21:00 08/30/16 20:59 08/10/16 20:36 Enoxaparin Sodium (Lovenox) 40 mg DAILY SC 08/01/16 09:00 08/14/16 08:59 08/11/16 08:30 Finasteride (Proscar) 5 mg DAILY PO 08/01/16 09:00 08/31/16 08:59 08/11/16 08:31 Glucagon (Glucagon) 1 mg ASDIRECTED PRN SC SEE LABEL COMMENTS 07/31/16 20:30 08/30/16 20:29 Glucose (Glucose) 16 GM ASDIRECTED PRN PO SEE LABEL COMMENTS 07/31/16 20:30 08/30/16 20:29 Hydralazine HCl (Apresoline) 10 mg Q6H PO 08/06/16 12:00 09/05/16 11:59 08/10/16 17:09 Hydralazine HCl (Apresoline) 10 mg TID PO 08/02/16 09:00 08/06/16 12:35 DC 08/06/16 08:28 Insulin Detemir (Levemir Insulin) 10 units DAILY SC 08/04/16 09:00 08/10/16 18:42 DC 08/10/16 07:41 Insulin Detemir (Levemir Insulin) 15 units DAILY SC 08/11/16 09:00 09/10/16 08:59 08/11/16 08:28 Insulin Human Lispro (HumaLOG INSULIN) See Protocol Table AC SC 08/01/16 07:30 08/31/16 07:29 08/11/16 08:27 Insulin Human Lispro (HumaLOG INSULIN) See Protocol Table QHS SC 07/31/16 21:00 08/30/16 20:59 08/10/16 20:39 Lactobacillus Acidophilus (Bacid) 1 ea BID PO 08/01/16 21:00 08/02/16 10:52 DC 08/01/16 21:17 Lactobacillus Acidophilus 1 ea 1 ea BIDWM PO 08/02/16 08:00 08/11/16 18:01 08/11/16 08:27 Levofloxacin (Levaquin) 750 mg DAILY@21 PO 08/06/16 21:00 08/13/16 20:59 08/10/16 20:36 Levofloxacin (Levaquin) 750 mg Q2D@18 PO 08/01/16 18:00 08/01/16 20:43 DC Levofloxacin 750 mg/IV Miscellaneous Supplies 150 ml @ 100 mls/hr Q48H IV 08/01/16 22:00 08/01/16 22:00 DC Levofloxacin 750 mg/IV Miscellaneous Supplies 150 ml @ 100 mls/hr Q48H IV 08/03/16 22:00 08/06/16 10:16 DC 08/05/16 21:39 Levofloxacin/IV Miscellaneous Supplies (Levaquin) 150 ml @ 100 mls/hr Q48H IV 08/03/16 22:00 08/03/16 22:00 DC Lisinopril (Prinivil) 40 mg DAILY PO 08/01/16 09:00 08/02/16 06:38 DC 08/01/16 08:44 Magnesium Hydroxide (Milk Of Magnesia) 30 ml DAILYPRN PRN PO CONSTIPATION 07/31/16 13:00 08/30/16 12:59 Metformin HCl (Glucophage) 500 mg BID@08,18 PO 08/11/16 08:00 09/10/16 07:59 08/11/16 10:10 Metformin HCl (Glucophage) 500 mg PC PO 07/31/16 18:30 08/02/16 06:39 DC 08/01/16 18:09 Methylprednisolone (SOLUmedrol) 60 mg Q8H IV 08/02/16 06:00 08/03/16 06:57 DC 08/03/16 05:35 Methylprednisolone 40 mg 40 mg Q12H IV 08/03/16 18:00 08/04/16 07:32 DC 08/04/16 05:13 Mineral Oil/White Petrolatum APPLY TO RIGHT HAND BID TOP 08/04/16 09:00 09/03/16 08:59 08/11/16 08:31 Pantoprazole Sodium (Protonix) 40 mg DAILY PO 07/31/16 09:00 08/30/16 08:59 08/11/16 08:29 Piperacillin Sod/ Tazobactam Sod 4.5 gm/Dextrose 50 ml @ 50 mls/hr Q6H IV 08/01/16 21:00 08/02/16 01:31 DC 08/01/16 21:57 Piperacillin Sod/ Tazobactam Sod 4.5 gm/Dextrose 50 ml @ 50 mls/hr Q6H IV 08/02/16 09:00 08/02/16 19:10 DC 08/02/16 15:53 Piperacillin Sod/ Tazobactam Sod/ Dextrose (Zosyn/Dextrose 5% Mini-Bag Plus) 50 ml @ 50 mls/hr Q6H IV 08/02/16 21:00 08/04/16 07:29 DC 08/04/16 03:30 Polyethylene Glycol (Miralax) 1 pkt DAILYPRN PRN PO CONSTIPATION 07/31/16 13:00 08/30/16 12:59 Prednisone (Deltasone) 10 mg DAILY PO 08/20/16 09:00 09/19/16 08:59 Prednisone (Deltasone) 15 mg DAILY PO 08/17/16 09:00 08/19/16 23:00 Prednisone (Deltasone) 20 mg DAILY PO 08/13/16 09:00 08/16/16 23:00 Prednisone (Deltasone) 30 mg DAILY PO 08/10/16 09:00 08/12/16 23:00 08/11/16 08:28 Prednisone (Deltasone) 40 mg DAILY PO 08/08/16 09:00 08/09/16 23:00 DC 08/09/16 08:17 Prednisone (Deltasone) 50 mg DAILY PO 08/06/16 09:00 08/07/16 09:49 DC 08/07/16 08:56 Prednisone (Deltasone) 60 mg DAILY PO 08/04/16 09:00 08/05/16 12:59 DC 08/05/16 08:20 Prednisone 20 mg 20 mg DAILY PO 08/02/16 09:00 08/02/16 09:00 DC Senna (Senokot) 1 tab QHS PO 07/31/16 21:00 08/30/16 20:59 08/10/16 20:36 Sodium Chloride 1,000 ml @ 150 mls/hr Q6H40M IV 08/02/16 06:45 08/02/16 17:43 DC 08/02/16 06:54 Sodium Chloride (Nacl 0.9%) 1,000 ml @ 50 mls/hr Q20H IV 08/03/16 11:00 08/04/16 06:59 DC 08/03/16 10:59 Sodium Chloride (Nacl 0.9%) 1,000 ml @ 50 mls/hr Q20H IV 08/04/16 12:45 08/07/16 08:51 DC 08/06/16 13:48 Tamsulosin HCl (Flomax) 0.4 mg DAILY PO 08/05/16 09:00 09/04/16 08:59 08/11/16 08:29 Vancomycin HCl 1000 mg/IV Miscellaneous Supplies 1 each/ Dextrose 270 ml @ 270 mls/hr Q12H IV 08/02/16 11:00 08/02/16 11:00 DC Vancomycin HCl 1000 mg/IV Miscellaneous Supplies 1 each/ Dextrose 270 ml @ 270 mls/hr Q24H IV 08/02/16 12:00 08/04/16 07:29 DC 08/03/16 12:05 REJI BLACKWELL MD Aug 11, 2016 11:58
[2016-08-11 14:00] VITALS: BP 134/63
[2016-08-11 20:00] VITALS: BP 139/72
[2016-08-11] MEDS: SENNA 8.6 MG TAB (SENOKOT) PO SCH (20:36)
[2016-08-11] MEDS: LevoFLOXacin 750 MG TABLET PO SCH (20:36)
[2016-08-11] MEDS: CLOPIDOGREL 75 MG TAB PO SCH (20:37)
[2016-08-11] MEDS: amLODIPine 10 MG TAB PO SCH (20:39)
[2016-08-12] MEDS: IPRATROPIUM 0.5MG/ALBUTEROL 2.5MG INH SOL UD 3ML (DUONEB)(J7620) NEB SCH ×4 (02:54→19:49)
[2016-08-12 06:00] VITALS: BP 157/85
[2016-08-12] MEDS: **hydrALAZINE** 10 MG TAB PO SCH ×3 (06:18→22:00)
[2016-08-12] MEDS: ACETAMINOPHEN 500 MG TAB PO SCH ×3 (06:19→21:00)
[2016-08-12 06:41] LABS: BASO % 0.1 % (0.0-1.0); EOS # 0.1 K/mm3 (0.0-0.50); EOS % 0.7 % (0.0-3.0); LARGE UNSTAINED CELL # 0.1 K/mm3 (0.0-0.4); LARGE UNSTAINED CELL % 0.9 % (0.0-4.0); LYMPH # 1.4 K/mm3 (1.5-4.5); LYMPH % 13.5 % (24.0-44.0); MEAN CORPUSCULAR HEMOGLOBIN 28.1 pg (27.0-33.0); MEAN CORPUSCULAR HGB CONC 31.8 g/dl (32.0-36.5); MEAN CORPUSCULAR VOLUME 88.5 fl (80.0-96.0); MONO # 0.6 K/mm3 (0.0-0.8); MONO % 6.1 % (0.0-5.0); NEUTROPHILS # 7.9 K/mm3 (1.8-7.7); NEUTROPHILS % 78.7 % (36.0-66.0); PLATELET COUNT, AUTOMATED 301 k/mm3 (150-450); RED CELL DISTRIBUTION WIDTH 14.4 % (11.5-14.5)
[2016-08-12 06:57] LABS: ANION GAP 7 MEQ/L (8-16); BLOOD UREA NITROGEN 26 MG/DL (7-18); CALCIUM LEVEL 8.4 MG/DL (8.8-10.2); CARBON DIOXIDE LEVEL 29 MEQ/L (21-32); CHLORIDE LEVEL 106 MEQ/L (98-107); CREATININE FOR GFR 1.19 MG/DL (0.70-1.30); GLOMERULAR FILTRATION RATE > 60.0 (>35); GLUCOSE, FASTING 109 MG/DL (83-110); POTASSIUM SERUM 4.2 MEQ/L (3.5-5.1); SODIUM LEVEL 142 MEQ/L (136-145)
[2016-08-12] MEDS: TAMSULOSIN 0.4 MG CAP PO SCH (08:15)
[2016-08-12] MEDS: predniSONE 10 MG TAB PO SCH (08:15)
[2016-08-12] MEDS: DOCUSATE SODIUM 100 MG CAP PO SCH ×2 (08:15→21:00)
[2016-08-12] MEDS: ATORVASTATIN 20 MG TAB PO SCH (08:15)
[2016-08-12] MEDS: metFORMIN (GLUCOPHAGE) 500 MG TAB PO SCH ×2 (08:15→17:12)
[2016-08-12] MEDS: ASPIRIN 81 MG ENTERIC TAB PO SCH (08:15)
[2016-08-12] MEDS: FINASTERIDE 5 MG TAB PO SCH (08:15)
[2016-08-12] MEDS: PANTOPRAZOLE 40MG TAB (PROTONIX) PO SCH (08:16)
[2016-08-12] MEDS: HumaLOG INSULIN (NovoLOG) PER UNIT SC SCH ×4 (08:16→21:00)
[2016-08-12] MEDS: ATENOLOL 25 MG TAB PO SCH (08:16)
[2016-08-12] MEDS: EUCERIN 120GM CREAM TOP SCH ×2 (08:17→21:00)
[2016-08-12] MEDS: LEVEMIR (INSULIN DETEMIR) 1 UNITS/0.01ML SC SCH (08:17)
[2016-08-12] MEDS: ENOXAPARIN 40 MG/0.4 ML SYRINGE (J1650) SC SCH (08:17)
[2016-08-12] MEDS: SYMBICORT 160/4.5MCG INHALER 6GM INH SCH ×2 (08:36→19:50)
--- NOTE | 2016-08-12 09:39 | IPNPDOC ---
Automotive Engineer Progress Note PROGRESS NOTE DATE OF ADMISSION: 07/31/2016 DATE OF SERVICE: 08/12/2016 IDENTIFICATION STATEMENT: Patient is an 86-year-old left-hand dominant man with acute midbrain CVA and right hemiparesis admitted for comprehensive integrated inpatient rehabilitation. 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 No residual weakness except left eye palsy Skull fracture 1980s secondary very to fall off scaffolding Multiple broken bones PAST SURGICAL HISTORY: Appendectomy Cholecystectomy Cataract surgery ALLERGIES: No known drug allergies MEDICATIONS: Levaquin 750mg PO daily Bacid 1 bid Prednisone taper Duoneb q2h prn Hydralazine 10mg po q6h Norvasc 10mg qhs Atenolol 25 mg by mouth twice a day Lisinopril 40 mg by mouth daily Aspirin 81 mg by mouth daily Lipitor 20 mg by mouth daily Proscar 5 mg by mouth daily Flomax 0.4mg daily Lovenox 40 mg subcutaneous daily Detemir 10u daily Insulin sliding scale before meals and at bedtime Symbicort 160/4.5 g 2 puffs inhaled twice a day Plavix 75 mg by mouth qpm albuterol sulfate 2 puffs inhaled 4 times a day when necessary shortness of breath Acetaminophen 1000mg q8h SUBJECTIVE: Patient complaints episodic pain right LL, medial thigh/posterior knee, achy, radiates up leg, non-positional. Otherwise, no complaints. Denies any chest pain, shortness of breath, lightheadedness, chills, diaphoresis, nausea/vomiting, C/D. VITAL SIGNS: 97.3F, pulse 79, respiratory rate 18, blood pressure 157/85, 95% saturation on RA PHYSICAL EXAMINATION: GENERAL: Well nourished, well developed, sitting in chair, no acute distress. HEENT: Normocephalic, atraumatic. No facial droop. Left eye palsy (unchanged). PERRL, EOMI CARDIOVASCULAR: S1, S2, regular rate. No lower limb swelling or calf tenderness. LUNGS: Diffusely decreased breath sounds throughout but CTA, no rhonchi or wheezing. ABDOMEN: Soft, nontender, nondistended. Normoactive bowel sounds throughout. MUSCULOSKELETAL: MMT: 4/5 right shoulder shrug, 3/5 right finger flexion, 3-/5 finger extension, 1/5 EF, 0/5 remainder of the right upper. 3/5 right HF, 3/5 KE 4/5 KF, 1/5 right DF/PF. 5/5 strength left upper and lower limb in all major muscle groups. NEUROLOGICAL: Alert and oriented x 3. Answers all questions appropriately. Able to follow commands SKIN: +mild swelling & erythema on the dorsum of the right hand, recurrent (~ decreased as compared to onset), no erythema over the elbow. LABORATORY DATA: 08/12/16 reviewed: see below 07/31/2016: WBC count 11.1, hemoglobin 12.3, hematocrit 38.7, plt 272. Sodium 140, potassium 4.0, chloride 104, carbon dioxide 27, BUN 29, creatinine 1.20, GFR greater than 60, fasting glucose 160, calcium 8.7, magnesium 2.2, Blood culture 2 07/29/2016: No growth in 24 hours MRSA screen 07/28/2016 negative Sputum 07/29/2016 IMAGING: CXR 07/31/16: non-acute MRI brain 07/27/16: old right frontal infarct, generalization age appropriate parenchymal atrophy, severe chronic white matter microvascular ischemic changes. MRA 07/27/16: non-acute MRI C-T-L spine 07/27/16 reviewed: T5 abnormality FUNCTIONAL STATUS, Premorbid: Independent ADLs and ambulation. ASSESSMENT AND PLAN: 1. 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 Patient continues to show progress, albeit slow. Continue physical and occupational therapy. Discussed trial NMES with therapist. Per team rounds yesterday will likely extend d/c date if continue to make progress. Rehabilitation nursing for bladder, bowel and medication management. 2. COPD exacerbation +/- HAP: On abx, S/p IV steroids. Improved. Abx but changed to PO 08/06/16. Today d#8/10 of abx. Contiune to taper down oral steroids , cont symbicort, duonebs prn 3. Retention/hematuria: Gross hematuria resolved, dysuria resolved, Parks d/cd 08/05/16 2nd leakage. Bladder scans w/o significant residual. Having difficulty managing urinal. Discussed potential techniques to facilitate during team rounds yesterday. 4. Bacteremia: Thought contaminant. S/p IV vanco. 5. Acute renal failure, dehydration possible exacerbated by vancomycin: S/p IVF. Encourage oral hydration. AM labs 6. Right hand erythema and pain: Erythema & swelling decreased. On levaquin which would cover for cellulitis. Continue compression glove for edema. Continue right arm sling when OOB. 7. Hypertension: mildly elevated today but didnt get last nights dose Norvasc 2nd parameters. Review hydralazine use. Changed parameters on Norvasc and decreased freq of hydralazine. [Hx; s/p increased hydralazine 08/06/16]. Continue lisinopril and atenolol. Further dose adjustments if needed. 8. DVT prophylaxis: Maintain Lovenox daily. Continue SCD and TOBIN hose. 9. Diabetes mellitus type 2: Restarted metformin 08/11/16 and increased detemir due to persistently elevated BG. Improved BG control. Continue ISS for now. Monitor closely with adjustments in insulin as indicated. 10. Bowel: Maintain Colace and senna scheduled along with milk of magnesia and MiraLAX on an as-needed basis 11. Malnutrition: Prealbumin low, continue Glucerna. Continue carb consistent diet. / Vital Signs Vital Sign - Last 24 Hours 08/11/16 08/11/16 08/11/16 08/11/16 11:58 14:00 17:07 20:00 Temp 97.7 98.4 Pulse 92 90 Resp 18 20 B/P 148/80 134/63 130/60 139/72 Pulse Ox 95 96 O2 Delivery Room Air Room Air 08/11/16 08/11/16 08/11/16 08/12/16 20:00 20:39 23:17 06:00 Temp 97.3 Pulse 90 79 Resp 18 B/P 139/72 133/65 157/85 Pulse Ox 95 O2 Delivery Room Air Nasal Cannula 08/12/16 08/12/16 06:18 08:16 Pulse 79 B/P 157/85 157/85 Laboratory Data CBC/BMP Laboratory Tests 08/12/16 06:29 Calcium Level 8.4 L, Red Blood Count 4.11 L, Mean Corpuscular Volume 88.5, Mean Corpuscular Hemoglobin 28.1, Mean Corpuscular Hemoglobin Concent 31.8 L, Red Cell Distribution Width 14.4, Neutrophils (%) (Auto) 78.7 H, Lymphocytes (%) ( Auto) 13.5 L, Monocytes (%) (Auto) 6.1 H, Eosinophils (%) (Auto) 0.7, Basophils (%) (Auto) 0.1, Neutrophils # (Auto) 7.9 H, Lymphocytes # (Auto) 1.4 L, Monocytes # (Auto) 0.6, Eosinophils # (Auto) 0.1, Basophils # (Auto) 0.0 Labs 24H Laboratory Tests 2 08/11/16 11:40: Bedside Glucose (Misc Panel) 189H 08/11/16 16:35: Bedside Glucose (Misc Panel) 241H 08/11/16 19:56: Bedside Glucose (Misc Panel) 215H 08/12/16 06:29: Anion Gap 7L, White Blood Count 10.0, Red Blood Count 4.11L, Hemoglobin 11.6L, Hematocrit 36.4L, Mean Corpuscular Volume 88.5, Mean Corpuscular Hemoglobin 28.1 , Mean Corpuscular Hemoglobin Concent 31.8L, Red Cell Distribution Width 14.4, Platelet Count 301, Neutrophils (%) (Auto) 78.7H, Lymphocytes (%) (Auto) 13.5L, Monocytes (%) (Auto) 6.1H, Eosinophils (%) (Auto) 0.7, Basophils (%) (Auto) 0.1 , Neutrophils # (Auto) 7.9H, Lymphocytes # (Auto) 1.4L, Monocytes # (Auto) 0.6, Eosinophils # (Auto) 0.1, Basophils # (Auto) 0.0, Blood Urea Nitrogen 26H, Creatinine 1.19, Sodium Level 142, Potassium Level 4.2, Chloride Level 106, Carbon Dioxide Level 29, Calcium Level 8.4L, Glomerular Filtration Rate > 60.0, Large Unclassified Cells # 0.1, Large Unclassified Cells % 0.9 FSBS Laboratory Tests Test 08/11/16 11:40 08/11/16 16:35 08/11/16 19:56 Range/Units Bedside Glucose (Misc Panel) 189 241 215 83-110 MG/DL Microbiology Microbiology 08/03/16 Blood Culture - Final, Complete NO GROWTH AFTER 5 DAYS 08/03/16 Blood Culture - Final, Complete NO GROWTH AFTER 5 DAYS 08/02/16 Gram Stain - Final, Complete 08/02/16 Sputum Culture - Final, Complete Allergies Allergies: Coded Allergies: No Known Allergies (Verified Allergy, Unknown, 04/25/10) Current Medications Current Medications Current Medications Medications (Trade) Dose Ordered Sig/Bhavik Route PRN Reason Start Time Stop Time Status Last Admin Dose Admin Acetaminophen (Tylenol Tab) 1,000 mg Q8H PO 08/04/16 14:00 09/03/16 13:59 08/12/16 06:19 Acetaminophen (Tylenol) 650 mg Q4HP PRN PO MILD PAIN (PS 1-4) 07/31/16 13:00 08/04/16 09:58 DC 08/04/16 05:18 Acetaminophen/ Hydrocodone Bitart ([place], Anexsia 5/325) 1 tab Q4HP PRN PO MODERATE/SEVERE PAIN (PS 5-10) 07/31/16 13:00 08/13/16 12:59 Albuterol Sulfate (Proventil, Ventolin Hfa) 2 puff QIDP PRN INH SHORTNESS OF BREATH 07/31/16 13:00 08/02/16 01:31 DC Albuterol/ Ipratropium (Duoneb (Ipr 0.5mg/Alb 2.5mg)) 3 ml Q2HP PRN NEB SOB/WHEEZING 08/01/16 21:00 08/31/16 20:59 08/02/16 01:09 Albuterol/ Ipratropium (Duoneb (Ipr 0.5mg/Alb 2.5mg)) 3 ml RQ6H NEB 08/02/16 02:00 08/04/16 11:39 DC 08/03/16 13:32 Albuterol/ Ipratropium (Duoneb (Ipr 0.5mg/Alb 2.5mg)) 3 ml RQ6H NEB 08/08/16 08:00 09/07/16 07:59 08/12/16 02:54 Amlodipine Besylate (Norvasc) 5 mg BID PO 07/31/16 21:00 08/04/16 07:35 DC 08/03/16 21:26 Amlodipine Besylate (Norvasc) 10 mg QHS PO 08/04/16 21:00 09/03/16 20:59 08/10/16 20:36 Aspirin (Ecotrin) 81 mg DAILY PO 08/01/16 09:00 08/31/16 08:59 08/12/16 08:15 Atenolol (Tenormin) 25 mg BID PO 07/31/16 21:00 08/04/16 07:33 DC 08/03/16 21:25 Atenolol (Tenormin) 25 mg DAILY PO 08/04/16 09:00 09/03/16 08:59 08/12/16 08:16 Atorvastatin Calcium (Lipitor) 20 mg DAILY PO 08/01/16 09:00 08/31/16 08:59 08/12/16 08:15 Benzonatate (Tessalon Perles) 100 mg TID PO 08/01/16 09:00 08/04/16 11:11 DC 08/04/16 10:24 Budesonide/ Formoterol Fumarate (Symbicort 160/ 4.5mcg) 2 puff BID INH 07/31/16 21:00 08/30/16 20:59 08/12/16 08:36 Cefdinir (Omnicef) 300 mg BID PO 08/02/16 09:00 08/02/16 09:00 DC Clopidogrel Bisulfate (PLAVix) 75 mg QPM PO 07/31/16 21:00 08/30/16 20:59 08/11/16 20:37 Dextrose (Dextrose 50%) 25 ml ASDIRECTED PRN IV SEE LABEL COMMENTS 07/31/16 20:30 08/30/16 20:29 Docusate Sodium (Colace) 100 mg BID PO 07/31/16 21:00 08/30/16 20:59 08/12/16 08:15 Enoxaparin Sodium (Lovenox) 40 mg DAILY SC 08/01/16 09:00 08/14/16 08:59 08/12/16 08:17 Finasteride (Proscar) 5 mg DAILY PO 08/01/16 09:00 08/31/16 08:59 08/12/16 08:15 Glucagon (Glucagon) 1 mg ASDIRECTED PRN SC SEE LABEL COMMENTS 07/31/16 20:30 08/30/16 20:29 Glucose (Glucose) 16 GM ASDIRECTED PRN PO SEE LABEL COMMENTS 07/31/16 20:30 08/30/16 20:29 Hydralazine HCl (Apresoline) 10 mg Q6H PO 08/06/16 12:00 08/12/16 08:26 DC 08/12/16 06:18 Hydralazine HCl (Apresoline) 10 mg Q8H PO 08/12/16 14:00 09/11/16 13:59 Hydralazine HCl (Apresoline) 10 mg TID PO 08/02/16 09:00 08/06/16 12:35 DC 08/06/16 08:28 Insulin Detemir (Levemir Insulin) 10 units DAILY SC 08/04/16 09:00 08/10/16 18:42 DC 08/10/16 07:41 Insulin Detemir (Levemir Insulin) 15 units DAILY SC 08/11/16 09:00 09/10/16 08:59 08/12/16 08:17 Insulin Human Lispro (HumaLOG INSULIN) See Protocol Table AC SC 08/01/16 07:30 08/31/16 07:29 08/12/16 08:16 Insulin Human Lispro (HumaLOG INSULIN) See Protocol Table QHS SC 07/31/16 21:00 08/30/16 20:59 08/10/16 20:39 Lactobacillus Acidophilus (Bacid) 1 ea BID PO 08/01/16 21:00 08/02/16 10:52 DC 08/01/16 21:17 Lactobacillus Acidophilus 1 ea 1 ea BIDWM PO 08/02/16 08:00 08/11/16 18:01 DC 08/11/16 17:07 Levofloxacin (Levaquin) 750 mg DAILY@21 PO 08/06/16 21:00 08/13/16 20:59 08/11/16 20:36 Levofloxacin (Levaquin) 750 mg Q2D@18 PO 08/01/16 18:00 08/01/16 20:43 DC Levofloxacin 750 mg/IV Miscellaneous Supplies 150 ml @ 100 mls/hr Q48H IV 08/01/16 22:00 08/01/16 22:00 DC Levofloxacin 750 mg/IV Miscellaneous Supplies 150 ml @ 100 mls/hr Q48H IV 08/03/16 22:00 08/06/16 10:16 DC 08/05/16 21:39 Levofloxacin/IV Miscellaneous Supplies (Levaquin) 150 ml @ 100 mls/hr Q48H IV 08/03/16 22:00 08/03/16 22:00 DC Lisinopril (Prinivil) 40 mg DAILY PO 08/01/16 09:00 08/02/16 06:38 DC 08/01/16 08:44 Magnesium Hydroxide (Milk Of Magnesia) 30 ml DAILYPRN PRN PO CONSTIPATION 07/31/16 13:00 08/30/16 12:59 Metformin HCl (Glucophage) 500 mg BID@08,18 PO 08/11/16 08:00 09/10/16 07:59 08/12/16 08:15 Metformin HCl (Glucophage) 500 mg PC PO 07/31/16 18:30 08/02/16 06:39 DC 08/01/16 18:09 Methylprednisolone (SOLUmedrol) 60 mg Q8H IV 08/02/16 06:00 08/03/16 06:57 DC 08/03/16 05:35 Methylprednisolone 40 mg 40 mg Q12H IV 08/03/16 18:00 08/04/16 07:32 DC 08/04/16 05:13 Mineral Oil/White Petrolatum APPLY TO RIGHT HAND BID TOP 08/04/16 09:00 09/03/16 08:59 08/12/16 08:17 Pantoprazole Sodium (Protonix) 40 mg DAILY PO 07/31/16 09:00 08/30/16 08:59 08/12/16 08:16 Piperacillin Sod/ Tazobactam Sod 4.5 gm/Dextrose 50 ml @ 50 mls/hr Q6H IV 08/01/16 21:00 08/02/16 01:31 DC 08/01/16 21:57 Piperacillin Sod/ Tazobactam Sod 4.5 gm/Dextrose 50 ml @ 50 mls/hr Q6H IV 08/02/16 09:00 08/02/16 19:10 DC 08/02/16 15:53 Piperacillin Sod/ Tazobactam Sod/ Dextrose (Zosyn/Dextrose 5% Mini-Bag Plus) 50 ml @ 50 mls/hr Q6H IV 08/02/16 21:00 08/04/16 07:29 DC 08/04/16 03:30 Polyethylene Glycol (Miralax) 1 pkt DAILYPRN PRN PO CONSTIPATION 07/31/16 13:00 08/30/16 12:59 Prednisone (Deltasone) 10 mg DAILY PO 08/20/16 09:00 09/19/16 08:59 Prednisone (Deltasone) 15 mg DAILY PO 08/17/16 09:00 08/19/16 23:00 Prednisone (Deltasone) 20 mg DAILY PO 08/13/16 09:00 08/16/16 23:00 Prednisone (Deltasone) 30 mg DAILY PO 08/10/16 09:00 08/12/16 23:00 08/12/16 08:15 Prednisone (Deltasone) 40 mg DAILY PO 08/08/16 09:00 08/09/16 23:00 DC 08/09/16 08:17 Prednisone (Deltasone) 50 mg DAILY PO 08/06/16 09:00 08/07/16 09:49 DC 08/07/16 08:56 Prednisone (Deltasone) 60 mg DAILY PO 08/04/16 09:00 08/05/16 12:59 DC 08/05/16 08:20 Prednisone 20 mg 20 mg DAILY PO 08/02/16 09:00 08/02/16 09:00 DC Senna (Senokot) 1 tab QHS PO 07/31/16 21:00 08/30/16 20:59 08/11/16 20:36 Sodium Chloride 1,000 ml @ 150 mls/hr Q6H40M IV 08/02/16 06:45 08/02/16 17:43 DC 08/02/16 06:54 Sodium Chloride (Nacl 0.9%) 1,000 ml @ 50 mls/hr Q20H IV 08/03/16 11:00 08/04/16 06:59 DC 08/03/16 10:59 Sodium Chloride (Nacl 0.9%) 1,000 ml @ 50 mls/hr Q20H IV 08/04/16 12:45 08/07/16 08:51 DC 08/06/16 13:48 Tamsulosin HCl (Flomax) 0.4 mg DAILY PO 08/05/16 09:00 09/04/16 08:59 08/12/16 08:15 Vancomycin HCl 1000 mg/IV Miscellaneous Supplies 1 each/ Dextrose 270 ml @ 270 mls/hr Q12H IV 08/02/16 11:00 08/02/16 11:00 DC Vancomycin HCl 1000 mg/IV Miscellaneous Supplies 1 each/ Dextrose 270 ml @ 270 mls/hr Q24H IV 08/02/16 12:00 08/04/16 07:29 DC 08/03/16 12:05 REJI BLACKWELL MD Aug 12, 2016 09:39
[2016-08-12 20:00] VITALS: BP 135/72
[2016-08-12] MEDS: LevoFLOXacin 750 MG TABLET PO SCH (20:59)
[2016-08-12] MEDS: SENNA 8.6 MG TAB (SENOKOT) PO SCH (20:59)
[2016-08-12] MEDS: CLOPIDOGREL 75 MG TAB PO SCH (21:00)
[2016-08-12] MEDS: amLODIPine 10 MG TAB PO SCH (21:01)
[2016-08-13] MEDS: IPRATROPIUM 0.5MG/ALBUTEROL 2.5MG INH SOL UD 3ML (DUONEB)(J7620) NEB SCH ×4 (01:16→20:00)
[2016-08-13] MEDS: **hydrALAZINE** 10 MG TAB PO SCH ×3 (05:50→21:35)
[2016-08-13] MEDS: ACETAMINOPHEN 500 MG TAB PO SCH ×3 (05:51→21:36)
[2016-08-13 06:00] VITALS: BP 135/76
[2016-08-13] MEDS: SYMBICORT 160/4.5MCG INHALER 6GM INH SCH ×2 (07:33→20:17)
[2016-08-13] MEDS: HumaLOG INSULIN (NovoLOG) PER UNIT SC SCH ×4 (08:15→21:00)
[2016-08-13] MEDS: ASPIRIN 81 MG ENTERIC TAB PO SCH (08:15)
[2016-08-13] MEDS: metFORMIN (GLUCOPHAGE) 500 MG TAB PO SCH ×2 (08:15→17:40)
[2016-08-13] MEDS: FINASTERIDE 5 MG TAB PO SCH (08:16)
[2016-08-13] MEDS: ATORVASTATIN 20 MG TAB PO SCH (08:16)
[2016-08-13] MEDS: DOCUSATE SODIUM 100 MG CAP PO SCH ×2 (08:16→21:35)
[2016-08-13] MEDS: TAMSULOSIN 0.4 MG CAP PO SCH (08:16)
[2016-08-13] MEDS: PANTOPRAZOLE 40MG TAB (PROTONIX) PO SCH (08:16)
[2016-08-13] MEDS: predniSONE 20 MG TAB PO SCH (08:16)
[2016-08-13] MEDS: ATENOLOL 25 MG TAB PO SCH (08:17)
[2016-08-13] MEDS: ENOXAPARIN 40 MG/0.4 ML SYRINGE (J1650) SC SCH (08:18)
[2016-08-13] MEDS: LEVEMIR (INSULIN DETEMIR) 1 UNITS/0.01ML SC SCH (08:19)
[2016-08-13] MEDS: EUCERIN 120GM CREAM TOP SCH ×2 (08:19→21:38)
--- NOTE | 2016-08-13 12:06 | IPNPDOC ---
[employer] Progress Note PROGRESS NOTE DATE OF ADMISSION: 07/31/2016 DATE OF SERVICE: 08/13/2016 IDENTIFICATION STATEMENT: Patient is an 86-year-old left-hand dominant man with acute midbrain CVA and right hemiparesis admitted for comprehensive integrated inpatient rehabilitation. 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 No residual weakness except left eye palsy Skull fracture 1980s secondary very to fall off scaffolding Multiple broken bones PAST SURGICAL HISTORY: Appendectomy Cholecystectomy Cataract surgery ALLERGIES: No known drug allergies MEDICATIONS: Levaquin 750mg PO daily Bacid 1 bid Prednisone taper Duoneb q2h prn Hydralazine 10mg po q6h Norvasc 10mg qhs Atenolol 25 mg by mouth twice a day Lisinopril 40 mg by mouth daily Aspirin 81 mg by mouth daily Lipitor 20 mg by mouth daily Proscar 5 mg by mouth daily Flomax 0.4mg daily Lovenox 40 mg subcutaneous daily Detemir 10u daily Insulin sliding scale before meals and at bedtime Symbicort 160/4.5 g 2 puffs inhaled twice a day Plavix 75 mg by mouth qpm albuterol sulfate 2 puffs inhaled 4 times a day when necessary shortness of breath Acetaminophen 1000mg q8h SUBJECTIVE: Patient w/o new complaints still has episodic pain right LL, medial/posterior thigh, occurs when he tries to lift leg. Otherwise, no complaints. Denies any chest pain, shortness of breath, lightheadedness, chills , diaphoresis, nausea/vomiting, C/D. VITAL SIGNS: 98.0F, pulse 70, respiratory rate 18, blood pressure 132/70, 94% saturation on RA PHYSICAL EXAMINATION: GENERAL: Well nourished, well developed, sitting in chair, no acute distress. HEENT: Normocephalic, atraumatic. No facial droop. Left eye palsy (unchanged). PERRL, EOMI CARDIOVASCULAR: S1, S2, regular rate. No lower limb swelling or calf tenderness. LUNGS: Diffusely decreased breath sounds throughout but CTA, no rhonchi or wheezing. ABDOMEN: Soft, nontender, nondistended. Normoactive bowel sounds throughout. MUSCULOSKELETAL: No groin pain to palpation, FABERS on right negative. Negative dural tension signs MMT: 5/5 right shoulder shrug, 3/5 right finger flexion, 3-/ 5 finger extension, 2/5 EF/EE. 3/5 right HF, 3/5 KE 4/5 KF, 1/5 right DF/PF. 5/ 5 strength left upper and lower limb in all major muscle groups. NEUROLOGICAL: Alert and oriented x 3. Answers all questions appropriately. Able to follow commands SKIN: +mild swelling & erythema on the dorsum of the right hand, recurrent (~ decreasing), no erythema over the elbow. LABORATORY DATA: 08/12/16 rereviewed: see below 07/31/2016: WBC count 11.1, hemoglobin 12.3, hematocrit 38.7, plt 272. Sodium 140, potassium 4.0, chloride 104, carbon dioxide 27, BUN 29, creatinine 1.20, GFR greater than 60, fasting glucose 160, calcium 8.7, magnesium 2.2, Blood culture 2 07/29/2016: No growth in 24 hours MRSA screen 07/28/2016 negative Sputum 07/29/2016 IMAGING: CXR 07/31/16: non-acute MRI brain 07/27/16: old right frontal infarct, generalization age appropriate parenchymal atrophy, severe chronic white matter microvascular ischemic changes. MRA 07/27/16: non-acute MRI C-T-L spine 07/27/16 reviewed: T5 abnormality FUNCTIONAL STATUS, Premorbid: Independent ADLs and ambulation. ASSESSMENT AND PLAN: 1. 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 Patient continues to show progress, albeit slow. Continue physical and occupational therapy. Currently undergoing NMES with therapist. Per team rounds yesterday will likely extend d/c date if continue to make progress. Next team rounds tomorrow. Rehabilitation nursing for bladder, bowel and medication management. 2. COPD exacerbation +/- HAP: On abx, S/p IV steroids. Improved. Abx changed to PO 08/06/16. Today d#9/10 of abx. Contiune to taper down oral steroids, cont symbicort, duonebs prn 3. Retention/hematuria: Gross hematuria resolved, dysuria resolved, Parks d/cd 08/05/16 2nd leakage. Bladder scans w/o significant residual. Having difficulty managing urinal. Discussed potential techniques to facilitate during team rounds yesterday. 4. Bacteremia: Thought contaminant. S/p IV vanco. 5. Acute renal failure, dehydration possible exacerbated by vancomycin: S/p IVF. Encourage oral hydration. AM labs 6. Right hand erythema and pain: Improving. Continue compression glove for edema and right arm sling when OOB. AAROM & PROM right UL. 7. Hypertension: Improved control s/p medication adjustment and changing parameters yesterday. [Hx; s/p increased hydralazine 08/06/16, decreased to q8h , changed parameter on Norvasc]. Continue lisinopril, Norvasc, hydralazine and atenolol. Further dose adjustments if needed. 8. DVT prophylaxis: Maintain Lovenox daily. Continue SCD and TOBIN hose. 9. Diabetes mellitus type 2: Improved BG. Restarted metformin 08/11/16 and increased detemir due to persistently elevated BG. Continue ISS for now. Monitor closely with adjustments in insulin as indicated. 10. Bowel: Maintain Colace and senna scheduled along with milk of magnesia and MiraLAX on an as-needed basis 11. Malnutrition: Prealbumin low, continue Glucerna. Continue carb consistent diet. / Vital Signs Vital Sign - Last 24 Hours 08/12/16 08/12/16 08/12/16 08/12/16 14:44 20:00 21:00 21:01 Temp 97.8 Pulse 85 85 Resp 18 B/P 125/73 135/72 135/72 Pulse Ox 93 O2 Delivery Room Air Room Air 08/12/16 08/13/16 08/13/16 08/13/16 22:00 05:50 06:00 08:15 Temp 98.0 Pulse 76 Resp 18 B/P 135/72 135/76 135/76 Pulse Ox 94 O2 Delivery Room Air Room Air 08/13/16 08:17 Pulse 70 B/P 132/70 Laboratory Data Labs 24H Laboratory Tests 2 08/12/16 16:45: Bedside Glucose (Misc Panel) 178H 08/12/16 20:46: Bedside Glucose (Misc Panel) 209H 08/13/16 07:14: Bedside Glucose (Misc Panel) 105 08/13/16 11:37: Bedside Glucose (Misc Panel) 137H FSBS Laboratory Tests Test 08/12/16 16:45 08/12/16 20:46 08/13/16 07:14 08/13/16 11:37 Range/Units Bedside Glucose (Misc Panel) 178 209 105 137 83-110 MG/DL Microbiology Microbiology 08/03/16 Blood Culture - Final, Complete NO GROWTH AFTER 5 DAYS 08/03/16 Blood Culture - Final, Complete NO GROWTH AFTER 5 DAYS Allergies Allergies: Coded Allergies: No Known Allergies (Verified Allergy, Unknown, 04/25/10) Current Medications Current Medications Current Medications Acetaminophen (Tylenol Tab) 1,000 mg Q8H PO Last administered on 08/13/16 05:51 ; Start 08/04/16 at 14:00; Stop 09/03/16 at 13:59 Acetaminophen (Tylenol) 650 mg Q4HP PRN PO MILD PAIN (PS 1-4) Last administered on 08/04/16 05:18; Start 07/31/16 at 13:00; Stop 08/04/16 at 09:58 ; Status DC Acetaminophen/ Hydrocodone Bitart (Reliance, Anexsia 5/325) 1 tab Q4HP PRN PO MODERATE/SEVERE PAIN (PS 5-10); Start 07/31/16 at 13:00; Stop 08/19/16 at 12:59 Albuterol Sulfate (Proventil, Ventolin Hfa) 2 puff QIDP PRN INH SHORTNESS OF BREATH; Start 07/31/16 at 13:00; Stop 08/02/16 at 01:31; Status DC Albuterol/ Ipratropium (Duoneb (Ipr 0.5mg/Alb 2.5mg)) 3 ml Q2HP PRN NEB SOB/ WHEEZING Last administered on 08/02/16 01:09; Start 08/01/16 at 21:00; Stop at 20:59 Albuterol/ Ipratropium (Duoneb (Ipr 0.5mg/Alb 2.5mg)) 3 ml RQ6H NEB Last administered on 08/03/16 13:32; Start 08/02/16 at 02:00; Stop 08/04/16 at 11:39 ; Status DC Albuterol/ Ipratropium (Duoneb (Ipr 0.5mg/Alb 2.5mg)) 3 ml RQ6H NEB Last administered on 08/13/16 01:16; Start 08/08/16 at 08:00; Stop 09/07/16 at 07:59 Amlodipine Besylate (Norvasc) 5 mg BID PO Last administered on 08/03/16 21:26 ; Start 07/31/16 at 21:00; Stop 08/04/16 at 07:35; Status DC Amlodipine Besylate (Norvasc) 10 mg QHS PO Last administered on 08/12/16 21:01 ; Start 08/04/16 at 21:00; Stop 09/03/16 at 20:59 Aspirin (Ecotrin) 81 mg DAILY PO Last administered on 08/13/16 08:15; Start at 09:00; Stop 08/31/16 at 08:59 Atenolol (Tenormin) 25 mg BID PO Last administered on 08/03/16 21:25; Start at 21:00; Stop 08/04/16 at 07:33; Status DC Atenolol (Tenormin) 25 mg DAILY PO Last administered on 08/12/16 08:16; Start 08/04/16 at 09:00; Stop 09/03/16 at 08:59 Atorvastatin Calcium (Lipitor) 20 mg DAILY PO Last administered on 08/13/16 08: 16; Start 08/01/16 at 09:00; Stop 08/31/16 at 08:59 Benzonatate (Tessalon Perles) 100 mg TID PO Last administered on 08/04/16 10: 24; Start 08/01/16 at 09:00; Stop 08/04/16 at 11:11; Status DC Budesonide/ Formoterol Fumarate (Symbicort 160/ 4.5mcg) 2 puff BID INH Last administered on 08/13/16 07:33; Start 07/31/16 at 21:00; Stop 08/30/16 at 20:59 Cefdinir (Omnicef) 300 mg BID PO ; Start 08/02/16 at 09:00; Stop 08/02/16 at 09: 00; Status DC Clopidogrel Bisulfate (PLAVix) 75 mg QPM PO Last administered on 08/12/16 21:00 ; Start 07/31/16 at 21:00; Stop 08/30/16 at 20:59 Dextrose (Dextrose 50%) 25 ml ASDIRECTED PRN IV SEE LABEL COMMENTS; Start 07/31 at 20:30; Stop 08/30/16 at 20:29 Docusate Sodium (Colace) 100 mg BID PO Last administered on 08/13/16 08:16; Start 07/31/16 at 21:00; Stop 08/30/16 at 20:59 Enoxaparin Sodium (Lovenox) 40 mg DAILY SC Last administered on 08/13/16 08:18 ; Start 08/01/16 at 09:00; Stop 08/14/16 at 08:59 Finasteride (Proscar) 5 mg DAILY PO Last administered on 08/13/16 08:16; Start 08/01/16 at 09:00; Stop 08/31/16 at 08:59 Glucagon (Glucagon) 1 mg ASDIRECTED PRN SC SEE LABEL COMMENTS; Start 07/31/16 at 20:30; Stop 08/30/16 at 20:29 Glucose (Glucose) 16 GM ASDIRECTED PRN PO SEE LABEL COMMENTS; Start 07/31/16 at 20:30; Stop 08/30/16 at 20:29 Hydralazine HCl (Apresoline) 10 mg Q6H PO Last administered on 08/12/16 06:18; Start 08/06/16 at 12:00; Stop 08/12/16 at 08:26; Status DC Hydralazine HCl (Apresoline) 10 mg Q8H PO ; Start 08/12/16 at 14:00; Stop at 13:59 Hydralazine HCl (Apresoline) 10 mg TID PO Last administered on 08/06/16 08:28; Start 08/02/16 at 09:00; Stop 08/06/16 at 12:35; Status DC Insulin Detemir (Levemir Insulin) 10 units DAILY SC Last administered on 07:41; Start 08/04/16 at 09:00; Stop 08/10/16 at 18:42; Status DC Insulin Detemir (Levemir Insulin) 15 units DAILY SC Last administered on 08:19; Start 08/11/16 at 09:00; Stop 09/10/16 at 08:59 Insulin Human Lispro (HumaLOG INSULIN) See Protocol Table AC SC Last administered on 08/13/16 12:01; Start 08/01/16 at 07:30; Stop 08/31/16 at 07:29 Insulin Human Lispro (HumaLOG INSULIN) See Protocol Table QHS SC Last administered on 08/10/16 20:39; Start 07/31/16 at 21:00; Stop 08/30/16 at 20:59 Lactobacillus Acidophilus (Bacid) 1 ea BID PO Last administered on 08/01/16 21 :17; Start 08/01/16 at 21:00; Stop 08/02/16 at 10:52; Status DC Lactobacillus Acidophilus 1 ea 1 ea BIDWM PO Last administered on 08/11/16 17: 07; Start 08/02/16 at 08:00; Stop 08/11/16 at 18:01; Status DC Levofloxacin (Levaquin) 750 mg DAILY@21 PO Last administered on 08/12/16 20:59 ; Start 08/06/16 at 21:00; Stop 08/19/16 at 20:59 Levofloxacin (Levaquin) 750 mg Q2D@18 PO ; Start 08/01/16 at 18:00; Stop at 20:43; Status DC Levofloxacin 750 mg/IV Miscellaneous Supplies 150 ml @ 100 mls/hr Q48H IV ; Start 08/01/16 at 22:00; Stop 08/01/16 at 22:00; Status DC Levofloxacin 750 mg/IV Miscellaneous Supplies 150 ml @ 100 mls/hr Q48H IV Last administered on 08/05/16 21:39; Start 08/03/16 at 22:00; Stop 08/06/16 at 10:16; Status DC Levofloxacin/IV Miscellaneous Supplies (Levaquin) 150 ml @ 100 mls/hr Q48H IV ; Start 08/03/16 at 22:00; Stop 08/03/16 at 22:00; Status DC Lisinopril (Prinivil) 40 mg DAILY PO Last administered on 08/01/16 08:44; Start 08/01/16 at 09:00; Stop 08/02/16 at 06:38; Status DC Magnesium Hydroxide (Milk Of Magnesia) 30 ml DAILYPRN PRN PO CONSTIPATION; Start 07/31/16 at 13:00; Stop 08/30/16 at 12:59 Metformin HCl (Glucophage) 500 mg BID@08,18 PO Last administered on 08/13/16 08 :15; Start 08/11/16 at 08:00; Stop 09/10/16 at 07:59 Metformin HCl (Glucophage) 500 mg PC PO Last administered on 08/01/16 18:09; Start 07/31/16 at 18:30; Stop 08/02/16 at 06:39; Status DC Methylprednisolone (SOLUmedrol) 60 mg Q8H IV Last administered on 08/03/16 05: 35; Start 08/02/16 at 06:00; Stop 08/03/16 at 06:57; Status DC Methylprednisolone 40 mg 40 mg Q12H IV Last administered on 08/04/16 05:13; Start 08/03/16 at 18:00; Stop 08/04/16 at 07:32; Status DC Mineral Oil/White Petrolatum APPLY TO RIGHT HAND BID TOP Last administered on 08:19; Start 08/04/16 at 09:00; Stop 09/03/16 at 08:59 Pantoprazole Sodium (Protonix) 40 mg DAILY PO Last administered on 08/13/16 08: 16; Start 07/31/16 at 09:00; Stop 08/30/16 at 08:59 Piperacillin Sod/ Tazobactam Sod 4.5 gm/Dextrose 50 ml @ 50 mls/hr Q6H IV Last administered on 08/01/16 21:57; Start 08/01/16 at 21:00; Stop 08/02/16 at 01:31 ; Status DC Piperacillin Sod/ Tazobactam Sod 4.5 gm/Dextrose 50 ml @ 50 mls/hr Q6H IV Last administered on 08/02/16 15:53; Start 08/02/16 at 09:00; Stop 08/02/16 at 19:10 ; Status DC Piperacillin Sod/ Tazobactam Sod/ Dextrose (Zosyn/Dextrose 5% Mini-Bag Plus) 50 ml @ 50 mls/hr Q6H IV Last administered on 08/04/16 03:30; Start 08/02/16 at 21:00; Stop 08/04/16 at 07:29; Status DC Polyethylene Glycol (Miralax) 1 pkt DAILYPRN PRN PO CONSTIPATION; Start at 13:00; Stop 08/30/16 at 12:59 Prednisone (Deltasone) 10 mg DAILY PO ; Start 08/20/16 at 09:00; Stop 09/19/16 at 08:59 Prednisone (Deltasone) 15 mg DAILY PO ; Start 08/17/16 at 09:00; Stop 08/19/16 at 23:00 Prednisone (Deltasone) 20 mg DAILY PO Last administered on 08/13/16 08:16; Start 08/13/16 at 09:00; Stop 08/16/16 at 23:00 Prednisone (Deltasone) 30 mg DAILY PO Last administered on 08/12/16 08:15; Start 08/10/16 at 09:00; Stop 08/12/16 at 23:00; Status DC Prednisone (Deltasone) 40 mg DAILY PO Last administered on 08/09/16 08:17; Start 08/08/16 at 09:00; Stop 08/09/16 at 23:00; Status DC Prednisone (Deltasone) 50 mg DAILY PO Last administered on 08/07/16 08:56; Start 08/06/16 at 09:00; Stop 08/07/16 at 09:49; Status DC Prednisone (Deltasone) 60 mg DAILY PO Last administered on 08/05/16 08:20; Start 08/04/16 at 09:00; Stop 08/05/16 at 12:59; Status DC Prednisone 20 mg 20 mg DAILY PO ; Start 08/02/16 at 09:00; Stop 08/02/16 at 09: 00; Status DC Senna (Senokot) 1 tab QHS PO Last administered on 08/12/16 20:59; Start at 21:00; Stop 08/30/16 at 20:59 Sodium Chloride 1,000 ml @ 150 mls/hr Q6H40M IV Last administered on 06:54; Start 08/02/16 at 06:45; Stop 08/02/16 at 17:43; Status DC Sodium Chloride (Nacl 0.9%) 1,000 ml @ 50 mls/hr Q20H IV Last administered on 08/03/16 10:59; Start 08/03/16 at 11:00; Stop 08/04/16 at 06:59; Status DC Sodium Chloride (Nacl 0.9%) 1,000 ml @ 50 mls/hr Q20H IV Last administered on 08/06/16 13:48; Start 08/04/16 at 12:45; Stop 08/07/16 at 08:51; Status DC Tamsulosin HCl (Flomax) 0.4 mg DAILY PO Last administered on 08/13/16 08:16; Start 08/05/16 at 09:00; Stop 09/04/16 at 08:59 Vancomycin HCl 1000 mg/IV Miscellaneous Supplies 1 each/ Dextrose 270 ml @ 270 mls/hr Q12H IV ; Start 08/02/16 at 11:00; Stop 08/02/16 at 11:00; Status DC Vancomycin HCl 1000 mg/IV Miscellaneous Supplies 1 each/ Dextrose 270 ml @ 270 mls/hr Q24H IV Last administered on 08/03/16 12:05; Start 08/02/16 at 12:00; Stop 08/04/16 at 07:29; Status DC REJI BLACKWELL MD Aug 13, 2016 12:06
[2016-08-13 14:00] VITALS: BP 146/62
[2016-08-13 20:00] VITALS: BP 142/74
[2016-08-13] MEDS: amLODIPine 10 MG TAB PO SCH (21:34)
[2016-08-13] MEDS: LevoFLOXacin 750 MG TABLET PO SCH (21:35)
[2016-08-13] MEDS: CLOPIDOGREL 75 MG TAB PO SCH (21:35)
[2016-08-13] MEDS: SENNA 8.6 MG TAB (SENOKOT) PO SCH (21:35)
[2016-08-14] MEDS: **hydrALAZINE** 10 MG TAB PO SCH ×3 (05:56→21:59)
[2016-08-14] MEDS: ACETAMINOPHEN 500 MG TAB PO SCH ×3 (05:56→21:59)
[2016-08-14 05:59] VITALS: BP 143/86
[2016-08-14 06:53] LABS: EOS % 0.5 % (0.0-3.0); LARGE UNSTAINED CELL # 0.1 K/mm3 (0.0-0.4); LARGE UNSTAINED CELL % 0.8 % (0.0-4.0); LYMPH # 1.4 K/mm3 (1.5-4.5); LYMPH % 13.6 % (24.0-44.0); MEAN CORPUSCULAR HEMOGLOBIN 28.7 pg (27.0-33.0); MEAN CORPUSCULAR HGB CONC 32.3 g/dl (32.0-36.5); MEAN CORPUSCULAR VOLUME 88.7 fl (80.0-96.0); MONO # 0.5 K/mm3 (0.0-0.8); MONO % 5.5 % (0.0-5.0); NEUTROPHILS # 7.7 K/mm3 (1.8-7.7); NEUTROPHILS % 79.5 % (36.0-66.0); PLATELET COUNT, AUTOMATED 300 k/mm3 (150-450); RED CELL DISTRIBUTION WIDTH 14.5 % (11.5-14.5); WHITE BLOOD COUNT 9.6 K/mm3 (4.0-10.0)
[2016-08-14 07:12] LABS: ANION GAP 10 MEQ/L (8-16); BLOOD UREA NITROGEN 26 MG/DL (7-18); CALCIUM LEVEL 8.2 MG/DL (8.8-10.2); CARBON DIOXIDE LEVEL 27 MEQ/L (21-32); CHLORIDE LEVEL 107 MEQ/L (98-107); CREATININE FOR GFR 1.15 MG/DL (0.70-1.30); GLOMERULAR FILTRATION RATE > 60.0 (>35); GLUCOSE, FASTING 88 MG/DL (83-110); SODIUM LEVEL 144 MEQ/L (136-145)
[2016-08-14] MEDS: HumaLOG INSULIN (NovoLOG) PER UNIT SC SCH ×4 (07:30→21:00)
[2016-08-14] MEDS: EUCERIN 120GM CREAM TOP SCH ×2 (08:40→21:00)
[2016-08-14] MEDS: FINASTERIDE 5 MG TAB PO SCH (08:41)
[2016-08-14] MEDS: PANTOPRAZOLE 40MG TAB (PROTONIX) PO SCH (08:41)
[2016-08-14] MEDS: DOCUSATE SODIUM 100 MG CAP PO SCH ×2 (08:41→21:58)
[2016-08-14] MEDS: metFORMIN (GLUCOPHAGE) 500 MG TAB PO SCH ×2 (08:41→17:11)
[2016-08-14] MEDS: LEVEMIR (INSULIN DETEMIR) 1 UNITS/0.01ML SC SCH (08:41)
[2016-08-14] MEDS: ATORVASTATIN 20 MG TAB PO SCH (08:41)
[2016-08-14] MEDS: ENOXAPARIN 40 MG/0.4 ML SYRINGE (J1650) SC SCH (08:41)
[2016-08-14] MEDS: TAMSULOSIN 0.4 MG CAP PO SCH (08:42)
[2016-08-14] MEDS: ASPIRIN 81 MG ENTERIC TAB PO SCH (08:42)
[2016-08-14] MEDS: predniSONE 20 MG TAB PO SCH (08:42)
[2016-08-14] MEDS: ATENOLOL 25 MG TAB PO SCH (08:44)
[2016-08-14] MEDS: SYMBICORT 160/4.5MCG INHALER 6GM INH SCH ×2 (08:48→19:45)
--- NOTE | 2016-08-14 10:54 | IPNPDOC ---
[employer]ist Progress Note PROGRESS NOTE DATE OF ADMISSION: 07/31/2016 DATE OF SERVICE: 08/14/2016 IDENTIFICATION STATEMENT: Patient is an 86-year-old left-hand dominant man with acute midbrain CVA and right hemiparesis admitted for comprehensive integrated inpatient rehabilitation. 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 No residual weakness except left eye palsy Skull fracture 1980s secondary very to fall off scaffolding Multiple broken bones PAST SURGICAL HISTORY: Appendectomy Cholecystectomy Cataract surgery ALLERGIES: No known drug allergies MEDICATIONS: Levaquin 750mg PO daily Bacid 1 bid Prednisone taper Duoneb q2h prn Hydralazine 10mg po q6h Norvasc 10mg qhs Atenolol 25 mg by mouth twice a day Lisinopril 40 mg by mouth daily Aspirin 81 mg by mouth daily Lipitor 20 mg by mouth daily Proscar 5 mg by mouth daily Flomax 0.4mg daily Lovenox 40 mg subcutaneous daily Detemir 15u daily Insulin sliding scale before meals and at bedtime Symbicort 160/4.5 g 2 puffs inhaled twice a day Plavix 75 mg by mouth qpm albuterol sulfate 2 puffs inhaled 4 times a day when necessary shortness of breath Acetaminophen 1000mg q8h SUBJECTIVE: Patient still has episodic pain right LL, medial/posterior thigh, occurs when he tries to adduct / lift leg, thinks heating pad helps. No other complaints. Denies any chest pain, shortness of breath, lightheadedness, chills , diaphoresis, nausea/vomiting, C/D. VITAL SIGNS: 97.9F, pulse 93, respiratory rate 18, blood pressure 136/65, 95% saturation on RA PHYSICAL EXAMINATION: GENERAL: Well nourished, well developed, sitting in chair, no acute distress. HEENT: Normocephalic, atraumatic. Left eye palsy (unchanged). PERRL, EOMI CARDIOVASCULAR: S1, S2, regular rate. No lower limb swelling or calf tenderness. LUNGS: Diffusely decreased breath sounds throughout but CTA, no rhonchi or wheezing. ABDOMEN: Soft, nontender, nondistended. Normoactive bowel sounds throughout. MUSCULOSKELETAL: No groin pain to palpation, negative FABERS on right. Negative dural tension signs MMT: 5/5 right shoulder shrug, 3/5 right finger flexion, 3-/ 5 finger extension, 2/5 EF/EE. 3/5 right HF, 3/5 KE 4/5 KF, 1/5 right DF/PF. 5/ 5 strength left upper and lower limb in all major muscle groups. NEUROLOGICAL: Alert and oriented x 3. Answers all questions appropriately. Able to follow commands SKIN: right hand : swelling resolved & erythema mostly resolved. LABORATORY DATA: 08/14/16 reviewed, see below IMAGING: CT 08/01/16: pneumonitis MRI brain 07/27/16: old right frontal infarct, generalization age appropriate parenchymal atrophy, severe chronic white matter microvascular ischemic changes. MRA 07/27/16: non-acute MRI C-T-L spine 07/27/16 reviewed: T5 abnormality FUNCTIONAL STATUS, Premorbid: Independent ADLs and ambulation. ASSESSMENT AND PLAN: 1. 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 Patient continues to show progress. Continue physical and occupational therapy. Currently undergoing NMES with therapist. Reeval d/c date today at team rounds. Rehabilitation nursing for bladder, bowel and medication management. 2. COPD exacerbation +/- HAP: On abx, S/p IV steroids. Improved. Abx changed to PO 08/06/16. Today d#10/10 of abx. Contiune to taper down oral steroids, cont symbicort, duonebs prn 3. Retention/hematuria: Resolved [hx: Gross hematuria resolved, dysuria resolved , Parks d/cd 08/05/16 2nd leakage. Bladder scans w/o significant residual]. 4. Bacteremia: Thought contaminant. S/p IV vanco. 5. Acute renal failure: Resolved, seems to be at baseline 6. Right hand erythema and pain: Mostly resolved. Ok to d/c compression glove for edema. Continue right arm sling when OOB. AAROM & PROM right UL. 7. Hypertension: Improved control s/p medication adjustment and changing parameters 08/12/16. [Hx: s/p increased hydralazine 08/06/16, decreased to q8h , changed parameter on Norvasc]. Continue lisinopril, Norvasc, hydralazine and atenolol. Further dose adjustments if needed. 8. DVT prophylaxis: Maintain Lovenox daily. Continue SCD and TOBIN hose. 9. Diabetes mellitus type 2: Improved BG. Restarted metformin 08/11/16 and increased detemir due to persistently elevated BG. Continue ISS for now. Monitor closely with adjustments in insulin as indicated. 10. Bowel: Maintain Colace and senna scheduled along with milk of magnesia and MiraLAX on an as-needed basis 11. Malnutrition: Prealbumin increasing, continue Glucerna. Continue carb consistent diet. / Vital Signs Vital Sign - Last 24 Hours 08/13/16 08/13/16 08/13/16 08/13/16 13:42 14:00 20:00 20:00 Temp 96.5 97.4 Pulse 92 99 Resp 18 18 B/P 138/70 146/62 142/74 Pulse Ox 95 94 O2 Delivery Room Air Room Air Room Air 08/13/16 08/14/16 08/14/16 08/14/16 21:34 05:56 05:59 08:00 Temp 97.9 Pulse 95 89 Resp 18 B/P 118/64 143/86 143/86 Pulse Ox 95 O2 Delivery Room Air Room Air 08/14/16 08:44 Pulse 93 B/P 136/65 Laboratory Data CBC/BMP Laboratory Tests 08/14/16 06:35 Calcium Level 8.2 L, Red Blood Count 4.04 L, Mean Corpuscular Volume 88.7, Mean Corpuscular Hemoglobin 28.7, Mean Corpuscular Hemoglobin Concent 32.3, Red Cell Distribution Width 14.5, Neutrophils (%) (Auto) 79.5 H, Lymphocytes (%) (Auto) 13.6 L, Monocytes (%) (Auto) 5.5 H, Eosinophils (%) (Auto) 0.5, Basophils (%) ( Auto) 0.0, Neutrophils # (Auto) 7.7, Lymphocytes # (Auto) 1.4 L, Monocytes # ( Auto) 0.5, Eosinophils # (Auto) 0.0, Basophils # (Auto) 0.0 Labs 24H Laboratory Tests 2 08/13/16 11:37: Bedside Glucose (Misc Panel) 137H 08/13/16 16:36: Bedside Glucose (Misc Panel) 227H 08/13/16 21:27: Bedside Glucose (Misc Panel) 168H 08/14/16 06:35: Anion Gap 10, White Blood Count 9.6, Red Blood Count 4.04L, Hemoglobin 11.6L, Hematocrit 35.8L, Mean Corpuscular Volume 88.7, Mean Corpuscular Hemoglobin 28.7 , Mean Corpuscular Hemoglobin Concent 32.3, Red Cell Distribution Width 14.5, Platelet Count 300, Neutrophils (%) (Auto) 79.5H, Lymphocytes (%) (Auto) 13.6L, Monocytes (%) (Auto) 5.5H, Eosinophils (%) (Auto) 0.5, Basophils (%) (Auto) 0.0 , Neutrophils # (Auto) 7.7, Lymphocytes # (Auto) 1.4L, Monocytes # (Auto) 0.5, Eosinophils # (Auto) 0.0, Basophils # (Auto) 0.0, Blood Urea Nitrogen 26H, Creatinine 1.15, Sodium Level 144, Potassium Level 4.0, Chloride Level 107, Carbon Dioxide Level 27, Calcium Level 8.2L, Glomerular Filtration Rate > 60.0, Large Unclassified Cells # 0.1, Large Unclassified Cells % 0.8, Prealbumin 36.6 FSBS Laboratory Tests Test 08/13/16 11:37 08/13/16 16:36 08/13/16 21:27 Range/Units Bedside Glucose (Misc Panel) 137 227 168 83-110 MG/DL Allergies Allergies: Coded Allergies: No Known Allergies (Verified Allergy, Unknown, 04/25/10) Current Medications Current Medications Current Medications Acetaminophen (Tylenol Tab) 1,000 mg Q8H PO Last administered on 08/14/16 05:56 ; Start 08/04/16 at 14:00; Stop 09/03/16 at 13:59 Acetaminophen (Tylenol) 650 mg Q4HP PRN PO MILD PAIN (PS 1-4) Last administered on 08/04/16 05:18; Start 07/31/16 at 13:00; Stop 08/04/16 at 09:58 ; Status DC Acetaminophen/ Hydrocodone Bitart ([place], [place] 5/325) 1 tab Q4HP PRN PO MODERATE/SEVERE PAIN (PS 5-10); Start 07/31/16 at 13:00; Stop 08/19/16 at 12:59 Albuterol Sulfate (Proventil, Ventolin Hfa) 2 puff QIDP PRN INH SHORTNESS OF BREATH; Start 07/31/16 at 13:00; Stop 08/02/16 at 01:31; Status DC Albuterol/ Ipratropium (Duoneb (Ipr 0.5mg/Alb 2.5mg)) 3 ml Q2HP PRN NEB SOB/ WHEEZING Last administered on 08/02/16 01:09; Start 08/01/16 at 21:00; Stop at 20:59 Albuterol/ Ipratropium (Duoneb (Ipr 0.5mg/Alb 2.5mg)) 3 ml RQ6H NEB Last administered on 08/03/16 13:32; Start 08/02/16 at 02:00; Stop 08/04/16 at 11:39 ; Status DC Albuterol/ Ipratropium (Duoneb (Ipr 0.5mg/Alb 2.5mg)) 3 ml RQ6H NEB Last administered on 08/13/16 13:49; Start 08/08/16 at 08:00; Stop 08/14/16 at 08:18; Status DC Amlodipine Besylate (Norvasc) 5 mg BID PO Last administered on 08/03/16 21:26 ; Start 07/31/16 at 21:00; Stop 08/04/16 at 07:35; Status DC Amlodipine Besylate (Norvasc) 10 mg QHS PO Last administered on 08/12/16 21:01 ; Start 08/04/16 at 21:00; Stop 09/03/16 at 20:59 Aspirin (Ecotrin) 81 mg DAILY PO Last administered on 08/14/16 08:42; Start at 09:00; Stop 08/31/16 at 08:59 Atenolol (Tenormin) 25 mg BID PO Last administered on 08/03/16 21:25; Start at 21:00; Stop 08/04/16 at 07:33; Status DC Atenolol (Tenormin) 25 mg DAILY PO Last administered on 08/12/16 08:16; Start 08/04/16 at 09:00; Stop 09/03/16 at 08:59 Atorvastatin Calcium (Lipitor) 20 mg DAILY PO Last administered on 08/14/16 08: 41; Start 08/01/16 at 09:00; Stop 08/31/16 at 08:59 Benzonatate (Tessalon Perles) 100 mg TID PO Last administered on 08/04/16 10: 24; Start 08/01/16 at 09:00; Stop 08/04/16 at 11:11; Status DC Budesonide/ Formoterol Fumarate (Symbicort 160/ 4.5mcg) 2 puff BID INH Last administered on 08/14/16 08:48; Start 07/31/16 at 21:00; Stop 08/30/16 at 20:59 Cefdinir (Omnicef) 300 mg BID PO ; Start 08/02/16 at 09:00; Stop 08/02/16 at 09: 00; Status DC Clopidogrel Bisulfate (PLAVix) 75 mg QPM PO Last administered on 08/13/16 21:35 ; Start 07/31/16 at 21:00; Stop 08/30/16 at 20:59 Dextrose (Dextrose 50%) 25 ml ASDIRECTED PRN IV SEE LABEL COMMENTS; Start 07/31 at 20:30; Stop 08/30/16 at 20:29 Docusate Sodium (Colace) 100 mg BID PO Last administered on 08/14/16 08:41; Start 07/31/16 at 21:00; Stop 08/30/16 at 20:59 Enoxaparin Sodium (Lovenox) 40 mg DAILY SC Last administered on 08/14/16 08:41 ; Start 08/01/16 at 09:00; Stop 08/18/16 at 08:59 Finasteride (Proscar) 5 mg DAILY PO Last administered on 08/14/16 08:41; Start 08/01/16 at 09:00; Stop 08/31/16 at 08:59 Glucagon (Glucagon) 1 mg ASDIRECTED PRN SC SEE LABEL COMMENTS; Start 07/31/16 at 20:30; Stop 08/30/16 at 20:29 Glucose (Glucose) 16 GM ASDIRECTED PRN PO SEE LABEL COMMENTS; Start 07/31/16 at 20:30; Stop 08/30/16 at 20:29 Hydralazine HCl (Apresoline) 10 mg Q6H PO Last administered on 08/12/16 06:18; Start 08/06/16 at 12:00; Stop 08/12/16 at 08:26; Status DC Hydralazine HCl (Apresoline) 10 mg Q8H PO Last administered on 08/14/16 05:56; Start 08/12/16 at 14:00; Stop 09/11/16 at 13:59 Hydralazine HCl (Apresoline) 10 mg TID PO Last administered on 08/06/16 08:28; Start 08/02/16 at 09:00; Stop 08/06/16 at 12:35; Status DC Insulin Detemir (Levemir Insulin) 10 units DAILY SC Last administered on 07:41; Start 08/04/16 at 09:00; Stop 08/10/16 at 18:42; Status DC Insulin Detemir (Levemir Insulin) 15 units DAILY SC Last administered on 08:19; Start 08/11/16 at 09:00; Stop 09/10/16 at 08:59 Insulin Human Lispro (HumaLOG INSULIN) See Protocol Table AC SC Last administered on 08/13/16 17:41; Start 08/01/16 at 07:30; Stop 08/31/16 at 07:29 Insulin Human Lispro (HumaLOG INSULIN) See Protocol Table QHS SC Last administered on 08/10/16 20:39; Start 07/31/16 at 21:00; Stop 08/30/16 at 20:59 Lactobacillus Acidophilus (Bacid) 1 ea BID PO Last administered on 08/01/16 21 :17; Start 08/01/16 at 21:00; Stop 08/02/16 at 10:52; Status DC Lactobacillus Acidophilus 1 ea 1 ea BIDWM PO Last administered on 08/11/16 17: 07; Start 08/02/16 at 08:00; Stop 08/11/16 at 18:01; Status DC Levofloxacin (Levaquin) 750 mg DAILY@21 PO Last administered on 08/13/16 21:35 ; Start 08/06/16 at 21:00; Stop 08/19/16 at 20:59 Levofloxacin (Levaquin) 750 mg Q2D@18 PO ; Start 08/01/16 at 18:00; Stop at 20:43; Status DC Levofloxacin 750 mg/IV Miscellaneous Supplies 150 ml @ 100 mls/hr Q48H IV ; Start 08/01/16 at 22:00; Stop 08/01/16 at 22:00; Status DC Levofloxacin 750 mg/IV Miscellaneous Supplies 150 ml @ 100 mls/hr Q48H IV Last administered on 08/05/16 21:39; Start 08/03/16 at 22:00; Stop 08/06/16 at 10:16; Status DC Levofloxacin/IV Miscellaneous Supplies (Levaquin) 150 ml @ 100 mls/hr Q48H IV ; Start 08/03/16 at 22:00; Stop 08/03/16 at 22:00; Status DC Lisinopril (Prinivil) 40 mg DAILY PO Last administered on 08/01/16 08:44; Start 08/01/16 at 09:00; Stop 08/02/16 at 06:38; Status DC Magnesium Hydroxide (Milk Of Magnesia) 30 ml DAILYPRN PRN PO CONSTIPATION; Start 07/31/16 at 13:00; Stop 08/30/16 at 12:59 Metformin HCl (Glucophage) 500 mg BID@08,18 PO Last administered on 08/14/16 08 :41; Start 08/11/16 at 08:00; Stop 09/10/16 at 07:59 Metformin HCl (Glucophage) 500 mg PC PO Last administered on 08/01/16 18:09; Start 07/31/16 at 18:30; Stop 08/02/16 at 06:39; Status DC Methylprednisolone (SOLUmedrol) 60 mg Q8H IV Last administered on 08/03/16 05: 35; Start 08/02/16 at 06:00; Stop 08/03/16 at 06:57; Status DC Methylprednisolone 40 mg 40 mg Q12H IV Last administered on 08/04/16 05:13; Start 08/03/16 at 18:00; Stop 08/04/16 at 07:32; Status DC Mineral Oil/White Petrolatum APPLY TO RIGHT HAND BID TOP Last administered on 08:40; Start 08/04/16 at 09:00; Stop 09/03/16 at 08:59 Pantoprazole Sodium (Protonix) 40 mg DAILY PO Last administered on 08/14/16 08: 41; Start 07/31/16 at 09:00; Stop 08/30/16 at 08:59 Piperacillin Sod/ Tazobactam Sod 4.5 gm/Dextrose 50 ml @ 50 mls/hr Q6H IV Last administered on 08/01/16 21:57; Start 08/01/16 at 21:00; Stop 08/02/16 at 01:31 ; Status DC Piperacillin Sod/ Tazobactam Sod 4.5 gm/Dextrose 50 ml @ 50 mls/hr Q6H IV Last administered on 08/02/16 15:53; Start 08/02/16 at 09:00; Stop 08/02/16 at 19:10 ; Status DC Piperacillin Sod/ Tazobactam Sod/ Dextrose (Zosyn/Dextrose 5% Mini-Bag Plus) 50 ml @ 50 mls/hr Q6H IV Last administered on 08/04/16 03:30; Start 08/02/16 at 21:00; Stop 08/04/16 at 07:29; Status DC Polyethylene Glycol (Miralax) 1 pkt DAILYPRN PRN PO CONSTIPATION; Start at 13:00; Stop 08/30/16 at 12:59 Prednisone (Deltasone) 10 mg DAILY PO ; Start 08/20/16 at 09:00; Stop 09/19/16 at 08:59 Prednisone (Deltasone) 15 mg DAILY PO ; Start 08/17/16 at 09:00; Stop 08/19/16 at 23:00 Prednisone (Deltasone) 20 mg DAILY PO Last administered on 08/14/16 08:42; Start 08/13/16 at 09:00; Stop 08/16/16 at 23:00 Prednisone (Deltasone) 30 mg DAILY PO Last administered on 08/12/16 08:15; Start 08/10/16 at 09:00; Stop 08/12/16 at 23:00; Status DC Prednisone (Deltasone) 40 mg DAILY PO Last administered on 08/09/16 08:17; Start 08/08/16 at 09:00; Stop 08/09/16 at 23:00; Status DC Prednisone (Deltasone) 50 mg DAILY PO Last administered on 08/07/16 08:56; Start 08/06/16 at 09:00; Stop 08/07/16 at 09:49; Status DC Prednisone (Deltasone) 60 mg DAILY PO Last administered on 08/05/16 08:20; Start 08/04/16 at 09:00; Stop 08/05/16 at 12:59; Status DC Prednisone 20 mg 20 mg DAILY PO ; Start 08/02/16 at 09:00; Stop 08/02/16 at 09: 00; Status DC Senna (Senokot) 1 tab QHS PO Last administered on 08/13/16 21:35; Start at 21:00; Stop 08/30/16 at 20:59 Sodium Chloride 1,000 ml @ 150 mls/hr Q6H40M IV Last administered on 06:54; Start 08/02/16 at 06:45; Stop 08/02/16 at 17:43; Status DC Sodium Chloride (Nacl 0.9%) 1,000 ml @ 50 mls/hr Q20H IV Last administered on 08/03/16 10:59; Start 08/03/16 at 11:00; Stop 08/04/16 at 06:59; Status DC Sodium Chloride (Nacl 0.9%) 1,000 ml @ 50 mls/hr Q20H IV Last administered on 08/06/16 13:48; Start 08/04/16 at 12:45; Stop 08/07/16 at 08:51; Status DC Tamsulosin HCl (Flomax) 0.4 mg DAILY PO Last administered on 08/14/16 08:42; Start 08/05/16 at 09:00; Stop 09/04/16 at 08:59 Vancomycin HCl 1000 mg/IV Miscellaneous Supplies 1 each/ Dextrose 270 ml @ 270 mls/hr Q12H IV ; Start 08/02/16 at 11:00; Stop 08/02/16 at 11:00; Status DC Vancomycin HCl 1000 mg/IV Miscellaneous Supplies 1 each/ Dextrose 270 ml @ 270 mls/hr Q24H IV Last administered on 08/03/16 12:05; Start 08/02/16 at 12:00; Stop 08/04/16 at 07:29; Status DC REJI BLACKWELL MD Aug 14, 2016 10:54
[2016-08-14] MEDS: SENNA 8.6 MG TAB (SENOKOT) PO SCH (21:58)
[2016-08-14] MEDS: LevoFLOXacin 750 MG TABLET PO SCH (21:58)
[2016-08-14] MEDS: amLODIPine 10 MG TAB PO SCH (21:59)
[2016-08-14] MEDS: CLOPIDOGREL 75 MG TAB PO SCH (21:59)
[2016-08-15] MEDS: **hydrALAZINE** 10 MG TAB PO SCH ×3 (05:45→21:41)
[2016-08-15] MEDS: ACETAMINOPHEN 500 MG TAB PO SCH ×3 (05:45→21:39)
[2016-08-15 06:00] VITALS: BP 166/76
[2016-08-15] MEDS: HumaLOG INSULIN (NovoLOG) PER UNIT SC SCH ×4 (08:15→21:00)
[2016-08-15] MEDS: TAMSULOSIN 0.4 MG CAP PO SCH (08:16)
[2016-08-15] MEDS: DOCUSATE SODIUM 100 MG CAP PO SCH ×2 (08:16→21:38)
[2016-08-15] MEDS: LEVEMIR (INSULIN DETEMIR) 1 UNITS/0.01ML SC SCH (08:16)
[2016-08-15] MEDS: metFORMIN (GLUCOPHAGE) 500 MG TAB PO SCH ×2 (08:17→18:01)
[2016-08-15] MEDS: ASPIRIN 81 MG ENTERIC TAB PO SCH (08:17)
[2016-08-15] MEDS: PANTOPRAZOLE 40MG TAB (PROTONIX) PO SCH (08:17)
[2016-08-15] MEDS: predniSONE 20 MG TAB PO SCH (08:17)
[2016-08-15] MEDS: ATENOLOL 25 MG TAB PO SCH (08:17)
[2016-08-15] MEDS: ATORVASTATIN 20 MG TAB PO SCH (08:17)
[2016-08-15] MEDS: FINASTERIDE 5 MG TAB PO SCH (08:17)
[2016-08-15] MEDS: ENOXAPARIN 40 MG/0.4 ML SYRINGE (J1650) SC SCH (08:18)
[2016-08-15] MEDS: EUCERIN 120GM CREAM TOP SCH ×2 (08:18→21:40)
[2016-08-15] MEDS: SYMBICORT 160/4.5MCG INHALER 6GM INH SCH ×2 (08:20→19:47)
--- NOTE | 2016-08-15 11:18 | IPNPDOC ---
[employer] Progress Note PROGRESS NOTE DATE OF ADMISSION: 07/31/2016 DATE OF SERVICE: 08/15/2016 IDENTIFICATION STATEMENT: Patient is an 86-year-old left-hand dominant man with acute midbrain CVA and right hemiparesis admitted for comprehensive integrated inpatient rehabilitation. 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 No residual weakness except left eye palsy Skull fracture 1980s secondary very to fall off scaffolding Multiple broken bones PAST SURGICAL HISTORY: Appendectomy Cholecystectomy Cataract surgery ALLERGIES: No known drug allergies MEDICATIONS: Bacid 1 bid Prednisone taper Duoneb q2h prn Hydralazine 10mg po q6h Norvasc 10mg qhs Atenolol 25 mg by mouth twice a day Lisinopril 40 mg by mouth daily Aspirin 81 mg by mouth daily Lipitor 20 mg by mouth daily Proscar 5 mg by mouth daily Flomax 0.4mg daily Lovenox 40 mg subcutaneous daily Detemir 15u daily Insulin sliding scale before meals and at bedtime Symbicort 160/4.5 g 2 puffs inhaled twice a day Plavix 75 mg by mouth qpm albuterol sulfate 2 puffs inhaled 4 times a day when necessary shortness of breath Acetaminophen 1000mg q8h SUBJECTIVE: Patient w/o new complaints. Feels like making progress, but slow. Denies any chest pain, shortness of breath, lightheadedness, chills, diaphoresis , nausea/vomiting, C/D. VITAL SIGNS: 97.8F, pulse 79, respiratory rate 18, blood pressure 166/76, 93% saturation on RA PHYSICAL EXAMINATION: GENERAL: Well nourished, well developed, sitting in chair, no acute distress. HEENT: Normocephalic, atraumatic. Left eye palsy (unchanged). PERRL, EOMI CARDIOVASCULAR: S1, S2, regular rate. No lower limb swelling or calf tenderness. LUNGS: Diffusely decreased breath sounds throughout but CTA, no rhonchi or wheezing. ABDOMEN: Soft, nontender, nondistended. Normoactive bowel sounds throughout. MUSCULOSKELETAL: No groin pain to palpation, negative FABERS on right. Negative dural tension signs MMT: 5/5 right shoulder shrug, 3/5 right finger flexion, 3-/ 5 finger extension, 2/5 EF/EE. 3/5 right HF, 3/5 KE 4/5 KF, 1/5 right DF/PF. 5/ 5 strength left upper and lower limb in all major muscle groups. NEUROLOGICAL: Alert and oriented x 3. Answers all questions appropriately. Able to follow commands SKIN: right hand : swelling resolved & erythema mostly resolved. LABORATORY DATA: 08/15/16 reviewed, see below IMAGING: CT 08/01/16: pneumonitis MRI brain 07/27/16: old right frontal infarct, generalization age appropriate parenchymal atrophy, severe chronic white matter microvascular ischemic changes. MRA 07/27/16: non-acute MRI C-T-L spine 07/27/16 reviewed: T5 abnormality FUNCTIONAL STATUS, Premorbid: Independent ADLs and ambulation. ASSESSMENT AND PLAN: 1. 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 Patient continues to show progress. Unsure if patients will be able to provided necessary level of assistance. Will reassess need for subacute on Thursday. I have discussed this with patient and his eldest son. Continue physical and occupational therapy. Currently undergoing NMES with therapist. Rehabilitation nursing for bladder, bowel and medication management. 2. COPD exacerbation +/- HAP: On abx, S/p IV steroids. Improved. Abx changed to PO 08/06/16. S/p course abx. Contiune to taper down oral steroids, cont symbicort, duonebs prn 3. Retention/hematuria: Resolved [hx: Gross hematuria resolved, dysuria resolved , Parks d/cd 08/05/16 2nd leakage. Bladder scans w/o significant residual]. 4. Bacteremia: Thought contaminant. S/p IV vanco. 5. Acute renal failure: Resolved, seems to be at baseline 6. Right hand erythema and pain: Mostly resolved. D/cd compression glove for edema. Continue right arm sling when OOB. AAROM & PROM right UL. 7. Hypertension: Awaiting repeat reading. [Hx: s/p medication adjustment and changing parameters 08/12/16, s/p increased hydralazine 08/06/16, decreased to q8h , changed parameter on Norvasc]. Continue lisinopril, Norvasc, hydralazine and atenolol. Dose adjustments if needed. 8. DVT prophylaxis: Maintain Lovenox daily. Continue SCD and TOBIN hose. 9. Diabetes mellitus type 2: Improved BG. Restarted metformin 08/11/16 and increased detemir due to persistently elevated BG. Continue ISS for now. Monitor closely with adjustments in insulin as indicated. 10. Bowel: Maintain Colace and senna scheduled along with milk of magnesia and MiraLAX on an as-needed basis 11. Malnutrition: Prealbumin increasing, continue Glucerna. Continue carb consistent diet. / Vital Signs Vital Sign - Last 24 Hours 08/14/16 08/14/16 08/14/16 08/14/16 14:00 20:00 21:59 21:59 Pulse 99 B/P 125/63 152/78 O2 Delivery Room Air 08/15/16 08/15/16 08/15/16 08/15/16 05:45 06:00 08:17 09:00 Temp 97.8 Pulse 79 79 Resp 18 B/P 166/76 166/76 166/76 Pulse Ox 93 O2 Delivery Room Air Room Air Laboratory Data Labs 24H Laboratory Tests 2 08/14/16 11:39: Bedside Glucose (Misc Panel) 144H 08/14/16 16:39: Bedside Glucose (Misc Panel) 188H 08/14/16 19:53: Bedside Glucose (Misc Panel) 194H 08/15/16 07:04: Bedside Glucose (Misc Panel) 98 FSBS Laboratory Tests Test 08/14/16 11:39 08/14/16 16:39 08/14/16 19:53 08/15/16 07:04 Range/Units Bedside Glucose (Misc Panel) 144 188 194 98 83-110 MG/DL Allergies Allergies: Coded Allergies: No Known Allergies (Verified Allergy, Unknown, 04/25/10) Current Medications Current Medications Current Medications Acetaminophen (Tylenol Tab) 1,000 mg Q8H PO Last administered on 08/15/16 05: 45; Start 08/04/16 at 14:00; Stop 09/03/16 at 13:59 Acetaminophen (Tylenol) 650 mg Q4HP PRN PO MILD PAIN (PS 1-4) Last administered on 08/04/16 05:18; Start 07/31/16 at 13:00; Stop 08/04/16 at 09:58 ; Status DC Acetaminophen/ Hydrocodone Bitart ([place], Anexsia 5/325) 1 tab Q4HP PRN PO MODERATE/SEVERE PAIN (PS 5-10); Start 07/31/16 at 13:00; Stop 08/19/16 at 12:59 Albuterol Sulfate (Proventil, Ventolin Hfa) 2 puff QIDP PRN INH SHORTNESS OF BREATH; Start 07/31/16 at 13:00; Stop 08/02/16 at 01:31; Status DC Albuterol/ Ipratropium (Duoneb (Ipr 0.5mg/Alb 2.5mg)) 3 ml Q2HP PRN NEB SOB/ WHEEZING Last administered on 08/02/16 01:09; Start 08/01/16 at 21:00; Stop at 20:59 Albuterol/ Ipratropium (Duoneb (Ipr 0.5mg/Alb 2.5mg)) 3 ml RQ6H NEB Last administered on 08/03/16 13:32; Start 08/02/16 at 02:00; Stop 08/04/16 at 11:39 ; Status DC Albuterol/ Ipratropium (Duoneb (Ipr 0.5mg/Alb 2.5mg)) 3 ml RQ6H NEB Last administered on 08/13/16 13:49; Start 08/08/16 at 08:00; Stop 08/14/16 at 08:18; Status DC Amlodipine Besylate (Norvasc) 5 mg BID PO Last administered on 08/03/16 21:26 ; Start 07/31/16 at 21:00; Stop 08/04/16 at 07:35; Status DC Amlodipine Besylate (Norvasc) 10 mg QHS PO Last administered on 08/14/16 21:59 ; Start 08/04/16 at 21:00; Stop 09/03/16 at 20:59 Aspirin (Ecotrin) 81 mg DAILY PO Last administered on 08/15/16 08:17; Start at 09:00; Stop 08/31/16 at 08:59 Atenolol (Tenormin) 25 mg BID PO Last administered on 08/03/16 21:25; Start at 21:00; Stop 08/04/16 at 07:33; Status DC Atenolol (Tenormin) 25 mg DAILY PO Last administered on 08/15/16 08:17; Start 08/04/16 at 09:00; Stop 09/03/16 at 08:59 Atorvastatin Calcium (Lipitor) 20 mg DAILY PO Last administered on 08/15/16 08 :17; Start 08/01/16 at 09:00; Stop 08/31/16 at 08:59 Benzonatate (Tessalon Perles) 100 mg TID PO Last administered on 08/04/16 10: 24; Start 08/01/16 at 09:00; Stop 08/04/16 at 11:11; Status DC Budesonide/ Formoterol Fumarate (Symbicort 160/ 4.5mcg) 2 puff BID INH Last administered on 08/15/16 08:20; Start 07/31/16 at 21:00; Stop 08/30/16 at 20:59 Cefdinir (Omnicef) 300 mg BID PO ; Start 08/02/16 at 09:00; Stop 08/02/16 at 09: 00; Status DC Clopidogrel Bisulfate (PLAVix) 75 mg QPM PO Last administered on 08/14/16 21:59 ; Start 07/31/16 at 21:00; Stop 08/30/16 at 20:59 Dextrose (Dextrose 50%) 25 ml ASDIRECTED PRN IV SEE LABEL COMMENTS; Start 07/31 at 20:30; Stop 08/30/16 at 20:29 Docusate Sodium (Colace) 100 mg BID PO Last administered on 08/15/16 08:16; Start 07/31/16 at 21:00; Stop 08/30/16 at 20:59 Enoxaparin Sodium (Lovenox) 40 mg DAILY SC Last administered on 08/15/16 08:18 ; Start 08/01/16 at 09:00; Stop 08/18/16 at 08:59 Finasteride (Proscar) 5 mg DAILY PO Last administered on 08/15/16 08:17; Start 08/01/16 at 09:00; Stop 08/31/16 at 08:59 Glucagon (Glucagon) 1 mg ASDIRECTED PRN SC SEE LABEL COMMENTS; Start 07/31/16 at 20:30; Stop 08/30/16 at 20:29 Glucose (Glucose) 16 GM ASDIRECTED PRN PO SEE LABEL COMMENTS; Start 07/31/16 at 20:30; Stop 08/30/16 at 20:29 Hydralazine HCl (Apresoline) 10 mg Q6H PO Last administered on 08/12/16 06:18; Start 08/06/16 at 12:00; Stop 08/12/16 at 08:26; Status DC Hydralazine HCl (Apresoline) 10 mg Q8H PO Last administered on 08/15/16 05:45 ; Start 08/12/16 at 14:00; Stop 09/11/16 at 13:59 Hydralazine HCl (Apresoline) 10 mg TID PO Last administered on 08/06/16 08:28; Start 08/02/16 at 09:00; Stop 08/06/16 at 12:35; Status DC Insulin Detemir (Levemir Insulin) 10 units DAILY SC Last administered on 07:41; Start 08/04/16 at 09:00; Stop 08/10/16 at 18:42; Status DC Insulin Detemir (Levemir Insulin) 15 units DAILY SC Last administered on 08:19; Start 08/11/16 at 09:00; Stop 09/10/16 at 08:59 Insulin Human Lispro (HumaLOG INSULIN) See Protocol Table AC SC Last administered on 08/14/16 17:11; Start 08/01/16 at 07:30; Stop 08/31/16 at 07:29 Insulin Human Lispro (HumaLOG INSULIN) See Protocol Table QHS SC Last administered on 08/10/16 20:39; Start 07/31/16 at 21:00; Stop 08/30/16 at 20:59 Lactobacillus Acidophilus (Bacid) 1 ea BID PO Last administered on 08/01/16 21 :17; Start 08/01/16 at 21:00; Stop 08/02/16 at 10:52; Status DC Lactobacillus Acidophilus 1 ea 1 ea BIDWM PO Last administered on 08/11/16 17: 07; Start 08/02/16 at 08:00; Stop 08/11/16 at 18:01; Status DC Levofloxacin (Levaquin) 750 mg DAILY@21 PO Last administered on 08/14/16 21:58 ; Start 08/06/16 at 21:00; Stop 08/19/16 at 20:59 Levofloxacin (Levaquin) 750 mg Q2D@18 PO ; Start 08/01/16 at 18:00; Stop at 20:43; Status DC Levofloxacin 750 mg/IV Miscellaneous Supplies 150 ml @ 100 mls/hr Q48H IV ; Start 08/01/16 at 22:00; Stop 08/01/16 at 22:00; Status DC Levofloxacin 750 mg/IV Miscellaneous Supplies 150 ml @ 100 mls/hr Q48H IV Last administered on 08/05/16 21:39; Start 08/03/16 at 22:00; Stop 08/06/16 at 10:16; Status DC Levofloxacin/IV Miscellaneous Supplies (Levaquin) 150 ml @ 100 mls/hr Q48H IV ; Start 08/03/16 at 22:00; Stop 08/03/16 at 22:00; Status DC Lisinopril (Prinivil) 40 mg DAILY PO Last administered on 08/01/16 08:44; Start 08/01/16 at 09:00; Stop 08/02/16 at 06:38; Status DC Magnesium Hydroxide (Milk Of Magnesia) 30 ml DAILYPRN PRN PO CONSTIPATION; Start 07/31/16 at 13:00; Stop 08/30/16 at 12:59 Metformin HCl (Glucophage) 500 mg BID@08,18 PO Last administered on 08/15/16 08:17; Start 08/11/16 at 08:00; Stop 09/10/16 at 07:59 Metformin HCl (Glucophage) 500 mg PC PO Last administered on 08/01/16 18:09; Start 07/31/16 at 18:30; Stop 08/02/16 at 06:39; Status DC Methylprednisolone (SOLUmedrol) 60 mg Q8H IV Last administered on 08/03/16 05: 35; Start 08/02/16 at 06:00; Stop 08/03/16 at 06:57; Status DC Methylprednisolone 40 mg 40 mg Q12H IV Last administered on 08/04/16 05:13; Start 08/03/16 at 18:00; Stop 08/04/16 at 07:32; Status DC Mineral Oil/White Petrolatum APPLY TO RIGHT HAND BID TOP Last administered on 08:18; Start 08/04/16 at 09:00; Stop 09/03/16 at 08:59 Pantoprazole Sodium (Protonix) 40 mg DAILY PO Last administered on 08/15/16 08 :17; Start 07/31/16 at 09:00; Stop 08/30/16 at 08:59 Piperacillin Sod/ Tazobactam Sod 4.5 gm/Dextrose 50 ml @ 50 mls/hr Q6H IV Last administered on 08/01/16 21:57; Start 08/01/16 at 21:00; Stop 08/02/16 at 01:31 ; Status DC Piperacillin Sod/ Tazobactam Sod 4.5 gm/Dextrose 50 ml @ 50 mls/hr Q6H IV Last administered on 08/02/16 15:53; Start 08/02/16 at 09:00; Stop 08/02/16 at 19:10 ; Status DC Piperacillin Sod/ Tazobactam Sod/ Dextrose (Zosyn/Dextrose 5% Mini-Bag Plus) 50 ml @ 50 mls/hr Q6H IV Last administered on 08/04/16 03:30; Start 08/02/16 at 21:00; Stop 08/04/16 at 07:29; Status DC Polyethylene Glycol (Miralax) 1 pkt DAILYPRN PRN PO CONSTIPATION; Start at 13:00; Stop 08/30/16 at 12:59 Prednisone (Deltasone) 10 mg DAILY PO ; Start 08/20/16 at 09:00; Stop 09/19/16 at 08:59 Prednisone (Deltasone) 15 mg DAILY PO ; Start 08/17/16 at 09:00; Stop 08/19/16 at 23:00 Prednisone (Deltasone) 20 mg DAILY PO Last administered on 08/15/16 08:17; Start 08/13/16 at 09:00; Stop 08/16/16 at 23:00 Prednisone (Deltasone) 30 mg DAILY PO Last administered on 08/12/16 08:15; Start 08/10/16 at 09:00; Stop 08/12/16 at 23:00; Status DC Prednisone (Deltasone) 40 mg DAILY PO Last administered on 08/09/16 08:17; Start 08/08/16 at 09:00; Stop 08/09/16 at 23:00; Status DC Prednisone (Deltasone) 50 mg DAILY PO Last administered on 08/07/16 08:56; Start 08/06/16 at 09:00; Stop 08/07/16 at 09:49; Status DC Prednisone (Deltasone) 60 mg DAILY PO Last administered on 08/05/16 08:20; Start 08/04/16 at 09:00; Stop 08/05/16 at 12:59; Status DC Prednisone 20 mg 20 mg DAILY PO ; Start 08/02/16 at 09:00; Stop 08/02/16 at 09: 00; Status DC Senna (Senokot) 1 tab QHS PO Last administered on 08/14/16 21:58; Start at 21:00; Stop 08/30/16 at 20:59 Sodium Chloride 1,000 ml @ 150 mls/hr Q6H40M IV Last administered on 06:54; Start 08/02/16 at 06:45; Stop 08/02/16 at 17:43; Status DC Sodium Chloride (Nacl 0.9%) 1,000 ml @ 50 mls/hr Q20H IV Last administered on 08/03/16 10:59; Start 08/03/16 at 11:00; Stop 08/04/16 at 06:59; Status DC Sodium Chloride (Nacl 0.9%) 1,000 ml @ 50 mls/hr Q20H IV Last administered on 08/06/16 13:48; Start 08/04/16 at 12:45; Stop 08/07/16 at 08:51; Status DC Tamsulosin HCl (Flomax) 0.4 mg DAILY PO Last administered on 08/15/16 08:16; Start 08/05/16 at 09:00; Stop 09/04/16 at 08:59 Vancomycin HCl 1000 mg/IV Miscellaneous Supplies 1 each/ Dextrose 270 ml @ 270 mls/hr Q12H IV ; Start 08/02/16 at 11:00; Stop 08/02/16 at 11:00; Status DC Vancomycin HCl 1000 mg/IV Miscellaneous Supplies 1 each/ Dextrose 270 ml @ 270 mls/hr Q24H IV Last administered on 08/03/16t 12:05; Start 08/02/16 at 12:00; Stop 08/04/16 at 07:29; Status DC REJI BLACKWELL MD Aug 15, 2016 11:18
[2016-08-15 14:00] VITALS: BP 124/69
[2016-08-15 21:00] VITALS: BP 137/79
[2016-08-15] MEDS: LevoFLOXacin 750 MG TABLET PO SCH (21:38)
[2016-08-15] MEDS: CLOPIDOGREL 75 MG TAB PO SCH (21:38)
[2016-08-15] MEDS: SENNA 8.6 MG TAB (SENOKOT) PO SCH (21:38)
[2016-08-15] MEDS: amLODIPine 10 MG TAB PO SCH (21:39)
[2016-08-16] MEDS: ACETAMINOPHEN 500 MG TAB PO SCH ×3 (06:02→21:04)
[2016-08-16] MEDS: **hydrALAZINE** 10 MG TAB PO SCH ×3 (06:03→21:02)
[2016-08-16 06:09] VITALS: BP 153/72
[2016-08-16 06:48] LABS: BASO % 0.1 % (0.0-1.0); EOS # 0.1 K/mm3 (0.0-0.50); EOS % 1.2 % (0.0-3.0); LARGE UNSTAINED CELL # 0.1 K/mm3 (0.0-0.4); LARGE UNSTAINED CELL % 1.2 % (0.0-4.0); LYMPH # 1.4 K/mm3 (1.5-4.5); LYMPH % 14.8 % (24.0-44.0); MEAN CORPUSCULAR HEMOGLOBIN 28.5 pg (27.0-33.0); MEAN CORPUSCULAR HGB CONC 31.6 g/dl (32.0-36.5); MEAN CORPUSCULAR VOLUME 90.3 fl (80.0-96.0); MONO # 0.5 K/mm3 (0.0-0.8); MONO % 5.3 % (0.0-5.0); NEUTROPHILS # 7.2 K/mm3 (1.8-7.7); NEUTROPHILS % 77.4 % (36.0-66.0); PLATELET COUNT, AUTOMATED 256 k/mm3 (150-450); RED CELL DISTRIBUTION WIDTH 14.3 % (11.5-14.5); WHITE BLOOD COUNT 9.3 K/mm3 (4.0-10.0)
[2016-08-16 07:06] LABS: ANION GAP 8 MEQ/L (8-16); BLOOD UREA NITROGEN 26 MG/DL (7-18); CALCIUM LEVEL 8.6 MG/DL (8.8-10.2); CARBON DIOXIDE LEVEL 28 MEQ/L (21-32); CHLORIDE LEVEL 108 MEQ/L (98-107); CREATININE FOR GFR 1.08 MG/DL (0.70-1.30); GLOMERULAR FILTRATION RATE > 60.0 (>35); GLUCOSE, FASTING 99 MG/DL (83-110); POTASSIUM SERUM 4.2 MEQ/L (3.5-5.1); SODIUM LEVEL 144 MEQ/L (136-145)
[2016-08-16] MEDS: HumaLOG INSULIN (NovoLOG) PER UNIT SC SCH ×4 (07:30→21:00)
[2016-08-16] MEDS: SYMBICORT 160/4.5MCG INHALER 6GM INH SCH ×2 (07:37→20:05)
--- NOTE | 2016-08-16 09:35 | IPNPDOC ---
Assessment/Plan Date Seen The patient was seen on 08/16/16. Problems (1) COPD with exacerbation Status: Acute (2) HTN (hypertension) Status: Chronic (3) BPH (benign prostatic hyperplasia) Status: Chronic (4) HLD (hyperlipidemia) Status: Chronic (5) CVA (cerebral vascular accident) Status: Acute Plan/VTE VTE Prophylaxis Ordered?: Yes Plan/Urinary Catheter Reason for insertion/continuin: Acute obstruct/retention Subjective Review oF Systems Chief Complaint The patient is a 86-year-old male admitted with a reason for visit of Left Sided Weakness; CVA; AUR; NGB?; HTN; COPD. Parks removed (08/05/16), PVR 60- 100cc. Voiding well on Flomax/Proscar. Rehabilitation continues. Comfortable. 71, 18, 97.4F, 153/72. Abdo: Benign. (08/16/16) Hg 11.2, wbc 9.3, Cr 1.1. A: Above. P: Flomax/Proscar. Check PVR. Objective Physical Examination Heart Exam: Positive: Normal S1, Normal S2, Rate Normal, Regular Rhythm, Negative: Murmurs, Rubs Vital Signs/I&O Vital Signs Date Time Temp Pulse Resp B/P Pulse Ox O2 Delivery O2 Flow Rate FiO2 08/16/16 06:09 97.4 71 18 153/72 95 Room Air I&O- Last 24 Hours up to 6 AM 08/16/16 06:00 Intake Total 1080 ml Output Total 650 ml Balance 430 ml Laboratory Data Labs 24H Laboratory Tests 2 08/15/16 11:25: Bedside Glucose (Misc Panel) 133H 08/15/16 17:32: Bedside Glucose (Misc Panel) 211H 08/15/16 20:19: Bedside Glucose (Misc Panel) 200H 08/16/16 06:30: Anion Gap 8, White Blood Count 9.3, Red Blood Count 3.91L, Hemoglobin 11.2L, Hematocrit 35.3L, Mean Corpuscular Volume 90.3, Mean Corpuscular Hemoglobin 28.5 , Mean Corpuscular Hemoglobin Concent 31.6L, Red Cell Distribution Width 14.3, Platelet Count 256, Neutrophils (%) (Auto) 77.4H, Lymphocytes (%) (Auto) 14.8L, Monocytes (%) (Auto) 5.3H, Eosinophils (%) (Auto) 1.2, Basophils (%) (Auto) 0.1 , Neutrophils # (Auto) 7.2, Lymphocytes # (Auto) 1.4L, Monocytes # (Auto) 0.5, Eosinophils # (Auto) 0.1, Basophils # (Auto) 0.0, Blood Urea Nitrogen 26H, Creatinine 1.08, Sodium Level 144, Potassium Level 4.2, Chloride Level 108H, Carbon Dioxide Level 28, Calcium Level 8.6L, Glomerular Filtration Rate > 60.0, Large Unclassified Cells # 0.1, Large Unclassified Cells % 1.2 CBC/BMP Laboratory Tests 08/16/16 06:30 Calcium Level 8.6 L, Red Blood Count 3.91 L, Mean Corpuscular Volume 90.3, Mean Corpuscular Hemoglobin 28.5, Mean Corpuscular Hemoglobin Concent 31.6 L, Red Cell Distribution Width 14.3, Neutrophils (%) (Auto) 77.4 H, Lymphocytes (%) ( Auto) 14.8 L, Monocytes (%) (Auto) 5.3 H, Eosinophils (%) (Auto) 1.2, Basophils (%) (Auto) 0.1, Neutrophils # (Auto) 7.2, Lymphocytes # (Auto) 1.4 L, Monocytes # (Auto) 0.5, Eosinophils # (Auto) 0.1, Basophils # (Auto) 0.0 FSBS Laboratory Tests Test 08/15/16 11:25 08/15/16 17:32 08/15/16 20:19 Range/Units Bedside Glucose (Misc Panel) 133 211 200 83-110 MG/DL JACOB KHALIL MD Aug 16, 2016 09:35
[2016-08-16] MEDS: ENOXAPARIN 40 MG/0.4 ML SYRINGE (J1650) SC SCH (09:36)
[2016-08-16] MEDS: PANTOPRAZOLE 40MG TAB (PROTONIX) PO SCH (09:37)
[2016-08-16] MEDS: LEVEMIR (INSULIN DETEMIR) 1 UNITS/0.01ML SC SCH (09:37)
[2016-08-16] MEDS: ATORVASTATIN 20 MG TAB PO SCH (09:37)
[2016-08-16] MEDS: ASPIRIN 81 MG ENTERIC TAB PO SCH (09:37)
[2016-08-16] MEDS: DOCUSATE SODIUM 100 MG CAP PO SCH ×2 (09:38→21:01)
[2016-08-16] MEDS: TAMSULOSIN 0.4 MG CAP PO SCH (09:38)
[2016-08-16] MEDS: predniSONE 20 MG TAB PO SCH (09:38)
[2016-08-16] MEDS: FINASTERIDE 5 MG TAB PO SCH (09:38)
[2016-08-16] MEDS: metFORMIN (GLUCOPHAGE) 500 MG TAB PO SCH ×2 (09:39→17:00)
[2016-08-16] MEDS: ATENOLOL 25 MG TAB PO SCH (09:40)
[2016-08-16] MEDS: EUCERIN 120GM CREAM TOP SCH ×2 (09:41→21:03)
[2016-08-16 13:36] VITALS: BP 122/62
[2016-08-16 20:00] VITALS: BP 141/67
[2016-08-16] MEDS: amLODIPine 10 MG TAB PO SCH (21:01)
[2016-08-16] MEDS: LevoFLOXacin 750 MG TABLET PO SCH (21:01)
[2016-08-16] MEDS: CLOPIDOGREL 75 MG TAB PO SCH (21:02)
[2016-08-16] MEDS: SENNA 8.6 MG TAB (SENOKOT) PO SCH (21:02)
[2016-08-17] MEDS: ACETAMINOPHEN 500 MG TAB PO SCH ×3 (05:40→21:51)
[2016-08-17] MEDS: **hydrALAZINE** 10 MG TAB PO SCH ×3 (05:44→21:50)
[2016-08-17 06:00] VITALS: BP 139/63
[2016-08-17] MEDS: HumaLOG INSULIN (NovoLOG) PER UNIT SC SCH ×4 (07:30→20:25)
[2016-08-17] MEDS: SYMBICORT 160/4.5MCG INHALER 6GM INH SCH ×2 (07:41→19:16)
[2016-08-17] MEDS: ENOXAPARIN 40 MG/0.4 ML SYRINGE (J1650) SC SCH (08:53)
[2016-08-17] MEDS: metFORMIN (GLUCOPHAGE) 500 MG TAB PO SCH ×2 (08:54→17:10)
[2016-08-17] MEDS: LEVEMIR (INSULIN DETEMIR) 1 UNITS/0.01ML SC SCH (08:54)
[2016-08-17] MEDS: predniSONE 5 MG TAB PO SCH (08:55)
[2016-08-17] MEDS: TAMSULOSIN 0.4 MG CAP PO SCH (08:55)
[2016-08-17] MEDS: FINASTERIDE 5 MG TAB PO SCH (08:55)
[2016-08-17] MEDS: PANTOPRAZOLE 40MG TAB (PROTONIX) PO SCH (08:56)
[2016-08-17] MEDS: DOCUSATE SODIUM 100 MG CAP PO SCH ×2 (08:56→20:25)
[2016-08-17] MEDS: ASPIRIN 81 MG ENTERIC TAB PO SCH (08:57)
[2016-08-17] MEDS: ATENOLOL 25 MG TAB PO SCH (08:57)
[2016-08-17] MEDS: ATORVASTATIN 20 MG TAB PO SCH (08:57)
[2016-08-17] MEDS: EUCERIN 120GM CREAM TOP SCH ×2 (08:59→20:25)
--- NOTE | 2016-08-17 10:02 | IPNPDOC ---
Assessment/Plan Date Seen The patient was seen on 08/17/16. Problems (1) COPD with exacerbation Status: Acute (2) HTN (hypertension) Status: Chronic (3) BPH (benign prostatic hyperplasia) Status: Chronic (4) HLD (hyperlipidemia) Status: Chronic (5) CVA (cerebral vascular accident) Status: Acute Plan/VTE VTE Prophylaxis Ordered?: Yes Plan/Urinary Catheter Reason for insertion/continuin: Acute obstruct/retention Subjective Review oF Systems Chief Complaint The patient is a 86-year-old male admitted with a reason for visit of Right Sided Weakness; CVA; AUR; NGB?; HTN; COPD. Parks removed (08/05/16), PVR 60- 100cc. Voiding well on Flomax/Proscar. RN states incontinence episodes yesterday. Rehabilitation continues. Bladder scan PVR (08/16/16) 243cc. Comfortable. 79, 18, 97.9F, 146/70. Abdo: Benign. (08/16/16) Hg 11.2, wbc 9.3, Cr 1.1. A: Above. P: Flomax/Proscar. Parks to SD vs. CIC 4-6 per day. Parks to SD. UDS after mobilization improves. Objective Physical Examination Heart Exam: Positive: Normal S1, Normal S2, Rate Normal, Regular Rhythm, Negative: Murmurs, Rubs Vital Signs/I&O Vital Signs Date Time Temp Pulse Resp B/P Pulse Ox O2 Delivery O2 Flow Rate FiO2 08/17/16 08:57 79 146/70 08/17/16 06:00 97.9 18 94 Room Air I&O- Last 24 Hours up to 6 AM 08/17/16 06:00 Intake Total 360 ml Output Total 450 ml Balance -90 ml Laboratory Data Labs 24H Laboratory Tests 2 08/16/16 11:44: Bedside Glucose (Misc Panel) 123H 08/16/16 16:36: Bedside Glucose (Misc Panel) 155H 08/16/16 19:45: Bedside Glucose (Misc Panel) 151H 08/17/16 05:54: Bedside Glucose (Misc Panel) 86 FSBS Laboratory Tests Test 08/16/16 11:44 08/16/16 16:36 08/16/16 19:45 08/17/16 05:54 Range/Units Bedside Glucose (Misc Panel) 123 155 151 86 83-110 MG/DL JACOB KHALIL MD Aug 17, 2016 10:02
[2016-08-17 14:00] VITALS: BP 136/74
[2016-08-17] MEDS: SENNA 8.6 MG TAB (SENOKOT) PO SCH (20:19)
[2016-08-17] MEDS: CLOPIDOGREL 75 MG TAB PO SCH (20:24)
[2016-08-17] MEDS: amLODIPine 10 MG TAB PO SCH (20:24)
[2016-08-17] MEDS: LevoFLOXacin 750 MG TABLET PO SCH (20:25)
[2016-08-18 06:00] VITALS: BP 170/83
[2016-08-18] MEDS: ACETAMINOPHEN 500 MG TAB PO SCH ×2 (06:07→13:55)
[2016-08-18] MEDS: **hydrALAZINE** 10 MG TAB PO SCH ×3 (06:08→21:55)
[2016-08-18] MEDS: HumaLOG INSULIN (NovoLOG) PER UNIT SC SCH ×4 (07:45→21:00)
[2016-08-18] MEDS: SYMBICORT 160/4.5MCG INHALER 6GM INH SCH ×2 (07:48→19:15)
[2016-08-18] MEDS: predniSONE 5 MG TAB PO SCH (08:37)
[2016-08-18] MEDS: ATORVASTATIN 20 MG TAB PO SCH (08:37)
[2016-08-18] MEDS: FINASTERIDE 5 MG TAB PO SCH (08:37)
[2016-08-18] MEDS: metFORMIN (GLUCOPHAGE) 500 MG TAB PO SCH ×2 (08:37→17:57)
[2016-08-18] MEDS: LEVEMIR (INSULIN DETEMIR) 1 UNITS/0.01ML SC SCH (08:37)
[2016-08-18] MEDS: PANTOPRAZOLE 40MG TAB (PROTONIX) PO SCH (08:37)
[2016-08-18] MEDS: TAMSULOSIN 0.4 MG CAP PO SCH (08:37)
[2016-08-18] MEDS: DOCUSATE SODIUM 100 MG CAP PO SCH ×2 (08:37→21:55)
[2016-08-18] MEDS: ASPIRIN 81 MG ENTERIC TAB PO SCH (08:37)
[2016-08-18] MEDS: ATENOLOL 25 MG TAB PO SCH (08:38)
[2016-08-18] MEDS: EUCERIN 120GM CREAM TOP SCH ×2 (08:38→21:57)
[2016-08-18 10:38] VITALS: BP 140/65
[2016-08-18 11:02] LABS: BASO % 0.1 % (0.0-1.0); EOS # 0.1 K/mm3 (0.0-0.50); EOS % 1.7 % (0.0-3.0); LARGE UNSTAINED CELL # 0.1 K/mm3 (0.0-0.4); LARGE UNSTAINED CELL % 0.9 % (0.0-4.0); LYMPH % 11.4 % (24.0-44.0); MEAN CORPUSCULAR HEMOGLOBIN 29.3 pg (27.0-33.0); MEAN CORPUSCULAR HGB CONC 32.1 g/dl (32.0-36.5); MEAN CORPUSCULAR VOLUME 91.2 fl (80.0-96.0); MONO # 0.5 K/mm3 (0.0-0.8); MONO % 6.3 % (0.0-5.0); NEUTROPHILS # 6.6 K/mm3 (1.8-7.7); NEUTROPHILS % 79.5 % (36.0-66.0); PLATELET COUNT, AUTOMATED 241 k/mm3 (150-450); RED CELL DISTRIBUTION WIDTH 15.1 % (11.5-14.5); WHITE BLOOD COUNT 8.3 K/mm3 (4.0-10.0)
[2016-08-18 11:22] LABS: ANION GAP 10 MEQ/L (8-16); BLOOD UREA NITROGEN 29 MG/DL (7-18); CALCIUM LEVEL 8.7 MG/DL (8.8-10.2); CARBON DIOXIDE LEVEL 26 MEQ/L (21-32); CHLORIDE LEVEL 108 MEQ/L (98-107); GLOMERULAR FILTRATION RATE > 60.0 (>35); GLUCOSE, FASTING 157 MG/DL (83-110); POTASSIUM SERUM 3.9 MEQ/L (3.5-5.1); SODIUM LEVEL 144 MEQ/L (136-145)
--- NOTE | 2016-08-18 12:52 | IPNPDOC ---
[employer]ior [employer] Progress Note PROGRESS NOTE DATE OF ADMISSION: 07/31/2016 DATE OF SERVICE: 08/18/2016 IDENTIFICATION STATEMENT: Patient is an 86-year-old left-hand dominant man with acute midbrain CVA and right hemiparesis admitted for comprehensive integrated inpatient rehabilitation. 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 No residual weakness except left eye palsy Skull fracture 1980s secondary very to fall off scaffolding Multiple broken bones PAST SURGICAL HISTORY: Appendectomy Cholecystectomy Cataract surgery ALLERGIES: No known drug allergies MEDICATIONS: Bacid 1 bid Prednisone taper Duoneb q2h prn Hydralazine 10mg po q8h Norvasc 10mg qhs Atenolol 25 mg by mouth twice a day Lisinopril 40 mg by mouth daily Aspirin 81 mg by mouth daily Lipitor 20 mg by mouth daily Proscar 5 mg by mouth daily Flomax 0.4mg daily Lovenox 40 mg subcutaneous daily Detemir 15u daily Insulin sliding scale before meals and at bedtime Symbicort 160/4.5 g 2 puffs inhaled twice a day Plavix 75 mg by mouth qpm albuterol sulfate 2 puffs inhaled 4 times a day when necessary shortness of breath Acetaminophen 1000mg q8h SUBJECTIVE: Patient w/o complaints. Denies any chest pain, shortness of breath , lightheadedness, chills, diaphoresis, nausea/vomiting, C/D, pelvic fullness or abdominal pain. Still having trouble with urinal, requiring assistance from nurses for positioning VITAL SIGNS: 98.1F, pulse 75, respiratory rate 18, blood pressure 140/65, 95% saturation on RA PHYSICAL EXAMINATION: GENERAL: Well nourished, well developed, sitting up in bed, no acute distress. HEENT: Normocephalic, atraumatic. Left eye palsy (unchanged). PERRL, EOMI CARDIOVASCULAR: S1, S2, regular rate. No lower limb swelling or calf tenderness. LUNGS: Diffusely decreased breath sounds throughout but CTA, no rhonchi or wheezing. ABDOMEN: Soft, nontender, nondistended. Normoactive bowel sounds throughout. MUSCULOSKELETAL: No groin pain to palpation, negative FABERS on right. Negative dural tension signs MMT: 5/5 right shoulder shrug, 3/5 right finger flexion, 3-/ 5 finger extension, 2/5 EF/EE. 3/5 right HF, 3/5 KE 4/5 KF, 1/5 right DF/PF. 5/ 5 strength left upper and lower limb in all major muscle groups. NEUROLOGICAL: Alert and oriented x 3. Answers all questions appropriately. Able to follow commands SKIN: right hand : swelling resolved & erythema mostly resolved. LABORATORY DATA: 08/18/16 reviewed, see below IMAGING: CT 08/01/16: pneumonitis MRI brain 07/27/16: old right frontal infarct, generalization age appropriate parenchymal atrophy, severe chronic white matter microvascular ischemic changes. MRA 07/27/16: non-acute MRI C-T-L spine 07/27/16 reviewed: T5 abnormality FUNCTIONAL STATUS, Premorbid: Independent ADLs and ambulation. ASSESSMENT AND PLAN: 1. 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 Patient continues to show progress. As previously documented, unsure if patients will be able to provided necessary level of assistance. Will reassess need for subacute today at team rounds. Continue physical and occupational therapy. Currently undergoing NMES with therapist. Rehabilitation nursing for bladder, bowel and medication management. 2. COPD exacerbation +/- HAP: On abx, S/p IV steroids. Improved. Abx changed to PO 08/06/16. completed course abx. Contiune to taper down oral steroids, cont symbicort, duonebs prn 3. Retention/hematuria: Resolved [hx: Gross hematuria resolved, dysuria resolved , Masters d/cd 08/05/16 2nd leakage. Bladder scans over weekend reviewed and w/o significant residual, no need for masters]. 4. Bacteremia: Thought contaminant. S/p IV vanco. 5. Acute renal failure: Resolved, at baseline 6. Right hand erythema and pain: Mostly resolved. D/cd compression glove for edema. Continue right arm sling when OOB. AAROM & PROM right UL. 7. Hypertension: Improved control. [Hx: s/p medication adjustment and changing parameters 08/12/16, s/p increased hydralazine 08/06/16, decreased to q8h 08/12/16, changed parameter on Norvasc]. Continue lisinopril, Norvasc, hydralazine and atenolol. Dose adjustments if needed. 8. DVT prophylaxis: Maintain Lovenox daily. Continue SCD and TOBIN hose. 9. Diabetes mellitus type 2: Improved BG. Restarted metformin 08/11/16 and increased detemir due to persistently elevated BG. Continue ISS for now. Monitor closely with adjustments in insulin as indicated. 10. Bowel: Maintain Colace and senna scheduled along with milk of magnesia and MiraLAX on an as-needed basis 11. Malnutrition: Prealbumin increasing, continue Glucerna. Continue carb consistent diet. / Vital Signs Vital Sign - Last 24 Hours 08/17/16 08/17/16 08/17/16 08/17/16 14:00 14:00 20:24 21:00 Temp 98.0 Pulse 74 74 Resp 18 B/P 136/74 136/74 136/74 Pulse Ox 95 O2 Delivery Room Air Room Air 08/17/16 08/18/16 08/18/16 08/18/16 21:50 06:00 06:08 08:38 Temp 98.1 Pulse 70 70 Resp 18 B/P 128/64 170/83 170/85 170/85 Pulse Ox 95 O2 Delivery Room Air 08/18/16 08/18/16 09:00 10:38 Pulse 75 B/P 140/65 O2 Delivery Room Air Laboratory Data CBC/BMP Laboratory Tests 08/18/16 10:34 Calcium Level 8.7 L, Red Blood Count 4.11 L, Mean Corpuscular Volume 91.2, Mean Corpuscular Hemoglobin 29.3, Mean Corpuscular Hemoglobin Concent 32.1, Red Cell Distribution Width 15.1 H, Neutrophils (%) (Auto) 79.5 H, Lymphocytes (%) (Auto ) 11.4 L, Monocytes (%) (Auto) 6.3 H, Eosinophils (%) (Auto) 1.7, Basophils (%) (Auto) 0.1, Neutrophils # (Auto) 6.6, Lymphocytes # (Auto) 1.0 L, Monocytes # ( Auto) 0.5, Eosinophils # (Auto) 0.1, Basophils # (Auto) 0.0 Labs 24H Laboratory Tests 2 08/17/16 16:41: Bedside Glucose (Misc Panel) 174H 08/17/16 20:23: Bedside Glucose (Misc Panel) 186H 08/18/16 06:48: Bedside Glucose (Misc Panel) 92 08/18/16 10:34: Anion Gap 10, White Blood Count 8.3, Red Blood Count 4.11L, Hemoglobin 12.0L, Hematocrit 37.5L, Mean Corpuscular Volume 91.2, Mean Corpuscular Hemoglobin 29.3 , Mean Corpuscular Hemoglobin Concent 32.1, Red Cell Distribution Width 15.1H, Platelet Count 241, Neutrophils (%) (Auto) 79.5H, Lymphocytes (%) (Auto) 11.4L, Monocytes (%) (Auto) 6.3H, Eosinophils (%) (Auto) 1.7, Basophils (%) (Auto) 0.1 , Neutrophils # (Auto) 6.6, Lymphocytes # (Auto) 1.0L, Monocytes # (Auto) 0.5, Eosinophils # (Auto) 0.1, Basophils # (Auto) 0.0, Blood Urea Nitrogen 29H, Creatinine 1.20, Sodium Level 144, Potassium Level 3.9, Chloride Level 108H, Carbon Dioxide Level 26, Calcium Level 8.7L, Glomerular Filtration Rate > 60.0, Large Unclassified Cells # 0.1, Large Unclassified Cells % 0.9 08/18/16 11:15: Bedside Glucose (Misc Panel) 154H FSBS Laboratory Tests Test 08/17/16 16:41 08/17/16 20:23 08/18/16 06:48 08/18/16 11:15 Range/Units Bedside Glucose (Misc Panel) 174 186 92 154 83-110 MG/DL Allergies Allergies: Coded Allergies: No Known Allergies (Verified Allergy, Unknown, 04/25/10) Current Medications Current Medications Current Medications Acetaminophen (Tylenol Tab) 1,000 mg Q8H PO Last administered on 08/18/16 06: 07; Start 08/04/16 at 14:00; Stop 09/03/16 at 13:59 Acetaminophen (Tylenol) 650 mg Q4HP PRN PO MILD PAIN (PS 1-4) Last administered on 08/04/16 05:18; Start 07/31/16 at 13:00; Stop 08/04/16 at 09:58 ; Status DC Acetaminophen/ Hydrocodone Bitart ([place], [place] 5/325) 1 tab Q4HP PRN PO MODERATE/SEVERE PAIN (PS 5-10); Start 07/31/16 at 13:00; Stop 08/19/16 at 12:59 Albuterol Sulfate (Proventil, Ventolin Hfa) 2 puff QIDP PRN INH SHORTNESS OF BREATH; Start 07/31/16 at 13:00; Stop 08/02/16 at 01:31; Status DC Albuterol/ Ipratropium (Duoneb (Ipr 0.5mg/Alb 2.5mg)) 3 ml Q2HP PRN NEB SOB/ WHEEZING Last administered on 08/02/16 01:09; Start 08/01/16 at 21:00; Stop at 20:59 Albuterol/ Ipratropium (Duoneb (Ipr 0.5mg/Alb 2.5mg)) 3 ml RQ6H NEB Last administered on 08/03/16 13:32; Start 08/02/16 at 02:00; Stop 08/04/16 at 11:39 ; Status DC Albuterol/ Ipratropium (Duoneb (Ipr 0.5mg/Alb 2.5mg)) 3 ml RQ6H NEB Last administered on 08/13/16 13:49; Start 08/08/16 at 08:00; Stop 08/14/16 at 08:18; Status DC Amlodipine Besylate (Norvasc) 5 mg BID PO Last administered on 08/03/16 21:26 ; Start 07/31/16 at 21:00; Stop 08/04/16 at 07:35; Status DC Amlodipine Besylate (Norvasc) 10 mg QHS PO Last administered on 08/17/16 20:24 ; Start 08/04/16 at 21:00; Stop 09/03/16 at 20:59 Aspirin (Ecotrin) 81 mg DAILY PO Last administered on 08/18/16 08:37; Start at 09:00; Stop 08/31/16 at 08:59 Atenolol (Tenormin) 25 mg BID PO Last administered on 08/03/16 21:25; Start at 21:00; Stop 08/04/16 at 07:33; Status DC Atenolol (Tenormin) 25 mg DAILY PO Last administered on 08/18/16 08:38; Start 08/04/16 at 09:00; Stop 09/03/16 at 08:59 Atorvastatin Calcium (Lipitor) 20 mg DAILY PO Last administered on 08/18/16 08 :37; Start 08/01/16 at 09:00; Stop 08/31/16 at 08:59 Benzonatate (Tessalon Perles) 100 mg TID PO Last administered on 08/04/16 10: 24; Start 08/01/16 at 09:00; Stop 08/04/16 at 11:11; Status DC Budesonide/ Formoterol Fumarate (Symbicort 160/ 4.5mcg) 2 puff BID INH Last administered on 08/18/16 07:48; Start 07/31/16 at 21:00; Stop 08/30/16 at 20:59 Cefdinir (Omnicef) 300 mg BID PO ; Start 08/02/16 at 09:00; Stop 08/02/16 at 09: 00; Status DC Clopidogrel Bisulfate (PLAVix) 75 mg QPM PO Last administered on 08/17/16 20: 24; Start 07/31/16 at 21:00; Stop 08/30/16 at 20:59 Dextrose (Dextrose 50%) 25 ml ASDIRECTED PRN IV SEE LABEL COMMENTS; Start 07/31 at 20:30; Stop 08/30/16 at 20:29 Docusate Sodium (Colace) 100 mg BID PO Last administered on 08/18/16 08:37; Start 07/31/16 at 21:00; Stop 08/30/16 at 20:59 Enoxaparin Sodium (Lovenox) 40 mg DAILY SC Last administered on 08/17/16 08:53 ; Start 08/01/16 at 09:00; Stop 08/18/16 at 08:59; Status DC Finasteride (Proscar) 5 mg DAILY PO Last administered on 08/18/16 08:37; Start 08/01/16 at 09:00; Stop 08/31/16 at 08:59 Glucagon (Glucagon) 1 mg ASDIRECTED PRN SC SEE LABEL COMMENTS; Start 07/31/16 at 20:30; Stop 08/30/16 at 20:29 Glucose (Glucose) 16 GM ASDIRECTED PRN PO SEE LABEL COMMENTS; Start 07/31/16 at 20:30; Stop 08/30/16 at 20:29 Hydralazine HCl (Apresoline) 10 mg Q6H PO Last administered on 08/12/16 06:18; Start 08/06/16 at 12:00; Stop 08/12/16 at 08:26; Status DC Hydralazine HCl (Apresoline) 10 mg Q8H PO Last administered on 08/18/16 06:08 ; Start 08/12/16 at 14:00; Stop 09/11/16 at 13:59 Hydralazine HCl (Apresoline) 10 mg TID PO Last administered on 08/06/16 08:28; Start 08/02/16 at 09:00; Stop 08/06/16 at 12:35; Status DC Insulin Detemir (Levemir Insulin) 10 units DAILY SC Last administered on 07:41; Start 08/04/16 at 09:00; Stop 08/10/16 at 18:42; Status DC Insulin Detemir (Levemir Insulin) 15 units DAILY SC Last administered on 08:37; Start 08/11/16 at 09:00; Stop 09/10/16 at 08:59 Insulin Human Lispro (HumaLOG INSULIN) See Protocol Table AC SC Last administered on 08/18/16 12:20; Start 08/01/16 at 07:30; Stop 08/31/16 at 07:29 Insulin Human Lispro (HumaLOG INSULIN) See Protocol Table QHS SC Last administered on 08/10/16 20:39; Start 07/31/16 at 21:00; Stop 08/30/16 at 20:59 Lactobacillus Acidophilus (Bacid) 1 ea BID PO Last administered on 08/01/16 21 :17; Start 08/01/16 at 21:00; Stop 08/02/16 at 10:52; Status DC Lactobacillus Acidophilus 1 ea 1 ea BIDWM PO Last administered on 08/11/16 17: 07; Start 08/02/16 at 08:00; Stop 08/11/16 at 18:01; Status DC Levofloxacin (Levaquin) 750 mg DAILY@21 PO Last administered on 08/17/16 20:25 ; Start 08/06/16 at 21:00; Stop 08/19/16 at 20:59 Levofloxacin (Levaquin) 750 mg Q2D@18 PO ; Start 08/01/16 at 18:00; Stop at 20:43; Status DC Levofloxacin 750 mg/IV Miscellaneous Supplies 150 ml @ 100 mls/hr Q48H IV ; Start 08/01/16 at 22:00; Stop 08/01/16 at 22:00; Status DC Levofloxacin 750 mg/IV Miscellaneous Supplies 150 ml @ 100 mls/hr Q48H IV Last administered on 08/05/16 21:39; Start 08/03/16 at 22:00; Stop 08/06/16 at 10:16; Status DC Levofloxacin/IV Miscellaneous Supplies (Levaquin) 150 ml @ 100 mls/hr Q48H IV ; Start 08/03/16 at 22:00; Stop 08/03/16 at 22:00; Status DC Lisinopril (Prinivil) 40 mg DAILY PO Last administered on 08/01/16 08:44; Start 08/01/16 at 09:00; Stop 08/02/16 at 06:38; Status DC Magnesium Hydroxide (Milk Of Magnesia) 30 ml DAILYPRN PRN PO CONSTIPATION; Start 07/31/16 at 13:00; Stop 08/30/16 at 12:59 Metformin HCl (Glucophage) 500 mg BID@08,18 PO Last administered on 08/18/16 08:37; Start 08/11/16 at 08:00; Stop 09/10/16 at 07:59 Metformin HCl (Glucophage) 500 mg PC PO Last administered on 08/01/16 18:09; Start 07/31/16 at 18:30; Stop 08/02/16 at 06:39; Status DC Methylprednisolone (SOLUmedrol) 60 mg Q8H IV Last administered on 08/03/16 05: 35; Start 08/02/16 at 06:00; Stop 08/03/16 at 06:57; Status DC Methylprednisolone 40 mg 40 mg Q12H IV Last administered on 08/04/16 05:13; Start 08/03/16 at 18:00; Stop 08/04/16 at 07:32; Status DC Mineral Oil/White Petrolatum APPLY TO RIGHT HAND BID TOP Last administered on 08:38; Start 08/04/16 at 09:00; Stop 09/03/16 at 08:59 Miscellaneous (Unresolved Clarification Entry) SEE LABEL COMMENTS UNRESOLVED XX ; Start 08/18/16 at 00:01; Stop 09/17/16 at 00:00 Pantoprazole Sodium (Protonix) 40 mg DAILY PO Last administered on 08/18/16 08 :37; Start 07/31/16 at 09:00; Stop 08/30/16 at 08:59 Piperacillin Sod/ Tazobactam Sod 4.5 gm/Dextrose 50 ml @ 50 mls/hr Q6H IV Last administered on 08/01/16 21:57; Start 08/01/16 at 21:00; Stop 08/02/16 at 01:31 ; Status DC Piperacillin Sod/ Tazobactam Sod 4.5 gm/Dextrose 50 ml @ 50 mls/hr Q6H IV Last administered on 08/02/16 15:53; Start 08/02/16 at 09:00; Stop 08/02/16 at 19:10 ; Status DC Piperacillin Sod/ Tazobactam Sod/ Dextrose (Zosyn/Dextrose 5% Mini-Bag Plus) 50 ml @ 50 mls/hr Q6H IV Last administered on 08/04/16 03:30; Start 08/02/16 at 21:00; Stop 08/04/16 at 07:29; Status DC Polyethylene Glycol (Miralax) 1 pkt DAILYPRN PRN PO CONSTIPATION; Start at 13:00; Stop 08/30/16 at 12:59 Prednisone (Deltasone) 10 mg DAILY PO ; Start 08/20/16 at 09:00; Stop 09/19/16 at 08:59 Prednisone (Deltasone) 15 mg DAILY PO Last administered on 08/18/16 08:37; Start 08/17/16 at 09:00; Stop 08/19/16 at 23:00 Prednisone (Deltasone) 20 mg DAILY PO Last administered on 08/16/16 09:38; Start 08/13/16 at 09:00; Stop 08/16/16 at 23:00; Status DC Prednisone (Deltasone) 30 mg DAILY PO Last administered on 08/12/16 08:15; Start 08/10/16 at 09:00; Stop 08/12/16 at 23:00; Status DC Prednisone (Deltasone) 40 mg DAILY PO Last administered on 08/09/16 08:17; Start 08/08/16 at 09:00; Stop 08/09/16 at 23:00; Status DC Prednisone (Deltasone) 50 mg DAILY PO Last administered on 08/07/16 08:56; Start 08/06/16 at 09:00; Stop 08/07/16 at 09:49; Status DC Prednisone (Deltasone) 60 mg DAILY PO Last administered on 08/05/16 08:20; Start 08/04/16 at 09:00; Stop 08/05/16 at 12:59; Status DC Prednisone 20 mg 20 mg DAILY PO ; Start 08/02/16 at 09:00; Stop 08/02/16 at 09: 00; Status DC Senna (Senokot) 1 tab QHS PO Last administered on 08/16/16 21:02; Start at 21:00; Stop 08/30/16 at 20:59 Sodium Chloride 1,000 ml @ 150 mls/hr Q6H40M IV Last administered on 06:54; Start 08/02/16 at 06:45; Stop 08/02/16 at 17:43; Status DC Sodium Chloride (Nacl 0.9%) 1,000 ml @ 50 mls/hr Q20H IV Last administered on 08/03/16 10:59; Start 08/03/16 at 11:00; Stop 08/04/16 at 06:59; Status DC Sodium Chloride (Nacl 0.9%) 1,000 ml @ 50 mls/hr Q20H IV Last administered on 08/06/16 13:48; Start 08/04/16 at 12:45; Stop 08/07/16 at 08:51; Status DC Tamsulosin HCl (Flomax) 0.4 mg DAILY PO Last administered on 08/18/16 08:37; Start 08/05/16 at 09:00; Stop 09/04/16 at 08:59 Vancomycin HCl 1000 mg/IV Miscellaneous Supplies 1 each/ Dextrose 270 ml @ 270 mls/hr Q12H IV ; Start 08/02/16 at 11:00; Stop 08/02/16 at 11:00; Status DC Vancomycin HCl 1000 mg/IV Miscellaneous Supplies 1 each/ Dextrose 270 ml @ 270 mls/hr Q24H IV Last administered on 08/03/16 12:05; Start 08/02/16 at 12:00; Stop 08/04/16 at 07:29; Status DC REJI BLACKWELL MD Aug 18, 2016 12:52
[2016-08-18 14:00] VITALS: BP 155/79
[2016-08-18] MEDS: ENOXAPARIN 40 MG/0.4 ML SYRINGE (J1650) SC SCH (14:17)
[2016-08-18] MEDS ORDERED: ACETAMINOPHEN TAB 650MG DOSE (2X325MG) PO PRN (14:30)
[2016-08-18 20:00] VITALS: BP 144/65
[2016-08-18] MEDS: SENNA 8.6 MG TAB (SENOKOT) PO SCH (21:55)
[2016-08-18] MEDS: LevoFLOXacin 750 MG TABLET PO SCH (21:55)
[2016-08-18] MEDS: CLOPIDOGREL 75 MG TAB PO SCH (21:55)
[2016-08-18] MEDS: amLODIPine 10 MG TAB PO SCH (21:57)
[2016-08-19] MEDS: **hydrALAZINE** 10 MG TAB PO SCH (05:50)
[2016-08-19 06:14] VITALS: BP 154/73
[2016-08-19] MEDS: SYMBICORT 160/4.5MCG INHALER 6GM INH SCH (07:50)
[2016-08-19] MEDS: HumaLOG INSULIN (NovoLOG) PER UNIT SC SCH ×2 (08:47→12:01)
[2016-08-19] MEDS: ENOXAPARIN 40 MG/0.4 ML SYRINGE (J1650) SC SCH (08:53)
[2016-08-19] MEDS: metFORMIN (GLUCOPHAGE) 500 MG TAB PO SCH (08:54)
[2016-08-19] MEDS: ATORVASTATIN 20 MG TAB PO SCH (08:54)
[2016-08-19] MEDS: FINASTERIDE 5 MG TAB PO SCH (08:54)
[2016-08-19] MEDS: ASPIRIN 81 MG ENTERIC TAB PO SCH (08:54)
[2016-08-19] MEDS: TAMSULOSIN 0.4 MG CAP PO SCH (08:54)
[2016-08-19] MEDS: DOCUSATE SODIUM 100 MG CAP PO SCH (08:54)
[2016-08-19] MEDS: PANTOPRAZOLE 40MG TAB (PROTONIX) PO SCH (08:54)
[2016-08-19] MEDS: predniSONE 5 MG TAB PO SCH (08:55)
[2016-08-19] MEDS: LEVEMIR (INSULIN DETEMIR) 1 UNITS/0.01ML SC SCH (08:55)
[2016-08-19] MEDS: EUCERIN 120GM CREAM TOP SCH (08:55)
[2016-08-19 08:56] VITALS: BP 154/73
[2016-08-19] MEDS: ATENOLOL 25 MG TAB PO SCH (08:56)
[2016-08-19] MEDS ORDERED: ATEN25TA PO (11:30)
[2016-08-19] MEDS ORDERED: PANT40TA2 PO (11:30)
[2016-08-19] MEDS ORDERED: METF500T PO (11:30)
[2016-08-19] MEDS ORDERED: MAPA325T2 PO (11:30)
[2016-08-19] MEDS ORDERED: INSUHUMDS SC ×2 (11:30)
[2016-08-19] MEDS ORDERED: AMLO10TA2 PO (11:30)
[2016-08-19] MEDS ORDERED: PRED10TA PO (11:30)
[2016-08-19] MEDS ORDERED: PEG1POW PO (11:30)
[2016-08-19] MEDS ORDERED: FLOM5CAP PO (11:30)
[2016-08-19] MEDS ORDERED: INSUDET SC (11:30)
[2016-08-19] MEDS ORDERED: SENN1TAB4 PO (11:30)
[2016-08-19] MEDS ORDERED: HYDR10TAB PO (11:30)
[2016-08-19] MEDS ORDERED: EUCECRE3 TOP (11:30)
[2016-08-19] MEDS ORDERED: COLA100C PO (11:30)
[2016-08-19] MEDS ORDERED: BACITAB3 PO (11:41)
--- NOTE | 2016-08-19 13:08 | DS.PDOC ---
[employer] Discharge Note DISCHARGE SUMMARY DATE OF ADMISSION: 07/31/2016 DATE OF DISCHARGE: 08/19/2016 DATE OF SERVICE: 08/19/2016 DISCHARGE DIAGNOSES 1. 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 COPD exacerbation +/- HAP 3. Urinary retention/hematuria 4. Acute renal failure 5. Hypertension 6. Diabetes mellitus type 2 7. Malnutrition IDENTIFICATION STATEMENT: Patient is an 86-year-old left-hand dominant man with acute midbrain CVA and right hemiparesis admitted for comprehensive integrated inpatient rehabilitation. 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 No residual weakness except left eye palsy Skull fracture 1980s secondary to fall off scaffolding Multiple broken bones PAST SURGICAL HISTORY: Appendectomy Cholecystectomy Cataract surgery HOSPITAL COURSE: The patient was admitted to the rehabilitation unit and underwent daily physical and occupational therapy. Despite acute medical issues (COPD exacerbation), the patient tolerated his therapy sessions well and made slow but progressive gains. He underwent neuromuscular electrical stimulation to the right upper extremity. He was also provided with compression glove to and sling for the right upper extremity with decreased swelling and erythema. While the patient made gains, he was still requiring significant level of care for most activities and family was unable to provide the necessary level of assistance; therefore, decision was made to seek alternate level of care for continued short -term rehabilitation. On 08/19/2016 a bed became available at [facility]. Other issues addressed while on the rehabilitation unit are as follows: 1. COPD exacerbation +/- HAP: S/p IV steroids now on prednisone taper. Started on IV antibiotics and on 08/06/16 changed to oral antibiotics. Completed course abx. Status post scheduled duonebulizer treatment. Continue symbicort. 2. Retention/hematuria: Parks placed for retention. Gross hematuria resolved. Continued on Proscar and started on Flomax. Parks d/cd 08/05/16 2nd leakage. Multiple bladder scans done and no significant residuals. 3. Positive blood culture: Thought contaminant. S/p IV vanco x 2 doses. 4. Acute renal failure: Thought 2nd to dehydration +vancomycin. Resolved with IVF and d/cing vancomycin. 5. Right hand erythema and pain: Resolved with compression glove and right arm sling when OOB. Continue AAROM & PROM right UL. 6. Hypertension: S/p medication adjustment and changing parameters 08/12/16, s/p increased hydralazine 08/06/16, then decreased to q8h 08/12/16, changed parameter on Norvasc. Continued lisinopril and atenolol. Further dose adjustments if needed. 7. DVT prophylaxis: Maintained Lovenox SQ daily. Continued SCD and TOBIN hose. 8. Diabetes mellitus type 2: Metformin was held and started on detemir secondary to renal function. Metformin restarted 08/11/16. Detemir d/cd 08/19/16. Continue ISS. Further adjustments as indicated. 9. Bowel: Maintain Colace and senna scheduled along with milk of magnesia and MiraLAX on an as-needed basis 10. Pain: Experienced right medial thigh pain thought 2nd to overuse/misuse adductor. Provided with scheduled Tylenol, and alternating ice and heat. Also ordered [place], but patient never requested. Patient eventually requested Tylenol be change to as needed since he wasnt experiencing pain on regular basis. 11. Malnutrition: Prealbumin increasing, continue Glucerna. Continue carb consistent diet. VITAL SIGNS: 97.3F, pulse 73, respiratory rate 18, blood pressure 154/73 97% saturation on RA PHYSICAL EXAMINATION: GENERAL: Well nourished, well developed, sitting up in chair, no acute distress. HEENT: Normocephalic, atraumatic. Left eye palsy (unchanged). PERRL, EOMI CARDIOVASCULAR: S1, S2, regular rate. No lower limb swelling or calf tenderness. LUNGS: Diffusely decreased breath sounds throughout but CTA, no rhonchi or wheezing. ABDOMEN: Soft, nontender, nondistended. Normoactive bowel sounds throughout. MUSCULOSKELETAL: No groin pain to palpation, negative FABERS on right. Negative dural tension signs MMT: 5/5 right shoulder shrug, 2/5 EF/EE, 3/5 right finger flexion, 3-/5 finger extension, 3/5 right HF, 3/5 KE 4/5 KF, 1/5 right DF/PF. 5 /5 strength left upper and lower limb in all major muscle groups. NEUROLOGICAL: Alert and oriented x 3. Answers all questions appropriately. Able to follow commands SKIN: right hand : swelling resolved & erythema mostly resolved. LABORATORY DATA: 08/18/16 reviewed, see below IMAGING: CT 08/01/16: pneumonitis MRI brain 07/27/16: old right frontal infarct, generalization age appropriate parenchymal atrophy, severe chronic white matter microvascular ischemic changes. MRI C-T-L spine 07/27/16 reviewed: T5 abnormality ALLERGIES: No known drug allergies MEDICATIONS: Bacid 1 bid Prednisone taper Hydralazine 10mg po q8h Norvasc 10mg qhs Atenolol 25 mg by mouth twice a day Lisinopril 40 mg by mouth daily Aspirin 81 mg by mouth daily Lipitor 20 mg by mouth daily Proscar 5 mg by mouth daily Flomax 0.4mg daily Lovenox 40 mg subcutaneous daily Detemir 15u daily Insulin sliding scale before meals and at bedtime Symbicort 160/4.5 g 2 puffs inhaled twice a day Plavix 75 mg by mouth qpm albuterol sulfate 2 puffs inhaled 4 times a day when necessary shortness of breath Acetaminophen 650mg po q4h prn DISCHARGE DISPOSITION: 1. The patient discharge to [facility] for continued STR 2. The patient discharged in stable condition 3. Discharged with recommendations for continued PT & OT. 4. Post discharge follow-up medical appointments: PCP, neurology / Vital Signs/I&O Vital Sign - Last 24 Hours 08/18/16 08/18/16 08/18/16 08/18/16 13:55 14:00 20:00 20:00 Temp 97.7 97.9 Pulse 71 76 Resp 18 18 B/P 155/79 155/79 144/65 Pulse Ox 96 96 O2 Delivery Room Air Room Air Room Air 08/18/16 08/18/16 08/19/16 08/19/16 21:55 21:57 05:50 06:14 Temp 97.3 Pulse 80 73 Resp 18 B/P 138/72 138/72 154/73 154/73 Pulse Ox 97 O2 Delivery Room Air 08/19/16 08/19/16 08:56 09:00 Pulse 73 B/P 154/73 O2 Delivery Room Air I&O- Last 24 Hours up to 6 AM 08/19/16 06:00 Intake Total 1020 ml Output Total 1350 ml Balance -330 ml Laboratory Data CBC/BMP Laboratory Tests 08/18/16 10:34 Calcium Level 8.7 L, Red Blood Count 4.11 L, Mean Corpuscular Volume 91.2, Mean Corpuscular Hemoglobin 29.3, Mean Corpuscular Hemoglobin Concent 32.1, Red Cell Distribution Width 15.1 H, Neutrophils (%) (Auto) 79.5 H, Lymphocytes (%) (Auto ) 11.4 L, Monocytes (%) (Auto) 6.3 H, Eosinophils (%) (Auto) 1.7, Basophils (%) (Auto) 0.1, Neutrophils # (Auto) 6.6, Lymphocytes # (Auto) 1.0 L, Monocytes # ( Auto) 0.5, Eosinophils # (Auto) 0.1, Basophils # (Auto) 0.0 Labs 48H Laboratory Tests 08/17/16 16:41: Bedside Glucose (Misc Panel) 174H 08/17/16 20:23: Bedside Glucose (Misc Panel) 186H 08/18/16 06:48: Bedside Glucose (Misc Panel) 92 08/18/16 10:34: Anion Gap 10, White Blood Count 8.3, Red Blood Count 4.11L, Hemoglobin 12.0L, Hematocrit 37.5L, Mean Corpuscular Volume 91.2, Mean Corpuscular Hemoglobin 29.3 , Mean Corpuscular Hemoglobin Concent 32.1, Red Cell Distribution Width 15.1H, Platelet Count 241, Neutrophils (%) (Auto) 79.5H, Lymphocytes (%) (Auto) 11.4L, Monocytes (%) (Auto) 6.3H, Eosinophils (%) (Auto) 1.7, Basophils (%) (Auto) 0.1 , Neutrophils # (Auto) 6.6, Lymphocytes # (Auto) 1.0L, Monocytes # (Auto) 0.5, Eosinophils # (Auto) 0.1, Basophils # (Auto) 0.0, Blood Urea Nitrogen 29H, Creatinine 1.20, Sodium Level 144, Potassium Level 3.9, Chloride Level 108H, Carbon Dioxide Level 26, Calcium Level 8.7L, Fasting Glucose 157H, Glomerular Filtration Rate > 60.0, Large Unclassified Cells # 0.1, Large Unclassified Cells % 0.9 08/18/16 11:15: Bedside Glucose (Misc Panel) 154H 08/18/16 16:58: Bedside Glucose (Misc Panel) 128H 08/18/16 19:47: Bedside Glucose (Misc Panel) 187H 08/19/16 05:54: Bedside Glucose (Misc Panel) 81L 08/19/16 11:29: Bedside Glucose (Misc Panel) 106 FSBS Laboratory Tests Test 08/18/16 16:58 08/18/16 19:47 08/19/16 05:54 08/19/16 11:29 Range/Units Bedside Glucose (Misc Panel) 128 187 81 106 83-110 MG/DL Medications Medications Current Medications Acetaminophen (Tylenol Tab) 650 mg Q4HP PRN PO PAIN OR FEVER Last administered on 08/19/16 05:52; Start 08/18/16 at 14:30; Stop 09/17/16 at 14:29 Acetaminophen (Tylenol Tab) 1,000 mg Q8H PO Last administered on 08/18/16 06: 07; Start 08/04/16 at 14:00; Stop 08/18/16 at 14:31; Status DC Acetaminophen (Tylenol) 650 mg Q4HP PRN PO MILD PAIN (PS 1-4) Last administered on 08/04/16 05:18; Start 07/31/16 at 13:00; Stop 08/04/16 at 09:58 ; Status DC Acetaminophen/ Hydrocodone Bitart ([place], [place] 5/325) 1 tab Q4HP PRN PO MODERATE/SEVERE PAIN (PS 5-10); Start 07/31/16 at 13:00; Stop 08/25/16 at 12:59 Albuterol Sulfate (Proventil, Ventolin Hfa) 2 puff QIDP PRN INH SHORTNESS OF BREATH; Start 07/31/16 at 13:00; Stop 08/02/16 at 01:31; Status DC Albuterol/ Ipratropium (Duoneb (Ipr 0.5mg/Alb 2.5mg)) 3 ml Q2HP PRN NEB SOB/ WHEEZING Last administered on 08/02/16 01:09; Start 08/01/16 at 21:00; Stop at 20:59 Albuterol/ Ipratropium (Duoneb (Ipr 0.5mg/Alb 2.5mg)) 3 ml RQ6H NEB Last administered on 08/03/16 13:32; Start 08/02/16 at 02:00; Stop 08/04/16 at 11:39 ; Status DC Albuterol/ Ipratropium (Duoneb (Ipr 0.5mg/Alb 2.5mg)) 3 ml RQ6H NEB Last administered on 08/13/16 13:49; Start 08/08/16 at 08:00; Stop 08/14/16 at 08:18; Status DC Amlodipine Besylate (Norvasc) 5 mg BID PO Last administered on 08/03/16 21:26 ; Start 07/31/16 at 21:00; Stop 08/04/16 at 07:35; Status DC Amlodipine Besylate (Norvasc) 10 mg QHS PO Last administered on 08/18/16 21:57 ; Start 08/04/16 at 21:00; Stop 09/03/16 at 20:59 Aspirin (Ecotrin) 81 mg DAILY PO Last administered on 08/19/16 08:54; Start at 09:00; Stop 08/31/16 at 08:59 Atenolol (Tenormin) 25 mg BID PO Last administered on 08/03/16 21:25; Start at 21:00; Stop 08/04/16 at 07:33; Status DC Atenolol (Tenormin) 25 mg DAILY PO Last administered on 08/19/16 08:56; Start 08/04/16 at 09:00; Stop 09/03/16 at 08:59 Atorvastatin Calcium (Lipitor) 20 mg DAILY PO Last administered on 08/19/16 08 :54; Start 08/01/16 at 09:00; Stop 08/31/16 at 08:59 Benzonatate (Tessalon Perles) 100 mg TID PO Last administered on 08/04/16 10: 24; Start 08/01/16 at 09:00; Stop 08/04/16 at 11:11; Status DC Budesonide/ Formoterol Fumarate (Symbicort 160/ 4.5mcg) 2 puff BID INH Last administered on 08/19/16 07:50; Start 07/31/16 at 21:00; Stop 08/30/16 at 20:59 Cefdinir (Omnicef) 300 mg BID PO ; Start 08/02/16 at 09:00; Stop 08/02/16 at 09: 00; Status DC Clopidogrel Bisulfate (PLAVix) 75 mg QPM PO Last administered on 08/18/16 21: 55; Start 07/31/16 at 21:00; Stop 08/30/16 at 20:59 Dextrose (Dextrose 50%) 25 ml ASDIRECTED PRN IV SEE LABEL COMMENTS; Start 07/31 at 20:30; Stop 08/30/16 at 20:29 Docusate Sodium (Colace) 100 mg BID PO Last administered on 08/19/16 08:54; Start 07/31/16 at 21:00; Stop 08/30/16 at 20:59 Enoxaparin Sodium (Lovenox) 40 mg DAILY SC Last administered on 08/19/16 08:53 ; Start 08/01/16 at 09:00; Stop 08/23/16 at 08:59 Finasteride (Proscar) 5 mg DAILY PO Last administered on 08/19/16 08:54; Start 08/01/16 at 09:00; Stop 08/31/16 at 08:59 Glucagon (Glucagon) 1 mg ASDIRECTED PRN SC SEE LABEL COMMENTS; Start 07/31/16 at 20:30; Stop 08/30/16 at 20:29 Glucose (Glucose) 16 GM ASDIRECTED PRN PO SEE LABEL COMMENTS; Start 07/31/16 at 20:30; Stop 08/30/16 at 20:29 Hydralazine HCl (Apresoline) 10 mg Q6H PO Last administered on 08/12/16 06:18; Start 08/06/16 at 12:00; Stop 08/12/16 at 08:26; Status DC Hydralazine HCl (Apresoline) 10 mg Q8H PO Last administered on 08/19/16 05:50 ; Start 08/12/16 at 14:00; Stop 09/11/16 at 13:59 Hydralazine HCl (Apresoline) 10 mg TID PO Last administered on 08/06/16 08:28; Start 08/02/16 at 09:00; Stop 08/06/16 at 12:35; Status DC Insulin Detemir (Levemir Insulin) 10 units DAILY SC Last administered on 07:41; Start 08/04/16 at 09:00; Stop 08/10/16 at 18:42; Status DC Insulin Detemir (Levemir Insulin) 15 units DAILY SC Last administered on 08:37; Start 08/11/16 at 09:00; Stop 08/19/16 at 12:59; Status DC Insulin Human Lispro (HumaLOG INSULIN) See Protocol Table AC SC Last administered on 08/19/16 12:01; Start 08/01/16 at 07:30; Stop 08/31/16 at 07:29 Insulin Human Lispro (HumaLOG INSULIN) See Protocol Table QHS SC Last administered on 08/10/16 20:39; Start 07/31/16 at 21:00; Stop 08/30/16 at 20:59 Lactobacillus Acidophilus (Bacid) 1 ea BID PO Last administered on 08/01/16 21 :17; Start 08/01/16 at 21:00; Stop 08/02/16 at 10:52; Status DC Lactobacillus Acidophilus 1 ea 1 ea BIDWM PO Last administered on 08/11/16 17: 07; Start 08/02/16 at 08:00; Stop 08/11/16 at 18:01; Status DC Levofloxacin (Levaquin) 750 mg DAILY@21 PO Last administered on 08/18/16 21:55 ; Start 08/06/16 at 21:00; Stop 08/19/16 at 12:48; Status DC Levofloxacin (Levaquin) 750 mg Q2D@18 PO ; Start 08/01/16 at 18:00; Stop at 20:43; Status DC Levofloxacin 750 mg/IV Miscellaneous Supplies 150 ml @ 100 mls/hr Q48H IV ; Start 08/01/16 at 22:00; Stop 08/01/16 at 22:00; Status DC Levofloxacin 750 mg/IV Miscellaneous Supplies 150 ml @ 100 mls/hr Q48H IV Last administered on 08/05/16 21:39; Start 08/03/16 at 22:00; Stop 08/06/16 at 10:16; Status DC Levofloxacin/IV Miscellaneous Supplies (Levaquin) 150 ml @ 100 mls/hr Q48H IV ; Start 08/03/16 at 22:00; Stop 08/03/16 at 22:00; Status DC Lisinopril (Prinivil) 40 mg DAILY PO Last administered on 08/01/16 08:44; Start 08/01/16 at 09:00; Stop 08/02/16 at 06:38; Status DC Magnesium Hydroxide (Milk Of Magnesia) 30 ml DAILYPRN PRN PO CONSTIPATION; Start 07/31/16 at 13:00; Stop 08/30/16 at 12:59 Metformin HCl (Glucophage) 500 mg BID@08,18 PO Last administered on 08/19/16 08:54; Start 08/11/16 at 08:00; Stop 09/10/16 at 07:59 Metformin HCl (Glucophage) 500 mg PC PO Last administered on 08/01/16 18:09; Start 07/31/16 at 18:30; Stop 08/02/16 at 06:39; Status DC Methylprednisolone (SOLUmedrol) 60 mg Q8H IV Last administered on 08/03/16 05: 35; Start 08/02/16 at 06:00; Stop 08/03/16 at 06:57; Status DC Methylprednisolone 40 mg 40 mg Q12H IV Last administered on 08/04/16 05:13; Start 08/03/16 at 18:00; Stop 08/04/16 at 07:32; Status DC Mineral Oil/White Petrolatum APPLY TO RIGHT HAND BID TOP Last administered on 08:55; Start 08/04/16 at 09:00; Stop 09/03/16 at 08:59 Miscellaneous (Unresolved Clarification Entry) SEE LABEL COMMENTS UNRESOLVED XX ; Start 08/18/16 at 00:01; Stop 08/18/16 at 14:01; Status DC Pantoprazole Sodium (Protonix) 40 mg DAILY PO Last administered on 08/19/16 08 :54; Start 07/31/16 at 09:00; Stop 08/30/16 at 08:59 Piperacillin Sod/ Tazobactam Sod 4.5 gm/Dextrose 50 ml @ 50 mls/hr Q6H IV Last administered on 08/01/16 21:57; Start 08/01/16 at 21:00; Stop 08/02/16 at 01:31 ; Status DC Piperacillin Sod/ Tazobactam Sod 4.5 gm/Dextrose 50 ml @ 50 mls/hr Q6H IV Last administered on 08/02/16 15:53; Start 08/02/16 at 09:00; Stop 08/02/16 at 19:10 ; Status DC Piperacillin Sod/ Tazobactam Sod/ Dextrose (Zosyn/Dextrose 5% Mini-Bag Plus) 50 ml @ 50 mls/hr Q6H IV Last administered on 08/04/16 03:30; Start 08/02/16 at 21:00; Stop 08/04/16 at 07:29; Status DC Polyethylene Glycol (Miralax) 1 pkt DAILYPRN PRN PO CONSTIPATION; Start at 13:00; Stop 08/30/16 at 12:59 Prednisone (Deltasone) 10 mg DAILY PO ; Start 08/20/16 at 09:00; Stop 09/19/16 at 08:59 Prednisone (Deltasone) 15 mg DAILY PO Last administered on 08/19/16 08:55; Start 08/17/16 at 09:00; Stop 08/19/16 at 23:00 Prednisone (Deltasone) 20 mg DAILY PO Last administered on 08/16/16 09:38; Start 08/13/16 at 09:00; Stop 08/16/16 at 23:00; Status DC Prednisone (Deltasone) 30 mg DAILY PO Last administered on 08/12/16 08:15; Start 08/10/16 at 09:00; Stop 08/12/16 at 23:00; Status DC Prednisone (Deltasone) 40 mg DAILY PO Last administered on 08/09/16 08:17; Start 08/08/16 at 09:00; Stop 08/09/16 at 23:00; Status DC Prednisone (Deltasone) 50 mg DAILY PO Last administered on 08/07/16 08:56; Start 08/06/16 at 09:00; Stop 08/07/16 at 09:49; Status DC Prednisone (Deltasone) 60 mg DAILY PO Last administered on 08/05/16 08:20; Start 08/04/16 at 09:00; Stop 08/05/16 at 12:59; Status DC Prednisone 20 mg 20 mg DAILY PO ; Start 08/02/16 at 09:00; Stop 08/02/16 at 09: 00; Status DC Senna (Senokot) 1 tab QHS PO Last administered on 08/18/16 21:55; Start at 21:00; Stop 08/30/16 at 20:59 Sodium Chloride 1,000 ml @ 150 mls/hr Q6H40M IV Last administered on 06:54; Start 08/02/16 at 06:45; Stop 08/02/16 at 17:43; Status DC Sodium Chloride (Nacl 0.9%) 1,000 ml @ 50 mls/hr Q20H IV Last administered on 08/03/16 10:59; Start 08/03/16 at 11:00; Stop 08/04/16 at 06:59; Status DC Sodium Chloride (Nacl 0.9%) 1,000 ml @ 50 mls/hr Q20H IV Last administered on 08/06/16 13:48; Start 08/04/16 at 12:45; Stop 08/07/16 at 08:51; Status DC Tamsulosin HCl (Flomax) 0.4 mg DAILY PO Last administered on 08/19/16 08:54; Start 08/05/16 at 09:00; Stop 09/04/16 at 08:59 Vancomycin HCl 1000 mg/IV Miscellaneous Supplies 1 each/ Dextrose 270 ml @ 270 mls/hr Q12H IV ; Start 08/02/16 at 11:00; Stop 08/02/16 at 11:00; Status DC Vancomycin HCl 1000 mg/IV Miscellaneous Supplies 1 each/ Dextrose 270 ml @ 270 mls/hr Q24H IV Last administered on 08/03/16 12:05; Start 08/02/16 at 12:00; Stop 08/04/16 at 07:29; Status DC Scheduled Amlodipine Besylate (Amlodipine Besylate) 10 Mg Tab 10 MG PO QHS Aspirin (Aspirin 81) 81 Mg Tab 81 MG PO DAILY (Reported) Atenolol (Atenolol) 25 Mg Tab 25 MG PO DAILY Atorvastatin Calcium (Atorvastatin Calcium) 20 Mg Tab 20 MG PO DAILY (Reported ) Budesonide/Formoterol (Symbicort 160-4.5 Mcg/Act) 60 Puff/Inhaler Aers 2 PUFF INH BID (Reported) Clopidogrel Bisulfate (Clopidogrel) 75 Mg Tab 75 MG PO QPM (Reported) Docusate Sodium (Colace) 100 Mg Cap 100 MG PO BID Enoxaparin Sodium (Lovenox) 40 Mg/0.4 Ml Inj 40 MG SC DAILY Eucerin (Eucerin) 1 Cre Cre 0 DOSE TOP BID Finasteride (Finasteride) 5 Mg Tab 5 MG PO DAILY (Reported) Hydralazine HCl (Hydralazine HCl) 10 Mg Tab 10 MG PO Q8H Insulin Human Lispro (Humalog) 1 Units/0.01 Ml Inj 0 UNITS SC AC Insulin Human Lispro (Humalog) 1 Units/0.01 Ml Inj 0 UNITS SC QHS Lactobacillus Acidophilus (Bacid) 1 Tab Tab 1 TAB PO BIDWM Metformin Hydrochloride (Metformin HCl) 500 Mg Tab 500 MG PO BID Pantoprazole Sodium (Pantoprazole Sodium) 40 Mg Tab 40 MG PO DAILY Prednisone (Prednisone) 10 Mg Tab 10 MG PO DAILY Senna (Senna-Lax) 8.6 Mg Tab 1 TAB PO QHS Tamsulosin Hydrochloride (Flomax) 0.4 Mg Cap 0.4 MG PO DAILY Scheduled PRN Acetaminophen (Mapap) 325 Mg Tab 650 MG PO Q4HP PRN PRN PAIN OR FEVER Albuterol Sulfate (Proair Hfa) 108 Mcg/Act Aer 2 PUFF INH QID PRN PRN SHORTNESS OF BREATH (Reported) Polyethylene Glycol (Peg 3350) 1 Pkt Pow 1 PKT PO DAILYPRN PRN PRN CONSTIPATION Allergies Coded Allergies: No Known Allergies (Verified Allergy, Unknown, 04/25/10) REJI BLACKWELL MD Aug 19, 2016 13:08
[2016-08-20] MEDS ORDERED: predniSONE 10 MG TAB PO SCH (09:00)
== END 2016-08-19 13:25 | DRG 56 ==
LOC: M PM&R 13:45
PROVIDERS: ADMIT Physical Medicine & Rehabilitation; ATTEND Physical Medicine & Rehabilitation
DX: I69.353 Hemiplegia and hemiparesis following cerebral infarction affecting right non-dominant side (principal); J18.9 Pneumonia, unspecified organism; E46 Unspecified protein-calorie malnutrition; J44.1 Chronic obstructive pulmonary disease with (acute) exacerbation; N39.0 Urinary tract infection, site not specified; N17.9 Acute kidney failure, unspecified; I10 Essential (primary) hypertension; M25.521 Pain in right elbow; M25.541 Pain in joints of right hand; R33.9 Retention of urine, unspecified; E78.5 Hyperlipidemia, unspecified; R06.82 Tachypnea, not elsewhere classified; E11.65 Type 2 diabetes mellitus with hyperglycemia; R31.9 Hematuria, unspecified; N40.0 Benign prostatic hyperplasia without lower urinary tract symptoms; B96.3 Hemophilus influenzae [H. influenzae] as the cause of diseases classified elsewhere; Z90.49 Acquired absence of other specified parts of digestive tract; Z79.82 Long term (current) use of aspirin; Z79.4 Long term (current) use of insulin; Z79.899 Other long term (current) drug therapy; Z87.891 Personal history of nicotine dependence

== ENCOUNTER → 2016-08-20 | Outpatient (REF) ==
[~2016-08-20] MED LIST changes: +AMLO10TA2 PO; +BACITAB3 PO; +COLA100C PO; +EUCECRE3 TOP; +FLOM5CAP PO; +HYDR10TAB PO; +INSUDET SC; +INSUHUMDS SC; +MAPA325T2 PO; +PANT40TA2 PO; +PEG1POW PO; +PRED10TA PO; +SENN1TAB4 PO
== END ==
LOC: SKLAB5 09:10
PROVIDERS: ATTEND Family Medicine
DX: J44.9 Chronic obstructive pulmonary disease, unspecified (principal)

== ENCOUNTER → 2016-08-21 | Outpatient (REF) ==
[2016-08-21 08:57] LABS: BASO % 0.1 % (0.0-1.0); EOS # 0.2 K/mm3 (0.0-0.50); EOS % 2.3 % (0.0-3.0); LARGE UNSTAINED CELL # 0.2 K/mm3 (0.0-0.4); LARGE UNSTAINED CELL % 1.9 % (0.0-4.0); LYMPH # 1.1 K/mm3 (1.5-4.5); LYMPH % 9.5 % (24.0-44.0); MEAN CORPUSCULAR HEMOGLOBIN 29.5 pg (27.0-33.0); MEAN CORPUSCULAR HGB CONC 32.1 g/dl (32.0-36.5); MEAN CORPUSCULAR VOLUME 91.9 fl (80.0-96.0); MONO % 10.4 % (0.0-5.0); NEUTROPHILS # 7.6 K/mm3 (1.8-7.7); NEUTROPHILS % 75.8 % (36.0-66.0); PLATELET COUNT, AUTOMATED 198 k/mm3 (150-450)
[2016-08-21 09:19] LABS: ANION GAP 10 MEQ/L (8-16); BLOOD UREA NITROGEN 26 MG/DL (7-18); CALCIUM LEVEL 8.9 MG/DL (8.8-10.2); CARBON DIOXIDE LEVEL 29 MEQ/L (21-32); CHLORIDE LEVEL 105 MEQ/L (98-107); CREATININE FOR GFR 1.06 MG/DL (0.70-1.30); GLOMERULAR FILTRATION RATE > 60.0 (>35); GLUCOSE, FASTING 126 MG/DL (83-110); POTASSIUM SERUM 4.3 MEQ/L (3.5-5.1); SODIUM LEVEL 144 MEQ/L (136-145)
== END ==
LOC: SKLAB5 07:46
PROVIDERS: ATTEND Family Medicine
DX: J44.9 Chronic obstructive pulmonary disease, unspecified (principal); I10 Essential (primary) hypertension; Z86.73 Personal history of transient ischemic attack (TIA), and cerebral infarction without residual deficits

== ENCOUNTER → 2016-08-26 | Outpatient (REF) ==
[2016-08-26 13:06] LABS: BASO % 0.2 % (0.0-1.0); EOS # 0.2 K/mm3 (0.0-0.50); EOS % 3.8 % (0.0-3.0); LARGE UNSTAINED CELL # 0.1 K/mm3 (0.0-0.4); LARGE UNSTAINED CELL % 1.6 % (0.0-4.0); LYMPH # 0.8 K/mm3 (1.5-4.5); LYMPH % 11.7 % (24.0-44.0); MEAN CORPUSCULAR HEMOGLOBIN 30.1 pg (27.0-33.0); MEAN CORPUSCULAR HGB CONC 32.9 g/dl (32.0-36.5); MEAN CORPUSCULAR VOLUME 91.4 fl (80.0-96.0); MONO # 0.5 K/mm3 (0.0-0.8); MONO % 7.7 % (0.0-5.0); NEUTROPHILS # 4.5 K/mm3 (1.8-7.7); NEUTROPHILS % 75.1 % (36.0-66.0); PLATELET COUNT, AUTOMATED 214 k/mm3 (150-450); RED CELL DISTRIBUTION WIDTH 14.9 % (11.5-14.5)
--- NOTE | 2016-08-26 13:24 | REP ---
Clinical: Pain and swelling. Technique: AP, lateral, bilateral oblique views of the right hand. Findings: Osteopenia and advanced arthritic degenerative changes are appreciated including joint space narrowing, subchondral sclerosis, marginal spurring, and chondrocalcinosis. No acute fracture or dislocation. 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 No acute fracture or dislocation. Signed by Steve Clark MD 08/26/2016 01:16 P
[2016-08-26 13:50] LABS: ERYTHROCYTE SEDIMENTATION RATE 44 mm/hr (0-30)
== END ==
LOC: SKLAB5 11:23
PROVIDERS: ATTEND Family Medicine
DX: M79.89 Other specified soft tissue disorders (principal); M19.041 Primary osteoarthritis, right hand

== ENCOUNTER → 2016-08-28 | Outpatient (REF) ==
[2016-08-28 08:17] LABS: BASO % 0.2 % (0.0-1.0); EOS # 0.2 K/mm3 (0.0-0.50); EOS % 4.3 % (0.0-3.0); LARGE UNSTAINED CELL # 0.1 K/mm3 (0.0-0.4); LARGE UNSTAINED CELL % 1.9 % (0.0-4.0); LYMPH # 0.9 K/mm3 (1.5-4.5); LYMPH % 15.9 % (24.0-44.0); MEAN CORPUSCULAR HEMOGLOBIN 29.5 pg (27.0-33.0); MEAN CORPUSCULAR HGB CONC 32.5 g/dl (32.0-36.5); MEAN CORPUSCULAR VOLUME 90.9 fl (80.0-96.0); MONO # 0.4 K/mm3 (0.0-0.8); NEUTROPHILS # 3.5 K/mm3 (1.8-7.7); NEUTROPHILS % 69.7 % (36.0-66.0); PLATELET COUNT, AUTOMATED 220 k/mm3 (150-450); RED CELL DISTRIBUTION WIDTH 14.8 % (11.5-14.5)
[2016-08-28 08:31] LABS: ANION GAP 11 MEQ/L (8-16); BLOOD UREA NITROGEN 20 MG/DL (7-18); CALCIUM LEVEL 9.1 MG/DL (8.8-10.2); CARBON DIOXIDE LEVEL 26 MEQ/L (21-32); CHLORIDE LEVEL 107 MEQ/L (98-107); CREATININE FOR GFR 1.05 MG/DL (0.70-1.30); GLOMERULAR FILTRATION RATE > 60.0 (>35); GLUCOSE, FASTING 125 MG/DL (83-110); POTASSIUM SERUM 3.8 MEQ/L (3.5-5.1); SODIUM LEVEL 144 MEQ/L (136-145)
== END ==
LOC: SKLAB5 07:26
PROVIDERS: ATTEND Family Medicine
DX: J44.9 Chronic obstructive pulmonary disease, unspecified (principal); I10 Essential (primary) hypertension

== ENCOUNTER → 2016-09-03 | Outpatient (REF) ==
--- NOTE | 2016-09-03 13:28 | REP ---
PORTABLE CHEST: AP portable view of the chest is performed and compared with prior studies, most recent of which is 08/26/2016. There are mildly increased interstitial markings in each lung base compatible with chronic fibrotic changes. There is no evidence of acute infiltrate. The heart is not significantly enlarged. There is mild calcification and tortuosity of the thoracic aorta. The mediastinal silhouette is unchanged. IMPRESSION: Stable chronic findings without evidence of acute infiltrate. Signed by Keny Saunders MD 09/03/2016 05:22 P
== END ==
LOC: SKLAB2 11:20
PROVIDERS: ATTEND Family Medicine
DX: R09.89 Other specified symptoms and signs involving the circulatory and respiratory systems (principal)

== ENCOUNTER → 2016-09-04 | Outpatient (REF) ==
[2016-09-04 08:24] LABS: BASO % 0.2 % (0.0-1.0); EOS # 0.1 K/mm3 (0.0-0.50); EOS % 1.4 % (0.0-3.0); LARGE UNSTAINED CELL # 0.1 K/mm3 (0.0-0.4); LARGE UNSTAINED CELL % 1.1 % (0.0-4.0); LYMPH # 0.8 K/mm3 (1.5-4.5); MEAN CORPUSCULAR HEMOGLOBIN 29.5 pg (27.0-33.0); MEAN CORPUSCULAR HGB CONC 32.8 g/dl (32.0-36.5); MEAN CORPUSCULAR VOLUME 90.1 fl (80.0-96.0); MONO # 0.5 K/mm3 (0.0-0.8); MONO % 5.9 % (0.0-5.0); NEUTROPHILS # 6.3 K/mm3 (1.8-7.7); NEUTROPHILS % 82.4 % (36.0-66.0); PLATELET COUNT, AUTOMATED 324 k/mm3 (150-450); RED CELL DISTRIBUTION WIDTH 14.3 % (11.5-14.5); WHITE BLOOD COUNT 7.6 K/mm3 (4.0-10.0)
[2016-09-04 08:51] LABS: ANION GAP 9 MEQ/L (8-16); BLOOD UREA NITROGEN 22 MG/DL (7-18); CALCIUM LEVEL 8.5 MG/DL (8.8-10.2); CARBON DIOXIDE LEVEL 29 MEQ/L (21-32); CHLORIDE LEVEL 104 MEQ/L (98-107); CREATININE FOR GFR 1.02 MG/DL (0.70-1.30); GLOMERULAR FILTRATION RATE > 60.0 (>35); GLUCOSE, FASTING 166 MG/DL (83-110); POTASSIUM SERUM 3.8 MEQ/L (3.5-5.1); SODIUM LEVEL 142 MEQ/L (136-145)
== END ==
LOC: SKLAB2 07:30
PROVIDERS: ATTEND Family Medicine
DX: D64.9 Anemia, unspecified (principal)

== ENCOUNTER → 2016-09-11 | Outpatient (REF) ==
[2016-09-11 08:12] LABS: BASO % 0.3 % (0.0-1.0); EOS # 0.1 K/mm3 (0.0-0.50); EOS % 1.5 % (0.0-3.0); LARGE UNSTAINED CELL # 0.1 K/mm3 (0.0-0.4); LARGE UNSTAINED CELL % 1.5 % (0.0-4.0); LYMPH # 0.7 K/mm3 (1.5-4.5); LYMPH % 9.3 % (24.0-44.0); MEAN CORPUSCULAR HEMOGLOBIN 28.1 pg (27.0-33.0); MEAN CORPUSCULAR HGB CONC 31.6 g/dl (32.0-36.5); MEAN CORPUSCULAR VOLUME 88.8 fl (80.0-96.0); MONO # 0.4 K/mm3 (0.0-0.8); MONO % 6.2 % (0.0-5.0); NEUTROPHILS # 5.3 K/mm3 (1.8-7.7); NEUTROPHILS % 81.1 % (36.0-66.0); PLATELET COUNT, AUTOMATED 389 k/mm3 (150-450); RED CELL DISTRIBUTION WIDTH 14.1 % (11.5-14.5); WHITE BLOOD COUNT 6.6 K/mm3 (4.0-10.0)
[2016-09-11 08:30] LABS: ANION GAP 9 MEQ/L (8-16); BLOOD UREA NITROGEN 22 MG/DL (7-18); CALCIUM LEVEL 8.4 MG/DL (8.8-10.2); CARBON DIOXIDE LEVEL 29 MEQ/L (21-32); CHLORIDE LEVEL 108 MEQ/L (98-107); CREATININE FOR GFR 0.96 MG/DL (0.70-1.30); GLOMERULAR FILTRATION RATE > 60.0 (>35); GLUCOSE, FASTING 146 MG/DL (83-110); POTASSIUM SERUM 3.8 MEQ/L (3.5-5.1); SODIUM LEVEL 146 MEQ/L (136-145)
== END ==
LOC: SKLAB2 07:30
PROVIDERS: ATTEND Family Medicine
DX: D64.9 Anemia, unspecified (principal)

== ENCOUNTER → 2016-09-18 | Outpatient (REF) ==
[2016-09-18 10:51] LABS: BASO % 0.3 % (0.0-1.0); EOS # 0.2 K/mm3 (0.0-0.50); EOS % 3.2 % (0.0-3.0); LARGE UNSTAINED CELL # 0.1 K/mm3 (0.0-0.4); LARGE UNSTAINED CELL % 1.7 % (0.0-4.0); LYMPH # 0.9 K/mm3 (1.5-4.5); LYMPH % 12.3 % (24.0-44.0); MEAN CORPUSCULAR HEMOGLOBIN 28.8 pg (27.0-33.0); MEAN CORPUSCULAR HGB CONC 32.5 g/dl (32.0-36.5); MEAN CORPUSCULAR VOLUME 88.6 fl (80.0-96.0); MONO # 0.4 K/mm3 (0.0-0.8); MONO % 5.9 % (0.0-5.0); NEUTROPHILS # 4.7 K/mm3 (1.8-7.7); NEUTROPHILS % 76.6 % (36.0-66.0); PLATELET COUNT, AUTOMATED 337 k/mm3 (150-450); RED CELL DISTRIBUTION WIDTH 14.2 % (11.5-14.5); WHITE BLOOD COUNT 6.1 K/mm3 (4.0-10.0)
[2016-09-18 11:13] LABS: ANION GAP 9 MEQ/L (8-16); BLOOD UREA NITROGEN 18 MG/DL (7-18); CALCIUM LEVEL 8.6 MG/DL (8.8-10.2); CARBON DIOXIDE LEVEL 29 MEQ/L (21-32); CHLORIDE LEVEL 103 MEQ/L (98-107); CREATININE FOR GFR 0.79 MG/DL (0.70-1.30); GLOMERULAR FILTRATION RATE > 60.0 (>35); GLUCOSE, FASTING 121 MG/DL (83-110); SODIUM LEVEL 141 MEQ/L (136-145)
== END ==
LOC: SKLAB2 08:52
PROVIDERS: ATTEND Family Medicine
DX: D64.9 Anemia, unspecified (principal)

== ENCOUNTER → 2016-09-25 | Outpatient (REF) ==
[2016-09-25 09:40] LABS: BASO % 0.4 % (0.0-1.0); EOS # 0.4 K/mm3 (0.0-0.50); EOS % 6.5 % (0.0-3.0); LARGE UNSTAINED CELL # 0.1 K/mm3 (0.0-0.4); LARGE UNSTAINED CELL % 1.6 % (0.0-4.0); LYMPH # 0.7 K/mm3 (1.5-4.5); LYMPH % 12.1 % (24.0-44.0); MEAN CORPUSCULAR HEMOGLOBIN 28.6 pg (27.0-33.0); MEAN CORPUSCULAR HGB CONC 32.5 g/dl (32.0-36.5); MEAN CORPUSCULAR VOLUME 88.1 fl (80.0-96.0); MONO # 0.3 K/mm3 (0.0-0.8); MONO % 4.9 % (0.0-5.0); NEUTROPHILS % 74.6 % (36.0-66.0); PLATELET COUNT, AUTOMATED 321 k/mm3 (150-450); RED CELL DISTRIBUTION WIDTH 14.3 % (11.5-14.5); WHITE BLOOD COUNT 5.4 K/mm3 (4.0-10.0)
[2016-09-25 10:26] LABS: ANION GAP 11 MEQ/L (8-16); BLOOD UREA NITROGEN 16 MG/DL (7-18); CALCIUM LEVEL 8.6 MG/DL (8.8-10.2); CARBON DIOXIDE LEVEL 29 MEQ/L (21-32); CHLORIDE LEVEL 102 MEQ/L (98-107); CREATININE FOR GFR 0.98 MG/DL (0.70-1.30); GLOMERULAR FILTRATION RATE > 60.0 (>35); GLUCOSE, FASTING 160 MG/DL (83-110); POTASSIUM SERUM 3.9 MEQ/L (3.5-5.1); SODIUM LEVEL 142 MEQ/L (136-145)
== END ==
LOC: SKLAB2 08:39
PROVIDERS: ATTEND Family Medicine
DX: D64.9 Anemia, unspecified (principal)

== ENCOUNTER → 2016-10-02 | Outpatient (REF) ==
[2016-10-02 09:07] LABS: ANION GAP 6 MEQ/L (8-16); BLOOD UREA NITROGEN 17 MG/DL (7-18); CALCIUM LEVEL 8.8 MG/DL (8.8-10.2); CARBON DIOXIDE LEVEL 32 MEQ/L (21-32); CHLORIDE LEVEL 102 MEQ/L (98-107); CREATININE FOR GFR 0.93 MG/DL (0.70-1.30); GLOMERULAR FILTRATION RATE > 60.0 (>35); GLUCOSE, FASTING 159 MG/DL (83-110); POTASSIUM SERUM 4.4 MEQ/L (3.5-5.1); SODIUM LEVEL 140 MEQ/L (136-145)
[2016-10-02 12:22] LABS: BASO % 0.2 % (0.0-1.0); EOS # 0.2 K/mm3 (0.0-0.50); EOS % 3.1 % (0.0-3.0); LARGE UNSTAINED CELL # 0.1 K/mm3 (0.0-0.4); LARGE UNSTAINED CELL % 1.9 % (0.0-4.0); LYMPH # 0.8 K/mm3 (1.5-4.5); LYMPH % 10.7 % (24.0-44.0); MEAN CORPUSCULAR HEMOGLOBIN 28.1 pg (27.0-33.0); MEAN CORPUSCULAR HGB CONC 31.3 g/dl (32.0-36.5); MONO # 0.5 K/mm3 (0.0-0.8); MONO % 7.6 % (0.0-5.0); NEUTROPHILS # 5.4 K/mm3 (1.8-7.7); NEUTROPHILS % 76.4 % (36.0-66.0); PLATELET COUNT, AUTOMATED 337 k/mm3 (150-450); RED CELL DISTRIBUTION WIDTH 14.6 % (11.5-14.5); WHITE BLOOD COUNT 7.1 K/mm3 (4.0-10.0)
== END ==
LOC: SKLAB2 07:30
PROVIDERS: ATTEND Family Medicine
DX: D64.9 Anemia, unspecified (principal)

== ENCOUNTER → 2016-10-09 | Outpatient (REF) ==
[~2016-10-09] MED LIST changes: -COLA100C PO; +COLA100C3 PO
[2016-10-09 08:25] LABS: BASO % 0.3 % (0.0-1.0); EOS # 0.2 K/mm3 (0.0-0.50); EOS % 2.4 % (0.0-3.0); LARGE UNSTAINED CELL # 0.1 K/mm3 (0.0-0.4); LYMPH # 0.8 K/mm3 (1.5-4.5); LYMPH % 10.4 % (24.0-44.0); MEAN CORPUSCULAR HEMOGLOBIN 28.3 pg (27.0-33.0); MEAN CORPUSCULAR HGB CONC 32.2 g/dl (32.0-36.5); MEAN CORPUSCULAR VOLUME 87.9 fl (80.0-96.0); MONO # 0.4 K/mm3 (0.0-0.8); MONO % 5.9 % (0.0-5.0); NEUTROPHILS # 5.8 K/mm3 (1.8-7.7); NEUTROPHILS % 79.9 % (36.0-66.0); PLATELET COUNT, AUTOMATED 369 k/mm3 (150-450); RED CELL DISTRIBUTION WIDTH 14.3 % (11.5-14.5); WHITE BLOOD COUNT 7.2 K/mm3 (4.0-10.0)
[2016-10-09 08:47] LABS: ANION GAP 6 MEQ/L (8-16); BLOOD UREA NITROGEN 17 MG/DL (7-18); CALCIUM LEVEL 8.8 MG/DL (8.8-10.2); CARBON DIOXIDE LEVEL 30 MEQ/L (21-32); CHLORIDE LEVEL 106 MEQ/L (98-107); CREATININE FOR GFR 0.99 MG/DL (0.70-1.30); GLOMERULAR FILTRATION RATE > 60.0 (>35); GLUCOSE, FASTING 161 MG/DL (83-110); SODIUM LEVEL 142 MEQ/L (136-145)
== END ==
LOC: SKLAB2 08:07
PROVIDERS: ATTEND Family Medicine
DX: D64.9 Anemia, unspecified (principal)

== ENCOUNTER → 2016-10-16 | Outpatient (REF) ==
[2016-10-16 09:32] LABS: BASO % 0.3 % (0.0-1.0); EOS # 0.3 K/mm3 (0.0-0.50); EOS % 3.6 % (0.0-3.0); LARGE UNSTAINED CELL # 0.1 K/mm3 (0.0-0.4); LYMPH # 0.8 K/mm3 (1.5-4.5); LYMPH % 9.5 % (24.0-44.0); MEAN CORPUSCULAR HEMOGLOBIN 28.6 pg (27.0-33.0); MEAN CORPUSCULAR HGB CONC 32.7 g/dl (32.0-36.5); MEAN CORPUSCULAR VOLUME 87.6 fl (80.0-96.0); MONO # 0.4 K/mm3 (0.0-0.8); MONO % 5.1 % (0.0-5.0); NEUTROPHILS % 80.6 % (36.0-66.0); PLATELET COUNT, AUTOMATED 353 k/mm3 (150-450); RED CELL DISTRIBUTION WIDTH 14.5 % (11.5-14.5); WHITE BLOOD COUNT 7.5 K/mm3 (4.0-10.0)
[2016-10-16 11:52] LABS: ANION GAP 9 MEQ/L (8-16); BLOOD UREA NITROGEN 20 MG/DL (7-18); CALCIUM LEVEL 9.1 MG/DL (8.8-10.2); CARBON DIOXIDE LEVEL 29 MEQ/L (21-32); CHLORIDE LEVEL 103 MEQ/L (98-107); CREATININE FOR GFR 0.88 MG/DL (0.70-1.30); GLOMERULAR FILTRATION RATE > 60.0 (>35); GLUCOSE, FASTING 161 MG/DL (83-110); SODIUM LEVEL 141 MEQ/L (136-145)
== END ==
LOC: SKLAB2 08:25
PROVIDERS: ATTEND Family Medicine
DX: D64.9 Anemia, unspecified (principal)

== ENCOUNTER → 2016-10-23 | Outpatient (REF) ==
[2016-10-23 09:00] LABS: BASO % 0.5 % (0.0-1.0); EOS # 0.2 K/mm3 (0.0-0.50); EOS % 4.3 % (0.0-3.0); LARGE UNSTAINED CELL # 0.1 K/mm3 (0.0-0.4); LARGE UNSTAINED CELL % 1.3 % (0.0-4.0); LYMPH # 0.9 K/mm3 (1.5-4.5); LYMPH % 15.1 % (24.0-44.0); MEAN CORPUSCULAR HEMOGLOBIN 27.9 pg (27.0-33.0); MEAN CORPUSCULAR HGB CONC 31.8 g/dl (32.0-36.5); MEAN CORPUSCULAR VOLUME 87.8 fl (80.0-96.0); MONO # 0.3 K/mm3 (0.0-0.8); MONO % 5.8 % (0.0-5.0); NEUTROPHILS # 4.1 K/mm3 (1.8-7.7); PLATELET COUNT, AUTOMATED 359 k/mm3 (150-450); RED CELL DISTRIBUTION WIDTH 14.2 % (11.5-14.5); WHITE BLOOD COUNT 5.7 K/mm3 (4.0-10.0)
[2016-10-23 09:17] LABS: ANION GAP 7 MEQ/L (8-16); BLOOD UREA NITROGEN 15 MG/DL (7-18); CALCIUM LEVEL 8.7 MG/DL (8.8-10.2); CARBON DIOXIDE LEVEL 30 MEQ/L (21-32); CHLORIDE LEVEL 105 MEQ/L (98-107); CREATININE FOR GFR 0.99 MG/DL (0.70-1.30); GLOMERULAR FILTRATION RATE > 60.0 (>35); GLUCOSE, FASTING 167 MG/DL (83-110); POTASSIUM SERUM 4.5 MEQ/L (3.5-5.1); SODIUM LEVEL 142 MEQ/L (136-145)
== END ==
LOC: SKLAB2 07:00
PROVIDERS: ATTEND Family Medicine
DX: D64.9 Anemia, unspecified (principal)

== ENCOUNTER → 2016-10-30 | Outpatient (REF) ==
[2016-10-30 08:36] LABS: BASO % 0.3 % (0.0-1.0); EOS # 0.2 K/mm3 (0.0-0.50); EOS % 2.8 % (0.0-3.0); LARGE UNSTAINED CELL # 0.1 K/mm3 (0.0-0.4); LYMPH # 0.9 K/mm3 (1.5-4.5); LYMPH % 11.8 % (24.0-44.0); MEAN CORPUSCULAR HEMOGLOBIN 27.5 pg (27.0-33.0); MEAN CORPUSCULAR HGB CONC 31.6 g/dl (32.0-36.5); MEAN CORPUSCULAR VOLUME 87.1 fl (80.0-96.0); MONO # 0.4 K/mm3 (0.0-0.8); MONO % 5.7 % (0.0-5.0); NEUTROPHILS # 5.8 K/mm3 (1.8-7.7); NEUTROPHILS % 78.4 % (36.0-66.0); PLATELET COUNT, AUTOMATED 370 k/mm3 (150-450); RED CELL DISTRIBUTION WIDTH 14.7 % (11.5-14.5); WHITE BLOOD COUNT 7.4 K/mm3 (4.0-10.0)
[2016-10-30 08:51] LABS: ANION GAP 8 MEQ/L (8-16); BLOOD UREA NITROGEN 15 MG/DL (7-18); CALCIUM LEVEL 8.6 MG/DL (8.8-10.2); CARBON DIOXIDE LEVEL 30 MEQ/L (21-32); CHLORIDE LEVEL 105 MEQ/L (98-107); CREATININE FOR GFR 1.03 MG/DL (0.70-1.30); GLOMERULAR FILTRATION RATE > 60.0 (>35); GLUCOSE, FASTING 137 MG/DL (83-110); POTASSIUM SERUM 4.4 MEQ/L (3.5-5.1); SODIUM LEVEL 143 MEQ/L (136-145)
== END ==
LOC: SKLAB2 08:36
PROVIDERS: ATTEND Family Medicine
DX: D64.9 Anemia, unspecified (principal)

== ENCOUNTER → 2017-02-25 | Outpatient (REF) | payer MEDICARE, OTHER ==
[~2017-02-25] MED LIST changes: +BACITAB PO; -BACITAB3 PO; -COLA100C3 PO; +COLA100C5 PO; -METF500T PO; +METF500T13 PO; -PRED10TA PO; +PRED10TA2 PO; -PROA1AER INH; +PROAAER10 INH; +SENN18TA PO; -SENN1TAB4 PO
== END ==
LOC: M SMT 16:55
PROVIDERS: ATTEND Nurse Practitioner Women's Health
DX: N40.1 Benign prostatic hyperplasia with lower urinary tract symptoms (principal)
CPT/HCPCS: 51798; 81001; 87086; G0463

== ENCOUNTER → 2017-12-08 | Outpatient (REF) | payer MEDICARE, OTHER ==
[2017-12-08 19:06] LABS: ESTIMATED AVERAGE GLUCOSE 163 MG/DL (60-110); HEMOGLOBIN A1c 7.3 %
[2017-12-08 19:13] LABS: ALBUMIN 3.4 GM/DL (3.2-5.2); ALBUMIN/GLOBULIN RATIO 0.81 (1.00-1.93); ALKALINE PHOSPHATASE 86 U/L (45-117); ALT/SGPT 9 U/L (12-78); ANION GAP 8 MEQ/L (8-16); AST/SGOT 7 U/L (7-37); BILIRUBIN,TOTAL 0.3 MG/DL (0.2-1.0); BLOOD UREA NITROGEN 24 MG/DL (7-18); CALCIUM LEVEL 8.7 MG/DL (8.8-10.2); CARBON DIOXIDE LEVEL 28 MEQ/L (21-32); CHLORIDE LEVEL 107 MEQ/L (98-107); CREATININE FOR GFR 1.29 MG/DL (0.70-1.30); GLOMERULAR FILTRATION RATE 56.1 (>35); GLUCOSE, FASTING 105 MG/DL (70-100); POTASSIUM SERUM 4.5 MEQ/L (3.5-5.1); SODIUM LEVEL 143 MEQ/L (136-145); TOTAL PROTEIN 7.6 GM/DL (6.4-8.2)
[2017-12-08 19:19] LABS: HEMATOCRIT 31.6 % (42.0-52.0); HEMOGLOBIN 9.2 g/dl (13.5-17.5); MEAN CORPUSCULAR HEMOGLOBIN 21.8 pg (27.0-33.0); MEAN CORPUSCULAR HGB CONC 29.1 g/dl (32.0-36.5); MEAN CORPUSCULAR VOLUME 74.9 fl (80.0-96.0); PLATELET COUNT, AUTOMATED 335 10^3/uL (150-450); RED BLOOD COUNT 4.22 10^6/uL (4.30-6.10); RED CELL DISTRIBUTION WIDTH 19.6 % (11.5-14.5); WHITE BLOOD COUNT 8.1 10^3/uL (4.0-10.0)
== END ==
LOC: M LAB REF 17:20
DX: I87.311 Chronic venous hypertension (idiopathic) with ulcer of right lower extremity (principal); L97.812 Non-pressure chronic ulcer of other part of right lower leg with fat layer exposed; E11.621 Type 2 diabetes mellitus with foot ulcer; Z79.84 Long term (current) use of oral hypoglycemic drugs
CPT/HCPCS: 80053

== ENCOUNTER 2019-03-12 00:51 | Inpatient (IN) | payer MEDICARE ==
[~2019-03-12] VITALS: Ht 177.8 cm; Wt 73.3 kg
[2019-03-12] VITALS (30 sets, daily range): BP systolic 74–124; BP diastolic 50–77
[~2019-03-12 00:51] MED LIST changes: -/ADVA50050 IN; -/ESOM40CA OR; +ADVA1AER2 IN; -AMLO10TA2 PO; +AMLO10TA5 PO; -AMLO5TAB2 PO; +AMLO5TAB6 PO; -ASPI1TAB PO; +ASPI81TA26 PO; +FLOM0.4C39 PO; -FLOM5CAP PO; +LISI40TA PO; -LISI40TAB PO; +NEXI1CAP3 OR; -PANT40TA2 PO; +PANT40TA3 PO
[2019-03-12] MEDS ORDERED: NS 1,000 ML IV ONE ×2 (03:45→05:00)
[2019-03-12] MEDS ORDERED: PHENYLEPHRINE INJ 10MG/ML VIAL (J2370) As Ordered ONE (04:08)
[2019-03-12] MEDS ORDERED: GLUCOSE 4 GM CHEW TABLET PO PRN (04:30)
[2019-03-12] MEDS ORDERED: GLUCAGON FOR INJ 1 MG VIAL (J1610) SC PRN (04:30)
[2019-03-12] MEDS ORDERED: PHENYLEPHRINE HCL INJ 50 MG in D5W 495 ML IV SCH (04:30)
--- NOTE | 2019-03-12 04:57 | REPVR ---
EXAM: XR Chest, 1 View EXAM DATE/TIME: 03/12/2019 4:32 AM CLINICAL HISTORY: 89 years old, male; Device placement; Other: Central line placement; Additional info: S/P central line placement TECHNIQUE: Imaging protocol: XR of the chest Views: 1 view. COMPARISON: CR Chest, 1 view 09/03/2016 12:25 PM FINDINGS: Tubes, catheters and devices: No central line is identified. Lungs: Increased markings in the lungs are similar. Pleural space: Interval evidence of right pneumothorax. Heart/Mediastinum: The heart is unchanged. Bones/joints: Unremarkable. IMPRESSION: 1. Interval evidence of right pneumothorax since 09/03/2016. 2. No central line is identified. 3. Otherwise, there has been little change. Electronically signed by: Jose Montero On 03/12/2019 04:56:48 AM
[2019-03-12] MEDS ORDERED: ATOR1TAB21 PO (04:58)
[2019-03-12] MEDS ORDERED: BACL1TAB8 PO (04:58)
[2019-03-12] MEDS ORDERED: CLOP75TA2 PO (04:58)
[2019-03-12] MEDS ORDERED: ELIQ5TAB PO (04:58)
[2019-03-12] MEDS ORDERED: PROAAER10 INH (04:58)
[2019-03-12] MEDS ORDERED: PANT-23 PO (04:58)
[2019-03-12] MEDS ORDERED: NYST1POW9 TOP (04:58)
[2019-03-12] MEDS ORDERED: HYDR10TAB PO (04:58)
[2019-03-12] MEDS ORDERED: METF-877 PO (04:58)
[2019-03-12] MEDS ORDERED: TAMS1CAP17 PO (04:58)
[2019-03-12] MEDS ORDERED: ATEN25TA PO (04:58)
[2019-03-12] MEDS ORDERED: ASPI81TA85 PO (04:58)
[2019-03-12] MEDS ORDERED: SYMB16INH INH (04:58)
[2019-03-12] MEDS ORDERED: MUCI600T31 PO (04:58)
[2019-03-12] MEDS ORDERED: ADV500INH INH (04:58)
[2019-03-12] MEDS ORDERED: VITMTA PO (04:58)
[2019-03-12] MEDS ORDERED: OXYC1TAB23 PO (04:58)
[2019-03-12] MEDS ORDERED: INCR1INH INH (04:58)
[2019-03-12] MEDS ORDERED: FURO20TA2 PO (04:58)
[2019-03-12] MEDS ORDERED: SPIR1CAP INH (04:58)
[2019-03-12] MEDS ORDERED: FINA5TAB2 PO (04:58)
[2019-03-12] MEDS ORDERED: AMLO10TA5 PO (04:58)
[2019-03-12 05:01] LABS: HEMATOCRIT 28.1 % (42.0-52.0); HEMOGLOBIN 8.3 g/dl (13.5-17.5); LYMPH # 0.4 10^3/uL (1.5-5.0); LYMPH % 6.5 % (24.0-44.0); MEAN CORPUSCULAR HEMOGLOBIN 25.1 pg (27.0-33.0); MEAN CORPUSCULAR HGB CONC 29.5 g/dl (32.0-36.5); MEAN CORPUSCULAR VOLUME 84.9 fl (80.0-96.0); MONO # 0.1 10^3/uL (0.0-0.8); MONO % 2.1 % (0.0-5.0); NEUTROPHILS # 5.7 10^3/uL (1.5-8.5); NEUTROPHILS % 90.8 % (36.0-66.0); PLATELET COUNT, AUTOMATED 200 10^3/uL (150-450); RED BLOOD COUNT 3.31 10^6/uL (4.30-6.10); WHITE BLOOD COUNT 6.3 10^3/uL (4.0-10.0)
[2019-03-12 05:25] LABS: HEMOGLOBIN A1c 6.1 %
--- NOTE | 2019-03-12 05:33 | IPNPDOC ---
Text Note Date of Service The patient was seen on 03/12/19. VS,Fishbone, I+O VS, Fishbone, I+O Laboratory Tests 03/12/19 04:49 Red Blood Count 3.31 L, Mean Corpuscular Volume 84.9, Mean Corpuscular Hemoglobin 25.1 L, Mean Corpuscular Hemoglobin Concent 29.5 L, Red Cell Distribution Width 17.0 H, Neutrophils (%) (Auto) 90.8 H, Lymphocytes (%) (Auto) 6.5 L, Monocytes (%) (Auto) 2.1, Eosinophils (%) (Auto) 0.0, Basophils (%) (Auto) 0.0, Neutrophils # (Auto) 5.7, Lymphocytes # (Auto) 0.4 L, Monocytes # (Auto) 0.1, Eosinophils # (Auto) 0.0, Basophils # (Auto) 0.0 BERKLEY KENNEDY MD Mar 12, 2019 05:33
[2019-03-12 05:35] LABS: ALBUMIN 2.4 GM/DL (3.2-5.2); BILIRUBIN,TOTAL 0.5 MG/DL (0.2-1.0); CALCIUM LEVEL 7.5 MG/DL (8.8-10.2); CREATININE FOR GFR 1.49 MG/DL (0.70-1.30); GLOMERULAR FILTRATION RATE 47.3 (>35); TOTAL PROTEIN 5.3 GM/DL (6.4-8.2)
--- NOTE | 2019-03-12 05:36 | PHACANCOPD ---
PHARMACY VANCOMYCIN DOSING Pt Demographics Demographics Patient Age:89 , Weight:72.600 , Gender: male Adjusted Body Weight Date: 03/12/19, Adjusted Body Weight: [72.6] Kg Events Past 24 Hours Events Past 24 Hours: NO: Dialysis, Diuretic Therapy, Change in CrCl, Fever, Elevation in WBC, Pending Diagnostics, Pending Procedures, Other Vancomycin Vancomycin indication: CAP Vancomycin Target Ranges: 15-20 mcg/ml Vancomycin Load Y/N: Yes Load Dose Date Time Vancomycin Load Dose: 1.5g Date: 03/12/19 Time: 07 Vancomycin Dose Date: 03/12/19. Current Vancomycin Dose: [1g iv 24h] Intermittent Dosing?: No Labs Labs Item Value Date Time White Blood Count 6.3 10^3/uL 03/12/19 0449 Micro Microbiology 03/12/19 Blood Culture, Received Pending 03/12/19 Blood Culture, Received Pending Creatinine Clearance Date:03/12/19. Creatinine Clearance: [36.9ml/min]. 1.4mg/dl Scr at previous facility 03/11/19 Pending Labs mrsa pcr Assessment and Plan Maintaining Current Dose?: Yes Reason for dose change: No Dose Change Pharmacist Note Pharmacist Note Date: 03/12/19. Pharmacist note: PT is an 89 year old male being treated for CAP goal trough 15-20mcg/ml. Pt was treated here at [facility] previously in July 2016. To achieve goal a 1.5g loading dose will start 03/12/19 @ 07:00. Maintenance therapy will consist of 1g IV every 24 hours. A MRSA PCR was ordered. We will continue to monitor and adjust the dose as needed. FRANCISCO POOL PHARMAC[facility] Mar 12, 2019 05:36
[2019-03-12] MEDS ORDERED: ALBUTEROL 90 MCG/ACT 8GM HFA INHALER INH PRN (05:45)
--- NOTE | 2019-03-12 05:55 | REPVR ---
EXAM: CT Chest Without Contrast EXAM DATE/TIME: 03/12/2019 5:00 AM CLINICAL HISTORY: 89 years old, male; Condition or disease; Other: Pneumothorax ? ; additional info: Concern for pneumothorax TECHNIQUE: Imaging protocol: Computed tomography of the chest without contrast. 3D rendering: MIP reconstructed images were created and reviewed. Radiation optimization: All CT scans at this facility use at least one of these dose optimization techniques: automated exposure control; mA and/or kV adjustment per patient size (includes targeted exams where dose is matched to clinical indication); or iterative reconstruction. COMPARISON: CT Chest without contrast 08/01/2016 5:29 PM FINDINGS: Lungs: Mild bibasilar fibro-atelectatic change, right greater than left with question of minimal right base infiltrates. There is question of minimal tree in bud infiltrates in the right mid lung. Pleural space: No pneumothorax. Heart: Coronary artery calcifications are present. Pulmonary arteries: The main pulmonary artery measures 34 mm. Aorta: The ascending thoracic aorta measures 40 mm. Lymph nodes: Small mediastinal nodes which are upper normal. Bones/joints: Degenerative changes of the thoracic spine with mild kyphosis. Soft tissues: Unremarkable. Gallbladder and bile ducts: Status post cholecystectomy. Other findings: Minimal diffuse bullous change. IMPRESSION: 1. Minimal diffuse bullous change with mild bibasilar fibro-atelectatic change, right greater than left with question of minimal right base infiltrates and minimal tree in bud infiltrates in the right mid lung. 2. 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 3. Status post cholecystectomy. 4. No pneumothorax. Electronically signed by: Jose Montero On 03/12/2019 05:54:57 AM
[2019-03-12] MEDS ORDERED: HEPARIN SOD (PORCINE) 5000 UNITS/ML VIAL SQ SCH (06:00)
[2019-03-12] MEDS: MEROPENEM INJ 1 GM in IV 1 EA IV SCH ×2 (06:19→17:16)
--- NOTE | 2019-03-12 06:54 | HPEPDOC ---
[facility] Medical History & Physical Date of Admission Mar 12, 2019 Date of Service: Mar 12, 2019 Primary Care Physician: Doyle Roldan Attending Physician: BERKLEY KENNEDY MD History and Physical PRIMARY CARE PROVIDER: Dr. Roldan CODE STATUS: DNR/DNI ATTENDING: Dr. Berkely Kennedy CHIEF COMPLAINT: Shortness of breath HISTORY OF PRESENT ILLNESS: Patient is an 89 year old male who presented to [facility] ED with chief complaint of shortness of breath. Patient presented is a transfer from [facility] for sepsis secondary to pneumonia and acute UTI. Per [facility] HPI, the patient's son arrived home to put the patient to bed and saw he was having difficulty breathing on his regular 2L NC, the patient's stated he had been breathing like that all day and that the patient's SPO2 had been in the 70s all day as well. Son also reports that he been coughing up a lot of phlegm, been cold all day despite the house temperature 81. This caused the son to bring the patient to [facility] emergency department. While there he was found to have a temperature of 100.8, desaturations into the 70s, and hypotension. Workup revealed a white blood cell count of 8.8, hemoglobin of 9.7, BNP of 2459, lactic acid of 5, a positive UA, chest x-ray indicative of right lower lobe pneumonia, and a chest CT reported infiltrates of the right upper, middle, and lower lobes. Patient was given Rocephin, azithromycin, 1000mg of tylenol and fluid resuscitation was initiated. Patient ultimately received between 2.5-3 liters of fluid without adequate response and MAPs below 65, so peripheral Levophed was started and need to be titrated up to 15 mcg/min en route to [facility]. On arrival to [facility], the patient was taken off the levophed once he left the EMS vehicle. On arrival to the ICU a fluid bolus of fluid was hung with initial MAPs of 54 (10 minutes off of levophed) requiring peripheral pressors to be started once again, this time with neosynephrine. This took some time as one of the peripheral lines was not functioning and starting another proved difficult. Moreover, the patients oxygen requirements continued to increase as he continued to desaturate into the 70's and 80's so he was titrated up to 15 L on non-rebreather. During this process he was conversationally appropriate, had no changes in his mental status, and was answering our questions adequately. Because of the history obtained from [place], the increased oxygen demands, and the concern that he would require a central line for continued pressor support, I consulted Dr. Barlow. Portable CXR was possibly concerning for interval R-sided pneumothorax. Because the patient was stable at that point on the neosynephrine and non-rebreather, he was brought down to CT scan which ruled out the pneumothorax and only showed "question of minimal right base infiltrates and minimal tree in bud infiltrates in right mid lung". Once back from CT, we continued to see if we could titrate down on the neosynephrine as he finished his first fluid bolus and we moved to hang the second. Off the neosynephrine he was maintaining a MAP in the 70's so we discontinued the neosynephrine. Dr. Barlow stated she would be available for questions if we had them and to feel free to give her a call. PAST MEDICAL HISTORY: CHF Arthritis BPH Cataracts UTI Hypercholesterolemia Hypertension Chronic indwelling Masters catheter COPD History of CVA Diabetes mellitus PAST SURGICAL HISTORY: Appendectomy Cataract surgery Cholecystectomy Colonoscopy SOCIAL HISTORY: Quit smoking in 1986, no EtOH, no illicit drug use. FAMILY HISTORY: Father: from stroke Mother: ALLERGIES: Please see below. REVIEW OF SYSTEMS: GENERAL: Denies recent unexpected weight change, night sweats, hemoptysis. Admit s to fevers, chills. HEENT: Denies headache, dizziness, vision changes, hearing loss, sore throat CARDIOVASCULAR: Denies chest pain, palpitations, orthopnea RESPIRATORY: Admits to SOB, productive cough of thick sputum. GASTROINTESTINAL: denies nausea, vomiting, abdominal pain, constipation, diarrh ea, bloody stool GENITOURINARY: Denies dysuria,urinary urgency, hematuria. MUSCULOSKELETAL: Denies muscle/joint pain, weakness, stiffness NEUROLOGICAL: Denies any numbness/tingling, focal weakness, or syncope HOME MEDICATIONS: Please see below. PHYSICAL EXAMINATION: Vitals: (see below) General: No acute distress, laying comfortably in bed. HEENT: Normocephalic, atraumatic. EOMI. No scleral icterus. Dry mucous membranes. No pharyngeal erythema or uvular deviation. Neck: No JVD, lymphadenopathy, or thyromegaly. Cardiac: Tachycardic rate, Normal S1 and S2, No murmurs, gallops, rubs. Pulm: Diminished breath sounds bilaterally. Symmetric thorax. No wheezing, crackles. Rhonchi heard on auscultation of right middle lobe. Abd: Bowel Sounds present. Abdomen is soft, non-tender, non-distended. No guarding, rebound tenderness, or rigidity. : Chronic masters catheter in place, 1x1cm skin wound on dorsal surface of penis. Ext: 1+ lower extremity edema bilaterally Neuro: CN 3-12 grossly intact. Sensation intact. Weakness exhibited on the right side s/p stroke LABORATORY DATA: See below. IMAGING: as per HPI MICROBIOLOGY: Please see below. ASSESSMENT/PLAN: #. Septic shock -Patient was febrile with elevated lactic acid, increased oxygen requirements, with shortness of breath thought to be due to pneumonia, a positive UA, and initially non-responsive to fluid requiring peripheral pressors. Because of this we will continue to run IV fluids at 150ml/hr (patient will be 5L of fluid up after our 2nd bolus when we start these maintenance fluids) and start him on empiric antibiotic therapy, and can de-escalate as deemed necessary. MRSA screen, blood cultures, and urine cultures are ordered. -Dr. Barlow was called in for possible central line placement and is aware of patient. We currently are holding placement of central line as pressures have been stable off of neosynephrine. She is also available if need be for critical care evaluation. -Presently we do not know the cause of his shortness of breath and increased oxygen requirements based on physical exam although it could be secondary to the questioning RLL pneumonia seen on chest CT. We will check an ABG to see if that will clue us in and recheck a troponin. Initial troponin at [place] was negative. Patient can continue their advair, spiriva, and albuterol. Initial med rec showed patient on 2 LABAs and 2 LICS. This is likely a mistake as it may have just shown up on his pharmacy formulary that way. #.COPD -Continue spiriva, albuterol, and advair inhalers. #. Hypertension -Holding blood pressure medications #.CHF -Patient's BNP at [facility] was elevated, but patient required fluid resuscitation. -Will continue to monitor patient closely as patient may require diuresis later once we have gotten on top of the infection. #. Type 2 diabetes -Sliding scale insulin #.Urinary retention -Chronic indwelling masters catheter, flomax #. Atrial fibrillation -On elliquis, holding atenolol for patients low blood pressure. #.s/p CVA -Patient is on statin, plavix, and baby aspirin #GERD - Continue on pantoprazole -DVT prophy: On eliquis, plavix, and aspirin Laboratory Data Labs 24H Laboratory Tests 2 03/12/19 04:49: Immature Granulocyte % (Auto) 0.6, White Blood Count 6.3, Red Blood Count 3.31L, Hemoglobin 8.3L, Hematocrit 28.1L, Mean Corpuscular Volume 84.9, Mean Corpuscular Hemoglobin 25.1L, Mean Corpuscular Hemoglobin Concent 29.5L, Red Ce ll Distribution Width 17.0H, Platelet Count 200, Neutrophils (%) (Auto) 90.8H, Lymphocytes (%) (Auto) 6.5L, Monocytes (%) (Auto) 2.1, Eosinophils (%) (Auto) 0.0, Basophils (%) (Auto) 0.0, Neutrophils # (Auto) 5.7, Lymphocytes # (Auto) 0.4L, Monocytes # (Auto) 0.1, Eosinophils # (Auto) 0.0, Basophils # (Auto) 0.0, Nucleated Red Blood Cells % (auto) 0.0 03/12/19 04:50: Anion Gap 11, Glomerular Filtration Rate 47.3, Estimated Mean Plasma Glucose 128H, Hemoglobin A1c 6.1, Lactic Acid Level 4.0*H, Blood Urea Nitrogen 27H, Creatinine 1.49H, Sodium Level 143, Potassium Level 4.0, Chloride Level 109H, Carbon Dioxide Level 23, Calcium Level 7.5L, Aspartate Amino Transf (AST/SGOT) 16, Alanine Aminotransferase (ALT/SGPT) 13, Alkaline Phosphatase 90, Total Bilirubin 0.5, Total Protein 5.3L, Albumin 2.4L, Albumin/Globulin Ratio 0.83L 03/12/19 05:17: Urine Color HUNTER, Urine Appearance CLOUDYH, Urine pH 5.0, Urine Specific Beccaria 1.027, Urine Protein 2+H, Urine Glucose (UA) NEGATIVE, Urine Ketones TRACEH, Urine Blood 3+H, Urine Nitrite NEGATIVE, Urine Bilirubin NEGATIVE, Urine Urobilinogen 0.2, Urine Leukocyte Esterase 2+H, Urine WBC (Auto) TNTCH, Urine R BC (Auto) 81H, Urine Hyaline Casts (Auto) 26, Urine Bacteria (Auto) 3+H, Urine Squamous Epithelial Cells 1, Urine Amorphous Sediment SMALLH, Urine Granular Casts (Auto) 6, Urine Mucus (Auto) MODERATE, Urine Sperm (Auto) 03/12/19 06:00: CBC/BMP Laboratory Tests 03/12/19 04:49 Red Blood Count 3.31 L, Mean Corpuscular Volume 84.9, Mean Corpuscular Hemoglobin 25.1 L, Mean Corpuscular Hemoglobin Concent 29.5 L, Red Cell Distribution Width 17.0 H, Neutrophils (%) (Auto) 90.8 H, Lymphocytes (%) (Auto) 6.5 L, Monocytes (%) (Auto) 2.1, Eosinophils (%) (Auto) 0.0, Basophils (%) (Aut o) 0.0, Neutrophils # (Auto) 5.7, Lymphocytes # (Auto) 0.4 L, Monocytes # (Auto) 0.1, Eosinophils # (Auto) 0.0, Basophils # (Auto) 0.0 03/12/19 04:50 Calcium Level 7.5 L, Aspartate Amino Transf (AST/SGOT) 16, Alanine Aminotransferase (ALT/SGPT) 13, Alkaline Phosphatase 90, Total Bilirubin 0.5, Total Protein 5.3 L, Albumin 2.4 L Microbiology Microbiology 03/12/19 Blood Culture, Received Pending 03/12/19 Blood Culture, Received Pending 03/12/19 Urine Culture, Received Pending Home Medications Scheduled Amlodipine Besylate (Amlodipine Besylate) 10 Mg Tablet, 10 MG PO DAILY Apixaban (Eliquis) 5 Mg Tablet, 5 MG PO BID Aspirin (Aspir 81) 81 Mg Tablet.dr, 81 MG PO DAILY Atenolol (Atenolol) 25 Mg Tablet, 25 MG PO DAILY Atorvastatin Calcium (Atorvastatin Calcium) 20 Mg Tablet, 20 MG PO DAILY Baclofen (Baclofen) 10 Mg Tablet, 10 MG PO QHS Budesonide/Formoterol (Symbicort 160-4.5 Mcg Inhaler) 6 Gm Hfa.aer.ad, 2 PUFF INH BID Clopidogrel Bisulfate (Clopidogrel) 75 Mg Tablet, 75 MG PO DAILY Finasteride (Finasteride) 5 Mg Tablet, 5 MG PO DAILY Furosemide (Furosemide) 20 Mg Tablet, 20 MG PO DAILY Guaifenesin (Mucinex) 600 Mg Tab.er.12h, 600 MG PO BID Hydralazine HCl (Hydralazine HCl) 10 Mg Tablet, 10 MG PO TID Metformin HCl (Metformin HCl) 1,000 Mg Tablet, 1,000 MG PO BID Multivitamins (Thera M Plus Tablet) 1 Each Tablet, 1 TAB PO DAILY Nystatin (Nystatin Powder) 15 Gm Powder, 1 APLCT TOP BID apply to affected area(s) Pantoprazole Sodium (Pantoprazole Sodium) 40 Mg Tablet.dr, 40 MG PO DAILY Salmeterol/Fluticasone (Advair 500-50 Diskus) 1 Each Blst.w.dev, 1 PUFF INH DAILY Tamsulosin Hcl (Tamsulosin HCl) 0.4 Mg Capsule, 0.4 MG PO DAILY Tiotropium Stevenson (Spiriva) 18 Mcg Cap.w.dev, 1 INHALATION INH DAILY Umeclidinium Stevenson (Incruse Ellipta) 62.5 Mcg Blst.w.dev, 1 PUFF INH DAILY Scheduled PRN Albuterol Sulfate (Proair Hfa) 8.5 Gm Hfa.aer.ad, 2 PUFF INH QID PRN for SHORTNESS OF BREATH Oxycodone HCl/Acetaminophen (Oxycodone-Acetaminophen 5-325) 1 Each Tablet, 1 TAB PO TID PRN for pain Allergies Coded Allergies: No Known Allergies (Verified , 04/25/10) A-FIB/CHADSVASC A-FIB History Current/History of A-Fib/PAF?: Yes Current PO Anticoag Therapy: Yes GME ATTESTATION E ATTESTATION My faculty preceptor for this patient encounter was physically present during the encounter and was fully available. All aspects of the patient interview, examination, medical decision making process, and medical care plan development were reviewed and approved by the faculty preceptor. The faculty preceptor is aware and concurs with the plan as stated in the body of this note and will attest to such by his/her cosignature. ATTENDING NOTE GME Attestation I examined the patient a 430AM and discussed the case with . Dereje Garretadánrobin is 89 M w a PMH Of COPD, DM, HTN, CVA w residual R sided hemiparesis, CHF, A fib on Eliquis and hx of DVT who presented w c/o of dyspnea. At home his O2 was in the 70s despite using supplemental O2. He was transferred from [facility] for management of septic shock possibly 2/2 PNA and UTI. His lactic acid 5, fever 100.8. He received Azithromycin and rocephin, 2.1L of IVF bolus and was started on Levophed bc of a MAP 49. GEN:Currently his mental status is intact and he has no acute c/o. CVS: RRR/NMRG, extremities warm and well perfused LUNGS: NC in place, not using accessory muscles, decreased breath sounds at the right upper lungs, expiratory rhonchi ABD: soft and NT on palpation PSYCH: A&O person place and time Chest x-ray he appears to have a pnemothroax on the right. For now we will c/w treatment of sepsis and PNA pending CT of the chest and f/u with Interceptor Operator for co-management. Rest per note. ARIK PAREDES DO Mar 12, 2019 06:54 BERKLEY KENNEDY MD Mar 14, 2019 06:53
[2019-03-12] MEDS: VANCOMYCIN HCL 1,000 MG, VIAL MATE ADAPTER 1 EACH in D5W/0.2% SODIUM CHLORIDE 250 ML IV SCH (07:00)
[2019-03-12] MEDS ORDERED: NS 1,000 ML IV SCH ×2 (07:15→12:15)
[2019-03-12 07:38] LABS: TROPONIN I 0.1 NG/ML (< 0.10)
[2019-03-12] MEDS: TIOTROPIUM INHALER/CAPSULE (SPIRIVA) INH SCH (08:00)
[2019-03-12] MEDS ORDERED: VANCOMYCIN HCL 500 MG in D5W MINI-BAG PLUS 100 ML IV ONE (08:00)
[2019-03-12] MEDS: ADVAIR HFA 230/21MCG INHALER INH SCH ×2 (08:00→19:17)
[2019-03-12] MEDS: APIXABAN 5 MG TAB (ELIQUIS) PO SCH ×2 (08:13→21:49)
[2019-03-12] MEDS: TAMSULOSIN 0.4 MG CAP PO SCH (08:13)
[2019-03-12] MEDS: ASPIRIN 81 MG ENTERIC TAB PO SCH (08:13)
[2019-03-12] MEDS: HumaLOG INSULIN (NovoLOG) PER UNIT SC SCH ×4 (08:13→21:00)
[2019-03-12] MEDS: CLOPIDOGREL 75 MG TAB PO SCH (08:13)
[2019-03-12] MEDS: PANTOPRAZOLE 40MG TAB (PROTONIX) PO SCH (08:13)
[2019-03-12] MEDS: ATORVASTATIN 20 MG TAB PO SCH (08:13)
[2019-03-12] MEDS: NYSTATIN 100,000 UNITS/GM TOPICAL PWD 15 GM TOP SCH ×2 (08:14→21:48)
--- NOTE | 2019-03-12 11:01 | REP ---
Clinical: Volume overload. Comparison: 03/12/2019 at 04:22 a.m.. Findings: Mediastinum and cardiac silhouette are stable. Lung barnett demonstrate diffuse chronic interstitial changes primarily involving the right hemithorax and bilateral bases. No obvious findings to suggest pulmonary edema. Trace basilar atelectasis cannot be excluded. No pneumothorax. Skeletal structures stable. Impression: Chronic stable changes. No obvious evidence for pulmonary edema. Electronically Signed by Steve Clark MD 03/12/2019 10:51 A
[2019-03-12] MEDS: IPRATROPIUM 0.5MG/ALBUTEROL 2.5MG INH SOL UD 3ML (DUONEB)(J7620) NEB SCH ×4 (16:00→23:45)
--- NOTE | 2019-03-12 16:27 | IPNPDOC ---
Text Note Date of Service The patient was seen on 03/12/19. NOTE Patient is a awake, alert, more cooperative and communicative now He is complaining of "not feeling good" On examination, patient has bilateral rhonchi along with some scattered wheezing Did not appreciate rales or crackles Stat chest x-ray was was done which did not show any pulmonary edema Will add DuoNeb every 4 hours and every 2 hours when necessary Also relates Solu-Medrol 60 mg IV every 8 hour Oxygen support to keep pulse ox more than 88% Discussed with patient and his and his son at the bedside. The only want basic medical management do not want any heroic or aggressive measures Patient is DNR/DNI VS,Fishbone, I+O VS, Fishbone, I+O Laboratory Tests 03/12/19 04:49 Red Blood Count 3.31 L, Mean Corpuscular Volume 84.9, Mean Corpuscular Hemoglobin 25.1 L, Mean Corpuscular Hemoglobin Concent 29.5 L, Red Cell Distri bution Width 17.0 H, Neutrophils (%) (Auto) 90.8 H, Lymphocytes (%) (Auto) 6.5 L, Monocytes (%) (Auto) 2.1, Eosinophils (%) (Auto) 0.0, Basophils (%) (Auto) 0.0, Neutrophils # (Auto) 5.7, Lymphocytes # (Auto) 0.4 L, Monocytes # (Auto) 0.1, Eosinophils # (Auto) 0.0, Basophils # (Auto) 0.0 03/12/19 04:50 Calcium Level 7.5 L, Aspartate Amino Transf (AST/SGOT) 16, Alanine Aminotr ansferase (ALT/SGPT) 13, Alkaline Phosphatase 90, Total Bilirubin 0.5, Total Protein 5.3 L, Albumin 2.4 L Vital Signs Date Time Temp Pulse Resp B/P (MAP) Pulse Ox O2 Delivery O2 Flow Rate FiO2 03/12/19 12:00 6.0 03/12/19 12:00 97.1 76 22 98/51 (67) 93 High Flow Cannula OCTAVIANO MIDDLETON MD Mar 12, 2019 16:27
[2019-03-12] MEDS ORDERED: IPRATROPIUM 0.5MG/ALBUTEROL 2.5MG INH SOL UD 3ML (DUONEB)(J7620) NEB PRN (16:30)
[2019-03-12] MEDS: methylPREDNISolone INJ 125 MG/2 ML VIAL (J2930) IV SCH ×2 (16:40→21:48)
[2019-03-12] MEDS: ACETAMINOPHEN TAB 650MG DOSE (2X325MG) PO PRN (21:48)
[2019-03-13] VITALS (9 sets, daily range): BP systolic 106–142; BP diastolic 52–75
[2019-03-13] MEDS: IPRATROPIUM 0.5MG/ALBUTEROL 2.5MG INH SOL UD 3ML (DUONEB)(J7620) NEB SCH ×5 (04:00→19:34)
[2019-03-13] MEDS: methylPREDNISolone INJ 125 MG/2 ML VIAL (J2930) IV SCH ×3 (06:38→22:04)
[2019-03-13] MEDS: MEROPENEM INJ 1 GM in IV 1 EA IV SCH ×2 (06:38→18:31)
[2019-03-13] MEDS: HumaLOG INSULIN (NovoLOG) PER UNIT SC SCH ×4 (07:31→21:00)
[2019-03-13] MEDS: VANCOMYCIN HCL 1,000 MG, VIAL MATE ADAPTER 1 EACH in D5W/0.2% SODIUM CHLORIDE 250 ML IV SCH (07:31)
[2019-03-13] MEDS: ADVAIR HFA 230/21MCG INHALER INH SCH ×2 (07:38→19:34)
[2019-03-13] MEDS: TIOTROPIUM INHALER/CAPSULE (SPIRIVA) INH SCH (07:38)
--- NOTE | 2019-03-13 07:41 | REP ---
Clinical: Pneumonia. Technique: Portable semiupright view of the chest. Comparison: 03/12/2019, 09/03/2016 . Findings: Mediastinum and cardiac silhouette are stable. Lung barnett demonstrate chronic interstitial changes with right basilar predominance. Subtle superimposed right basilar atelectasis cannot definitively be excluded. No effusion. No pneumothorax. Skeletal structures demonstrate age-related osteopenia and degenerative changes. Impression: Chronic changes with subtle superimposed right basilar atelectasis. Electronically Signed by Steve Clark MD 03/13/2019 07:33 A
[2019-03-13 08:04] LABS: HEMATOCRIT 24.9 % (42.0-52.0); HEMOGLOBIN 7.7 g/dl (13.5-17.5); LYMPH # 0.6 10^3/uL (1.5-5.0); MEAN CORPUSCULAR HEMOGLOBIN 25.1 pg (27.0-33.0); MEAN CORPUSCULAR HGB CONC 30.9 g/dl (32.0-36.5); MEAN CORPUSCULAR VOLUME 81.1 fl (80.0-96.0); MONO # 0.2 10^3/uL (0.0-0.8); MONO % 2.7 % (0.0-5.0); NEUTROPHILS # 5.4 10^3/uL (1.5-8.5); PLATELET COUNT, AUTOMATED 254 10^3/uL (150-450); RED BLOOD COUNT 3.07 10^6/uL (4.30-6.10); WHITE BLOOD COUNT 6.2 10^3/uL (4.0-10.0)
[2019-03-13 08:19] LABS: ALBUMIN 2.3 GM/DL (3.2-5.2); ALT/SGPT 12 U/L (12-78); BILIRUBIN,TOTAL 0.3 MG/DL (0.2-1.0); BLOOD UREA NITROGEN 26 MG/DL (7-18); CALCIUM LEVEL 7.9 MG/DL (8.8-10.2); CARBON DIOXIDE LEVEL 24 MEQ/L (21-32); CHLORIDE LEVEL 113 MEQ/L (98-107); GLOMERULAR FILTRATION RATE > 60.0 (>35); GLUCOSE, FASTING 217 MG/DL (70-100); MAGNESIUM LEVEL 1.7 MG/DL (1.8-2.4); SODIUM LEVEL 145 MEQ/L (136-145)
[2019-03-13] MEDS: CLOPIDOGREL 75 MG TAB PO SCH (09:22)
[2019-03-13] MEDS: NS 1,000 ML IV SCH ×2 (09:22→22:06)
[2019-03-13] MEDS: ATORVASTATIN 20 MG TAB PO SCH (09:22)
[2019-03-13] MEDS: APIXABAN 5 MG TAB (ELIQUIS) PO SCH ×2 (09:22→22:04)
[2019-03-13] MEDS: ASPIRIN 81 MG ENTERIC TAB PO SCH (09:22)
[2019-03-13] MEDS: TAMSULOSIN 0.4 MG CAP PO SCH (09:22)
[2019-03-13] MEDS: PANTOPRAZOLE 40MG TAB (PROTONIX) PO SCH (09:22)
[2019-03-13] MEDS: NYSTATIN 100,000 UNITS/GM TOPICAL PWD 15 GM TOP SCH ×2 (09:23→22:06)
--- NOTE | 2019-03-13 10:26 | IPNPDOC ---
Subjective Date Seen The patient was seen on 03/13/19. Subjective Chief Complaint/HPI Patient is very combative at night due to ing, but he is very operative and pleasant during the daylight General: Denies: ROS Unobtainable, Chills, Night Sweats, Fatigue, Malaise, Normal Appetite, Other Symptoms Constitutional: Denies: Chills, Fever, Malaise, Night Sweats, Weakness, Fatigue, Weight Loss, Lethargy, Other Eyes: Denies: Pain, Vision change, Conjunctivae inflammation, Eyelid inflammation, Redness, Other ENT: Denies: Head Aches, Ear Pain, Dysphagia, Sinus Congestion, Post Nasal Drip, Sore Throat, Epistaxis, Other Symptoms Skin: Denies: Rash, Lesions, Jaundice, Bruising, Itching, Dry, Breakdown, Nail Changes, Other Pulmonary: Denies: Dyspnea, Cough, Pleuritic Chest Pain, Other Symptoms Cardiovascular: Denies: Chest Pain, Palpitations, Orthopnea, Paroxysmal Noc. Dy spnea, Edema, Lt Headedness, Other Symptoms Gastrointestinal: Denies: Nausea, Vomiting, Abdominal Pain, Diarrhea, Constipation, Melena, Hematochezia, Other Symptoms Musculoskeletal: Denies: Neck Pain, Back Pain, Shoulder Pain, Arm Pain, Hand Pain, Leg Pain, Foot Pain, Joint Pain, Muscle Pain, Spasms, Other Symptoms Neurological: Denies: Weakness, Numbness, Incoordination, Change in speech, Confusion, Seizures, Other Symptoms Objective Physical Examination General Exam: Positive: Alert, Cooperative Eye Exam: Positive: PERRLA, Conjunctiva & lids normal ENT Exam: Positive: Atraumatic, Mucous membr. moist/pink Neck Exam: Positive: Supple Chest Exam: Positive: Clear to auscultation, Normal air movement Heart Exam: Positive: Rate Normal, Normal S1, Normal S2 Abdomen Exam: Positive: Normal bowel sounds, Soft Skin Exam: Positive: Nl turgor and temperature Assessment /Plan Problems (1) Sepsis Status: Resolved Problem Text: Sepsis with shock secondary to pneumonia Off Levophed Started on IV fluid normal saline 70 mL per hour Continue meropenem and vancomycin Patient is progressively improving Can possibly be transferred to Medr floor today with telemetry A.m. labs Patient is DNR/DNI (2) HTN (hypertension) Status: Chronic Problem Text: Meds on hold secondary to sepsis with shock . We will continue monitoring with the patient is clinically stable and blood pressure has increased, then we'll restart his home meds (3) HLD (hyperlipidemia) Status: Chronic Problem Text: Continue home meds (4) COPD with exacerbation Status: Acute Problem Text: Started on DuoNeb every 4 hours and every 2 hours when necessary Oxygen support Solu-Medrol 60 mg IV every 8 hours Will clinically follow patient and slowly tapered to prednisone (5) BPH (benign prostatic hyperplasia) Status: Chronic Problem Text: History of urinary retention secondary to BPH With indwelling Parks catheter Parks catheter We will leave the Parks in. In the meantime, he'll infection has resolved (6) A-fib Status: Chronic Problem Text: Transferred to [facility] with telemetry Continue apaxiban been aspirin and all other home meds Plan/VTE VTE Prophylaxis Ordered?: Yes VS, I&O, 24H, Fishbone Vital Signs/I&O Vital Signs Date Time Temp Pulse Resp B/P (MAP) Pulse Ox O2 Delivery O2 Flow Rate FiO2 03/13/19 08:00 97.4 97 20 142/75 (97) 94 High Flow Cannula 5.0 I&O- Last 24 Hours up to 6 AM 03/13/19 05:59 Intake Total 4033.9 ml Output Total 250 ml Balance 3783.9 ml Laboratory Data 24H LABS Laboratory Tests 2 03/12/19 12:23: Bedside Glucose (Misc Panel) 177H 03/12/19 17:12: Bedside Glucose (Misc Panel) 143H 03/12/19 20:09: Bedside Glucose (Misc Panel) 186H 03/13/19 07:16: Bedside Glucose (Misc Panel) 208H 03/13/19 07:41: Immature Granulocyte % (Auto) 0.3, White Blood Count 6.2, Red Blood Count 3.07L, Hemoglobin 7.7L, Hematocrit 24.9L, Mean Corpuscular Volume 81.1, Mean Corpuscular Hemoglobin 25.1L, Mean Corpuscular Hemoglobin Concent 30.9L, Red Cell Distribution Width 17.0H, Platelet Count 254, Neutrophils (%) (Auto) 87.0H, Lymphocytes (%) (Auto) 10.0L, Monocytes (%) (Auto) 2.7, Eosinophils (%) (Auto) 0.0, Basophils (%) (Auto) 0.0, Neutrophils # (Auto) 5.4, Lymphocytes # (Auto) 0.6L, Monocytes # (Auto) 0.2, Eosinophils # (Auto) 0.0, Basophils # (Auto) 0.0, Nucleated Red Blood Cells % (auto) 0.0, Anion Gap 8, Glomerular Filtration Rate > 60.0, Blood Urea Nitrogen 26H, Creatinine 1.20, Sodium Level 145, Potassium Level 4.0, Chloride Level 113H, Carbon Dioxide Level 24, Calcium Level 7.9L, Aspartate Amino Transf (AST/SGOT) 6L, Alanine Aminotransferase (ALT/SGPT) 12, Alkaline Phosphatase 74, Total Bilirubin 0.3, Total Protein 5.0L, Albumin 2.3L, Magnesium Level 1.7L, Albumin/Globulin Ratio 0.85L CBC/BMP Laboratory Tests 03/13/19 07:41 Red Blood Count 3.07 L, Mean Corpuscular Volume 81.1, Mean Corpuscular Hemog lobin 25.1 L, Mean Corpuscular Hemoglobin Concent 30.9 L, Red Cell Distribution Width 17.0 H, Neutrophils (%) (Auto) 87.0 H, Lymphocytes (%) (Auto) 10.0 L, Monocytes (%) (Auto) 2.7, Eosinophils (%) (Auto) 0.0, Basophils (%) (Auto) 0.0, Neutrophils # (Auto) 5.4, Lymphocytes # (Auto) 0.6 L, Monocytes # (Auto) 0.2, Eosinophils # (Auto) 0.0, Basophils # (Auto) 0.0, Calcium Level 7.9 L, Aspartate Amino Transf (AST/SGOT) 6 L, Alanine Aminotransferase (ALT/SGPT) 12, Alkaline Phosphatase 74, Total Bilirubin 0.3, Total Protein 5.0 L, Albumin 2.3 L Microbiology Microbiology 03/12/19 Blood Culture - Preliminary, Resulted No growth after 24 hours . All specim... 03/12/19 Blood Culture - Preliminary, Resulted No growth after 24 hours . All specim... 03/12/19 Urine Culture, Received Pending OCTAVIANO MIDDLETON MD Mar 13, 2019 10:26
[2019-03-13] MEDS: MIRALAX *UNIT DOSE* 17GM PACKET PO PRN (12:10)
[2019-03-13] MEDS: QUEtiapine FUMARATE 12.5 MG HALF-TAB PO SCH (22:04)
[2019-03-13] MEDS: ACETAMINOPHEN TAB 650MG DOSE (2X325MG) PO PRN (22:04)
[2019-03-14] MEDS: IPRATROPIUM 0.5MG/ALBUTEROL 2.5MG INH SOL UD 3ML (DUONEB)(J7620) NEB SCH ×6 (04:00→20:00)
[2019-03-14] MEDS: MEROPENEM INJ 1 GM in IV 1 EA IV SCH ×2 (05:28→17:46)
[2019-03-14] MEDS: methylPREDNISolone INJ 125 MG/2 ML VIAL (J2930) IV SCH ×3 (05:28→22:28)
[2019-03-14 06:00] VITALS: BP 130/72
[2019-03-14 06:27] LABS: BASO % 0.1 % (0.0-1.0); HEMATOCRIT 24.8 % (42.0-52.0); HEMOGLOBIN 7.7 g/dl (13.5-17.5); LYMPH # 0.4 10^3/uL (1.5-5.0); LYMPH % 4.6 % (24.0-44.0); MEAN CORPUSCULAR HEMOGLOBIN 24.9 pg (27.0-33.0); MEAN CORPUSCULAR VOLUME 80.3 fl (80.0-96.0); MONO # 0.2 10^3/uL (0.0-0.8); NEUTROPHILS # 7.6 10^3/uL (1.5-8.5); NEUTROPHILS % 92.9 % (36.0-66.0); PLATELET COUNT, AUTOMATED 315 10^3/uL (150-450); RED BLOOD COUNT 3.09 10^6/uL (4.30-6.10); WHITE BLOOD COUNT 8.2 10^3/uL (4.0-10.0)
[2019-03-14 06:50] LABS: ALBUMIN 2.2 GM/DL (3.2-5.2); ALT/SGPT 10 U/L (12-78); BILIRUBIN,TOTAL 0.3 MG/DL (0.2-1.0); BLOOD UREA NITROGEN 25 MG/DL (7-18); CARBON DIOXIDE LEVEL 24 MEQ/L (21-32); CHLORIDE LEVEL 113 MEQ/L (98-107); CREATININE FOR GFR 1.05 MG/DL (0.70-1.30); GLOMERULAR FILTRATION RATE > 60.0 (>35); GLUCOSE, FASTING 231 MG/DL (70-100); POTASSIUM SERUM 3.5 MEQ/L (3.5-5.1); SODIUM LEVEL 144 MEQ/L (136-145); TOTAL PROTEIN 5.3 GM/DL (6.4-8.2); VANCOMYCIN LEVEL TROUGH 10.4 UG/ML (10.0-20.0)
[2019-03-14] MEDS: VANCOMYCIN HCL 1,000 MG, VIAL MATE ADAPTER 1 EACH in D5W/0.2% SODIUM CHLORIDE 250 ML IV SCH (07:17)
[2019-03-14] MEDS: ADVAIR HFA 230/21MCG INHALER INH SCH ×2 (08:27→20:00)
[2019-03-14] MEDS: ASPIRIN 81 MG ENTERIC TAB PO SCH (09:37)
[2019-03-14] MEDS: CLOPIDOGREL 75 MG TAB PO SCH (09:37)
[2019-03-14] MEDS: APIXABAN 5 MG TAB (ELIQUIS) PO SCH ×2 (09:37→20:32)
[2019-03-14] MEDS: PANTOPRAZOLE 40MG TAB (PROTONIX) PO SCH (09:37)
[2019-03-14] MEDS: TAMSULOSIN 0.4 MG CAP PO SCH (09:37)
[2019-03-14] MEDS: ATORVASTATIN 20 MG TAB PO SCH (09:37)
[2019-03-14] MEDS: NYSTATIN 100,000 UNITS/GM TOPICAL PWD 15 GM TOP SCH ×2 (09:38→20:33)
[2019-03-14] MEDS: HumaLOG INSULIN (NovoLOG) PER UNIT SC SCH ×4 (09:38→21:00)
[2019-03-14] MEDS: NS 1,000 ML IV SCH (09:38)
--- NOTE | 2019-03-14 10:33 | IPNPDOC ---
Subjective Date Seen The patient was seen on 03/14/19. Subjective Chief Complaint/HPI Patient is a comfortable, in his bed when asked how he is feeling "I'm is still up straight." He is in no distress and has been transferred to [facility] floor General: Denies: ROS Unobtainable, Chills, Night Sweats, Fatigue, Malaise, Normal Appetite, Other Symptoms Constitutional: Denies: Chills, Fever, Malaise, Night Sweats, Weakness, Fatigue, Weight Loss, Lethargy, Other Eyes: Denies: Pain, Vision change, Conjunctivae inflammation, Eyelid inflammation, Redness, Other ENT: Denies: Head Aches, Ear Pain, Dysphagia, Sinus Congestion, Post Nasal Drip, Sore Throat, Epistaxis, Other Symptoms Skin: Denies: Rash, Lesions, Jaundice, Bruising, Itching, Dry, Breakdown, Nail Changes, Other Pulmonary: Denies: Dyspnea, Cough, Pleuritic Chest Pain, Other Symptoms Cardiovascular: Denies: Chest Pain, Palpitations, Orthopnea, Paroxysmal Noc. Dyspnea, Edema, Lt Headedness, Other Symptoms Gastrointestinal: Denies: Nausea, Vomiting, Abdominal Pain, Diarrhea, Constipation, Melena, Hematochezia, Other Symptoms Musculoskeletal: Denies: Neck Pain, Back Pain, Shoulder Pain, Arm Pain, Hand Pain, Leg Pain, Foot Pain, Joint Pain, Muscle Pain, Spasms, Other Symptoms Neurological: Denies: Weakness, Numbness, Incoordination, Change in speech, Confusion, Seizures, Other Symptoms Objective Physical Examination Neck Exam: Positive: Supple Chest Exam: Positive: Clear to auscultation, Normal air movement Heart Exam: Positive: Rate Normal, Normal S1, Normal S2 Abdomen Exam: Positive: Normal bowel sounds, Soft Skin Exam: Positive: Nl turgor and temperature Assessment /Plan Problems (1) Sepsis Status: Resolved Problem Text: Sepsis with shock secondary to pneumonia Patient was started on Levophed which was DC'd. He remained in ICU telemetry, came stable, has been transferred to the [facility] floor last night Restarted on IV fluid normal saline 70 mL per hour Continue meropenem and vancomycin, responding very well to current antibiotics Patient is progressively improving Patient is DNR/DNI Patient's family has requested no aggressive. I hear measures to be taken on his treatment except conservative medical management including IV fluids, IV antibiotics, and other symptomatic care (2) HTN (hypertension) Status: Chronic Problem Text: Meds on hold secondary to sepsis with shock . We will continue monitoring with the patient is clinically stable and blood pressure has increased, then we'll restart his home meds (3) HLD (hyperlipidemia) Status: Chronic Problem Text: Continue home meds (4) COPD with exacerbation Status: Acute Problem Text: Started on DuoNeb every 4 hours and every 2 hours when necessary Oxygen support Solu-Medrol 60 mg IV every 8 hours Will clinically follow patient and slowly tapered to prednisone (5) BPH (benign prostatic hyperplasia) Status: Chronic Problem Text: History of urinary retention secondary to BPH With indwelling Parks catheter Parks catheter We will leave the Parks in. In the meantime, he'll infection has resolved (6) A-fib Status: Chronic Problem Text: Transferred to [facility] with telemetry Continue apaxiban been aspirin and all other home meds Plan/VTE VTE Prophylaxis Ordered?: Yes VS, I&O, [facility] Vital Signs/I&O Vital Signs Date Time Temp Pulse Resp B/P (MAP) Pulse Ox O2 Delivery O2 Flow Rate FiO2 03/14/19 06:00 97.8 91 20 130/72 (91) 94 High Flow Cannula 5.0 I&O- Last 24 Hours up to 6 AM 03/14/19 06:00 Intake Total 1325 ml Output Total 225 ml Balance 1100 ml Laboratory Data 24H LABS Laboratory Tests 2 03/13/19 12:07: Bedside Glucose (Misc Panel) 305H 03/13/19 17:49: Bedside Glucose (Misc Panel) 277H 03/13/19 20:45: Bedside Glucose (Misc Panel) 244H 03/14/19 06:04: Immature Granulocyte % (Auto) 0.4, White Blood Count 8.2, Red Blood Count 3.09L, Hemoglobin 7.7L, Hematocrit 24.8L, Mean Corpuscular Volume 80.3, Mean Corpuscular Hemoglobin 24.9L, Mean Corpuscular Hemoglobin Concent 31.0L, Red Cell Distribution Width 17.2H, Platelet Count 315, Neutrophils (%) (Auto) 92.9H, Lymphocytes (%) (Auto) 4.6L, Monocytes (%) (Auto) 2.0, Eosinophils (%) (Auto) 0.0, Basophils (%) (Auto) 0.1, Neutrophils # (Auto) 7.6, Lymphocytes # (Auto) 0.4L, Monocytes # (Auto) 0.2, Eosinophils # (Auto) 0.0, Basophils # (Auto) 0.0, Nucleated Red Blood Cells % (auto) 0.0, Anion Gap 7L, Glomerular Filtration Rate > 60.0, Blood Urea Nitrogen 25H, Creatinine 1.05, Sodium Level 144, Potassium Level 3.5, Chloride Level 113H, Carbon Dioxide Level 24, Calcium Level 8.0L, Aspartate Amino Transf (AST/SGOT) 6L, Alanine Aminotransferase (ALT/SGPT) 10L, Alkaline Phosphatase 69, Total Bilirubin 0.3, Total Protein 5.3L, Albumin 2.2L, Albumin/Globulin Ratio 0.71L, Vancomycin Level Trough 10.4 CBC/BMP Laboratory Tests 03/14/19 06:04 Red Blood Count 3.09 L, Mean Corpuscular Volume 80.3, Mean Corpuscular Hemoglobin 24.9 L, Mean Corpuscular Hemoglobin Concent 31.0 L, Red Cell Distribution Width 17.2 H, Neutrophils (%) (Auto) 92.9 H, Lymphocytes (%) (Auto) 4.6 L, Monocytes (%) (Auto) 2.0, Eosinophils (%) (Auto) 0.0, Basophils (%) (Auto) 0.1, Neutrophils # (Auto) 7.6, Lymphocytes # (Auto) 0.4 L, Monocytes # (Auto) 0.2, Eosinophils # (Auto) 0.0, Basophils # (Auto) 0.0, Calcium Level 8.0 L, Aspartate Amino Transf (AST/SGOT) 6 L, Alanine Aminotransferase (ALT/SGPT) 10 L, Alkaline Phosphatase 69, Total Bilirubin 0.3, Total Protein 5.3 L, Albumin 2.2 L Microbiology Microbiology 03/12/19 Blood Culture - Preliminary, Resulted No Growth after 48 hours. All Specime... 03/12/19 Blood Culture - Preliminary, Resulted No Growth after 48 hours. All Specime... 03/12/19 Urine Culture, Received Pending OCTAVIANO MIDDLETON MD Mar 14, 2019 10:33
[2019-03-14 14:05] VITALS: BP 127/69
[2019-03-14] MEDS: ACETAMINOPHEN TAB 650MG DOSE (2X325MG) PO PRN (16:47)
[2019-03-14] MEDS: QUEtiapine FUMARATE 12.5 MG HALF-TAB PO SCH (20:32)
[2019-03-14 22:00] VITALS: BP 129/70
[2019-03-15] MEDS ORDERED: VANCOMYCIN HCL 1,000 MG, VIAL MATE ADAPTER 1 EACH in D5W 250 ML IV SCH (01:00)
[2019-03-15] MEDS: IPRATROPIUM 0.5MG/ALBUTEROL 2.5MG INH SOL UD 3ML (DUONEB)(J7620) NEB SCH ×5 (04:00→15:32)
[2019-03-15] MEDS: MEROPENEM INJ 1 GM in IV 1 EA IV SCH (05:50)
[2019-03-15] MEDS: NS 1,000 ML IV SCH (05:50)
[2019-03-15] MEDS: methylPREDNISolone INJ 125 MG/2 ML VIAL (J2930) IV SCH (05:50)
[2019-03-15 06:00] VITALS: BP 151/97
[2019-03-15] MEDS: HumaLOG INSULIN (NovoLOG) PER UNIT SC SCH ×4 (07:30→21:00)
[2019-03-15] MEDS: ADVAIR HFA 230/21MCG INHALER INH SCH ×3 (07:52→20:03)
[2019-03-15] MEDS: NYSTATIN 100,000 UNITS/GM TOPICAL PWD 15 GM TOP SCH ×2 (08:36→21:43)
[2019-03-15] MEDS: CLOPIDOGREL 75 MG TAB PO SCH (08:36)
[2019-03-15] MEDS: ASPIRIN 81 MG ENTERIC TAB PO SCH (08:36)
[2019-03-15] MEDS: APIXABAN 5 MG TAB (ELIQUIS) PO SCH ×2 (08:36→21:43)
[2019-03-15] MEDS: ATORVASTATIN 20 MG TAB PO SCH (08:37)
[2019-03-15] MEDS: PANTOPRAZOLE 40MG TAB (PROTONIX) PO SCH (08:37)
[2019-03-15] MEDS: TAMSULOSIN 0.4 MG CAP PO SCH (08:37)
--- NOTE | 2019-03-15 10:53 | IPNPDOC ---
Subjective Date Seen The patient was seen on 03/15/19. Subjective Chief Complaint/HPI Patient is comfortable, much better, breathing is better now in no apparent distress Constitutional: Denies: Chills, Fever, Malaise, Night Sweats, Weakness, Fatigue, Weight Loss, Lethargy, Other Eyes: Denies: Pain, Vision change, Conjunctivae inflammation, Eyelid inflammation, Redness, Other ENT: Denies: Head Aches, Ear Pain, Dysphagia, Sinus Congestion, Post Nasal Drip, Sore Throat, Epistaxis, Other Symptoms Skin: Denies: Rash, Lesions, Jaundice, Bruising, Itching, Dry, Breakdown, Nail Changes, Other Pulmonary: Denies: Dyspnea, Cough, Pleuritic Chest Pain, Other Symptoms Cardiovascular: Denies: Chest Pain, Palpitations, Orthopnea, Paroxysmal Noc. Dyspnea, Edema, Lt Headedness, Other Symptoms Gastrointestinal: Denies: Nausea, Vomiting, Abdominal Pain, Diarrhea, Constipation, Melena, Hematochezia, Other Symptoms Genitourinary: Denies: Dysuria, Frequency, Incontinence, Hematuria, Retention, Other Symptoms Musculoskeletal: Denies: Neck Pain, Back Pain, Shoulder Pain, Arm Pain, Hand Pain, Leg Pain, Foot Pain, Joint Pain, Muscle Pain, Spasms, Other Symptoms Neurological: Denies: Weakness, Numbness, Incoordination, Change in speech, Confusion, Seizures, Other Symptoms Objective Physical Examination General Exam: Positive: Alert, Cooperative Neck Exam: Positive: Supple Chest Exam: Positive: Clear to auscultation, Normal air movement Heart Exam: Positive: Rate Normal, Normal S1, Normal S2 Abdomen Exam: Positive: Normal bowel sounds, Soft Skin Exam: Positive: Nl turgor and temperature Assessment /Plan Problems (1) Pneumonia Status: Acute Problem Text: Jeramy respiratory status has greatly improved over last few days . Continue meropenem and vancomycin as patient MRSA screen came out positive for MRSA Will repeat chest x-ray again in a.m. Repeat labs in a.m. Discussed with case management will possibly need subacute rehabilitation facility or home with home care. If agrees Continue present care (2) Sepsis Status: Resolved Problem Text: Sepsis with shock secondary to pneumonia Patient was started on Levophed which was DC'd. He remained in ICU telemetry, came stable, has been transferred to the [facility] floor last night Restarted on IV fluid normal saline 70 mL per hour Continue meropenem and vancomycin, responding very well to current antibiotics Patient is progressively improving Patient is DNR/DNI Patient's family has requested no aggressive. I hear measures to be taken on his treatment except conservative medical management including IV fluids, IV antibiotics, and other symptomatic care (3) HTN (hypertension) Status: Chronic Problem Text: Meds on hold secondary to sepsis with shock . We will continue monitoring with the patient is clinically stable and blood pressure has increased, then we'll restart his home meds (4) HLD (hyperlipidemia) Status: Chronic Problem Text: Continue home meds (5) COPD with exacerbation Status: Acute Problem Text: To decrease her to med 2 every 6 hours and every 2 hours when necessary Oxygen support Will change Solu-Medrol to by mouth prednisone Will clinically follow patient and slowly tapered to prednisone (6) BPH (benign prostatic hyperplasia) Status: Chronic Problem Text: History of urinary retention secondary to BPH With indwelling Parks catheter Parks catheter We will leave the Parks in. In the meantime, he'll infection has resolved (7) A-fib Status: Chronic Problem Text: Transferred to [facility] with telemetry Continue apaxiban been aspirin and all other home meds Plan/VTE VTE Prophylaxis Ordered?: Yes VS, I&O, 24H, Fishbone Vital Signs/I&O Vital Signs Date Time Temp Pulse Resp B/P (MAP) Pulse Ox O2 Delivery O2 Flow Rate FiO2 03/15/19 08:02 3.0 03/15/19 06:00 97.6 73 20 151/97 (115) 93 High Flow Cannula I&O- Last 24 Hours up to 6 AM 03/15/19 05:59 Intake Total 570 ml Output Total 450 ml Balance 120 ml Laboratory Data 24H LABS Laboratory Tests 2 03/14/19 12:20: Bedside Glucose (Misc Panel) 271H 03/14/19 17:12: Bedside Glucose (Misc Panel) 193H 03/14/19 21:26: Bedside Glucose (Misc Panel) 213H 03/15/19 06:58: Bedside Glucose (Misc Panel) 261H Microbiology Microbiology 03/12/19 Blood Culture - Preliminary, Resulted No Growth after 72 hours. All specime... 03/12/19 Blood Culture - Preliminary, Resulted No Growth after 72 hours. All specime... 03/12/19 Urine Culture - Final, Complete Escherichia Coli OCTAVIANO MIDDLETON MD Mar 15, 2019 10:53
[2019-03-15] MEDS: predniSONE 10 MG TAB PO SCH (12:53)
[2019-03-15] MEDS ORDERED: IPRATROPIUM 0.5MG/ALBUTEROL 2.5MG INH SOL UD 3ML (DUONEB)(J7620) NEB SCH (14:00)
[2019-03-15] MEDS: ACETAMINOPHEN TAB 650MG DOSE (2X325MG) PO PRN (21:42)
[2019-03-15] MEDS: AUGMENTIN 875 MG TAB PO SCH (21:43)
[2019-03-15] MEDS: QUEtiapine FUMARATE 12.5 MG HALF-TAB PO SCH (21:43)
[2019-03-15 22:00] VITALS: BP 156/81
[2019-03-16] MEDS: IPRATROPIUM 0.5MG/ALBUTEROL 2.5MG INH SOL UD 3ML (DUONEB)(J7620) NEB SCH ×4 (00:37→19:09)
[2019-03-16 06:00] VITALS: BP 152/73
[2019-03-16 06:40] LABS: BASO % 0.1 % (0.0-1.0); HEMATOCRIT 24.8 % (42.0-52.0); HEMOGLOBIN 7.8 g/dl (13.5-17.5); LYMPH # 0.5 10^3/uL (1.5-5.0); LYMPH % 7.3 % (24.0-44.0); MEAN CORPUSCULAR HEMOGLOBIN 25.7 pg (27.0-33.0); MEAN CORPUSCULAR HGB CONC 31.5 g/dl (32.0-36.5); MEAN CORPUSCULAR VOLUME 81.6 fl (80.0-96.0); MONO # 0.4 10^3/uL (0.0-0.8); MONO % 5.1 % (0.0-5.0); NEUTROPHILS # 6.1 10^3/uL (1.5-8.5); NEUTROPHILS % 86.8 % (36.0-66.0); PLATELET COUNT, AUTOMATED 364 10^3/uL (150-450); RED BLOOD COUNT 3.04 10^6/uL (4.30-6.10)
[2019-03-16 07:04] LABS: ALBUMIN 2.2 GM/DL (3.2-5.2); ALT/SGPT 12 U/L (12-78); BILIRUBIN,TOTAL 0.4 MG/DL (0.2-1.0); BLOOD UREA NITROGEN 26 MG/DL (7-18); CALCIUM LEVEL 8.3 MG/DL (8.8-10.2); CARBON DIOXIDE LEVEL 24 MEQ/L (21-32); CHLORIDE LEVEL 112 MEQ/L (98-107); CREATININE FOR GFR 0.93 MG/DL (0.70-1.30); GLOMERULAR FILTRATION RATE > 60.0 (>35); GLUCOSE, FASTING 207 MG/DL (70-100); SODIUM LEVEL 144 MEQ/L (136-145); TOTAL PROTEIN 4.8 GM/DL (6.4-8.2)
[2019-03-16] MEDS: ADVAIR HFA 230/21MCG INHALER INH SCH ×2 (07:19→18:40)
[2019-03-16] MEDS: HumaLOG INSULIN (NovoLOG) PER UNIT SC SCH ×5 (07:30→21:00)
[2019-03-16] MEDS: AUGMENTIN 875 MG TAB PO SCH ×2 (08:41→21:43)
[2019-03-16] MEDS: ATORVASTATIN 20 MG TAB PO SCH (08:41)
[2019-03-16] MEDS: PANTOPRAZOLE 40MG TAB (PROTONIX) PO SCH (08:42)
[2019-03-16] MEDS: predniSONE 10 MG TAB PO SCH (08:42)
[2019-03-16] MEDS: CLOPIDOGREL 75 MG TAB PO SCH (08:42)
[2019-03-16] MEDS: TAMSULOSIN 0.4 MG CAP PO SCH (08:42)
[2019-03-16] MEDS: ASPIRIN 81 MG ENTERIC TAB PO SCH (08:42)
[2019-03-16] MEDS: APIXABAN 5 MG TAB (ELIQUIS) PO SCH ×2 (08:42→21:44)
[2019-03-16] MEDS: NYSTATIN 100,000 UNITS/GM TOPICAL PWD 15 GM TOP SCH ×2 (08:43→21:00)
[2019-03-16] MEDS ORDERED: predniSONE 10 MG TAB PO SCH (09:00)
--- NOTE | 2019-03-16 14:10 | IPN ---
DATE OF SERVICE: 03/16/2019 The patient denies any fever or chills. Still complains of some shortness of breath and some mild wheezing at the bedside. On high-flow oxygen 98% with 3 liters nasal cannula. The patient still complains of some productive cough with white-yellow sputum. He has no chills, nausea, vomiting. Tolerating his diet well but somewhat pessimistic about his overall prognosis, saying "How long do I have?" OBJECTIVE: PHYSICAL EXAMINATION: Temperature 97.5, pulse 72, respiratory rate 20, blood pressure 152/73, 98% on 3 liters nasal cannula. Generally, the patient is awake, alert, oriented to himself. He is aware of where he is at [facility]. Did not know the date today or the year. He has no use of respiratory accessory muscles. Able to complete his sentences without conversational dyspnea. No icterus or jaundice. Anicteric. No pallor. No jugular venous distention or thyromegaly. Lungs are diminished with bilateral rhonchi. Air entry is decreased at the right base with fine crackles. Heart: S1, S2. Irregular. Abdomen: Is soft, nontender, nondistended. Extremities: Trace edema. LABORATORY DATA: White count 7, hemoglobin 7.8, hematocrit 24.8, platelet count 364. Sodium 144, potassium 4, chloride 112, bicarbonate 24, BUN 26, creatinine 0.93, glucose of 207. IMAGING STUDIES: Chest x-ray 03/13/2019: Chronic changes with superimposed right basal atelectasis. MICROBIOLOGY: Escherichia (E.) coli in urine culture on 03/12/2019. Blood culture: No growth after 72 hours. ASSESSMENT AND PLAN: This is an 89-year-old transferred from [facility] with shortness of breath. Found to have right basilar pneumonia. The patient came in with septic shock with minimal infiltrates in the right midlung. No pneumothorax. Was in intensive care unit (ICU) with Dr. Barlow and was started on Jose-Synephrine and intravenous (IV) fluids for a few minutes but responded well to IV fluid hydration. ISSUES: 1. Septic shock secondary to pneumonia, resolved. 2. Right lower lobe pneumonia. Completed intravenous vancomycin. Continued on nebulizer treatment. Currently, on Augmentin [address] Barolw has signed off. Clinically, still requiring supplemental oxygen. 3. Hypertension. The patient's blood pressure medications have been held due to recent history of septic shock. 4. Dyslipidemia. Resumed on home medications. 5. Chronic obstructive pulmonary disease (COPD) exacerbation. On nebulizer treatments, DuoNebs, and tapering dose of prednisone. 6. Chronic constipation. On bowel regimen. 7. History of cerebrovascular accident (CVA). On chronic Eliquis. 8. History of chronic indwelling catheter with urinary tract infection due to chronic indwelling catheter, resolved. MTDD
[2019-03-16 14:15] VITALS: BP 145/75
[2019-03-16] MEDS: QUEtiapine FUMARATE 12.5 MG HALF-TAB PO SCH (21:44)
[2019-03-16 22:00] VITALS: BP 151/73
[2019-03-17 06:00] VITALS: BP 170/84
[2019-03-17 06:05] LABS: EOS % 0.2 % (0.0-3.0); HEMATOCRIT 24.7 % (42.0-52.0); HEMOGLOBIN 7.7 g/dl (13.5-17.5); LYMPH # 0.7 10^3/uL (1.5-5.0); LYMPH % 13.8 % (24.0-44.0); MEAN CORPUSCULAR HGB CONC 31.2 g/dl (32.0-36.5); MEAN CORPUSCULAR VOLUME 80.2 fl (80.0-96.0); MONO # 0.3 10^3/uL (0.0-0.8); MONO % 5.6 % (0.0-5.0); NEUTROPHILS # 4.1 10^3/uL (1.5-8.5); NEUTROPHILS % 78.7 % (36.0-66.0); PLATELET COUNT, AUTOMATED 376 10^3/uL (150-450); RED BLOOD COUNT 3.08 10^6/uL (4.30-6.10); WHITE BLOOD COUNT 5.2 10^3/uL (4.0-10.0)
[2019-03-17 06:26] LABS: BLOOD UREA NITROGEN 22 MG/DL (7-18); CALCIUM LEVEL 8.1 MG/DL (8.8-10.2); CARBON DIOXIDE LEVEL 25 MEQ/L (21-32); CHLORIDE LEVEL 112 MEQ/L (98-107); CREATININE FOR GFR 0.88 MG/DL (0.70-1.30); GLOMERULAR FILTRATION RATE > 60.0 (>35); GLUCOSE, FASTING 145 MG/DL (70-100); SODIUM LEVEL 143 MEQ/L (136-145)
[2019-03-17] MEDS: IPRATROPIUM 0.5MG/ALBUTEROL 2.5MG INH SOL UD 3ML (DUONEB)(J7620) NEB SCH ×2 (07:41→13:03)
[2019-03-17] MEDS: ADVAIR HFA 230/21MCG INHALER INH SCH ×2 (07:42→20:00)
[2019-03-17] MEDS: HumaLOG INSULIN (NovoLOG) PER UNIT SC SCH ×4 (08:59→21:00)
[2019-03-17] MEDS: predniSONE 10 MG TAB PO SCH (08:59)
[2019-03-17] MEDS: AUGMENTIN 875 MG TAB PO SCH ×2 (09:00→21:29)
[2019-03-17] MEDS: TAMSULOSIN 0.4 MG CAP PO SCH (09:01)
[2019-03-17] MEDS: ASPIRIN 81 MG ENTERIC TAB PO SCH (09:01)
[2019-03-17] MEDS: APIXABAN 5 MG TAB (ELIQUIS) PO SCH ×2 (09:02→21:29)
[2019-03-17] MEDS: FINASTERIDE 5 MG TAB PO SCH (09:02)
[2019-03-17] MEDS: CLOPIDOGREL 75 MG TAB PO SCH (09:02)
[2019-03-17] MEDS: ATORVASTATIN 20 MG TAB PO SCH (09:03)
[2019-03-17] MEDS: ATENOLOL 25 MG TAB PO SCH (09:03)
[2019-03-17] MEDS: PANTOPRAZOLE 40MG TAB (PROTONIX) PO SCH (09:03)
[2019-03-17] MEDS: NYSTATIN 100,000 UNITS/GM TOPICAL PWD 15 GM TOP SCH ×2 (09:04→21:30)
--- NOTE | 2019-03-17 13:40 | IPNPDOC ---
Text Note Date of Service The patient was seen on 03/17/19. NOTE SUBJECTIVE: Patient says feeling unwell today. Could not say what is bothering him. He does say his breathing is not good however that is not different from before, denied any nausea or vomiting , denied any abdominal pain or chest pain or cough. Though rattling sounds can be heard coming from his throat. He is having trouble with swallowing. PHYSICAL EXAMINATION: Vitals: As below GENERAL: the patient is awake, alert, oriented to himself. He is aware of where he is at [facility]. Did not know the date today or the year. He has no use of respiratory accessory muscles. Able to complete his sentences without conversational dyspnea. HEENT: No icterus or jaundice. No pallor. Moist mucous membranes NECK: No jugular venous distention or thyromegaly. Lungs: breath sounds are diminished with coarse sounds bilaterally. Air entry is decreased more at the right base with crackles. Heart: S1, S2. Irregular. No rub murmur or gallop Abdomen: Is soft, nontender, nondistended. Bowel sounds normal Extremities: Trace edema. Skin: Warm and dry. Labs: reviewed MICROBIOLOGY: Escherichia (E.) coli in urine culture on 03/12/2019. Blood culture: No growth till date ASSESSMENT AND PLAN: This is an 89-year-old transferred from [facility] with shortness of breath. Found to have right basilar pneumonia. The patient came in with septic shock with minimal infiltrates in the right midlung. No pneumothorax. Was in intensive care unit (ICU) with Dr. Barlow and was started on Jose-Synephrine and intravenous (IV) fluids for a few minutes but responded well to IV fluid hydration. Acute hypoxic respiratory failure on admission secondary to septic shock and pneumonia. improving. still on oxygen by nasal canula @ 3L Septic shock secondary to pneumonia, resolved. Right lower lobe pneumonia. Completed intravenous vancomycin. Continued on nebulizer treatment. Currently, on Augmentin [address] Barlow has signed off. Hypertension. The patient's blood pressure medications have been held due to recent history of septic shock. However now Bp is rising so will gradually restart home meds started on atenolol and half dose of amlodipine. Dyslipidemia. Resumed on home medications. Chronic obstructive pulmonary disease (COPD) exacerbation. On nebulizer treatments, DuoNebs, and tapering dose of prednisone, advair. H/O CHF Patient's BNP at [place] was elevated, but patient required fluid resuscitation. Will continue to monitor patient closely Type 2 diabetes Sliding scale insulin H/o Chronic Urinary retention Chronic indwelling masters catheter, flomax urinary tract infection due to chronic indwelling catheter, resolved. Atrial fibrillation On Eliquis and atenolol GERD Continue on pantoprazole Chronic constipation. On bowel regimen. History of cerebrovascular accident (CVA). Patient is on statin, plavix, and baby aspirin Dysphagia will get speech and swallow evaluation and follow their recommendations VS,Fishbone, I+O VS, Fishbone, I+O Laboratory Tests 03/17/19 05:35 Red Blood Count 3.08 L, Mean Corpuscular Volume 80.2, Mean Corpuscular Hemo globin 25.0 L, Mean Corpuscular Hemoglobin Concent 31.2 L, Red Cell Distribution Width 17.4 H, Neutrophils (%) (Auto) 78.7 H, Lymphocytes (%) (Auto) 13.8 L, Monocytes (%) (Auto) 5.6 H, Eosinophils (%) (Auto) 0.2, Basophils (%) (Auto) 0.0, Neutrophils # (Auto) 4.1, Lymphocytes # (Auto) 0.7 L, Monocytes # (Auto) 0.3, Eosinophils # (Auto) 0.0, Basophils # (Auto) 0.0, Calcium Level 8.1 L Vital Signs Date Time Temp Pulse Resp B/P (MAP) Pulse Ox O2 Delivery O2 Flow Rate FiO2 03/17/19 06:00 97.8 68 18 170/84 (112) 96 Nasal Cannula 3.0 I&O- Last 24 Hours up to 6 AM 03/17/19 06:00 Intake Total 0 ml Output Total 750 ml Balance -750 ml LEROY GIRARD MD Mar 17, 2019 07:44
[2019-03-17 14:39] VITALS: BP 127/70
[2019-03-17 21:09] VITALS: BP 139/62
[2019-03-17] MEDS: amLODIPine 5 MG TAB PO SCH (21:29)
[2019-03-17] MEDS: QUEtiapine FUMARATE 12.5 MG HALF-TAB PO SCH (21:29)
[2019-03-18 06:36] VITALS: BP 166/72
[2019-03-18] MEDS: IPRATROPIUM 0.5MG/ALBUTEROL 2.5MG INH SOL UD 3ML (DUONEB)(J7620) NEB SCH ×2 (07:57)
[2019-03-18] MEDS: ADVAIR HFA 230/21MCG INHALER INH SCH ×2 (07:57→19:39)
[2019-03-18] MEDS: HumaLOG INSULIN (NovoLOG) PER UNIT SC SCH ×4 (08:28→20:36)
[2019-03-18] MEDS: FINASTERIDE 5 MG TAB PO SCH (08:29)
[2019-03-18] MEDS: NYSTATIN 100,000 UNITS/GM TOPICAL PWD 15 GM TOP SCH ×2 (08:29→20:58)
[2019-03-18] MEDS: predniSONE 10 MG TAB PO SCH (08:29)
[2019-03-18] MEDS: ATORVASTATIN 20 MG TAB PO SCH (08:30)
[2019-03-18] MEDS: CLOPIDOGREL 75 MG TAB PO SCH (08:30)
[2019-03-18] MEDS: AUGMENTIN 875 MG TAB PO SCH ×2 (08:31→20:57)
[2019-03-18] MEDS: ASPIRIN 81 MG ENTERIC TAB PO SCH (08:31)
[2019-03-18] MEDS: APIXABAN 5 MG TAB (ELIQUIS) PO SCH ×2 (08:31→20:57)
[2019-03-18] MEDS: TAMSULOSIN 0.4 MG CAP PO SCH (08:31)
[2019-03-18] MEDS: ATENOLOL 25 MG TAB PO SCH (08:37)
[2019-03-18] MEDS: PANTOPRAZOLE 40MG TAB (PROTONIX) PO SCH (08:37)
[2019-03-18] MEDS ORDERED: LEVALBUTEROL 1.25 MG/0.5 ML CONCENTRATE NEB INH PRN (12:15)
[2019-03-18] MEDS ORDERED: IPRATROPIUM 0.02% SOLN 0.5MG/2.5 ML NEB INH PRN (12:30)
[2019-03-18] MEDS ORDERED: methylPREDNISolone INJ 125 MG/2 ML VIAL (J2930) IV ONE (13:00)
[2019-03-18 13:04] LABS: NT-PRO BNP 6778 PG/ML (<450)
--- NOTE | 2019-03-18 13:11 | IPN ---
DATE: 03/18/2019 The patient continues to have some shortness of breath. He has not ambulated due to severe weakness. He complains of some choking when he eats something and has been evaluated for aspiration with barium swallow. At this time, the patient is not considering feeding tube placement and would rather eat what he can despite with aspiration should this be confirmed. He otherwise denies any chest pain, fever, chills. He still has a cough which is productive of white sputum. He is afebrile and has no chills. OBJECTIVE/PHYSICAL EXAMINATION: Temperature 98, pulse 58, respiratory rate 20, blood pressure 166/72, 85% on 3 liters nasal cannula. Generally, the patient is having some distress with some conversational dyspnea, about four to five words. He has some pursed lips at the bedside, but no cyanosis. No tripod positioning. He is edentulous. No jugular venous distention. No thyromegaly. No cervical lymphadenopathy. The patient has missing teeth Lungs are diminished with coarse rhonchi bilaterally. Heart: S1 and S2. Irregular. Bradycardic. Abdomen: Soft. Nontender. Nondistended. Extremities: No cyanosis or clubbing. CURRENT MEDICATIONS: - Norvasc - atenolol - Proscar - Augmentin - DuoNeb - milk of magnesium - prednisone - Seroquel - MiraLAX - Tylenol - Humalog - Eliquis - aspirin - Lipitor - Plavix - Nystatin - Flomax - Protonix - Advair ASSESSMENT AND PLAN: 1. This is an 89-year-old male transferred from [facility] with shortness of breath and found to have right basilar pneumonia admitted to the intensive care unit with septic shock without pneumothorax, managed with Jose-Synephrine and IV fluids. 2. Septic shock secondary to pneumonia, resolved. 3. Right lower lobe pneumonia, completed intravenous antibiotics, currently on oral Augmentin. Dr. Barlow, pulmonary critical care, has signed off. The patient remains hypoxic. 4. Acute hypoxic respiratory failure secondary to right lower lobe pneumonia and septic shock. Still desaturating. Currently on tapering dose of prednisone for chronic obstructive pulmonary disease (COPD) exacerbation. 5. Dysphagia. Rule out aspiration. The patient underwent a swallow evaluation today. He tells me that he would not consider a feeding tube and would rather aspirate in case a feeding tube is recommended. 6. Hypertension. Blood pressure medications have initially been held due to septic shock. Currently stable. Will continue to monitor with routine vital signs. 7. Dyslipidemia. Resumed on home medications. 8. COPD exacerbation. On nebulizer treatments, DuoNeb. With lower doses of prednisone, patient appears to be much more dyspneic with pursing of his lips today. Will increase the prednisone to 60 mg with a dose of Solu-Medrol right now and change the DuoNeb to every 4 hours until improvement in his shortness of breath. Will also obtain a repeat chest x-ray and check BNP levels to rule out congestive heart failure. The patient had a previous echocardiogram that was in 2009 with ejection fraction (EF) of 60% with mild aortic regurgitation and mitral regurgitation. DISPOSITION: The family is willing to take the patient home. He has three sons and [id number] who are willing to help his at home. The patient currently has responded to treatment and has resolved with his septic shock. He is DO NOT RESUSCITATE, but is not ready for comfort measures. He however does not want a feeding tube to be placed if needed. MARY LOU
--- NOTE | 2019-03-18 13:45 | REP ---
CHEST, SINGLE VIEW: Single view of the chest is performed and compared to multiple prior exams, most recently, 03/13/2019. Chronic fibroatelectatic changes are again seen inferiorly, right greater than left. There may be some mild superimposed infiltrate inferiorly on the right. Heart and mediastinum as well as the remainder of the study is unchanged. 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 There may be some mild superimposed acute interstitial infiltrate in the right lower lung zone. Electronically Signed by Keny Saunders MD 03/18/2019 03:16 P
[2019-03-18 14:00] VITALS: BP 137/65
[2019-03-18] MEDS: IPRATROPIUM 0.02% SOLN 0.5MG/2.5 ML NEB INH SCH ×2 (15:15→19:39)
[2019-03-18] MEDS: LEVALBUTEROL 1.25 MG/0.5 ML CONCENTRATE NEB INH SCH ×2 (15:15→19:39)
--- NOTE | 2019-03-18 16:36 | REP ---
COOKIE SWALLOW The procedure was performed under the direct supervision of Dr. Handley. The procedure was performed with Natalia Mendoza from speech pathology present. 5 ml aliquots of thin, pudding, mixed fruit and solid consistency barium as well as a barium pill were administered. There is no evidence of penetration or aspiration. The detailed report of this examination will be provided by speech pathology. 2.7 minutes of fluoroscopy time was utilized for this procedure. Electronically Signed by GRABIEL Gar 03/18/2019 03:57 P Electronically Signed by Obey Handley MD 03/18/2019 04:27 P
[2019-03-18 20:00] VITALS: BP 127/59
[2019-03-18] MEDS: amLODIPine 5 MG TAB PO SCH (20:57)
[2019-03-18] MEDS: QUEtiapine FUMARATE 12.5 MG HALF-TAB PO SCH (20:57)
[2019-03-19 04:00] VITALS: BP 151/75
[2019-03-19] MEDS: IPRATROPIUM 0.02% SOLN 0.5MG/2.5 ML NEB INH SCH ×6 (04:00→19:52)
[2019-03-19] MEDS: LEVALBUTEROL 1.25 MG/0.5 ML CONCENTRATE NEB INH SCH ×6 (04:00→19:52)
[2019-03-19] MEDS ORDERED: FUROSEMIDE 100 MG/10 ML VIAL (J1940) IV ONE (07:00)
--- NOTE | 2019-03-19 08:29 | IPNPDOC ---
Text Note Date of Service The patient was seen on 03/19/19. NOTE SUBJECTIVE: Patient says he cannot eat as he " is pralyzed". says cannot move his arms or legs . He is very weak. Says he still has cough and some SOB but say the breathing is a little better. He is very frustated that he is just laying there unable to do anything. Has indwelling masters PHYSICAL EXAMINATION: Vitals: As below GENERAL: the patient is awake, alert, oriented to himself. He is aware of where he is at [facility]. Did not know the date today or the year. He has no use of respiratory accessory muscles. Able to complete his sentences without conversational dyspnea. HEENT: No icterus or jaundice. No pallor. Moist mucous membranes NECK: No jugular venous distention or thyromegaly. Lungs: breath sounds are diminished with coarse sounds bilaterally. Air entry is decreased more at the right base with crackles. Heart: S1, S2. Irregular. No rub murmur or gallop Abdomen: Is soft, non tender, non distended. Bowel sounds normal Extremities: 2+ edema in both lower and upper extremities. Skin: Warm and dry. Labs: reviewed MICROBIOLOGY: Escherichia (E.) coli in urine culture on 03/12/2019. Blood culture: No growth till date ASSESSMENT AND PLAN: This is an 89-year-old transferred from [facility] with shortness of breath. Found to have right basilar pneumonia. The patient came in with septic shock with minimal infiltrates in the right midlung. No pneumothorax. Was in intensive care unit (ICU) with Dr. Barlow and was started on Jose-epinephrine and intravenous (IV) fluids for a few minutes but responded well to IV fluid hydration. Chronic obstructive pulmonary disease (COPD) exacerbation. On nebulizer treatments, DuoNebs, advair Prednisone. H/O CHF Patient's BNP is elevated. clinically volume overloaded will give lasix 60 mg iv once. 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 Acute hypoxic respiratory failure on admission secondary to septic shock and pneumonia. improving. still on oxygen by nasal canula @ 3L Septic shock secondary to pneumonia, resolved. Right lower lobe pneumonia. Completed intravenous vancomycin. Continued on nebulizer treatment. Currently, on Augmentin [address] Cain has signed off. Hypertension. The patient's blood pressure medications have been held due to recent history of septic shock. However now Bp is rising so will gradually restart home meds started on atenolol and half dose of amlodipine. Dyslipidemia. Resumed on home medications. Type 2 diabetes Sliding scale insulin H/o Chronic Urinary retention Chronic indwelling masters catheter, flomax urinary tract infection due to chronic indwelling catheter, resolved. Atrial fibrillation On Eliquis and atenolol GERD Continue on pantoprazole Chronic constipation. On bowel regimen. History of Cerebrovascular accident (CVA). Patient is on statin, plavix, and baby aspirin Dysphagia passed swallow evaluation. VS,Fishbone, I+O VS, Fishbone, I+O Vital Signs Date Time Temp Pulse Resp B/P (MAP) Pulse Ox O2 Delivery O2 Flow Rate FiO2 03/19/19 04:00 98.0 63 18 151/75 (100) 97 Nasal Cannula 3.0 I&O- Last 24 Hours up to 6 AM 03/19/19 06:00 Intake Total 960 ml Output Total 750 ml Balance 210 ml LEROY GIRARD MD Mar 19, 2019 08:29
[2019-03-19] MEDS: AUGMENTIN 875 MG TAB PO SCH ×2 (08:38→21:14)
[2019-03-19] MEDS: ATORVASTATIN 20 MG TAB PO SCH (08:38)
[2019-03-19] MEDS: FINASTERIDE 5 MG TAB PO SCH (08:38)
[2019-03-19] MEDS: CLOPIDOGREL 75 MG TAB PO SCH (08:38)
[2019-03-19] MEDS: ASPIRIN 81 MG ENTERIC TAB PO SCH (08:38)
[2019-03-19] MEDS: NYSTATIN 100,000 UNITS/GM TOPICAL PWD 15 GM TOP SCH ×2 (08:42→21:17)
[2019-03-19] MEDS: ATENOLOL 25 MG TAB PO SCH (08:42)
[2019-03-19] MEDS: HumaLOG INSULIN (NovoLOG) PER UNIT SC SCH ×4 (08:43→21:00)
[2019-03-19] MEDS: TAMSULOSIN 0.4 MG CAP PO SCH (08:43)
[2019-03-19] MEDS: APIXABAN 5 MG TAB (ELIQUIS) PO SCH ×2 (08:43→21:14)
[2019-03-19] MEDS: PANTOPRAZOLE 40MG TAB (PROTONIX) PO SCH (08:43)
[2019-03-19] MEDS ORDERED: predniSONE 20 MG TAB PO SCH (09:00)
[2019-03-19] MEDS: ADVAIR HFA 230/21MCG INHALER INH SCH ×2 (10:25→19:52)
[2019-03-19 14:00] VITALS: BP 115/56
[2019-03-19] MEDS: MIRALAX *UNIT DOSE* 17GM PACKET PO PRN (14:16)
[2019-03-19] MEDS: MOM 30ML SUSPENSION UDC PO PRN (14:16)
[2019-03-19] MEDS: ACETAMINOPHEN TAB 650MG DOSE (2X325MG) PO PRN (21:14)
[2019-03-19] MEDS: amLODIPine 5 MG TAB PO SCH (21:14)
[2019-03-19] MEDS: QUEtiapine FUMARATE 12.5 MG HALF-TAB PO SCH (21:14)
[2019-03-19 22:00] VITALS: BP 111/57
[2019-03-20] MEDS: LEVALBUTEROL 1.25 MG/0.5 ML CONCENTRATE NEB INH SCH ×6 (04:00→19:46)
[2019-03-20] MEDS: IPRATROPIUM 0.02% SOLN 0.5MG/2.5 ML NEB INH SCH ×6 (04:00→19:46)
[2019-03-20 06:00] VITALS: BP 156/80
[2019-03-20] MEDS: ADVAIR HFA 230/21MCG INHALER INH SCH ×2 (08:24→19:46)
[2019-03-20] MEDS: HumaLOG INSULIN (NovoLOG) PER UNIT SC SCH ×4 (08:50→20:32)
[2019-03-20] MEDS: TAMSULOSIN 0.4 MG CAP PO SCH (08:50)
[2019-03-20] MEDS: PANTOPRAZOLE 40MG TAB (PROTONIX) PO SCH (08:51)
[2019-03-20] MEDS: APIXABAN 5 MG TAB (ELIQUIS) PO SCH ×2 (08:51→20:49)
[2019-03-20] MEDS: ASPIRIN 81 MG ENTERIC TAB PO SCH (08:51)
[2019-03-20] MEDS: ATORVASTATIN 20 MG TAB PO SCH (08:52)
[2019-03-20] MEDS: AUGMENTIN 875 MG TAB PO SCH ×2 (08:52→20:49)
[2019-03-20] MEDS: ATENOLOL 25 MG TAB PO SCH (08:53)
[2019-03-20] MEDS: FINASTERIDE 5 MG TAB PO SCH (08:53)
[2019-03-20] MEDS: CLOPIDOGREL 75 MG TAB PO SCH (08:53)
[2019-03-20] MEDS: NYSTATIN 100,000 UNITS/GM TOPICAL PWD 15 GM TOP SCH ×2 (08:54→20:49)
[2019-03-20] MEDS ORDERED: FUROSEMIDE 40 MG/4 ML VIAL (J1940) IV ONE (09:00)
[2019-03-20] MEDS: predniSONE 50 MG TAB PO SCH (12:44)
[2019-03-20 14:00] VITALS: BP 99/38
[2019-03-20 20:03] VITALS: BP 133/62
[2019-03-20] MEDS: MOM 30ML SUSPENSION UDC PO PRN (20:48)
[2019-03-20] MEDS: QUEtiapine FUMARATE 12.5 MG HALF-TAB PO SCH (20:49)
[2019-03-20] MEDS: amLODIPine 5 MG TAB PO SCH (20:49)
[2019-03-20] MEDS: ACETAMINOPHEN TAB 650MG DOSE (2X325MG) PO PRN (20:50)
[2019-03-21] MEDS: IPRATROPIUM 0.02% SOLN 0.5MG/2.5 ML NEB INH SCH ×6 (04:00→20:00)
[2019-03-21] MEDS: LEVALBUTEROL 1.25 MG/0.5 ML CONCENTRATE NEB INH SCH ×6 (04:00→20:00)
[2019-03-21 05:46] VITALS: BP 133/63
[2019-03-21 06:38] LABS: HEMATOCRIT 24.1 % (42.0-52.0); HEMOGLOBIN 7.6 g/dl (13.5-17.5); MEAN CORPUSCULAR HEMOGLOBIN 25.8 pg (27.0-33.0); MEAN CORPUSCULAR HGB CONC 31.5 g/dl (32.0-36.5); MEAN CORPUSCULAR VOLUME 81.7 fl (80.0-96.0); PLATELET COUNT, AUTOMATED 345 10^3/uL (150-450); RED BLOOD COUNT 2.95 10^6/uL (4.30-6.10); WHITE BLOOD COUNT 7.2 10^3/uL (4.0-10.0)
[2019-03-21 06:59] LABS: BLOOD UREA NITROGEN 32 MG/DL (7-18); CALCIUM LEVEL 7.8 MG/DL (8.8-10.2); CARBON DIOXIDE LEVEL 29 MEQ/L (21-32); CHLORIDE LEVEL 108 MEQ/L (98-107); CREATININE FOR GFR 0.92 MG/DL (0.70-1.30); GLOMERULAR FILTRATION RATE > 60.0 (>35); GLUCOSE, FASTING 215 MG/DL (70-100); POTASSIUM SERUM 4.1 MEQ/L (3.5-5.1); SODIUM LEVEL 143 MEQ/L (136-145)
[2019-03-21] MEDS: ADVAIR HFA 230/21MCG INHALER INH SCH ×2 (07:39→20:53)
[2019-03-21] MEDS: ASPIRIN 81 MG ENTERIC TAB PO SCH (08:20)
[2019-03-21] MEDS: CLOPIDOGREL 75 MG TAB PO SCH (08:20)
[2019-03-21] MEDS: HumaLOG INSULIN (NovoLOG) PER UNIT SC SCH ×4 (08:20→20:28)
[2019-03-21] MEDS: NYSTATIN 100,000 UNITS/GM TOPICAL PWD 15 GM TOP SCH ×2 (08:20→20:27)
[2019-03-21] MEDS: ATORVASTATIN 20 MG TAB PO SCH (08:20)
[2019-03-21] MEDS: APIXABAN 5 MG TAB (ELIQUIS) PO SCH ×2 (08:20→20:27)
[2019-03-21] MEDS: ATENOLOL 25 MG TAB PO SCH (08:20)
[2019-03-21] MEDS: PANTOPRAZOLE 40MG TAB (PROTONIX) PO SCH (08:20)
[2019-03-21] MEDS: predniSONE 50 MG TAB PO SCH (08:20)
[2019-03-21] MEDS: FINASTERIDE 5 MG TAB PO SCH (08:21)
[2019-03-21] MEDS: AUGMENTIN 875 MG TAB PO SCH (08:21)
[2019-03-21] MEDS: TAMSULOSIN 0.4 MG CAP PO SCH (08:21)
--- NOTE | 2019-03-21 13:16 | IPNPDOC ---
Text Note Date of Service The patient was seen on 03/20/19. NOTE SUBJECTIVE: Patient says that He is very weak. Says he still has cough and some SOB but say the breathing is a little better. He is very frustrated that he is just laying there unable to do anything. Has indwelling masters. Good negative balance after IV lasix yesterday. PHYSICAL EXAMINATION: Vitals: As below GENERAL: the patient is awake, alert, oriented to himself. He is aware of where he is at [facility]. Did not know the date today or the year. He has no use of respiratory accessory muscles. Able to complete his sentences without conversational dyspnea. HEENT: No icterus or jaundice. No pallor. Moist mucous membranes NECK: No jugular venous distention or thyromegaly. Lungs: breath sounds are diminished with coarse sounds bilaterally. Air entry is decreased more at the right base with crackles. Heart: S1, S2. Irregular. No rub murmur or gallop Abdomen: Is soft, non tender, non distended. Bowel sounds normal Extremities: 2+ edema in both lower and upper extremities. Skin: Warm and dry. Labs: reviewed MICROBIOLOGY: Escherichia (E.) coli in urine culture on 03/12/2019. Blood culture: No growth till date ASSESSMENT AND PLAN: This is an 89-year-old transferred from [facility] with shortness of breath. Found to have right basilar pneumonia. The patient came in with septic shock with minimal infiltrates in the right midlung. No pneumothorax. Was in intensive care unit (ICU) with Dr. Barlow and was started on Jose-epinephrine and intravenous (IV) fluids for a few minutes but responded well to IV fluid hydration. Chronic obstructive pulmonary disease (COPD) exacerbation. On nebulizer treatments, DuoNebs, advair Prednisone. H/O CHF Patient's BNP is elevated. clinically volume overloaded will give lasix 60 mg iv once. 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 Acute hypoxic respiratory failure on admission secondary to septic shock and pneumonia. improving. still on oxygen by nasal canula @ 3L Septic shock secondary to pneumonia, resolved. Right lower lobe pneumonia. Completed intravenous vancomycin. Continued on nebulizer treatment. Currently, on Augmentin [address] Barlow has signed off. Hypertension. The patient's blood pressure medications have been held due to recent history of septic shock. However now Bp is rising so will gradually restart home meds started on atenolol and half dose of amlodipine. Dyslipidemia. Resumed on home medications. Type 2 diabetes Sliding scale insulin H/o Chronic Urinary retention Chronic indwelling masters catheter, flomax urinary tract infection due to chronic indwelling catheter, resolved. Atrial fibrillation On Eliquis and atenolol GERD Continue on pantoprazole Chronic constipation. On bowel regimen. History of Cerebrovascular accident (CVA). Patient is on statin, plavix, and baby aspirin Dysphagia passed swallow evaluation. VS,Fishbone, I+O VS, Fishbone, I+O Vital Signs Date Time Temp Pulse Resp B/P (MAP) Pulse Ox O2 Delivery O2 Flow Rate FiO2 03/20/19 06:00 98.1 71 24 156/80 (105) 97 Nasal Cannula 3.0 I&O- Last 24 Hours up to 6 AM 03/20/19 06:00 Intake Total 1080 ml Output Total 1800 ml Balance -720 ml LEROY GIRARD MD Mar 20, 2019 07:15
--- NOTE | 2019-03-21 13:26 | IPNPDOC ---
Text Note Date of Service The patient was seen on 03/21/19. NOTE SUBJECTIVE: Patient says that He is very weak. Says he still has cough and some SOB but say the breathing is a little better. He is very frustrated that he is just laying there unable to do anything. Has indwelling masters. Good negative balance after IV lasix yesterday. PHYSICAL EXAMINATION: Vitals: As below GENERAL: the patient is awake, alert, oriented to himself. He is aware of where he is at [facility]. Did not know the date today or the year. He has no use of respiratory accessory muscles. Able to complete his sentences without conversational dyspnea. HEENT: No icterus or jaundice. No pallor. Moist mucous membranes NECK: No jugular venous distention or thyromegaly. Lungs: breath sounds are diminished with coarse sounds bilaterally. Air entry is decreased more at the right base with crackles. Heart: S1, S2. Irregular. No rub murmur or gallop Abdomen: Is soft, non tender, non distended. Bowel sounds normal Extremities: 2+ edema in both lower and upper extremities. Skin: Warm and dry. Labs: reviewed MICROBIOLOGY: Escherichia (E.) coli in urine culture on 03/12/2019. Blood culture: No growth till date ASSESSMENT AND PLAN: This is an 89-year-old transferred from [facility] with shortness of breath. Found to have right basilar pneumonia. The patient came in with septic shock with minimal infiltrates in the right midlung. No pneumothorax. Was in intensive care unit (ICU) with Dr. Barlow and was started on Jose-epinephrine and intravenous (IV) fluids for a few minutes but responded well to IV fluid hydration. Chronic obstructive pulmonary disease (COPD) exacerbation. On nebulizer treatments, DuoNebs, advair Prednisone. will wean prednisone. H/O CHF with mild exacerbation Patient's BNP is elevated. clinically volume overloaded continue lasix IV daily Monitor I/O . try to wean oxygen. 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 to go to Rehab. Acute hypoxic respiratory failure on admission secondary to septic shock and pneumonia. improving. still on oxygen by nasal canula @ 3L Septic shock secondary to pneumonia, resolved. Right lower lobe pneumonia. Completed intravenous vancomycin. Continued on nebulizer treatment. Currently, on Augmentin [address] Barlow has signed off. Hypertension. The patient's blood pressure medications have been held due to recent history of septic shock. However now Bp is rising so will gradually restart home meds started on atenolol and half dose of amlodipine. Dyslipidemia. Resumed on home medications. Type 2 diabetes Sliding scale insulin H/o Chronic Urinary retention Chronic indwelling masters catheter, flomax urinary tract infection due to chronic indwelling catheter, resolved. Atrial fibrillation On Eliquis and atenolol GERD Continue on pantoprazole Chronic constipation. On bowel regimen. History of Cerebrovascular accident (CVA). Patient is on statin, plavix, and baby aspirin Dysphagia passed swallow evaluation. VS,Fishbone, I+O VS, Fishbone, I+O Laboratory Tests 03/21/19 06:29 Red Blood Count 2.95 L, Mean Corpuscular Volume 81.7, Mean Corpuscular Hemoglobin 25.8 L, Mean Corpuscular Hemoglobin Concent 31.5 L, Red Cell Distribution Width 17.7 H, Calcium Level 7.8 L Vital Signs Date Time Temp Pulse Resp B/P (MAP) Pulse Ox O2 Delivery O2 Flow Rate FiO2 03/21/19 08:30 3.0 03/21/19 08:20 72 133/63 03/21/19 05:46 97.7 16 94 Nasal Cannula I&O- Last 24 Hours up to 6 AM 03/21/19 06:00 Intake Total 708 ml Output Total 2400 ml Balance -1692 ml LEROY GIRARD MD Mar 21, 2019 13:26
[2019-03-21 14:00] VITALS: BP 129/61
[2019-03-21] MEDS ORDERED: FUROSEMIDE 100 MG/10 ML VIAL (J1940) IV ONE (14:00)
[2019-03-21] MEDS: amLODIPine 5 MG TAB PO SCH (20:19)
[2019-03-21] MEDS: QUEtiapine FUMARATE 12.5 MG HALF-TAB PO SCH (20:27)
[2019-03-22] MEDS: ACETAMINOPHEN TAB 650MG DOSE (2X325MG) PO PRN (02:57)
[2019-03-22] MEDS: LEVALBUTEROL 1.25 MG/0.5 ML CONCENTRATE NEB INH SCH ×6 (04:00→20:00)
[2019-03-22] MEDS: IPRATROPIUM 0.02% SOLN 0.5MG/2.5 ML NEB INH SCH ×6 (04:00→20:00)
[2019-03-22 06:00] VITALS: BP 129/63
[2019-03-22] MEDS: ADVAIR HFA 230/21MCG INHALER INH SCH ×2 (07:42→20:46)
[2019-03-22] MEDS: HumaLOG INSULIN (NovoLOG) PER UNIT SC SCH ×4 (08:34→20:24)
[2019-03-22] MEDS: FINASTERIDE 5 MG TAB PO SCH (08:35)
[2019-03-22] MEDS: PANTOPRAZOLE 40MG TAB (PROTONIX) PO SCH (08:35)
[2019-03-22] MEDS: ASPIRIN 81 MG ENTERIC TAB PO SCH (08:35)
[2019-03-22] MEDS: predniSONE 20 MG TAB PO SCH (08:35)
[2019-03-22] MEDS: ATORVASTATIN 20 MG TAB PO SCH (08:35)
[2019-03-22] MEDS: CLOPIDOGREL 75 MG TAB PO SCH (08:35)
[2019-03-22] MEDS: APIXABAN 5 MG TAB (ELIQUIS) PO SCH ×2 (08:36→20:23)
[2019-03-22] MEDS: ATENOLOL 25 MG TAB PO SCH (08:36)
[2019-03-22] MEDS: FUROSEMIDE 40 MG/4 ML VIAL (J1940) IV SCH (08:36)
[2019-03-22] MEDS: NYSTATIN 100,000 UNITS/GM TOPICAL PWD 15 GM TOP SCH ×2 (08:36→20:24)
[2019-03-22] MEDS: TAMSULOSIN 0.4 MG CAP PO SCH (08:36)
--- NOTE | 2019-03-22 11:56 | IPNPDOC ---
Subjective Date Seen The patient was seen on 03/22/19. Subjective Chief Complaint/HPI Patient is comfortable in no distress awaiting placement in a rehabilitation facility Skin: Denies: Rash, Lesions, Jaundice, Bruising, Itching, Dry, Breakdown, Nail Changes, Other Pulmonary: Denies: Dyspnea, Cough, Pleuritic Chest Pain, Other Symptoms Cardiovascular: Denies: Chest Pain, Palpitations, Orthopnea, Paroxysmal Noc. Dyspnea, Edema, Lt Headedness, Other Symptoms Gastrointestinal: Denies: Nausea, Vomiting, Abdominal Pain, Diarrhea, Constipation, Melena, Hematochezia, Other Symptoms Musculoskeletal: Denies: Neck Pain, Back Pain, Shoulder Pain, Arm Pain, Hand Pain, Leg Pain, Foot Pain, Joint Pain, Muscle Pain, Spasms, Other Symptoms Neurological: Denies: Weakness, Numbness, Incoordination, Change in speech, Confusion, Seizures, Other Symptoms Objective Physical Examination General Exam: Positive: Cooperative Neck Exam: Positive: Supple Chest Exam: Positive: Clear to auscultation, Normal air movement Heart Exam: Positive: Rate Normal, Normal S1, Normal S2 Abdomen Exam: Positive: Normal bowel sounds, Soft Skin Exam: Positive: Nl turgor and temperature Assessment /Plan Problems (1) Pneumonia Status: Acute Problem Text: Pts respiratory status has greatly improved Chronic obstructive pulmonary disease (COPD) exacerbation. On nebulizer treatments, DuoNebs, advair Prednisone. will wean prednisone. (2) Sepsis Status: Resolved Problem Text: Sepsis with shock secondary to pneumonia Patient was started on Levophed which was DC'd. He remained in ICU telemetry, came stable, has been transferred to the Medr floor last night Restarted on IV fluid normal saline 70 mL per hour Continue meropenem and vancomycin, responding very well to current antibiotics Patient is progressively improving Patient is DNR/DNI (3) HTN (hypertension) Status: Chronic Problem Text: Meds on hold secondary to sepsis with shock We will continue monitoring with the patient is clinically stable and blood pressure has increased, then we'll restart his home meds (4) HLD (hyperlipidemia) Status: Chronic Problem Text: Continue home meds (5) COPD with exacerbation Status: Acute Problem Text: To decrease her to med 2 every 6 hours and every 2 hours when necessary Oxygen support Will change Solu-Medrol to by mouth prednisone Will clinically follow patient and slowly tapered to prednisone (6) BPH (benign prostatic hyperplasia) Status: Chronic Problem Text: History of urinary retention secondary to BPH With indwelling Parks catheter Parks catheter We will leave the Parks in. 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 Patient to go to rehabilitation for strength training Plan/VTE VTE Prophylaxis Ordered?: Yes VS, I&O, 24H, Fishbone Vital Signs/I&O Vital Signs Date Time Temp Pulse Resp B/P (MAP) Pulse Ox O2 Delivery O2 Flow Rate FiO2 03/22/19 08:50 3.0 03/22/19 08:36 89 129/63 03/22/19 06:00 97.9 20 95 Nasal Cannula I&O- Last 24 Hours up to 6 AM 03/22/19 06:00 Intake Total 1900 ml Output Total 2000 ml Balance -100 ml Laboratory Data 24H LABS Laboratory Tests 2 03/21/19 11:48: Bedside Glucose (Misc Panel) 164H 03/21/19 17:10: Bedside Glucose (Misc Panel) 240H 03/21/19 20:13: Bedside Glucose (Misc Panel) 282H 03/22/19 06:24: Bedside Glucose (Misc Panel) 196H Microbiology Microbiology 03/12/19 Blood Culture - Final, Complete NO GROWTH AFTER 5 DAYS 03/12/19 Blood Culture - Final, Complete NO GROWTH AFTER 5 DAYS 03/12/19 Urine Culture - Final, Complete Escherichia Coli OCTAVIANO MIDDLETON MD Mar 22, 2019 11:56
[2019-03-22 13:58] VITALS: BP 117/52
[2019-03-22 20:23] VITALS: BP 117/52
[2019-03-22] MEDS: amLODIPine 5 MG TAB PO SCH (20:23)
[2019-03-22] MEDS: QUEtiapine FUMARATE 12.5 MG HALF-TAB PO SCH (20:24)
[2019-03-23] MEDS: IPRATROPIUM 0.02% SOLN 0.5MG/2.5 ML NEB INH SCH ×6 (04:00→20:00)
[2019-03-23] MEDS: LEVALBUTEROL 1.25 MG/0.5 ML CONCENTRATE NEB INH SCH ×6 (04:00→20:00)
[2019-03-23 06:49] VITALS: BP 153/82
[2019-03-23] MEDS: predniSONE 20 MG TAB PO SCH (08:21)
[2019-03-23] MEDS: FINASTERIDE 5 MG TAB PO SCH (08:21)
[2019-03-23] MEDS: APIXABAN 5 MG TAB (ELIQUIS) PO SCH ×2 (08:21→20:43)
[2019-03-23] MEDS: PANTOPRAZOLE 40MG TAB (PROTONIX) PO SCH (08:21)
[2019-03-23] MEDS: TAMSULOSIN 0.4 MG CAP PO SCH (08:21)
[2019-03-23] MEDS: FUROSEMIDE 40 MG/4 ML VIAL (J1940) IV SCH (08:21)
[2019-03-23] MEDS: HumaLOG INSULIN (NovoLOG) PER UNIT SC SCH ×4 (08:21→20:44)
[2019-03-23] MEDS: ATORVASTATIN 20 MG TAB PO SCH (08:21)
[2019-03-23] MEDS: ASPIRIN 81 MG ENTERIC TAB PO SCH (08:22)
[2019-03-23] MEDS: CLOPIDOGREL 75 MG TAB PO SCH (08:22)
[2019-03-23] MEDS: ATENOLOL 25 MG TAB PO SCH (08:30)
[2019-03-23] MEDS: NYSTATIN 100,000 UNITS/GM TOPICAL PWD 15 GM TOP SCH ×2 (08:30→20:44)
[2019-03-23] MEDS: ADVAIR HFA 230/21MCG INHALER INH SCH ×2 (08:56→20:00)
--- NOTE | 2019-03-23 11:02 | IPNPDOC ---
Subjective Date Seen The patient was seen on 03/23/19. Subjective Chief Complaint/HPI And comfortable in no apparent distress. Offers no complaints General: Denies: ROS Unobtainable, Chills, Night Sweats, Fatigue, Malaise, Normal Appetite, Other Symptoms Constitutional: Denies: Chills, Fever, Malaise, Night Sweats, Weakness, Fatigue, Weight Loss, Lethargy, Other Skin: Denies: Rash, Lesions, Jaundice, Bruising, Itching, Dry, Breakdown, Nail Changes, Other Pulmonary: Denies: Dyspnea, Cough, Pleuritic Chest Pain, Other Symptoms Cardiovascular: Denies: Chest Pain, Palpitations, Orthopnea, Paroxysmal Noc. Dyspnea, Edema, Lt Headedness, Other Symptoms Gastrointestinal: Denies: Nausea, Vomiting, Abdominal Pain, Diarrhea, Constipation, Melena, Hematochezia, Other Symptoms Musculoskeletal: Denies: Neck Pain, Back Pain, Shoulder Pain, Arm Pain, Hand Pain, Leg Pain, Foot Pain, Joint Pain, Muscle Pain, Spasms, Other Symptoms Neurological: Denies: Weakness, Numbness, Incoordination, Change in speech, Confusion, Seizures, Other Symptoms Objective Physical Examination General Exam: Positive: Cooperative Neck Exam: Positive: Supple Chest Exam: Positive: Clear to auscultation, Normal air movement Heart Exam: Positive: Rate Normal, Normal S1, Normal S2 Abdomen Exam: Positive: Normal bowel sounds, Soft Skin Exam: Positive: Nl turgor and temperature Assessment /Plan Problems (1) Pneumonia Status: Acute Problem Text: Pts respiratory status has greatly improved Chronic obstructive pulmonary disease (COPD) exacerbation. On nebulizer treatments, DuoNebs, advair Prednisone. Wean off prednisone Awaiting transfer to subacute area facility (2) Sepsis Status: Resolved Problem Text: Sepsis with shock secondary to pneumonia Patient was started on Levophed which was DC'd. He remained in ICU telemetry, came stable, has been transferred to the MedSur floor last night Restarted on IV fluid normal saline 70 mL per hour Continue meropenem and vancomycin, responding very well to current antibiotics Patient is progressively improving Patient is DNR/DNI (3) HTN (hypertension) Status: Chronic Problem Text: Meds on hold secondary to sepsis with shock We will continue monitoring with the patient is clinically stable and blood pressure has increased, then we'll restart his home meds (4) HLD (hyperlipidemia) Status: Chronic Problem Text: Continue home meds (5) COPD with exacerbation Status: Acute Problem Text: To decrease her to med 2 every 6 hours and every 2 hours when necessary Oxygen support Will change Solu-Medrol to by mouth prednisone Will clinically follow patient and slowly tapered to prednisone (6) BPH (benign prostatic hyperplasia) Status: Chronic Problem Text: History of urinary retention secondary to BPH With indwelling Parks catheter Praks catheter We will leave the Parks in. 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 Patient to go to rehabilitation for strength training Plan/VTE VTE Prophylaxis Ordered?: Yes VS, I&O, 24H, Fishbone Vital Signs/I&O Vital Signs Date Time Temp Pulse Resp B/P (MAP) Pulse Ox O2 Delivery O2 Flow Rate FiO2 03/23/19 08:30 64 138/60 03/23/19 08:00 3.0 03/23/19 06:49 98.3 19 96 Nasal Cannula I&O- Last 24 Hours up to 6 AM 03/23/19 06:00 Intake Total 1360 ml Output Total 1300 ml Balance 60 ml Laboratory Data 24H LABS Laboratory Tests 2 03/22/19 11:49: Bedside Glucose (Misc Panel) 214H 03/22/19 16:56: Bedside Glucose (Misc Panel) 204H 03/22/19 20:19: Bedside Glucose (Misc Panel) 274H 03/23/19 06:51: Bedside Glucose (Misc Panel) 153H OCTAVIANO MIDDLETON MD Mar 23, 2019 11:02
[2019-03-23 14:39] VITALS: BP 124/57
[2019-03-23 20:37] VITALS: BP 129/66
[2019-03-23] MEDS: amLODIPine 5 MG TAB PO SCH (20:43)
[2019-03-23] MEDS: QUEtiapine FUMARATE 12.5 MG HALF-TAB PO SCH (20:43)
[2019-03-24] MEDS: IPRATROPIUM 0.02% SOLN 0.5MG/2.5 ML NEB INH SCH ×7 (02:38→23:34)
[2019-03-24] MEDS: LEVALBUTEROL 1.25 MG/0.5 ML CONCENTRATE NEB INH SCH ×7 (02:39→23:34)
[2019-03-24 06:35] VITALS: BP 150/69
[2019-03-24 07:18] LABS: HEMATOCRIT 23.2 % (42.0-52.0); HEMOGLOBIN 7.2 g/dl (13.5-17.5); MEAN CORPUSCULAR HEMOGLOBIN 25.4 pg (27.0-33.0); MEAN CORPUSCULAR VOLUME 81.7 fl (80.0-96.0); PLATELET COUNT, AUTOMATED 286 10^3/uL (150-450); RED BLOOD COUNT 2.84 10^6/uL (4.30-6.10); WHITE BLOOD COUNT 7.3 10^3/uL (4.0-10.0)
[2019-03-24 07:49] LABS: BLOOD UREA NITROGEN 37 MG/DL (7-18); CARBON DIOXIDE LEVEL 32 MEQ/L (21-32); CHLORIDE LEVEL 105 MEQ/L (98-107); CREATININE FOR GFR 0.98 MG/DL (0.70-1.30); GLOMERULAR FILTRATION RATE > 60.0 (>35); GLUCOSE, FASTING 153 MG/DL (70-100); POTASSIUM SERUM 3.4 MEQ/L (3.5-5.1); SODIUM LEVEL 142 MEQ/L (136-145)
[2019-03-24] MEDS: HumaLOG INSULIN (NovoLOG) PER UNIT SC SCH ×4 (08:42→20:14)
[2019-03-24] MEDS: CLOPIDOGREL 75 MG TAB PO SCH (08:42)
[2019-03-24] MEDS: predniSONE 20 MG TAB PO SCH (08:42)
[2019-03-24] MEDS: TAMSULOSIN 0.4 MG CAP PO SCH (08:42)
[2019-03-24] MEDS: PANTOPRAZOLE 40MG TAB (PROTONIX) PO SCH (08:42)
[2019-03-24] MEDS: ASPIRIN 81 MG ENTERIC TAB PO SCH (08:42)
[2019-03-24] MEDS: FINASTERIDE 5 MG TAB PO SCH (08:42)
[2019-03-24] MEDS: ATENOLOL 25 MG TAB PO SCH (08:42)
[2019-03-24] MEDS: ATORVASTATIN 20 MG TAB PO SCH (08:43)
[2019-03-24] MEDS: NYSTATIN 100,000 UNITS/GM TOPICAL PWD 15 GM TOP SCH ×2 (08:43→20:15)
[2019-03-24] MEDS: APIXABAN 5 MG TAB (ELIQUIS) PO SCH ×2 (08:43→20:13)
[2019-03-24] MEDS: ADVAIR HFA 230/21MCG INHALER INH SCH ×2 (08:45→20:37)
[2019-03-24] MEDS ORDERED: FUROSEMIDE 40 MG/4 ML VIAL (J1940) IV ONE (09:00)
[2019-03-24] MEDS ORDERED: FUROSEMIDE 40 MG TAB PO SCH (09:00)
--- NOTE | 2019-03-24 11:03 | IPNPDOC ---
Subjective Date Seen The patient was seen on 03/24/19. Subjective Chief Complaint/HPI Patient is comfortable offers no new complaints and in no apparent distress General: Denies: ROS Unobtainable, Chills, Night Sweats, Fatigue, Malaise, Normal Appetite, Other Symptoms Skin: Denies: Rash, Lesions, Jaundice, Bruising, Itching, Dry, Breakdown, Nail Changes, Other Pulmonary: Denies: Dyspnea, Cough, Pleuritic Chest Pain, Other Symptoms Cardiovascular: Denies: Chest Pain, Palpitations, Orthopnea, Paroxysmal Noc. Dyspnea, Edema, Lt Headedness, Other Symptoms Gastrointestinal: Denies: Nausea, Vomiting, Abdominal Pain, Diarrhea, Constipation, Melena, Hematochezia, Other Symptoms Genitourinary: Denies: Dysuria, Frequency, Incontinence, Hematuria, Retention, Other Symptoms Musculoskeletal: Denies: Neck Pain, Back Pain, Shoulder Pain, Arm Pain, Hand Pain, Leg Pain, Foot Pain, Joint Pain, Muscle Pain, Spasms, Other Symptoms Neurological: Denies: Weakness, Numbness, Incoordination, Change in speech, Confusion, Seizures, Other Symptoms Objective Physical Examination Neck Exam: Positive: Supple Chest Exam: Positive: Clear to auscultation, Normal air movement Heart Exam: Positive: Rate Normal, Normal S1, Normal S2 Abdomen Exam: Positive: Normal bowel sounds, Soft Skin Exam: Positive: Nl turgor and temperature Assessment /Plan Problems (1) Pneumonia Status: Acute Problem Text: Pts respiratory status has greatly improved Chronic obstructive pulmonary disease (COPD) exacerbation. On nebulizer treatments, blaze [place] Awaiting transfer to subacute area facility (2) Sepsis Status: Resolved Problem Text: Sepsis with shock secondary to pneumonia Patient was started on Levophed which was DC'd. He remained in ICU telemetry, came stable, has been transferred to the Medr floor last night Restarted on IV fluid normal saline 70 mL per hour Finished IV antibiotics Patient is asymptomatic, sepsis and resolved Patient is DNR/DNI (3) HTN (hypertension) Status: Chronic Problem Text: Continue all present meds The patient is under well control (4) HLD (hyperlipidemia) Status: Chronic Problem Text: Continue home meds (5) COPD with exacerbation Status: Acute Problem Text: Continue home meds COPD is under well control (6) BPH (benign prostatic hyperplasia) Status: Chronic Problem Text: History of urinary retention secondary to BPH Continue home meds (7) A-fib Status: Chronic Problem Text: Atrial fibrillation Continue Eliquis and atenolol (8) Quadriplegia, functional Status: Chronic Problem Text: 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 Patient to go to rehabilitation for strength training (9) Anemia Status: Chronic Plan/VTE VTE Prophylaxis Ordered?: Yes VS, I&O, 24H, Fishbone Vital Signs/I&O Vital Signs Date Time Temp Pulse Resp B/P (MAP) Pulse Ox O2 Delivery O2 Flow Rate FiO2 03/24/19 08:42 73 150/69 03/24/19 08:40 3.0 03/24/19 06:35 97.4 20 91 Nasal Cannula I&O- Last 24 Hours up to 6 AM 03/24/19 06:00 Intake Total 1320 ml Output Total 1550 ml Balance -230 ml Laboratory Data 24H LABS Laboratory Tests 2 03/23/19 12:10: Bedside Glucose (Misc Panel) 234H 03/23/19 16:48: Bedside Glucose (Misc Panel) 245H 03/23/19 20:38: Bedside Glucose (Misc Panel) 305H 03/24/19 06:30: Nucleated Red Blood Cells % (auto) 0.0, Anion Gap 5L, Glomerular Filtration Rate > 60.0, Blood Urea Nitrogen 37H, Creatinine 0.98, Sodium Level 142, Potassium Level 3.4L, Chloride Level 105, Carbon Dioxide Level 32, Calcium Level 8.0L CBC/BMP Laboratory Tests 03/24/19 06:30 Red Blood Count 2.84 L, Mean Corpuscular Volume 81.7, Mean Corpuscular Hemoglobin 25.4 L, Mean Corpuscular Hemoglobin Concent 31.0 L, Red Cell Distribution Width 18.0 H, Calcium Level 8.0 L OCTAVIANO MIDDLETON MD Mar 24, 2019 11:03
[2019-03-24 14:00] VITALS: BP 120/54
[2019-03-24] MEDS ORDERED: FUROSEMIDE 100 MG/10 ML VIAL (J1940) IV ONE (14:00)
[2019-03-24 19:44] VITALS: BP_SYST 55
[2019-03-24] MEDS: QUEtiapine FUMARATE 12.5 MG HALF-TAB PO SCH (20:13)
[2019-03-24] MEDS: amLODIPine 5 MG TAB PO SCH (20:15)
[2019-03-25] MEDS: IPRATROPIUM 0.02% SOLN 0.5MG/2.5 ML NEB INH SCH ×6 (04:46→23:44)
[2019-03-25] MEDS: LEVALBUTEROL 1.25 MG/0.5 ML CONCENTRATE NEB INH SCH ×6 (04:46→23:44)
[2019-03-25 07:05] VITALS: BP 120/58
[2019-03-25] MEDS: HumaLOG INSULIN (NovoLOG) PER UNIT SC SCH ×4 (07:30→20:09)
[2019-03-25] MEDS: ADVAIR HFA 230/21MCG INHALER INH SCH ×2 (07:54→20:18)
[2019-03-25] MEDS: FINASTERIDE 5 MG TAB PO SCH (08:37)
[2019-03-25] MEDS: CLOPIDOGREL 75 MG TAB PO SCH (08:38)
[2019-03-25] MEDS: APIXABAN 5 MG TAB (ELIQUIS) PO SCH ×2 (08:38→20:09)
[2019-03-25] MEDS: TAMSULOSIN 0.4 MG CAP PO SCH (08:38)
[2019-03-25] MEDS: ASPIRIN 81 MG ENTERIC TAB PO SCH (08:38)
[2019-03-25] MEDS: ATORVASTATIN 20 MG TAB PO SCH (08:38)
[2019-03-25] MEDS: FUROSEMIDE 40 MG TAB PO SCH ×2 (08:38→17:47)
[2019-03-25] MEDS: ATENOLOL 25 MG TAB PO SCH (08:38)
[2019-03-25] MEDS: PANTOPRAZOLE 40MG TAB (PROTONIX) PO SCH (08:38)
[2019-03-25] MEDS: predniSONE 20 MG TAB PO SCH (08:38)
[2019-03-25] MEDS: NYSTATIN 100,000 UNITS/GM TOPICAL PWD 15 GM TOP SCH ×2 (08:39→20:10)
--- NOTE | 2019-03-25 10:31 | IPNPDOC ---
Subjective Date Seen The patient was seen on 03/25/19. Subjective Chief Complaint/HPI Patient is comfortable. His respiration is much better off was no new complaints, awaiting to come and sign forms for blood transfusion General: Denies: ROS Unobtainable, Chills, Night Sweats, Fatigue, Malaise, Normal Appetite, Other Symptoms Skin: Denies: Rash, Lesions, Jaundice, Bruising, Itching, Dry, Breakdown, Nail Changes, Other Pulmonary: Denies: Dyspnea, Cough, Pleuritic Chest Pain, Other Symptoms Cardiovascular: Denies: Chest Pain, Palpitations, Orthopnea, Paroxysmal Noc. Dyspnea, Edema, Lt Headedness, Other Symptoms Gastrointestinal: Denies: Nausea, Vomiting, Abdominal Pain, Diarrhea, Constipation, Melena, Hematochezia, Other Symptoms Musculoskeletal: Denies: Neck Pain, Back Pain, Shoulder Pain, Arm Pain, Hand Pa in, Leg Pain, Foot Pain, Joint Pain, Muscle Pain, Spasms, Other Symptoms Neurological: Denies: Weakness, Numbness, Incoordination, Change in speech, Confusion, Seizures, Other Symptoms Objective Physical Examination Neck Exam: Positive: Supple Chest Exam: Positive: Clear to auscultation, Normal air movement Heart Exam: Positive: Rate Normal, Normal S1, Normal S2 Abdomen Exam: Positive: Normal bowel sounds, Soft Skin Exam: Positive: Nl turgor and temperature Assessment /Plan Problems (1) Pneumonia Status: Acute Problem Text: Pts respiratory status has greatly improved Chronic obstructive pulmonary disease (COPD) exacerbation. On nebulizer treatments, [place] blaze Awaiting transfer to subacute area facility Will order a palliative care consult and will also speak with the about comfort measures only. When she comes today (2) Sepsis Status: Resolved Problem Text: Sepsis with shock secondary to pneumonia Patient was started on Levophed which was DC'd. He remained in ICU telemetry, came stable, [facility] last night Patient of antibiotics of IV fluids Finished IV antibiotics Patient is asymptomatic, sepsis and resolved Patient is DNR/DNI (3) HTN (hypertension) Status: Chronic Problem Text: Continue all present meds The patient is under well control (4) HLD (hyperlipidemia) Status: Chronic Problem Text: Continue home meds (5) COPD with exacerbation Status: Acute Problem Text: Continue home meds COPD is under well control (6) BPH (benign prostatic hyperplasia) Status: Chronic Problem Text: History of urinary retention secondary to BPH Continue home meds (7) A-fib Status: Chronic Problem Text: Atrial fibrillation Continue Eliquis and atenolol (8) Quadriplegia, functional Status: Chronic Problem Text: Functional quadripregia due to muscle weakness and severe deconditioning from recent sickness prolonged hospitalization. Patient to go to rehabilitation for strength training (9) Anemia Status: Chronic Problem Text: We'll transfuse 2 units of PRBC once the consent is received from his and along with Will give Lasix to 40 mg IV between 2 units H&H in a.m. Poor prognosis Plan/VTE VTE Prophylaxis Ordered?: Yes VS, I&O, 24H, Fishbone Vital Signs/I&O Vital Signs Date Time Temp Pulse Resp B/P (MAP) Pulse Ox O2 Delivery O2 Flow Rate FiO2 03/25/19 08:38 71 120/58 03/25/19 08:15 3.0 03/25/19 07:05 98.5 18 94 Nasal Cannula I&O- Last 24 Hours up to 6 AM 03/25/19 06:00 Intake Total 970 ml Output Total 2800 ml Balance -1830 ml Laboratory Data 24H LABS Laboratory Tests 2 03/24/19 11:50: Bedside Glucose (Misc Panel) 194H 03/24/19 16:52: Bedside Glucose (Misc Panel) 244H 03/24/19 19:42: Bedside Glucose (Misc Panel) 298H 03/25/19 07:40: Bedside Glucose (Misc Panel) 153H OCTAVIANO MIDDLETON MD Mar 25, 2019 10:31
[2019-03-25 14:42] VITALS: BP 112/57
[2019-03-25] MEDS: QUEtiapine FUMARATE 12.5 MG HALF-TAB PO SCH (20:09)
[2019-03-25] MEDS: amLODIPine 5 MG TAB PO SCH (20:10)
[2019-03-25 20:57] VITALS: BP 110/56
[2019-03-25] MEDS ORDERED: FUROSEMIDE 20 MG/2 ML VIAL (J1940) IV ONE (21:00)
[2019-03-26] MEDS: LEVALBUTEROL 1.25 MG/0.5 ML CONCENTRATE NEB INH SCH ×6 (04:04→23:26)
[2019-03-26] MEDS: IPRATROPIUM 0.02% SOLN 0.5MG/2.5 ML NEB INH SCH ×6 (04:04→23:26)
[2019-03-26 06:38] VITALS: BP 136/64
[2019-03-26 06:54] LABS: BASO % 0.1 % (0.0-1.0); EOS % 0.1 % (0.0-3.0); HEMATOCRIT 31.4 % (42.0-52.0); LYMPH # 1.4 10^3/uL (1.5-5.0); LYMPH % 13.9 % (24.0-44.0); MEAN CORPUSCULAR HEMOGLOBIN 26.5 pg (27.0-33.0); MEAN CORPUSCULAR HGB CONC 31.8 g/dl (32.0-36.5); MEAN CORPUSCULAR VOLUME 83.3 fl (80.0-96.0); MONO # 0.6 10^3/uL (0.0-0.8); MONO % 5.4 % (0.0-5.0); NEUTROPHILS # 8.1 10^3/uL (1.5-8.5); NEUTROPHILS % 79.8 % (36.0-66.0); PLATELET COUNT, AUTOMATED 253 10^3/uL (150-450); RED BLOOD COUNT 3.77 10^6/uL (4.30-6.10); WHITE BLOOD COUNT 10.2 10^3/uL (4.0-10.0)
[2019-03-26] MEDS: ADVAIR HFA 230/21MCG INHALER INH SCH ×2 (07:19→20:42)
[2019-03-26 07:23] LABS: ALBUMIN 2.3 GM/DL (3.2-5.2); ALT/SGPT 18 U/L (12-78); BILIRUBIN,TOTAL 0.9 MG/DL (0.2-1.0); BLOOD UREA NITROGEN 31 MG/DL (7-18); CALCIUM LEVEL 7.9 MG/DL (8.8-10.2); CARBON DIOXIDE LEVEL 30 MEQ/L (21-32); CHLORIDE LEVEL 103 MEQ/L (98-107); CREATININE FOR GFR 0.92 MG/DL (0.70-1.30); GLOMERULAR FILTRATION RATE > 60.0 (>35); GLUCOSE, FASTING 161 MG/DL (70-100); POTASSIUM SERUM 3.3 MEQ/L (3.5-5.1); SODIUM LEVEL 143 MEQ/L (136-145); TOTAL PROTEIN 5.3 GM/DL (6.4-8.2)
[2019-03-26] MEDS ORDERED: POTASSIUM CHLORIDE 10 MEQ SR TABLET PO ONE (07:30)
[2019-03-26] MEDS: ATORVASTATIN 20 MG TAB PO SCH (08:20)
[2019-03-26] MEDS: FUROSEMIDE 40 MG TAB PO SCH ×2 (08:20→17:41)
[2019-03-26] MEDS: predniSONE 20 MG TAB PO SCH (08:21)
[2019-03-26] MEDS: APIXABAN 5 MG TAB (ELIQUIS) PO SCH ×2 (08:21→21:21)
[2019-03-26] MEDS: ATENOLOL 25 MG TAB PO SCH (08:22)
[2019-03-26] MEDS: FINASTERIDE 5 MG TAB PO SCH (08:22)
[2019-03-26] MEDS: CLOPIDOGREL 75 MG TAB PO SCH (08:22)
[2019-03-26] MEDS: PANTOPRAZOLE 40MG TAB (PROTONIX) PO SCH (08:22)
[2019-03-26] MEDS: ASPIRIN 81 MG ENTERIC TAB PO SCH (08:22)
[2019-03-26] MEDS: TAMSULOSIN 0.4 MG CAP PO SCH (08:22)
[2019-03-26] MEDS: HumaLOG INSULIN (NovoLOG) PER UNIT SC SCH ×4 (08:38→21:00)
--- NOTE | 2019-03-26 10:44 | IPNPDOC ---
Subjective Date Seen The patient was seen on 03/26/19. Subjective Chief Complaint/HPI Patient comfortable in no respiratory or cardiac distress. Offers no new complaints General: Denies: ROS Unobtainable, Chills, Night Sweats, Fatigue, Malaise, Normal Appetite, Other Symptoms Constitutional: Denies: Chills, Fever, Malaise, Night Sweats, Weakness, Fatigue, Weight Loss, Lethargy, Other Skin: Denies: Rash, Lesions, Jaundice, Bruising, Itching, Dry, Breakdown, Nail Changes, Other Pulmonary: Denies: Dyspnea, Cough, Pleuritic Chest Pain, Other Symptoms Gastrointestinal: Denies: Nausea, Vomiting, Abdominal Pain, Diarrhea, Constipation, Melena, Hematochezia, Other Symptoms Musculoskeletal: Denies: Neck Pain, Back Pain, Shoulder Pain, Arm Pain, Hand Pain, Leg Pain, Foot Pain, Joint Pain, Muscle Pain, Spasms, Other Symptoms Neurological: Denies: Weakness, Numbness, Incoordination, Change in speech, Confusion, Seizures, Other Symptoms Objective Physical Examination General Exam: Positive: Alert Neck Exam: Positive: Supple Chest Exam: Positive: Clear to auscultation, Normal air movement Heart Exam: Positive: Rate Normal, Normal S1, Normal S2 Abdomen Exam: Positive: Normal bowel sounds, Soft Extremity Exam: Positive: Normal pulses Skin Exam: Positive: Nl turgor and temperature Assessment /Plan Problems (1) Pneumonia Status: Acute Problem Text: Pts respiratory status has greatly improved Chronic obstructive pulmonary disease (COPD) exacerbation. On nebulizer treatments, blaze [place] Awaiting transfer to subacute area facility Will order a palliative care consult Discussed with the yesterday regarding comfort measures only, but she is not radiated, but she signed the consent for blood transfusion. I will continue conversation with patient's frequently regarding patient's management (2) Sepsis Status: Resolved Problem Text: Sepsis with shock secondary to pneumonia Patient was started on Levophed which was DC'd. He remained in ICU telemetry, came stable, has been transferred to the [facility] floor last night Patient of antibiotics of IV fluids Finished IV antibiotics Patient is asymptomatic, sepsis and resolved Patient is DNR/DNI (3) HTN (hypertension) Status: Chronic Problem Text: Continue all present meds The patient is under well control (4) HLD (hyperlipidemia) Status: Chronic Problem Text: Continue home meds (5) COPD with exacerbation Status: Acute Problem Text: Continue home meds COPD is under well control (6) BPH (benign prostatic hyperplasia) Status: Chronic Problem Text: History of urinary retention secondary to BPH Continue home meds (7) A-fib Status: Chronic Problem Text: Atrial fibrillation Continue Eliquis and atenolol (8) Quadriplegia, functional Status: Chronic Problem Text: Functional quadripregia due to muscle weakness and severe deconditioning from recent sickness prolonged hospitalization. Patient to go to rehabilitation for strength training (9) Anemia Status: Chronic Problem Text: 2 units of PRBC were transfused yesterday Patient's hemoglobin is 10, hematocrit 31.4 today Potassium was slightly low 3.4, which was supplemented . We will continue monitoring and transfuse as needed Poor prognosis Plan/VTE VTE Prophylaxis Ordered?: Yes VS, I&O, 24H, Fishbone Vital Signs/I&O Vital Signs Date Time Temp Pulse Resp B/P (MAP) Pulse Ox O2 Delivery O2 Flow Rate FiO2 03/26/19 08:22 79 139/72 03/26/19 07:00 3.0 03/26/19 06:38 98.0 18 95 Nasal Cannula I&O- Last 24 Hours up to 6 AM 03/26/19 06:00 Intake Total 1080 ml Output Total 950 ml Balance 130 ml Laboratory Data 24H LABS Laboratory Tests 2 03/25/19 11:48: Bedside Glucose (Misc Panel) 191H 03/25/19 17:28: Bedside Glucose (Misc Panel) 262H 03/25/19 20:05: Bedside Glucose (Misc Panel) 303H 03/26/19 06:29: Immature Granulocyte % (Auto) 0.7, White Blood Count 10.2H, Red Blood Count 3.77L, Hemoglobin 10.0#L, Hematocrit 31.4L, Mean Corpuscular Volume 83.3, Mean Corpuscular Hemoglobin 26.5L, Mean Corpuscular Hemoglobin Concent 31.8L, Red Cell Distribution Width 17.4H, Platelet Count 253, Neutrophils (%) (Auto) 79.8H, Lymphocytes (%) (Auto) 13.9L, Monocytes (%) (Auto) 5.4H, Eosinophils (%) (Auto) 0.1, Basophils (%) (Auto) 0.1, Neutrophils # (Auto) 8.1, Lymphocytes # (Auto) 1.4L, Monocytes # (Auto) 0.6, Eosinophils # (Auto) 0.0, Basophils # (Auto) 0.0, Nucleated Red Blood Cells % (auto) 0.0, Anion Gap 10, Glomerular Filtration Rate > 60.0, Blood Urea Nitrogen 31H, Creatinine 0.92, Sodium Level 143, Potassium Level 3.3L, Chloride Level 103, Carbon Dioxide Level 30, Calcium Level 7.9L, Aspartate Amino Transf (AST/SGOT) 8, Alanine Aminotransferase (ALT/SGPT) 18, Alkaline Phosphatase 75, Total Bilirubin 0.9, Total Protein 5.3L, Albumin 2.3L, Albumin/Globulin Ratio 0.77L CBC/BMP Laboratory Tests 03/26/19 06:29 Red Blood Count 3.77 L, Mean Corpuscular Volume 83.3, Mean Corpuscular Hemoglobin 26.5 L, Mean Corpuscular Hemoglobin Concent 31.8 L, Red Cell Distribution Width 17.4 H, Neutrophils (%) (Auto) 79.8 H, Lymphocytes (%) (Auto) 13.9 L, Monocytes (%) (Auto) 5.4 H, Eosinophils (%) (Auto) 0.1, Basophils (%) (A uto) 0.1, Neutrophils # (Auto) 8.1, Lymphocytes # (Auto) 1.4 L, Monocytes # (Auto) 0.6, Eosinophils # (Auto) 0.0, Basophils # (Auto) 0.0, Calcium Level 7.9 L, Aspartate Amino Transf (AST/SGOT) 8, Alanine Aminotransferase (ALT/SGPT) 18, Alkaline Phosphatase 75, Total Bilirubin 0.9, Total Protein 5.3 L, Albumin 2.3 L OCTAVIANO MIDDLETON MD Mar 26, 2019 10:44
[2019-03-26] MEDS: NYSTATIN 100,000 UNITS/GM TOPICAL PWD 15 GM TOP SCH ×2 (13:39→21:21)
[2019-03-26 14:00] VITALS: BP 138/73
[2019-03-26] MEDS: ACETAMINOPHEN TAB 650MG DOSE (2X325MG) PO PRN (17:42)
[2019-03-26] MEDS: amLODIPine 5 MG TAB PO SCH (21:00)
[2019-03-26] MEDS: QUEtiapine FUMARATE 12.5 MG HALF-TAB PO SCH (21:21)
[2019-03-26 22:00] VITALS: BP 102/58
[2019-03-27] MEDS: IPRATROPIUM 0.02% SOLN 0.5MG/2.5 ML NEB INH SCH ×6 (03:34→22:41)
[2019-03-27] MEDS: LEVALBUTEROL 1.25 MG/0.5 ML CONCENTRATE NEB INH SCH ×6 (03:35→22:41)
[2019-03-27 06:00] VITALS: BP 138/66
[2019-03-27 07:04] LABS: BASO % 0.1 % (0.0-1.0); HEMATOCRIT 31.9 % (42.0-52.0); HEMOGLOBIN 10.1 g/dl (13.5-17.5); LYMPH # 1.3 10^3/uL (1.5-5.0); MEAN CORPUSCULAR HEMOGLOBIN 26.5 pg (27.0-33.0); MEAN CORPUSCULAR HGB CONC 31.7 g/dl (32.0-36.5); MEAN CORPUSCULAR VOLUME 83.7 fl (80.0-96.0); MONO # 0.7 10^3/uL (0.0-0.8); MONO % 4.7 % (0.0-5.0); NEUTROPHILS # 12.1 10^3/uL (1.5-8.5); NEUTROPHILS % 85.6 % (36.0-66.0); PLATELET COUNT, AUTOMATED 231 10^3/uL (150-450); RED BLOOD COUNT 3.81 10^6/uL (4.30-6.10); WHITE BLOOD COUNT 14.1 10^3/uL (4.0-10.0)
[2019-03-27 07:23] LABS: ALBUMIN 2.2 GM/DL (3.2-5.2); ALT/SGPT 15 U/L (12-78); BLOOD UREA NITROGEN 31 MG/DL (7-18); CALCIUM LEVEL 8.4 MG/DL (8.8-10.2); CARBON DIOXIDE LEVEL 31 MEQ/L (21-32); CHLORIDE LEVEL 101 MEQ/L (98-107); CREATININE FOR GFR 1.04 MG/DL (0.70-1.30); GLOMERULAR FILTRATION RATE > 60.0 (>35); GLUCOSE, FASTING 198 MG/DL (70-100); POTASSIUM SERUM 3.6 MEQ/L (3.5-5.1); SODIUM LEVEL 138 MEQ/L (136-145); TOTAL PROTEIN 5.8 GM/DL (6.4-8.2)
[2019-03-27] MEDS: ADVAIR HFA 230/21MCG INHALER INH SCH ×2 (07:26→20:39)
[2019-03-27] MEDS: FUROSEMIDE 40 MG TAB PO SCH ×2 (07:57→17:46)
[2019-03-27] MEDS: ATORVASTATIN 20 MG TAB PO SCH (07:57)
[2019-03-27] MEDS: ASPIRIN 81 MG ENTERIC TAB PO SCH (07:58)
[2019-03-27] MEDS: FINASTERIDE 5 MG TAB PO SCH (07:58)
[2019-03-27] MEDS: APIXABAN 5 MG TAB (ELIQUIS) PO SCH ×2 (07:58→22:16)
[2019-03-27] MEDS: ATENOLOL 25 MG TAB PO SCH (08:01)
[2019-03-27] MEDS: NYSTATIN 100,000 UNITS/GM TOPICAL PWD 15 GM TOP SCH ×2 (08:02→22:18)
[2019-03-27] MEDS: CLOPIDOGREL 75 MG TAB PO SCH (08:49)
[2019-03-27] MEDS: PANTOPRAZOLE 40MG TAB (PROTONIX) PO SCH (08:49)
[2019-03-27] MEDS: TAMSULOSIN 0.4 MG CAP PO SCH (08:50)
[2019-03-27] MEDS: HumaLOG INSULIN (NovoLOG) PER UNIT SC SCH ×4 (08:50→22:16)
[2019-03-27] MEDS: predniSONE 20 MG TAB PO SCH (08:50)
--- NOTE | 2019-03-27 10:42 | IPNPDOC ---
Subjective Date Seen The patient was seen on 03/27/19. Subjective Chief Complaint/HPI Patient is comfortable, sleeping, easily woke up with a local stimuli, offers no new complaints General: Denies: ROS Unobtainable, Chills, Night Sweats, Fatigue, Malaise, Normal Appetite, Other Symptoms Constitutional: Denies: Chills, Fever, Malaise, Night Sweats, Weakness, Fatigue, Weight Loss, Lethargy, Other Pulmonary: Denies: Dyspnea, Cough, Pleuritic Chest Pain, Other Symptoms Cardiovascular: Denies: Chest Pain, Palpitations, Orthopnea, Paroxysmal Noc. Dyspnea, Edema, Lt Headedness, Other Symptoms Gastrointestinal: Denies: Nausea, Vomiting, Abdominal Pain, Diarrhea, Constipation, Melena, Hematochezia, Other Symptoms Musculoskeletal: Denies: Neck Pain, Back Pain, Shoulder Pain, Arm Pain, Hand Pain, Leg Pain, Foot Pain, Joint Pain, Muscle Pain, Spasms, Other Symptoms Neurological: Denies: Weakness, Numbness, Incoordination, Change in speech, Confusion, Seizures, Other Symptoms Objective Physical Examination General Exam: Positive: Alert Neck Exam: Positive: Supple Chest Exam: Positive: Clear to auscultation, Normal air movement Heart Exam: Positive: Rate Normal, Normal S1, Normal S2 Abdomen Exam: Positive: Normal bowel sounds, Soft Extremity Exam: Positive: Normal pulses Skin Exam: Positive: Nl turgor and temperature Assessment /Plan Problems (1) Pneumonia Status: Acute Problem Text: Pts respiratory status has greatly improved Chronic obstructive pulmonary disease (COPD) exacerbation. On nebulizer treatments, [place] Awaiting transfer to subacute area facility Will order a palliative care consult Discussed with the on her last visit regarding comfort measures only, but s he is not radiated, but she signed the consent for blood transfusion. I will continue conversation with patient's frequently regarding patient's management (2) Sepsis Status: Resolved Problem Text: Sepsis with shock secondary to pneumonia Patient was started on Levophed which was DC'd. He remained in ICU telemetry, came stable, has been transferred to the [facility] floor last night Patient of antibiotics of IV fluids Finished IV antibiotics Patient is asymptomatic, sepsis and resolved Patient is DNR/DNI (3) HTN (hypertension) Status: Chronic Problem Text: Continue all present meds The patient is under well control (4) HLD (hyperlipidemia) Status: Chronic Problem Text: Continue home meds (5) COPD with exacerbation Status: Acute Problem Text: Continue home meds COPD is under well control (6) BPH (benign prostatic hyperplasia) Status: Chronic Problem Text: History of urinary retention secondary to BPH Continue home meds (7) A-fib Status: Chronic Problem Text: Atrial fibrillation Continue Eliquis and atenolol (8) Quadriplegia, functional Status: Chronic Problem Text: Functional quadripregia due to muscle weakness and severe deconditioning from recent sickness prolonged hospitalization. Patient to go to rehabilitation for strength training (9) Anemia Status: Chronic Problem Text: 2 units of PRBC were transfused yesterday Patient's hemoglobin is 10, hematocrit 31.4 today Potassium was slightly low 3.4, which was supplemented . We will continue monitoring and transfuse as needed Poor prognosis Plan/VTE VTE Prophylaxis Ordered?: Yes VS, I&O, 24H, Fishbone Vital Signs/I&O Vital Signs Date Time Temp Pulse Resp B/P (MAP) Pulse Ox O2 Delivery O2 Flow Rate FiO2 03/27/19 08:01 78 134/67 03/27/19 07:05 3.0 03/27/19 06:00 97.6 20 93 Nasal Cannula I&O- Last 24 Hours up to 6 AM 03/27/19 06:00 Intake Total 2620 ml Output Total 3600 ml Balance -980 ml Laboratory Data 24H LABS Laboratory Tests 2 03/26/19 11:41: Bedside Glucose (Misc Panel) 191H 03/26/19 17:11: Bedside Glucose (Misc Panel) 189H 03/26/19 20:22: Bedside Glucose (Misc Panel) 226H 03/27/19 06:24: Immature Granulocyte % (Auto) 0.6, White Blood Count 14.1H, Red Blood Count 3.81L, Hemoglobin 10.1L, Hematocrit 31.9L, Mean Corpuscular Volume 83.7, Mean Corpuscular Hemoglobin 26.5L, Mean Corpuscular Hemoglobin Concent 31.7L, Red Cell Distribution Width 18.3H, Platelet Count 231, Neutrophils (%) (Auto) 85.6H, Lymphocytes (%) (Auto) 9.0L, Monocytes (%) (Auto) 4.7, Eosinophils (%) (Auto) 0.0, Basophils (%) (Auto) 0.1, Neutrophils # (Auto) 12.1H, Lymphocytes # (Auto) 1.3L, Monocytes # (Auto) 0.7, Eosinophils # (Auto) 0.0, Basophils # (Auto) 0.0, Nucleated Red Blood Cells % (auto) 0.0, Anion Gap 6L, Glomerular Filtration Rate > 60.0, Blood Urea Nitrogen 31H, Creatinine 1.04, Sodium Level 138, Potassium Level 3.6, Chloride Level 101, Carbon Dioxide Level 31, Calcium Level 8.4L, Asp artate Amino Transf (AST/SGOT) 8, Alanine Aminotransferase (ALT/SGPT) 15, Alkaline Phosphatase 75, Total Bilirubin 1.0, Total Protein 5.8L, Albumin 2.2L, Albumin/Globulin Ratio 0.61L CBC/BMP Laboratory Tests 03/27/19 06:24 Red Blood Count 3.81 L, Mean Corpuscular Volume 83.7, Mean Corpuscular Hemoglobin 26.5 L, Mean Corpuscular Hemoglobin Concent 31.7 L, Red Cell Distribution Width 18.3 H, Neutrophils (%) (Auto) 85.6 H, Lymphocytes (%) (Auto) 9.0 L, Monocytes (%) (Auto) 4.7, Eosinophils (%) (Auto) 0.0, Basophils (%) (Auto) 0.1, Neutrophils # (Auto) 12.1 H, Lymphocytes # (Auto) 1.3 L, Monocytes # (Auto) 0.7, Eosinophils # (Auto) 0.0, Basophils # (Auto) 0.0, Calcium Level 8.4 L, Aspartate Amino Transf (AST/SGOT) 8, Alanine Aminotransferase (ALT/SGPT) 15, Alkaline Phosphatase 75, Total Bilirubin 1.0, Total Protein 5.8 L, Albumin 2.2 L OCTAVIANO MIDDLETON MD Mar 27, 2019 10:42
[2019-03-27 14:00] VITALS: BP 128/64
[2019-03-27] MEDS: ACETAMINOPHEN TAB 650MG DOSE (2X325MG) PO PRN (17:49)
[2019-03-27] MEDS: amLODIPine 5 MG TAB PO SCH (21:00)
[2019-03-27 22:00] VITALS: BP 107/55
[2019-03-27] MEDS: QUEtiapine FUMARATE 12.5 MG HALF-TAB PO SCH (22:16)
[2019-03-28] MEDS: LEVALBUTEROL 1.25 MG/0.5 ML CONCENTRATE NEB INH SCH ×5 (04:00→20:00)
[2019-03-28] MEDS: IPRATROPIUM 0.02% SOLN 0.5MG/2.5 ML NEB INH SCH ×5 (04:00→20:00)
[2019-03-28 06:00] VITALS: BP 113/63
[2019-03-28] MEDS: ADVAIR HFA 230/21MCG INHALER INH SCH ×2 (07:23→20:12)
[2019-03-28] MEDS: HumaLOG INSULIN (NovoLOG) PER UNIT SC SCH ×4 (07:38→22:00)
[2019-03-28] MEDS: ASPIRIN 81 MG ENTERIC TAB PO SCH (08:25)
[2019-03-28] MEDS: FINASTERIDE 5 MG TAB PO SCH (08:25)
[2019-03-28] MEDS: TAMSULOSIN 0.4 MG CAP PO SCH (08:25)
[2019-03-28] MEDS: ATORVASTATIN 20 MG TAB PO SCH (08:25)
[2019-03-28] MEDS: CLOPIDOGREL 75 MG TAB PO SCH (08:28)
[2019-03-28] MEDS: FUROSEMIDE 40 MG TAB PO SCH (08:28)
[2019-03-28] MEDS: ATENOLOL 25 MG TAB PO SCH (08:28)
[2019-03-28] MEDS: APIXABAN 5 MG TAB (ELIQUIS) PO SCH ×2 (08:28→22:00)
[2019-03-28] MEDS: PANTOPRAZOLE 40MG TAB (PROTONIX) PO SCH (08:29)
[2019-03-28] MEDS: NYSTATIN 100,000 UNITS/GM TOPICAL PWD 15 GM TOP SCH ×2 (08:29→22:02)
[2019-03-28] MEDS: predniSONE 20 MG TAB PO SCH (08:29)
--- NOTE | 2019-03-28 09:56 | IPNPDOC ---
Subjective Date Seen The patient was seen on 03/28/19. Subjective Chief Complaint/HPI Patient noted to have some shortness of breath, he is refusing to get out of bed blood work or any further help and refusing to offer him any complaints General: Denies: ROS Unobtainable, Chills, Night Sweats, Fatigue, Malaise, Normal Appetite, Other Symptoms Constitutional: Denies: Chills, Fever, Malaise, Night Sweats, Weakness, Fatigue, Weight Loss, Lethargy, Other Pulmonary: Reports: Dyspnea Cardiovascular: Denies: Chest Pain, Palpitations, Orthopnea, Paroxysmal Noc. Dyspnea, Edema, Lt Headedness, Other Symptoms Gastrointestinal: Denies: Nausea, Vomiting, Abdominal Pain, Diarrhea, Constipation, Melena, Hematochezia, Other Symptoms Genitourinary: Denies: Dysuria, Frequency, Incontinence, Hematuria, Retention, Other Symptoms Hematologic: Denies: Bruising, Bleeding Excessively, Petecchia, Purpura, Enlarged Lymph Nodes, Other Hematologic Musculoskeletal: Denies: Neck Pain, Back Pain, Shoulder Pain, Arm Pain, Hand Pain, Leg Pain, Foot Pain, Joint Pain, Muscle Pain, Spasms, Other Symptoms Neurological: Denies: Weakness, Numbness, Incoordination, Change in speech, Confusion, Seizures, Other Symptoms Objective Physical Examination General Exam: Positive: Alert, Other (not cooperative) Neck Exam: Positive: Supple Chest Exam: Positive: Rales (. Bilateral rales noted on auscultation) Heart Exam: Positive: Rate Normal, Normal S1, Normal S2 Abdomen Exam: Positive: Normal bowel sounds, Soft Extremity Exam: Positive: Normal pulses Skin Exam: Positive: Nl turgor and temperature Assessment /Plan Problems (1) Pneumonia Status: Resolved Problem Text: Pts respiratory status has greatly improved Chronic obstructive pulmonary disease (COPD) exacerbation. On nebulizer treatments, blaze [place] Plan was to transfer patient to subacute care facility but patient is declining in his health Palliative care consult was called still pending Discussed with the on her last visit regarding comfort measures only, but she is not ready yet, but she signed the consent for blood transfusion. I will continue conversation with patient's frequently regarding patient's management (2) Sepsis Status: Resolved Problem Text: Sepsis with shock secondary to pneumonia Patient was started on Levophed which was DC'd. He remained in ICU telemetry, came stable, [facility] Patient of antibiotics of IV fluids Finished IV antibiotics Patient is asymptomatic, sepsis and resolved Patient is DNR/DNI (3) HTN (hypertension) Status: Chronic Problem Text: Continue all present meds The patient is under well control (4) HLD (hyperlipidemia) Status: Chronic Problem Text: Continue home meds (5) COPD with exacerbation Status: Acute Problem Text: Continue home meds COPD is under well control (6) BPH (benign prostatic hyperplasia) Status: Chronic Problem Text: History of urinary retention secondary to BPH Continue home meds (7) A-fib Status: Chronic Problem Text: Atrial fibrillation Continue Eliquis and atenolol (8) Quadriplegia, functional Status: Chronic Problem Text: Functional quadripregia due to muscle weakness and severe deconditioning from recent sickness prolonged hospitalization. Patient refusing to get out of bed or participated with physical therapy and occupational therapy Poor prognosis (9) Anemia Status: Resolved Problem Text: 2 units of PRBC were transfused yesterday Patient's hemoglobin is 10, hematocrit 31.4 today Potassium was slightly low 3.4, which was supplemented . We will continue monitoring and transfuse as needed Poor prognosis (10) Pulmonary edema Status: Acute Problem Text: , Shortness of breath, most likely secondary to pulmonary edema Will give Lasix 60 mg IV push times one dose Repeat chest x-ray if patient allows Increase Lasix to 60 mg by mouth every 12 hours Patient's does not want any heroic measures, just symptomatic care Will await palliative care consult and hopefully convince for comfort measures only Poor prognosis Plan/VTE VTE Prophylaxis Ordered?: Yes VS, I&O, 24H, [facility] Vital Signs/I&O Vital Signs Date Time Temp Pulse Resp B/P (MAP) Pulse Ox O2 Delivery O2 Flow Rate FiO2 03/28/19 08:28 65 141/62 03/28/19 06:00 96.1 20 96 Nasal Cannula 4.0 I&O- Last 24 Hours up to 6 AM 03/28/19 05:59 Intake Total 1676 ml Output Total 2350 ml Balance -674 ml Laboratory Data 24H LABS Laboratory Tests 2 03/27/19 11:29: Bedside Glucose (Misc Panel) 260H 03/27/19 17:31: Bedside Glucose (Misc Panel) 239H 03/27/19 21:02: Bedside Glucose (Misc Panel) 254H OCTAVIANO MIDDLETON MD Mar 28, 2019 09:56
[2019-03-28] MEDS ORDERED: FUROSEMIDE 100 MG/10 ML VIAL (J1940) IV ONE (10:00)
[2019-03-28] MEDS: ACETAMINOPHEN TAB 650MG DOSE (2X325MG) PO PRN ×2 (13:43→22:03)
[2019-03-28] MEDS: FUROSEMIDE 20 MG TAB PO SCH (17:02)
[2019-03-28 22:00] VITALS: BP 130/42
[2019-03-28] MEDS: QUEtiapine FUMARATE 12.5 MG HALF-TAB PO SCH (22:00)
[2019-03-28] MEDS: amLODIPine 5 MG TAB PO SCH (22:02)
[2019-03-29] MEDS: IPRATROPIUM 0.02% SOLN 0.5MG/2.5 ML NEB INH SCH ×5 (03:27→11:28)
[2019-03-29] MEDS: LEVALBUTEROL 1.25 MG/0.5 ML CONCENTRATE NEB INH SCH ×5 (03:28→11:29)
[2019-03-29] MEDS: ACETAMINOPHEN TAB 650MG DOSE (2X325MG) PO PRN (05:58)
[2019-03-29 06:00] VITALS: BP 118/80
[2019-03-29 06:57] LABS: HEMATOCRIT 30.7 % (42.0-52.0); HEMOGLOBIN 9.8 g/dl (13.5-17.5); MEAN CORPUSCULAR HEMOGLOBIN 25.9 pg (27.0-33.0); MEAN CORPUSCULAR HGB CONC 31.9 g/dl (32.0-36.5); MEAN CORPUSCULAR VOLUME 81.2 fl (80.0-96.0); PLATELET COUNT, AUTOMATED 212 10^3/uL (150-450); RED BLOOD COUNT 3.78 10^6/uL (4.30-6.10); WHITE BLOOD COUNT 10.1 10^3/uL (4.0-10.0)
[2019-03-29 07:31] LABS: ALBUMIN 2.1 GM/DL (3.2-5.2); ALT/SGPT 14 U/L (12-78); BILIRUBIN,TOTAL 0.8 MG/DL (0.2-1.0); BLOOD UREA NITROGEN 34 MG/DL (7-18); CALCIUM LEVEL 8.3 MG/DL (8.8-10.2); CARBON DIOXIDE LEVEL 31 MEQ/L (21-32); CHLORIDE LEVEL 101 MEQ/L (98-107); CREATININE FOR GFR 1.16 MG/DL (0.70-1.30); GLOMERULAR FILTRATION RATE > 60.0 (>35); GLUCOSE, FASTING 184 MG/DL (70-100); MAGNESIUM LEVEL 1.6 MG/DL (1.8-2.4); POTASSIUM SERUM 3.9 MEQ/L (3.5-5.1); SODIUM LEVEL 140 MEQ/L (136-145); TOTAL PROTEIN 5.4 GM/DL (6.4-8.2)
[2019-03-29] MEDS: ADVAIR HFA 230/21MCG INHALER INH SCH (08:00)
--- NOTE | 2019-03-29 08:03 | REP ---
Portable chest, 06:52 a.m., single AP view with the patient upright: Comparisons are 03/29/2019, 03/28/2019 and a remote study of 09/03/2016. There is chronic interstitial coarsening compatible with chronic lung disease. There are focal zones of increased density above the dome of each hemidiaphragm as a change from 03/28/2019 representing focal areas of infiltrate. Cardiac size is normal. The rosa maria, mediastinum, skeletal structures are unchanged. Impression: Small focal infiltrates above the dome of each hemidiaphragm. Chronic interstitial coarsening. Electronically Signed by Keny Diaz MD 03/29/2019 07:54 A
[2019-03-29] MEDS ORDERED: SENOKOT S TAB PO PRN (08:30)
[2019-03-29 08:41] VITALS: BP 118/80
[2019-03-29] MEDS: ATENOLOL 25 MG TAB PO SCH (08:41)
[2019-03-29] MEDS: FUROSEMIDE 20 MG TAB PO SCH ×2 (08:41→16:13)
[2019-03-29] MEDS: PANTOPRAZOLE 40MG TAB (PROTONIX) PO SCH (08:41)
[2019-03-29] MEDS: ASPIRIN 81 MG ENTERIC TAB PO SCH (08:41)
[2019-03-29] MEDS: CLOPIDOGREL 75 MG TAB PO SCH (08:41)
[2019-03-29] MEDS: predniSONE 20 MG TAB PO SCH (08:41)
[2019-03-29] MEDS: HumaLOG INSULIN (NovoLOG) PER UNIT SC SCH ×4 (08:41→21:00)
[2019-03-29] MEDS: FINASTERIDE 5 MG TAB PO SCH (08:42)
[2019-03-29] MEDS: NYSTATIN 100,000 UNITS/GM TOPICAL PWD 15 GM TOP SCH ×2 (08:42→21:00)
[2019-03-29] MEDS: ATORVASTATIN 20 MG TAB PO SCH (08:42)
[2019-03-29] MEDS: TAMSULOSIN 0.4 MG CAP PO SCH (08:42)
[2019-03-29] MEDS: APIXABAN 5 MG TAB (ELIQUIS) PO SCH ×2 (08:42→20:36)
[2019-03-29] MEDS ORDERED: traMADol 50 MG TAB PO PRN (09:00)
[2019-03-29] MEDS ORDERED: MOXIFLOXACIN HCL 400 MG in IV 1 EA IV SCH (10:00)
[2019-03-29] MEDS ORDERED: MAG SULF 1GM/100ML (MAG RUN) 1 GM in IV 1 EA IV ONE (11:30)
--- NOTE | 2019-03-29 11:37 | IPNPDOC ---
Text Note Date of Service The patient was seen on 03/29/19. NOTE Subjective: Patient is an 89-year-old male with a PMHx of A. fib, CHF, HTN, DLP, DM2, COPD, Hx of CVA, Chronic indwelling Parks catheter, Hx of UTI, BPH, Arthritis and Cataracts who presented to [facility] as a transfer from [facility] because of shortness of breath. At [facility] patient was found to have a pneumonia and a urinary tract infection and was transferred to [facility] for evaluation and management of sepsis Patient was seen and examined at the bedside. Currently patient denies any difficulty breathing. Denies any cough. Denies chest pain, abdominal pain. Patient does have an indwelling Parks catheter that is present. He reports constipation. Objective: Vitals (See below) General: Lying in bed, no acute distress, comfortable, AAOx3 HEENT: NC, AT CVS: +S1S2 Lungs: Poor inspiratory effort bilaterally, -w/r/r Abdomen: Soft, ND, NT Extremities: - Edema, - Calf tenderness Assessment and plan: Pneumonia - Continue the patient reports that she does not experience any chest pain, shortness of breath or cough - Patient has been febrile this morning at 102 - Lab work has revealed evidence of leukocytosis, however, improved from the last 24 hours - CXR 03/29: Small focal infiltrates above the dome of each hemidiaphragm. Chronic interstitial coarsening. - Patient will be having a swallow evaluation completed today - Will start Moxifloxacin s/p Sepsis - As per discussion with Dr. Recinos; patient's does not want any heroic measures, just symptomatic care - Hospice consult was placed CHF / Pulmonary edema - Physical does not reveal any evidence of fluid overload - ECHO 04/2019: Normal EF, aortic valve sclerosis, trace to mild AR, trace MR, - c/w Furosemide 60 PO BID Normocytic anemia - s/p 2 units PRBC - Hg has improved appropriately A. fib - c/w rate control with Atenolol - c/w full anticoagulation with Eliquis HTN - BP appears well controlled - c/w Atenolol, Amlodipine, Furosemide DLP - c/w ASA DM2 - c/w ISS COPD - no evidence of exacerbation - c/w inhaled therapy as ordered - c/w Prednisone Hx of CVA - c/w ASA and Plavix Chronic indwelling Parks catheter / Hx of UTI / BPH - c/w indwelling Parks catheter - c/w Tamsulosin and Finasteride Arthritis - c/w Tylenol and Tramadol PRN Cataracts Mood disorder - c/w Quetiapine Functional quadriplegia - Poor functional status - Has refused physical therapy and occupational therapy GI prophylaxis - c/w Protonix DVT prophylaxis - c/w full anticoagulation with Eliquis Code status: - DNR / DNI VS,Fishbone, I+O VS, Fishbone, I+O Laboratory Tests 03/29/19 06:45 Red Blood Count 3.78 L, Mean Corpuscular Volume 81.2, Mean Corpuscular Hemoglobin 25.9 L, Mean Corpuscular Hemoglobin Concent 31.9 L, Red Cell Distribution Width 18.6 H, Calcium Level 8.3 L, Aspartate Amino Transf (AST/SGOT) 7, Alanine Aminotransferase (ALT/SGPT) 14, Alkaline Phosphatase 86, Total Bilirubin 0.8, Total Protein 5.4 L, Albumin 2.1 L Vital Signs Date Time Temp Pulse Resp B/P (MAP) Pulse Ox O2 Delivery O2 Flow Rate FiO2 03/29/19 08:41 109 118/80 03/29/19 08:40 99.7 03/29/19 08:00 5.0 03/29/19 06:00 35 89 High Flow Cannula I&O- Last 24 Hours up to 6 AM 03/29/19 05:59 Intake Total 960 ml Output Total 2150 ml Balance -1190 ml TONY LYNN MD Mar 29, 2019 11:37
[2019-03-29] MEDS ORDERED: SCOPOLAMINE 1MG TRANSDERMAL PATCH TOP PRN (12:45)
[2019-03-29] MEDS ORDERED: MORPHINE 4 MG/ML 1ML VIAL/SYRINGE (J2270) IV PRN (12:45)
[2019-03-29] MEDS ORDERED: LORazepam 2 MG/ML VIAL (J2060) IV PRN (12:45)
--- NOTE | 2019-03-29 12:51 | IPNPDOC ---
Text Note Date of Service The patient was seen on 03/29/19. NOTE Update: Patient's clinical status has deteriorated and has required more supplemental oxygen to maintain saturations. Patient is currently DNR and DNI. I contacted his , who is the healthcare proxy. I have informed her of the need for additional supplemental oxygen. At this point, patient will be made comfort measures. MOLST form has been updated to reflect this change. Nonessential medications were discontinued medication for pain control and anxiety relief were instituted. Patient's will be coming in later this afternoon. VS,Fishbone, I+O VS, Fishbone, I+O Laboratory Tests 03/29/19 06:45 Red Blood Count 3.78 L, Mean Corpuscular Volume 81.2, Mean Corpuscular Hemoglobin 25.9 L, Mean Corpuscular Hemoglobin Concent 31.9 L, Red Cell Distribution Width 18.6 H, Calcium Level 8.3 L, Aspartate Amino Transf (AST/SGOT) 7, Alanine Aminotransferase (ALT/SGPT) 14, Alkaline Phosphatase 86, Total Bilirubin 0.8, Total Protein 5.4 L, Albumin 2.1 L Vital Signs Date Time Temp Pulse Resp B/P (MAP) Pulse Ox O2 Delivery O2 Flow Rate FiO2 03/29/19 08:41 109 118/80 03/29/19 08:40 99.7 03/29/19 08:00 5.0 03/29/19 06:00 35 89 High Flow Cannula I&O- Last 24 Hours up to 6 AM 03/29/19 06:00 Intake Total 960 ml Output Total 2250 ml Balance -1290 ml TONY LYNN MD Mar 29, 2019 12:51
[2019-03-29] MEDS ORDERED: MORPHINE 10MG/0.5ML ORAL CONCENTRATE SOLUTION U/D SL PRN (17:00)
[2019-03-29] MEDS: QUEtiapine FUMARATE 12.5 MG HALF-TAB PO SCH (20:36)
[2019-03-29] MEDS: amLODIPine 5 MG TAB PO SCH (20:53)
--- NOTE | 2019-03-30 13:16 | DS.PDOC ---
Discharge Summary General Date of Admission Mar 12, 2019 at 03:10 Date of Discharge 03/30/2019 Discharge Summary PROCEDURES PERFORMED DURING STAY: [None]. ADMITTING DIAGNOSES / DISCHARGE DIAGNOSES: Pneumonia s/p Sepsis CHF / Pulmonary edema Normocytic anemia A. fib HTN DLP DM2 COPD Hx of CVA Chronic indwelling Parks catheter / Hx of UTI / BPH Arthritis Cataracts Mood disorder Functional quadriplegia GI prophylaxis DVT prophylaxis COMPLICATIONS/CHIEF COMPLAINT: Shortness of breath HISTORY OF PRESENT ILLNESS / HOSPITAL COURSE: Patient is an 89-year-old male with a PMHx of A. fib, CHF, HTN, DLP, DM2, COPD, Hx of CVA, Chronic indwelling Parks catheter, Hx of UTI, BPH, Arthritis and Cataracts who presented to [facility] as a transfer from [facility] because of shortness of breath. At [facility] patient was found to have a pneumonia and a urinary tract infection and was transferred to [facility] for evaluation and management of sepsis. Patient remained inpatient for several days being treated for suspected pneumonia. On the morning of 03/29/2019 patient experienced a fever and a full repeat septic workup was completed. Was requiring increased oxygen. Discussed all the findings with patient and healthcare proxy, . It was ultimately decided that the patient will be made comfort measures. Nonessential medications were discontinued and medications for pain and comfort alone were instituted. Patient ultimately was pronounced on 03/30/2019 at 6:25AM. DISCHARGE MEDICATIONS: Please see below. ALLERGIES: Please see below. PHYSICAL EXAMINATION ON DISCHARGE: Not completed LABORATORY DATA: Please see below. DISPOSITION: TIME SPENT ON DISCHARGE: 25 minutes Vital Signs/I&Os Vital Signs Date Time Temp Pulse Resp B/P (MAP) Pulse Ox O2 Delivery O2 Flow Rate FiO2 03/30/19 05:10 15.0 03/29/19 08:41 109 118/80 03/29/19 08:40 99.7 03/29/19 06:00 35 89 High Flow Cannula I&O- Last 24 Hours up to 6 AM 03/30/19 06:00 Intake Total 120 ml Output Total 350 ml Balance -230 ml Microbiology Microbiology 03/29/19 Blood Culture - Preliminary, Resulted No growth after 24 hours . All specim... 03/29/19 Blood Culture - Preliminary, Resulted No growth after 24 hours . All specim... Discharge Medications Scheduled Amlodipine Besylate (Amlodipine Besylate) 10 Mg Tablet, 10 MG PO DAILY, (Reported) Apixaban (Eliquis) 5 Mg Tablet, 5 MG PO BID, (Reported) Aspirin (Aspir 81) 81 Mg Tablet.dr, 81 MG PO DAILY, (Reported) Atenolol (Atenolol) 25 Mg Tablet, 25 MG PO DAILY, (Reported) Atorvastatin Calcium (Atorvastatin Calcium) 20 Mg Tablet, 20 MG PO DAILY, (Reported) Baclofen (Baclofen) 10 Mg Tablet, 10 MG PO QHS, (Reported) Budesonide/Formoterol (Symbicort 160-4.5 Mcg Inhaler) 6 Gm Hfa.aer.ad, 2 PUFF INH BID, (Reported) Clopidogrel Bisulfate (Clopidogrel) 75 Mg Tablet, 75 MG PO DAILY, (Reported) Finasteride (Finasteride) 5 Mg Tablet, 5 MG PO DAILY, (Reported) Furosemide (Furosemide) 20 Mg Tablet, 20 MG PO DAILY, (Reported) Guaifenesin (Mucinex) 600 Mg Tab.er.12h, 600 MG PO BID, (Reported) Hydralazine HCl (Hydralazine HCl) 10 Mg Tablet, 10 MG PO TID, (Reported) Metformin HCl (Metformin HCl) 1,000 Mg Tablet, 1,000 MG PO BID, (Reported) Multivitamins (Thera M Plus Tablet) 1 Each Tablet, 1 TAB PO DAILY, (Reported) Nystatin (Nystatin Powder) 15 Gm Powder, 1 APLCT TOP BID, (Reported) apply to affected area(s) Pantoprazole Sodium (Pantoprazole Sodium) 40 Mg Tablet.dr, 40 MG PO DAILY, (Reported) Salmeterol/Fluticasone (Advair 500-50 Diskus) 1 Each Blst.w.dev, 1 PUFF INH DAILY, (Reported) Tamsulosin Hcl (Tamsulosin HCl) 0.4 Mg Capsule, 0.4 MG PO DAILY, (Reported) Tiotropium [place] (Spiriva) 18 Mcg Cap.w.dev, 1 INHALATION INH DAILY, (Rep orted) Umeclidinium [place] (Incruse Ellipta) 62.5 Mcg Blst.w.dev, 1 PUFF INH DAILY, (Reported) Scheduled PRN Albuterol Sulfate (Proair Hfa) 8.5 Gm Hfa.aer.ad, 2 PUFF INH QID PRN for SHORTNESS OF BREATH, (Reported) Oxycodone HCl/Acetaminophen (Oxycodone-Acetaminophen 5-325) 1 Each Tablet, 1 TAB PO TID PRN for pain, (Reported) Allergies Coded Allergies: No Known Allergies (Verified , 04/25/10) TONY LYNN MD Mar 30, 2019 13:16
== END 2019-03-30 10:20 | disposition expired | DRG 871 ==
LOC: EEVIPCON 03:10 → M ICU 03:10 → M MS5PR 03-13 14:24
PROVIDERS: ADMIT Internal Medicine; ATTEND Internal Medicine
PROC: 30233N1 Transfusion of Nonautologous Red Blood Cells into Peripheral Vein, Percutaneous Approach (ICD-10-PCS; principal; 2019-03-25)
DX: A41.9 Sepsis, unspecified organism (principal); R65.21 Severe sepsis with septic shock; J18.9 Pneumonia, unspecified organism; J96.01 Acute respiratory failure with hypoxia; R53.2 Functional quadriplegia; J81.0 Acute pulmonary edema; J44.1 Chronic obstructive pulmonary disease with (acute) exacerbation; Z66 Do not resuscitate; M19.90 Unspecified osteoarthritis, unspecified site; I50.9 Heart failure, unspecified; I48.2 Chronic atrial fibrillation; E11.9 Type 2 diabetes mellitus without complications; Z86.73 Personal history of transient ischemic attack (TIA), and cerebral infarction without residual deficits; N40.0 Benign prostatic hyperplasia without lower urinary tract symptoms; K21.9 Gastro-esophageal reflux disease without esophagitis; K59.00 Constipation, unspecified; E78.5 Hyperlipidemia, unspecified